=== PATIENT | male | born 1980 | race Hispanic/Latino ===

== ENCOUNTER 2018-01-14 00:08 | Emergency (ER) | payer MEDICAID ==
[2018-01-14 01:20] LABS: Hematocrit 43.7 % (35.5-45.6); Mean Corpuscular HGB Conc 34 % (32-34); Mean Corpuscular Hemoglobin 30 pg (28-32); Mean Corpuscular Volume 89 fl (84-94); Platelet Count 266 K/mm3 (140-440); Red Blood Count 4.93 M/mm3 (3.65-5.03); Red Cell Distribution Width 12.7 % (13.2-15.2)
[2018-01-14 02:51] LABS: BUN/Creatinine Ratio 13; Blood Urea Nitrogen 9 mg/dL (9-20); Calcium 9.5 mg/dL (8.4-10.2); Hemolysis Index 8
[2018-01-14 03:07] LABS: Band Neutrophils # (Manual) 0.6 K/mm3; Basophils % (Manual) 0 % (0.0-1.8); RBC Morphology Normal; Total Cells Counted 100
--- NOTE | 2018-01-14 03:43 | Emergency Department Report ---
HPI - General Chief Complaint: Psych Time Seen by Provider: 01/14/18 03:31 - [facility] HPI: Room 11 The patient is a 37-year-old male presenting with a chief complaint of schizophrenia. The patient has a history of schizophrenia who was brought in by store clerk cashier for evaluation after bizarre behavior. The patient reports lately he's been having auditory hallucinations telling him to "go to hell" as well as hurt himself. The patient states he intentionally hurt himself but punctured himself in the head as well as burning his finger on the stove. The patient states he walked outside today naked smoking a cigarette. Patient denies any forms of pain Location: Mental state Duration: Days Quality: Bizarre Severity: Severe Modifying factors: [see above] Context: [see above] Mode of transportation: [not driving] ED Past Medical Hx - Past Medical History Previous Medical History?: Yes Hx Psychiatric Treatment: Yes (Bipolar, Schizophrenia) - Surgical History Past Surgical History?: Yes Additional Surgical History: Hernia surgery - Family History Family history: no significant - Social History Smoking Status: Current Every Day Smoker (1 pack per day) Substance Use Type: None - Medications Home Medications: Home Medications Medication Instructions Recorded Confirmed Last Taken Type Unobtainable 01/14/18 01/14/18 Unknown History ED Review of Systems ROS: Stated complaint: BIPOLAR Other details as noted in HPI Constitutional: no symptoms reported Eyes: denies: eye pain ENT: denies: throat pain Cardiovascular: denies: chest pain Gastrointestinal: denies: abdominal pain Genitourinary: denies: dysuria Musculoskeletal: denies: back pain Neurological: denies: headache Psychiatric: auditory hallucinations Physical Exam - Physical Exam Vital Signs: Vital Signs 01/14/18 00:48 Temperature 98.0 F Pulse Rate 90 Respiratory 16 Rate Blood Pressure 120/73 O2 Sat by Pulse 94 Oximetry Physical Exam: GENERAL: The patient is well-developed well-nourished male sleeping on stretcher not appearing to be in acute distress. Patient easily awakened HEENT: Normocephalic. Atraumatic. Extraocular motions are intact. Patient has moist mucous membranes. NECK: Supple. Trachea midline CHEST/LUNGS: Clear to auscultation. There is no respiratory distress noted. HEART/CARDIOVASCULAR: Regular. There is no tachycardia. There is no gallop rub or murmur. ABDOMEN: Abdomen is soft, nontender. Patient has normal bowel sounds. There is no abdominal distention. SKIN: There is no rash. There is no edema. There is no diaphoresis. No evidence of burn seen on patient's fingers NEURO: The patient is awake, alert, and oriented. The patient is cooperative. The patient has normal speech MUSCULOSKELETAL: There is no evidence of acute injury. ED Course Vital Signs 01/14/18 00:48 Temperature 98.0 F Pulse Rate 90 Respiratory 16 Rate Blood Pressure 120/73 O2 Sat by Pulse 94 Oximetry ED Medical Decision Making - Lab Data Result diagrams: 01/14/18 00:55 01/14/18 00:55 Laboratory Tests 01/14/18 01/14/18 01/14/18 00:55 00:55 00:55 WBC RBC Hgb Hct MCV MCH MCHC RDW Plt Count Lymph # Add Manual Diff Total Counted Seg Neuts % (Manual) Band Neutrophils % Lymphocytes % (Manual) Reactive Lymphs % (Man) Monocytes % (Manual) Eosinophils % (Manual) Basophils % (Manual) Metamyelocytes % Myelocytes % Promyelocytes % Blast Cells % Nucleated RBC % Seg Neutrophils # Man Band Neutrophils # Lymphocytes # (Manual) Abs React Lymphs (Man) Monocytes # (Manual) Eosinophils # (Manual) Basophils # (Manual) Metamyelocytes # Myelocytes # Promyelocytes # Blast Cells # WBC Morphology Hypersegmented Neuts Hyposegmented Neuts Hypogranular Neuts Smudge Cells Toxic Granulation Toxic Vacuolation Dohle Bodies Pelger-Huet Anomaly Henrique Rods Platelet Estimate Clumped Platelets Plt Clumps, EDTA Large Platelets Giant Platelets Platelet Satelliting Plt Morphology Comment RBC Morphology Dimorphic RBCs Polychromasia Hypochromasia Poikilocytosis Anisocytosis Microcytosis Macrocytosis Spherocytes Pappenheimer Bodies Sickle Cells Target Cells Tear Drop Cells Ovalocytes Helmet Cells [place] Bodies [place] Rings [place] Cells Bite Cells Crenated Cell Elliptocytes Acanthocytes (Spur) Rouleaux Hemoglobin C Crystals Schistocytes Malaria parasites Jaguar Bodies Hem Pathologist Commnt Sodium 137 Potassium 4.0 Chloride 100.1 Carbon Dioxide 23 Anion Gap 18 BUN 9 Creatinine 0.7 L Estimated GFR > 60 BUN/Creatinine Ratio 13 Glucose 115 H Calcium 9.5 Salicylates < 0.3 L Acetaminophen < 5.0 L Plasma/Serum Alcohol 06/12/18 06/12/18 00:55 00:55 WBC 12.2 H RBC 4.93 Hgb 15.0 Hct 43.7 MCV 89 MCH 30 MCHC 34 RDW 12.7 L Plt Count 266 Lymph # Director Of [employer] Add Manual Diff Complete Total Counted 100 Seg Neuts % (Manual) 42.0 Band Neutrophils % 5.0 Lymphocytes % (Manual) 34.0 Reactive Lymphs % (Man) 0 Monocytes % (Manual) 10.0 H Eosinophils % (Manual) 6.0 H Basophils % (Manual) 0 Metamyelocytes % 3.0 Myelocytes % 0 Promyelocytes % 0 Blast Cells % 0 Nucleated RBC % Not Reportable Seg Neutrophils # Man 5.1 Band Neutrophils # 0.6 Lymphocytes # (Manual) 4.1 Abs React Lymphs (Man) 0.0 Monocytes # (Manual) 1.2 H Eosinophils # (Manual) 0.7 H Basophils # (Manual) 0.0 Metamyelocytes # 0.4 Myelocytes # 0.0 Promyelocytes # 0.0 Blast Cells # 0.0 WBC Morphology Not Reportable Hypersegmented Neuts Not Reportable Hyposegmented Neuts Not Reportable Hypogranular Neuts Not Reportable Smudge Cells Not Reportable Toxic Granulation Not Reportable Toxic Vacuolation Not Reportable Dohle Bodies Not Reportable Pelger-Huet Anomaly Not Reportable Henrique Rods Not Reportable Platelet Estimate Appears normal Clumped Platelets Not Reportable Plt Clumps, EDTA Not Reportable Large Platelets Not Reportable Giant Platelets Not Reportable Platelet Satelliting Not Reportable Plt Morphology Comment Not Reportable RBC Morphology Normal Dimorphic RBCs Not Reportable Polychromasia Not Reportable Hypochromasia Not Reportable Poikilocytosis Not Reportable Anisocytosis Not Reportable Microcytosis Not Reportable Macrocytosis Not Reportable Spherocytes Not Reportable Pappenheimer Bodies Not Reportable Sickle Cells Not Reportable Target Cells Not Reportable Tear Drop Cells Not Reportable Ovalocytes Not Reportable Helmet Cells Not Reportable [place] Bodies Not Reportable [place] Rings Not Reportable [place] Cells Not Reportable Bite Cells Not Reportable Crenated Cell Not Reportable Elliptocytes Not Reportable Acanthocytes (Spur) Not Reportable Rouleaux Not Reportable Hemoglobin C Crystals Not Reportable Schistocytes Not Reportable Malaria parasites Not Reportable Jaguar Bodies Not Reportable Hem Pathologist Commnt No Sodium Potassium Chloride Carbon Dioxide Anion Gap BUN Creatinine Estimated GFR BUN/Creatinine Ratio Glucose Calcium Salicylates Acetaminophen Plasma/Serum Alcohol < 0.01 - Differential Diagnosis schizophrenia Critical care attestation.: If time is entered above; I have spent that time in minutes in the direct care of this critically ill patient, excluding procedure time. ED Disposition Clinical Impression: Schizophrenia, Self-harm Disposition: DC/TX-65 PSY HOSP/PSY UNIT Is pt being admited?: No Does the pt Need Aspirin: No Condition: Fair Referrals: PRIMARY CARE, [Primary Care Provider] - 3-5 Days Time of Disposition: 03:44 (awaiting acceptance)
[2018-01-14] MEDS ORDERED: HALDOL IM PRN (03:44)
[2018-01-14] MEDS ORDERED: BENADRYL IM PRN (03:44)
[2018-01-14 07:29] LABS: Amphetamine Screen,Urine PRESUMPTIVE NEGATIVE; Benzodiazepines Screen,Urine PRESUMPTIVE NEGATIVE; Cannabinoid Screen,Urine PRESUMPTIVE NEGATIVE; Cocaine Screen,Urine PRESUMPTIVE NEGATIVE; Methadone Screen,Urine PRESUMPTIVE NEGATIVE; Opiate Screen,Urine PRESUMPTIVE NEGATIVE
[2018-01-14 08:15] LABS: Bilirubin,Urine NEG (Negative); Blood,Urine NEG (Negative); Color,Urine Yellow (Yellow); Protein,Urine <15 mg/dL mg/dL (Negative); Urobilinogen,Urine < 2.0 mg/dL (<2.0)
[2018-01-14] MEDS: ATIVAN IM PRN ×2 (08:59→23:15)
[2018-01-14] MEDS ORDERED: HABITROL TD NR (09:30)
[2018-01-14 09:56] LABS: Alanine Aminotransferase 48 units/L (7-56); Lipase 47 units/L (13-60)
--- NOTE | 2018-01-14 16:00 | Consultation ---
History of Present Illness - Reason for Consult Consult date: 01/14/18 Reason for consult: Mental Health Evaluation Requesting physician: URBANO ANDRADE - Chief Complaint Chief complaint: "I can't stop hitting myself" - History of Present Psychiatric Illness 37-year-old male presenting with a chief complaint of bizarre and self injury behavior. Today the patient agitated, but cooperative during the assessment. He was observed punching himself in the face. He stated that the voices are telling him to hurt himself. He stated that the voices are always in charge of him. He stated that the voices are telling him to "go to [facility]." He would not confirm or deny SI's. He stated that he take Haldol, [place], Depakote, and Cogentin. He denies HI's and VH's. He denies recreational drug use and alcohol consumption (etoh). Medications and Allergies Allergies Allergy/AdvReac Type Severity Reaction Status Date / Time No Known Allergies Allergy Unverified 01/14/18 00:46 Home Medications Medication Instructions Recorded Confirmed Last Taken Type Unobtainable 01/28/17 01/28/17 Unknown History Unobtainable 01/14/18 01/14/18 Unknown History Active Meds: Active Medications Diphenhydramine HCl (Benadryl) 50 mg IM Q6H PRN PRN Reason: Agitation Last Admin: 01/14/18 08:59 Dose: 50 mg Haloperidol Lactate (Haldol) 10 mg IM Q8H PRN PRN Reason: Agitation Last Admin: 01/14/18 09:00 Dose: 10 mg Lorazepam (Ativan) 2 mg IM Q8H PRN PRN Reason: Agitation Last Admin: 01/14/18 08:59 Dose: 2 mg Past psychiatric history - Past Medical History Past Medical History: other (Hernia) Past Surgical History: Other (Hernia Surgery) - past Psychiatric treatment and history psychiatric treatment history: Multiple inpatient psy settings. Denies a fam psy hx. - Social History Social history: other (Reside at a [place] [facility]) Mental Status Exam - Vital signs Last Vital Signs Temp 98.4 F 01/14/18 07:15 Pulse 54 L 01/14/18 07:15 Resp 18 01/14/18 07:15 BP 130/90 01/14/18 07:15 Pulse Ox 98 01/14/18 07:15 - Exam Narrative exam: MSE: Appearance: cooperative Behavior: regular eye contact Speech: regular rate and tone Mood: agitated Affect: congruent to mood Thought Process: circumstantial Thought Content: denies HI's and VH's, he would not confirm or deny SI's Motor Activity: lying in bed Cognition: A/O x 3 Insight: variable Judgment: variable Results Result Diagrams: 01/14/18 00:55 01/14/18 00:55 Abnormal lab results 01/14/18 01/14/18 01/14/18 Range/Units 00:55 00:55 00:55 WBC (4.5-11.0) K/mm3 RDW (13.2-15.2) % Monocytes % (Manual) (0.0-7.3) % Eosinophils % (Manual) (0.0-4.3) % Monocytes # (Manual) (0.0-0.8) K/mm3 Eosinophils # (Manual) (0.0-0.4) K/mm3 Creatinine 0.7 L (0.8-1.5) mg/dL Glucose 115 H (75-100) mg/dL Salicylates < 0.3 L (2.8-20.0) mg/dL Acetaminophen < 5.0 L (10.0-30.0) ug/mL 01/14/18 Range/Units 00:55 WBC 12.2 H (4.5-11.0) K/mm3 RDW 12.7 L (13.2-15.2) % Monocytes % (Manual) 10.0 H (0.0-7.3) % Eosinophils % (Manual) 6.0 H (0.0-4.3) % Monocytes # (Manual) 1.2 H (0.0-0.8) K/mm3 Eosinophils # (Manual) 0.7 H (0.0-0.4) K/mm3 Creatinine (0.8-1.5) mg/dL Glucose (75-100) mg/dL Salicylates (2.8-20.0) mg/dL Acetaminophen (10.0-30.0) ug/mL All other labs normal. Assessment and Plan Assessment and plan: Impression: Unspecified Mood DO with psy features. Today the patient agitated during the assessment. UDS is negative. Hx of self injury. DDx: Bipolar DO, R/O Schizoaffective DO Recommendation/Plan: Continue 1013 with placement to inpatient psy services. Start home medications Cogentin 0.5 mg PO HS for EPS prevention, Haldol 5 mg PO HS for psychosis, Depakote 500 mg PO BID for mood, and [place] 300 mg PO BID for mood. Discussed possible EPS symptoms of Haldol with patient.
[2018-01-14 20:07] VITALS: BP 102/67
[2018-01-14] MEDS ORDERED: ESKALITH PO SCH (22:00)
[2018-01-14] MEDS ORDERED: COGENTIN PO SCH (22:00)
[2018-01-14] MEDS ORDERED: HALDOL PO SCH (22:00)
== END 2018-01-15 03:10 ==
LOC: ED 00:08 → EEVIPCON 00:08 → ED 01-15 03:10
DX: F20.9 Schizophrenia, unspecified (principal); F31.9 Bipolar disorder, unspecified; F17.210 Nicotine dependence, cigarettes, uncomplicated
CPT/HCPCS: 36415; 80048; 80164; 80178; 80307; 81001; 82150; 83690; 84075; 84450; 84460; 85007; 85025; 96372; 99285; G0480; J1200; J1630; J2060; 80320

== ENCOUNTER 2019-01-26 21:06 | Emergency (ER) | payer MEDICARE ==
[2019-01-26] MEDS ORDERED: GEODON IM ONE (21:24)
--- NOTE | 2019-01-26 21:28 | Emergency Department Report ---
HPI - General Chief Complaint: Psych Time Seen by Provider: 01/26/19 21:22 - HPI HPI: 38-year-old male presents to the emergency department with the need for a mental health evaluation. He was brought in by his caregiver says that the patient has not been taking his medication even though he hasn't available. He has been going out of the house and taking off his clothes. He has been very disruptive and often aggressive towards other people in the jail. The patient has been repeatedly punched himself in the head. The patient was witnessed here laughing appropriately, responding to internal stimuli, and once again punching himself in the head repeatedly. He apparently has a past medical history bipolar disorder and schizophrenia. ED Past Medical Hx - Past Medical History Hx Psychiatric Treatment: Yes (Bipolar, Schizophrenia) Additional medical history: patient unable to give history - Surgical History Additional Surgical History: Hernia surgery - Social History Smoking Status: Current Every Day Smoker (1 pack per day) Substance Use Type: None - Medications Home Medications: Home Medications Medication Instructions Recorded Confirmed Last Taken Type ARIPiprazole 10 mg PO HS 01/26/19 01/26/[address] 500 mg PO BID 01/26/19 01/26/19 Unknown History [place] Carbonate 150 mg PO BID 01/26/19 01/26/19 Unknown History ED Review of Systems ROS: Stated complaint: MH Other details as noted in HPI Comment: Unobtainable due to pts medical conditions Physical Exam - Physical Exam Physical Exam: GENERAL: The patient is well-developed well-nourished. HENT: Normocephalic. Atraumatic. Patient has moist mucous membranes. EYES: Extraocular motions are intact. NECK: Supple. Trachea is midline. CHEST/LUNGS: Clear to auscultation. There is no respiratory distress noted. HEART/CARDIOVASCULAR: Regular. There is no tachycardia. There is no murmur. ABDOMEN: Abdomen is soft, nontender. Patient has normal bowel sounds. There is no abdominal distention. SKIN: Skin is warm and dry. NEURO: The patient is awake but displaying acute psychosis. Patient is not cooperative. No slurred speech. MUSCULOSKELETAL: There is no tenderness or deformity. There is no limitation range of motion. There is no evidence of acute injury. PSYCH: Patient is responding to internal stimuli. Inappropriate laughter. Emotionally labile. ED Medical Decision Making - Lab Data Result diagrams: 01/26/19 21:52 01/26/19 21:52 - Medical Decision Making This patient, with a history of bipolar disorder and schizophrenia, presents from his jail with a report that he is being aggressive towards the jail staff and other residents, generally agitated, exhibiting self-harm behavior. The patient does appear to be having acute psychosis in the emergency department as he is responding to internal stimuli, displaying inappropriate laughter, being emotionally labile, and was seen multiple times punching himself in the head. He was given a dose of Geodon for treatment of his acute psychosis. He has been made a 1013. His labs have been unremarkable. He was seen by the psych assessment team who agrees with the plan for inpatient involuntary psychiatric placement. His vital signs were stable throughout his ED course. Patient is now resting comfortably after the Geodon. He appears med ically cleared for psychiatric placement. - Differential Diagnosis schizophrenia, schizoaffective, bipolar disorder, substance abuse Critical Care Time: No Critical care attestation.: If time is entered above; I have spent that time in minutes in the direct care of this critically ill patient, excluding procedure time. ED Disposition Clinical Impression: Acute psychosis Disposition: DC/TX-65 PSY HOSP/PSY UNIT Is pt being admited?: No Condition: Stable Time of Disposition: 23:47
[2019-01-26 22:03] LABS: Basophils # (Auto) 0.1 K/mm3 (0.0-0.1); Basophils % (Auto) 0.8 % (0.0-1.8); Eosinophils # (Auto) 0.4 K/mm3 (0.0-0.4); Eosinophils % (Auto) 3.2 % (0.0-4.3); Hematocrit 41.8 % (35.5-45.6); Hemoglobin 14.3 gm/dl (11.8-15.2); Lymphocytes # (Auto) 3.5 K/mm3 (1.2-5.4); Lymphocytes % (Auto) 27.4 % (13.4-35.0); Mean Corpuscular HGB Conc 34 % (32-34); Mean Corpuscular Volume 88 fl (84-94); Monocytes # (Auto) 1.2 K/mm3 (0.0-0.8); Monocytes % (Auto) 9.1 % (0.0-7.3); Platelet Count 275 K/mm3 (140-440); Red Blood Count 4.74 M/mm3 (3.65-5.03); Red Cell Distribution Width 13.3 % (13.2-15.2)
[2019-01-26 22:51] LABS: BUN/Creatinine Ratio 20; Blood Urea Nitrogen 16 mg/dL (9-20); Calcium 9.8 mg/dL (8.4-10.2); Hemolysis Index 13
[2019-01-26 23:08] LABS: Bilirubin,Urine NEG (Negative); Blood,Urine NEG (Negative); Color,Urine Amber (Yellow); Mucus,Urine 3+ /HPF
[2019-01-26 23:17] LABS: Amphetamine Screen,Urine PRESUMPTIVE NEGATIVE; Benzodiazepines Screen,Urine PRESUMPTIVE NEGATIVE; Cannabinoid Screen,Urine PRESUMPTIVE NEGATIVE; Cocaine Screen,Urine PRESUMPTIVE NEGATIVE; Methadone Screen,Urine PRESUMPTIVE NEGATIVE; Opiate Screen,Urine PRESUMPTIVE NEGATIVE
[2019-01-27 08:18] VITALS: BP 137/84
[2019-01-27 09:31] LABS: Alanine Aminotransferase 31 units/L (7-56)
--- NOTE | 2019-01-27 12:16 | Consultation ---
History of Present Illness - Reason for Consult Consult date: 01/27/19 Reason for consult: Mental Health Evaluation Requesting physician: HARI DUNN - Chief Complaint Chief complaint: 'I don't know why I'm here' - History of Present Psychiatric Illness 38 y.o. white male who presented to the ER for acute psychosis. This patient is known to me. Today the patient was somewhat manic during the assessment. He was disorganized with his thoughts throughout the interview. He was asked several times why was he brought to the ER, his answers were not logical. He was observed smiling inappropriately, possibly responding to some type of stimuli. He did state that the haven't slept in 4 to 5 days because sleep wasn't needed. At this time, the patient is a poor historian. No gestures of SI/HI's. Medications and Allergies Allergies Allergy/AdvReac Type Severity Reaction Status Date / Time No Known Allergies Allergy Unverified 01/14/18 00:46 Home Medications Medication Instructions Recorded Confirmed Last Taken Type ARIPiprazole 10 mg PO HS 01/26/19 01/26/[address] 500 mg PO BID 01/26/19 01/26/19 Unknown History [place] Carbonate 150 mg PO BID 01/26/19 01/26/19 Unknown History Past psychiatric history - Past Medical History Past Medical History: No medical history Past Surgical History: No surgical history - past Psychiatric treatment and history psychiatric treatment history: Inpatient psy services in the past. Denies a fam psy hx. - Social History Social history: other (reside at a care home) Mental Status Exam - Vital signs Last Vital Signs Temp 98.3 F 01/27/19 08:35 Pulse 80 01/27/19 08:35 Resp 22 01/27/19 08:35 BP 137/84 01/27/19 08:35 Pulse Ox 94 01/27/19 08:35 - Exam Narrative exam: MSE: Appearance: in hospital attire Behavior: regular eye contact Speech: regular rate and tone Mood: labile Affect: congruent to mood Thought Process:disorganized Thought Content: denies SI/HI's and VH's, he would not confirm or deny AH's Motor Activity: lying in bed Cognition: A/O x 3 Insight: poor Judgment: poor Results Result Diagrams: 01/26/19 21:52 01/26/19 21:52 Abnormal lab results 01/26/19 01/26/19 01/26/19 Range/Units 21:52 21:52 Unknown WBC 12.7 H (4.5-11.0) K/mm3 [place] % (Auto) 9.1 H (0.0-7.3) % [place] # 1.2 H (0.0-0.8) K/mm3 Chloride 108.3 H (98-107) mmol/L Glucose 104 H (75-100) mg/dL Ur Specific [place] 1.031 H (1.003-1.030) Valproic Acid (50-100) ug/mL 01/27/19 Range/Units 09:09 WBC (4.5-11.0) K/mm3 [place] % (Auto) (0.0-7.3) % [place] # (0.0-0.8) K/mm3 Chloride (98-107) mmol/L Glucose (75-100) mg/dL Ur Specific [place] (1.003-1.030) Valproic Acid 18.1 L (50-100) ug/mL All other labs normal. Assessment and Plan Assessment and plan: Impression: Unspecified Mood DO with psy features. Today the patient was somewhat manic during the assessment. DDx: Bipolar DO with psychosis, Schizoaffective DO Recommendation/Plan: Continue 1013. Dispo: The patient was accepted at [facility] for inpatient psy services. Will staff with Dr. Tenzin Escobar.
== END 2019-01-27 11:29 ==
LOC: ED 21:06 → EEVIPCON 21:06 → ED 01-27 11:29
DX: F31.9 Bipolar disorder, unspecified (principal); F20.9 Schizophrenia, unspecified; F17.210 Nicotine dependence, cigarettes, uncomplicated; Z79.899 Other long term (current) drug therapy
CPT/HCPCS: 36415; 80048; 80164; 80178; 80307; 81001; 82150; 83690; 84075; 84450; 84460; 85025; 96372; 99285; G0480; J3486; 80320

== ENCOUNTER 2019-02-25 11:36 | Emergency (ER) | payer MEDICARE ==
[2019-02-25 11:45] VITALS: BP 127/82
--- NOTE | 2019-02-25 11:49 | Event Note ---
ED Screening Note Date of service: 02/25/19 Time: 11:46 ED Screening Note: 38 y/o male comes in for psych meds refill. This initial assessment/diagnostic orders/clinical plan/treatment(s) is/are subject to change based on patients health status, clinical progression and re- assessment by fellow clinical providers in the ED. Further treatment and workup at subsequent clinical providers discretion. Patient/guardian urged not to elope from the ED as their condition may be serious if not clinically assessed and managed. Initial orders include:
--- NOTE | 2019-02-25 12:30 | Emergency Department Report ---
ED General Adult HPI - General Chief complaint: Recheck/Abnormal Lab/Rx Stated complaint: MEDICATION REFILL Time Seen by Provider: 02/25/19 12:27 Source: patient Mode of arrival: Ambulatory Limitations: No Limitations - Related Data Home Medications Medication Instructions Recorded Confirmed Last Taken ARIPiprazole 10 mg PO HS 01/26/19 01/26/[address] 500 mg PO BID 01/26/19 01/26/19 Unknown [place] Carbonate 150 mg PO BID 01/26/19 01/26/19 Unknown Allergies Allergy/AdvReac Type Severity Reaction Status Date / Time No Known Allergies Allergy Unverified 01/14/18 00:46 ED Review of Systems ROS: Stated complaint: MEDICATION REFILL Other details as noted in HPI ED Past Medical Hx - Past Medical History Hx Psychiatric Treatment: Yes (Bipolar, Schizophrenia) Additional medical history: patient unable to give history - Surgical History Additional Surgical History: Hernia surgery - Social History Smoking Status: Current Every Day Smoker Substance Use Type: None - Medications Home Medications: Home Medications Medication Instructions Recorded Confirmed Last Taken Type ARIPiprazole 10 mg PO HS 01/26/19 01/26/[address] 500 mg PO BID 01/26/19 01/26/19 Unknown History [place] Carbonate 150 mg PO BID 01/26/19 01/26/19 Unknown History ED Physical Exam - General Limitations: No Limitations ED Course Vital Signs 02/25/19 11:44 Temperature 98 F Pulse Rate 105 H Respiratory 18 Rate Blood Pressure 127/82 O2 Sat by Pulse 95 Oximetry Critical care attestation.: If time is entered above; I have spent that time in minutes in the direct care of this critically ill patient, excluding procedure time. ED Disposition Disposition: DC-01 TO HOME OR SELFCARE Condition: Stable Instructions: Bipolar Disorder (ED) Referrals: FLACO BRAGA MD [Primary Care Provider] - 3-5 Days
== END 2019-02-25 12:40 | disposition home or self-care (01) ==
LOC: ED 11:36
DX: F31.9 Bipolar disorder, unspecified (principal); Z76.0 Encounter for issue of repeat prescription; F20.9 Schizophrenia, unspecified
CPT/HCPCS: 99282

== ENCOUNTER 2019-06-09 09:34 | Emergency (ER) | payer MEDICARE ==
[2019-06-09] MEDS ORDERED: SODIUM CHLORIDE 0.9% 1000 ML 1,000 ML IV ONE (09:56)
--- NOTE | 2019-06-09 09:56 | Emergency Department Report ---
ED Abdominal Pain HPI - General Chief Complaint: Abdominal Pain Stated Complaint: ABD PAIN/VOMITING Time Seen by Provider: 06/09/19 09:54 Source: EMS Mode of arrival: Stretcher Limitations: No Limitations - History of Present Illness Initial Comments: 38 yo comes to ER with 1 day hx diffuse abd pain. He comes from detention via ems. Denies fever, chills, SOB or chest pain. No dysuria. No congestion/sputum. PMH bipolar Rx li depakote keppra risperadol pt reports n/v; no diarrhea Took nothing at home prior to arrival MD Complaint: abdominal pain -: Sudden, days(s) Location: diffuse Migration to: no migration Improves With: nothing Worsens With: nothing Associated Symptoms: denies other symptoms - Related Data Home Medications Medication Instructions Recorded Confirmed Last Taken ARIPiprazole 10 mg PO HS 01/26/19 01/26/[address] 500 mg PO BID 01/26/19 01/26/19 Unknown [place] Carbonate 150 mg PO BID 01/26/19 01/26/19 Unknown Previous Rx's Medication Instructions Recorded Last Taken Type Ondansetron [Zofran Odt] 4 mg PO Q8HR PRN #10 tab.rapdis 06/09/19 Unknown Rx Allergies Allergy/AdvReac Type Severity Reaction Status Date / Time No Known Allergies Allergy Unverified 01/14/18 00:46 ED Review of Systems ROS: Stated complaint: ABD PAIN/VOMITING Other details as noted in HPI Comment: All other systems reviewed and negative ED Past Medical Hx - Past Medical History Previous Medical History?: Yes Hx Psychiatric Treatment: Yes (Bipolar, Schizophrenia) Additional medical history: patient unable to give history - Surgical History Past Surgical History?: Yes Additional Surgical History: Hernia surgery - Family History Family history: no significant - Social History Smoking Status: Current Every Day Smoker Substance Use Type: None - Medications Home Medications: Home Medications Medication Instructions Recorded Confirmed Last Taken Type ARIPiprazole 10 mg PO HS 01/26/19 01/26/[address] 500 mg PO BID 01/26/19 01/26/19 Unknown History [place] Carbonate 150 mg PO BID 01/26/19 01/26/19 Unknown History Ondansetron [Zofran Odt] 4 mg PO Q8HR PRN #10 tab.rapdis 06/09/19 Unknown Rx ED Physical Exam - General Limitations: No Limitations General appearance: alert, in no apparent distress - Head Head exam: Present: atraumatic, normocephalic - Eye Eye exam: Present: normal appearance - ENT ENT exam: Present: mucous membranes moist - Neck Neck exam: Present: normal inspection - Respiratory Respiratory exam: Present: normal lung sounds bilaterally. Absent: respiratory distress - Cardiovascular Cardiovascular Exam: Present: regular rate, normal rhythm, tachycardia (58 ON 12 LEAD; 90 ON EXAM). Absent: systolic murmur, diastolic murmur, rubs, gallop - GI/Abdominal GI/Abdominal exam: Present: soft, normal bowel sounds - Rectal Rectal exam: Present: deferred - Extremities Exam Extremities exam: Present: normal inspection - Back Exam Back exam: Present: normal inspection - Neurological Exam Neurological exam: Present: alert, oriented X3 - Psychiatric Psychiatric exam: Present: flat affect - Skin Skin exam: Present: warm, dry, intact, normal color. Absent: rash ED Course Vital Signs 06/09/19 06/09/19 06/09/19 09:58 10:05 16:55 Temperature 97.5 F L 110 F H Pulse Rate 110 H 110 H 121 H Respiratory 20 Rate Blood Pressure 133/101 Blood Pressure 133/101 129/80 [Left] O2 Sat by Pulse 95 95 98 Oximetry - Reevaluation(s) Reevaluation #1: 06/09/19 1400 REPORTS FEELING BETTER NO ABD PAIN HR 58 ON 12 LEAD ED Medical Decision Making - Lab Data Result diagrams: 06/09/19 10:16 06/09/19 10:16 - EKG Data EKG shows normal: sinus rhythm Rate: normal - EKG Data When compared to previous EKG there are: no significant change Interpretation: no acute changes - Radiology Data Radiology results: report reviewed, image reviewed - Medical Decision Making Labs 06/09/19 06/09/19 06/09/19 10:16 10:16 10:16 WBC 13.2 H RBC 5.17 H Hgb 15.5 H Hct 46.2 H MCV 89 MCH 30 MCHC 34 RDW 12.9 L Plt Count 355 Lymph % (Auto) 14.7 [place] % (Auto) 6.9 Eos % (Auto) 0.9 Baso % (Auto) 0.3 Lymph # 1.9 [place] # 0.9 H Eos # 0.1 Baso # 0.0 Seg Neutrophils % 77.2 H Seg Neutrophils # 10.1 H Sodium 136 L Potassium 4.2 Chloride 97.5 L Carbon Dioxide 24 Anion Gap 19 BUN 12 Creatinine 0.7 L Estimated GFR > 60 BUN/Creatinine Ratio 17 Glucose 126 H Calcium 9.9 Total Bilirubin 0.50 AST 23 ALT 37 Alkaline Phosphatase 43 Total Protein 7.7 Albumin 4.4 Albumin/Globulin Ratio 1.3 Lipase Urine Color Urine Turbidity Urine pH Ur Specific [place] Urine Protein Urine Glucose (UA) Urine Ketones Urine Blood Urine Nitrite Urine Bilirubin Urine Urobilinogen Ur Leukocyte Esterase Urine WBC (Auto) Urine RBC (Auto) U Epithel Cells (Auto) Urine Mucus Salicylates < 0.3 L Urine Opiates Screen Urine Methadone Screen Acetaminophen Ur Barbiturates Screen Valproic Acid 18.9 L Ur Phencyclidine Scrn Ur Amphetamines Screen U Benzodiazepines Scrn [place] 0.8 Urine Cocaine Screen U Marijuana (THC) Screen Drugs of Abuse Note Plasma/Serum Alcohol 06/09/19 06/09/19 06/09/19 10:16 10:16 10:16 WBC RBC Hgb Hct MCV MCH MCHC RDW Plt Count Lymph % (Auto) [place] % (Auto) Eos % (Auto) Baso % (Auto) Lymph # [place] # Eos # Baso # Seg Neutrophils % Seg Neutrophils # Sodium Potassium Chloride Carbon Dioxide Anion Gap BUN Creatinine Estimated GFR BUN/Creatinine Ratio Glucose Calcium Total Bilirubin AST ALT Alkaline Phosphatase Total Protein Albumin Albumin/Globulin Ratio Lipase 29 Urine Color Urine Turbidity Urine pH Ur Specific [place] Urine Protein Urine Glucose (UA) Urine Ketones Urine Blood Urine Nitrite Urine Bilirubin Urine Urobilinogen Ur Leukocyte Esterase Urine WBC (Auto) Urine RBC (Auto) U Epithel Cells (Auto) Urine Mucus Salicylates Urine Opiates Screen Urine Methadone Screen Acetaminophen < 5.0 L Ur Barbiturates Screen Valproic Acid Ur Phencyclidine Scrn Ur Amphetamines Screen U Benzodiazepines Scrn [place] Urine Cocaine Screen U Marijuana (THC) Screen Drugs of Abuse Note Plasma/Serum Alcohol < 0.01 06/09/19 06/09/19 10:17 10:17 WBC RBC Hgb Hct MCV MCH MCHC RDW Plt Count Lymph % (Auto) [place] % (Auto) Eos % (Auto) Baso % (Auto) Lymph # [place] # Eos # Baso # Seg Neutrophils % Seg Neutrophils # Sodium Potassium Chloride Carbon Dioxide Anion Gap BUN Creatinine Estimated GFR BUN/Creatinine Ratio Glucose Calcium Total Bilirubin AST ALT Alkaline Phosphatase Total Protein Albumin Albumin/Globulin Ratio Lipase Urine Color Yellow Urine Turbidity Clear Urine pH 9.0 H Ur Specific [place] 1.024 Urine Protein 100 mg/dl Urine Glucose (UA) Neg Urine Ketones Neg Urine Blood Neg Urine Nitrite Neg Urine Bilirubin Neg Urine Urobilinogen 2.0 Ur Leukocyte Esterase Neg Urine WBC (Auto) 1.0 Urine RBC (Auto) 2.0 U Epithel Cells (Auto) < 1.0 Urine Mucus 1+ Salicylates Urine Opiates Screen Presumptive negative Urine Methadone Screen Presumptive negative Acetaminophen Ur Barbiturates Screen Presumptive negative Valproic Acid Ur Phencyclidine Scrn Presumptive negative Ur Amphetamines Screen Presumptive negative U Benzodiazepines Scrn Presumptive negative [place] Urine Cocaine Screen Presumptive negative U Marijuana (THC) Screen Presumptive negative Drugs of Abuse Note Disclamer Plasma/Serum Alcohol Vital Signs 06/09/19 06/09/19 09:58 10:05 Temperature 97.5 F L 110 F H Pulse Rate 110 H 110 H Respiratory 20 Rate Blood Pressure 133/101 Blood Pressure 133/101 [Left] O2 Sat by Pulse 95 95 Oximetry Vital Signs 06/09/19 06/09/19 06/09/19 09:58 10:05 16:55 Temperature 97.5 F L 110 F H Pulse Rate 110 H 110 H 121 H Respiratory 20 Rate Blood Pressure 133/101 Blood Pressure 133/101 129/80 [Left] O2 Sat by Pulse 95 95 98 Oximetry taking po VSS no fever reports feeling better ambulatory in ER Provider BP 157/77, HR 90, RR20, sat room air 99. dc home in care of detention provider - Differential Diagnosis RO ACUTE ABD PROCESS/APPY/CHOLEY/PANCREATITIS/PYLO Critical care attestation.: If time is entered above; I have spent that time in minutes in the direct care of this critically ill patient, excluding procedure time. ED Disposition Clinical Impression: Abdominal pain Disposition: DC-01 TO HOME OR SELFCARE Is pt being admited?: No Does the pt Need Aspirin: No Condition: Stable Additional Instructions: CONTINUE HOME MEDS FOLLOW UP WITH YOUR PCP IN 24 HOURS FOR RECHECK DIET AND ACTIVITY TOLERATED Prescriptions: Ondansetron [Zofran Odt] 4 mg PO Q8HR PRN #10 tab.rapdis PRN Reason: Vomiting Referrals: [facility] [Outside] - 3-5 Days PRIMARY CARE, [Primary Care Provider] - 3-5 Days Time of Disposition: 13:50
[2019-06-09 10:35] LABS: Bilirubin,Urine NEG (Negative); Blood,Urine NEG (Negative); Color,Urine Yellow (Yellow); Mucus,Urine 1+ /HPF
[2019-06-09 10:40] LABS: Basophils % (Auto) 0.3 % (0.0-1.8); Eosinophils # (Auto) 0.1 K/mm3 (0.0-0.4); Eosinophils % (Auto) 0.9 % (0.0-4.3); Hematocrit 46.2 % (35.5-45.6); Hemoglobin 15.5 gm/dl (11.8-15.2); Lymphocytes # (Auto) 1.9 K/mm3 (1.2-5.4); Lymphocytes % (Auto) 14.7 % (13.4-35.0); Mean Corpuscular HGB Conc 34 % (32-34); Mean Corpuscular Volume 89 fl (84-94); Monocytes # (Auto) 0.9 K/mm3 (0.0-0.8); Monocytes % (Auto) 6.9 % (0.0-7.3); Red Blood Count 5.17 M/mm3 (3.65-5.03); Red Cell Distribution Width 12.9 % (13.2-15.2)
[2019-06-09 10:46] LABS: Amphetamine Screen,Urine PRESUMPTIVE NEGATIVE; Benzodiazepines Screen,Urine PRESUMPTIVE NEGATIVE; Cannabinoid Screen,Urine PRESUMPTIVE NEGATIVE; Cocaine Screen,Urine PRESUMPTIVE NEGATIVE; Methadone Screen,Urine PRESUMPTIVE NEGATIVE; Opiate Screen,Urine PRESUMPTIVE NEGATIVE
[2019-06-09] MEDS ORDERED: CEFEPIME/NS 2 GM/100 ML 2 GM/100 ML BAG IV ONE (10:51)
[2019-06-09] MEDS ORDERED: ONDANSETRON 4 MG/2 ML INJ IV ONE (10:51)
[2019-06-09 10:53] LABS: Platelet Count 355 K/mm3 (140-440)
[2019-06-09 11:07] LABS: Alanine Aminotransferase 37 units/L (7-56); Albumin 4.4 g/dL (3.9-5); BUN/Creatinine Ratio 17; Blood Urea Nitrogen 12 mg/dL (9-20); Calcium 9.9 mg/dL (8.4-10.2); Hemolysis Index 8
--- NOTE | 2019-06-09 12:01 | XRay Report ---
ABDOMINAL SERIES WITH CHEST X-RAY ONE VIEW HISTORY: Severe abdominal pain COMPARISON: None. FINDINGS: Single view of the chest demonstrates borderline heart size and clear lungs. Supine and upright views the abdomen demonstrate no evidence for obstruction, large air-fluid levels or free air. No pathologic calcifications are identified. Normal stool in the proximal colon. IMPRESSION: Unremarkable abdomen. Borderline cardiomegaly. Signer Name: Nader De La Torre Jr, MD Signed: 06/09/2019 11:57 AM Workstation Name: [id number]
--- NOTE | 2019-06-09 13:34 | Cat Scan Report ---
CT ABDOMEN AND PELVIS WITH CONTRAST HISTORY: Abdominal pain COMPARISON: None TECHNIQUE: Routine abdominal and pelvic CT exam performed with 100 mL of IV Omnipaque 300. All CT sca ns at this location are performed using CT dose reduction for ALARA by means of automated exposure co ntrol. FINDINGS: CT ABDOMEN: Lung Bases: No significant abnormality. Liver: Decreased attenuation consistent with hepatic steatosis. Biliary: No significant abnormality. Spleen: No significant abnormality. Unenlarged. Pancreas: No significant abnormality. Adrenals: No significant abnormality. Kidneys: No significant abnormality. Lymphatics: No lymphadenopathy. Vasculature: No significant abnormality. Bowel/Peritoneum: Nonobstructive bowel. Sigmoid diverticulosis without mesocolonic fat stranding. No free air. No free fluid. Normal appendix. CT PELVIC: : No significant abnormality. Lymphatics: No lymphadenopathy. Osseous Structures: No aggressive appearing osseous lesions. Additional Findings: There is a 2.5 cm simple intramuscular lipoma in the right superior external obl ique muscle belly. IMPRESSION: 1. No acute findings. 2. Hepatic steatosis. 3. Sigmoid diverticulosis without evidence of diverticulitis. Signer Name: Abner Nielson MD Signed: 06/09/2019 1:29 PM Workstation Name: [id number]
[2019-06-09] MEDS ORDERED: ACETAMINOPHEN 325 MG/10.15 ML ORAL LIQD UNIT DOSE PO ONE (13:54)
[2019-06-09 16:56] VITALS: BP 129/80
== END 2019-06-09 16:25 | disposition home or self-care (01) ==
LOC: ED 09:34
DX: R11.2 Nausea with vomiting, unspecified (principal); F31.9 Bipolar disorder, unspecified; F17.200 Nicotine dependence, unspecified, uncomplicated; F20.9 Schizophrenia, unspecified; Z79.899 Other long term (current) drug therapy
CPT/HCPCS: 36415; 74022; 74177; 80053; 80164; 80178; 80307; 81001; 83690; 85025; 93005; 93010; 96361; 96365; 96375; 99285; J0692; J2405; J7030; Q9967; 80320; G0480

== ENCOUNTER 2019-12-29 02:29 | Emergency (ER) | payer MEDICARE ==
[2019-12-29] MEDS: HALOPERIDOL LACTATE 5 MG/1 ML INJ IM PRN ×2 (02:45→16:11)
[2019-12-29] MEDS: LORazepam 2 MG/ML VIAL IM PRN ×2 (02:45→16:10)
[2019-12-29] MEDS: diphenhydrAMINE 50 MG/ML VIAL IM PRN ×2 (02:45→16:11)
--- NOTE | 2019-12-29 02:48 | Emergency Department Report ---
HPI - General PUI?: No Time Seen by Provider: 12/29/19 02:39 - HPI HPI: Room 17 The patient is a 39-year-old male present with a chief complaint of psychosis. The patient is a poor historian and presents with rambling speech and bizarre behavior. The patient would not state why he came to the emergency department but is observed in the ED punching himself in the face and saying nonsensical things. ED Past Medical Hx - Past Medical History Hx Psychiatric Treatment: Yes (Bipolar, Schizophrenia) Additional medical history: patient unable to give history - Surgical History Additional Surgical History: Hernia surgery - Family History Family history: no significant - Social History Smoking Status: Current Every Day Smoker Substance Use Type: None - Medications Home Medications: Home Medications Medication Instructions Recorded Confirmed Last Taken Type ARIPiprazole 10 mg PO HS 01/26/19 01/26/[address] 500 mg PO BID 01/26/19 01/26/19 Unknown History [place] Carbonate 150 mg PO BID 01/26/19 01/26/19 Unknown History Ondansetron [Zofran Odt] 4 mg PO Q8HR PRN #10 tab.rapdis 06/09/19 Unknown Rx ED Review of Systems ROS: Stated complaint: SI Other details as noted in HPI Comment: Unobtainable due to pts medical conditions Physical Exam - Physical Exam Physical Exam: GENERAL: The patient is well-developed well-nourished male pacing around the room with nonsensical speech. [] HEENT: Normocephalic. Atraumatic. Extraocular motions are intact. Patient has moist mucous membranes. NECK: Supple. Trachea midline CHEST/LUNGS: Clear to auscultation. There is no respiratory distress noted. HEART/CARDIOVASCULAR: Regular. There is no tachycardia. There is no gallop rub or murmur. ABDOMEN: Abdomen is soft, nontender. Patient has normal bowel sounds. There is no abdominal distention. SKIN: There is no rash. There is no edema. There is no diaphoresis. NEURO: The patient is awake, alert and anxious. Patient has rambling speech. The patient is cooperative. The patient has no focal neurologic deficits. The patient has normal gait. MUSCULOSKELETAL: There is no evidence of acute injury. ED Medical Decision Making - Lab Data Result diagrams: 12/29/19 02:56 12/29/19 02:56 Laboratory Tests 12/29/19 12/29/19 12/29/19 02:56 02:56 02:56 WBC 12.0 H RBC 4.70 Hgb 13.9 Hct 42.3 MCV 90 MCH 30 MCHC 33 RDW 13.3 Plt Count 282 Lymph % (Auto) 27.2 [place] % (Auto) 10.8 H Eos % (Auto) 4.2 Baso % (Auto) 0.4 Lymph # 3.3 [place] # 1.3 H Eos # 0.5 H Baso # 0.0 Seg Neutrophils % 57.4 Seg Neutrophils # 6.9 Sodium 138 Potassium 4.2 Chloride 96.5 L Carbon Dioxide 26 Anion Gap 20 BUN 12 Creatinine 0.7 L Estimated GFR > 60 BUN/Creatinine Ratio 17 Glucose 128 H Calcium 9.9 Urine Color Urine Turbidity Urine pH Ur Specific [place] Urine Protein Urine Glucose (UA) Urine Ketones Urine Blood Urine Nitrite Urine Bilirubin Urine Urobilinogen Ur Leukocyte Esterase Urine WBC (Auto) Urine RBC (Auto) Salicylates < 0.3 L Urine Opiates Screen Urine Methadone Screen Acetaminophen Ur Barbiturates Screen Valproic Acid 40.2 L Ur Phencyclidine Scrn Ur Amphetamines Screen U Benzodiazepines Scrn [place] 0.5 Urine Cocaine Screen U Marijuana (THC) Screen Drugs of Abuse Note Plasma/Serum Alcohol 12/29/19 12/29/19 12/29/19 02:56 02:56 Unknown WBC RBC Hgb Hct MCV MCH MCHC RDW Plt Count Lymph % (Auto) [place] % (Auto) Eos % (Auto) Baso % (Auto) Lymph # [place] # Eos # Baso # Seg Neutrophils % Seg Neutrophils # Sodium Potassium Chloride Carbon Dioxide Anion Gap BUN Creatinine Estimated GFR BUN/Creatinine Ratio Glucose Calcium Urine Color Yellow Urine Turbidity Clear Urine pH 6.0 Ur Specific [place] 1.024 Urine Protein 30 mg/dl Urine Glucose (UA) Neg Urine Ketones Neg Urine Blood Neg Urine Nitrite Neg Urine Bilirubin Neg Urine Urobilinogen 2.0 Ur Leukocyte Esterase Neg Urine WBC (Auto) 1.0 Urine RBC (Auto) 1.0 Salicylates Urine Opiates Screen Urine Methadone Screen Acetaminophen < 5.0 L Ur Barbiturates Screen Valproic Acid Ur Phencyclidine Scrn Ur Amphetamines Screen U Benzodiazepines Scrn [place] Urine Cocaine Screen U Marijuana (THC) Screen Drugs of Abuse Note Plasma/Serum Alcohol < 0.01 12/29/19 Unknown WBC RBC Hgb Hct MCV MCH MCHC RDW Plt Count Lymph % (Auto) [place] % (Auto) Eos % (Auto) Baso % (Auto) Lymph # [place] # Eos # Baso # Seg Neutrophils % Seg Neutrophils # Sodium Potassium Chloride Carbon Dioxide Anion Gap BUN Creatinine Estimated GFR BUN/Creatinine Ratio Glucose Calcium Urine Color Urine Turbidity Urine pH Ur Specific [place] Urine Protein Urine Glucose (UA) Urine Ketones Urine Blood Urine Nitrite Urine Bilirubin Urine Urobilinogen Ur Leukocyte Esterase Urine WBC (Auto) Urine RBC (Auto) Salicylates Urine Opiates Screen Presumptive negative Urine Methadone Screen Presumptive negative Acetaminophen Ur Barbiturates Screen Presumptive negative Valproic Acid Ur Phencyclidine Scrn Presumptive negative Ur Amphetamines Screen Presumptive negative U Benzodiazepines Scrn Presumptive negative [place] Urine Cocaine Screen Presumptive negative U Marijuana (THC) Screen Presumptive negative Drugs of Abuse Note Disclamer Plasma/Serum Alcohol - Differential Diagnosis Psychosis Critical care attestation.: If time is entered above; I have spent that time in minutes in the direct care of this critically ill patient, excluding procedure time. ED Disposition Clinical Impression: Psychosis Disposition: DC/TX-65 PSY HOSP/PSY UNIT Is pt being admited?: No Does the pt Need Aspirin: No Condition: Stable Referrals: PRIMARY CARE, [Primary Care Provider] - 3-5 Days Time of Disposition: 04:35 (Awaiting placement)
[2019-12-29 03:24] LABS: Basophils % (Auto) 0.4 % (0.0-1.8); Eosinophils # (Auto) 0.5 K/mm3 (0.0-0.4); Eosinophils % (Auto) 4.2 % (0.0-4.3); Hematocrit 42.3 % (35.5-45.6); Hemoglobin 13.9 gm/dl (11.8-15.2); Lymphocytes # (Auto) 3.3 K/mm3 (1.2-5.4); Lymphocytes % (Auto) 27.2 % (13.4-35.0); Mean Corpuscular HGB Conc 33 % (32-34); Mean Corpuscular Volume 90 fl (84-94); Monocytes # (Auto) 1.3 K/mm3 (0.0-0.8); Monocytes % (Auto) 10.8 % (0.0-7.3); Platelet Count 282 K/mm3 (140-440); Red Cell Distribution Width 13.3 % (13.2-15.2)
[2019-12-29 03:33] LABS: Bilirubin,Urine NEG (Negative); Blood,Urine NEG (Negative); Color,Urine Yellow (Yellow)
[2019-12-29 03:34] LABS: Amphetamine Screen,Urine PRESUMPTIVE NEGATIVE; Benzodiazepines Screen,Urine PRESUMPTIVE NEGATIVE; Cannabinoid Screen,Urine PRESUMPTIVE NEGATIVE; Cocaine Screen,Urine PRESUMPTIVE NEGATIVE; Methadone Screen,Urine PRESUMPTIVE NEGATIVE; Opiate Screen,Urine PRESUMPTIVE NEGATIVE
[2019-12-29 03:51] LABS: BUN/Creatinine Ratio 17; Blood Urea Nitrogen 12 mg/dL (9-20); Calcium 9.9 mg/dL (8.4-10.2); Hemolysis Index 9
[2019-12-29] MEDS ORDERED: ZIPRASIDONE MESYLATE 20 MG VIAL IM ONE ×2 (20:12→20:14)
[2019-12-29 20:14] VITALS: BP 161/87
[2019-12-29] MEDS ORDERED: WATER FOR INJ Sterile (PF) 10 ML ONE (20:14)
== END 2019-12-29 21:53 ==
LOC: ED 02:29
DX: F29 Unspecified psychosis not due to a substance or known physiological condition (principal); F31.9 Bipolar disorder, unspecified; F17.200 Nicotine dependence, unspecified, uncomplicated; Z98.890 Other specified postprocedural states; Z79.899 Other long term (current) drug therapy
CPT/HCPCS: 36415; 80048; 80164; 80178; 80307; 81001; 85025; 96372; 99285; J1200; J1630; J2060; J3486; 80320; G0480

== ENCOUNTER 2020-01-17 23:45 | Emergency (ER) | payer MEDICARE ==
--- NOTE | 2020-01-18 00:56 | Emergency Department Report ---
ED Psych HPI - General Chief Complaint: Psych Stated Complaint: SUICIDAL/MH EVAL Time Seen by Provider: 01/18/20 00:53 Source: EMS Mode of arrival: Stretcher - History of Present Illness Initial Comments: Patient is a 39-year-old male that presents emergency room with complaints of suicidal ideation with a plan and attempt by overdose with ecstasy. Patient states he took 1 ecstasy with the plan to . Patient states that he is having audiovisual hallucinations. Patient states that he wants to by overdose. Patient states when he came in he told him he took 100 but he actually took 1. Patient denies pain. Patient denies shortness of breath. Patient denies chest pain. Patient denies recent travel. Patient denies recent international travel. Patient denies exposure to the novel coronavirus. Patient denies sick contacts. Patient denies fever and chills. Patient denies cough. Patient denies diarrhea. Patient denies coming in contact with anybody with symptoms of the novel coronavirus. MD Complaint: suicidal ideation, feels depressed -: Sudden Associated Psychiatric Symptoms: depression, suicidal ideation, racing thoughts, auditory hallucinations, visual hallucinations History of same: Yes Quality: constant Improves With: none Worsens With: none Associated Symptoms: denies: confusion, headache, shortness of breath, nausea, vomiting, syncope, insomnia If Self Harm: admits thoughts of, has plan, has acted on plan - Related Data Home Medications Medication Instructions Recorded Confirmed Last Taken ARIPiprazole 10 mg PO HS 01/26/19 01/26/[address] 500 mg PO BID 01/26/19 01/26/19 Unknown [place] Carbonate 150 mg PO BID 01/26/19 01/26/19 Unknown Previous Rx's Medication Instructions Recorded Last Taken Type Ondansetron [Zofran Odt] 4 mg PO Q8HR PRN #10 tab.rapdis 06/09/19 Unknown Rx Allergies Allergy/AdvReac Type Severity Reaction Status Date / Time No Known Allergies Allergy Unverified 01/18/20 00:24 ED Review of Systems ROS: Stated complaint: SUICIDAL/MH EVAL Other details as noted in HPI Constitutional: denies: chills, fever Eyes: denies: eye pain, eye discharge, vision change ENT: denies: ear pain, throat pain Respiratory: denies: cough, shortness of breath, wheezing Cardiovascular: denies: chest pain, palpitations Endocrine: no symptoms reported Gastrointestinal: denies: abdominal pain, nausea, diarrhea Genitourinary: denies: urgency, dysuria Musculoskeletal: denies: back pain, joint swelling, arthralgia Skin: denies: rash, lesions Neurological: denies: headache, weakness, paresthesias Psychiatric: depression, auditory hallucinations, visual hallucinations, suicidal thoughts. denies: anxiety Hematological/Lymphatic: denies: easy bleeding, easy bruising ED Past Medical Hx - Past Medical History Previous Medical History?: Yes Hx Psychiatric Treatment: Yes (Bipolar, Schizophrenia, ODD,ADD) Additional medical history: patient unable to give history - Surgical History Past Surgical History?: Yes Additional Surgical History: Hernia surgery - Family History Family history: no significant - Social History Smoking Status: Never Smoker Substance Use Type: Cocaine, Heroin - Medications Home Medications: Home Medications Medication Instructions Recorded Confirmed Last Taken Type ARIPiprazole 10 mg PO HS 01/26/19 01/26/[address] 500 mg PO BID 01/26/19 01/26/19 Unknown History [place] Carbonate 150 mg PO BID 01/26/19 01/26/19 Unknown History Ondansetron [Zofran Odt] 4 mg PO Q8HR PRN #10 tab.rapdis 06/09/19 Unknown Rx ED Physical Exam - General Limitations: No Limitations General appearance: alert, in no apparent distress - Head Head exam: Present: atraumatic, normocephalic - Eye Eye exam: Present: normal appearance - ENT ENT exam: Present: mucous membranes moist - Neck Neck exam: Present: normal inspection - Respiratory Respiratory exam: Present: normal lung sounds bilaterally. Absent: respiratory distress - Cardiovascular Cardiovascular Exam: Present: regular rate, normal rhythm. Absent: systolic murmur, diastolic murmur, rubs, gallop - GI/Abdominal GI/Abdominal exam: Present: soft, normal bowel sounds - Rectal Rectal exam: Present: deferred - Extremities Exam Extremities exam: Present: normal inspection - Back Exam Back exam: Present: normal inspection - Neurological Exam Neurological exam: Present: alert, oriented X3 - Psychiatric Psychiatric exam: Present: anxious, flat affect, manic, suicidal ideation - Expanded Psychiatric Exam Expanded Focused psych exam: Present: pressured speech, internal stimuli, restlessness, flight of ideas, loose associations - Skin Skin exam: Present: warm, dry, intact, normal color. Absent: rash ED Course Vital Signs 01/18/20 01/18/20 01/18/20 00:05 03:23 09:53 Temperature 99.2 F 98.5 F Pulse Rate 111 H 85 Respiratory 18 18 16 Rate Blood Pressure 132/64 Blood Pressure 126/79 [Left] O2 Sat by Pulse 95 98 96 Oximetry 01/18/20 12:00 Temperature Pulse Rate Respiratory 18 Rate Blood Pressure Blood Pressure [Left] O2 Sat by Pulse Oximetry - Reevaluation(s) Reevaluation #1: Patient placed on a ER hold. Patient placed on 1013. Patient will have labs done. Patient refused labs initially. 01/18/20 00:55 Reevaluation #2: Poison control will be contacted by the nurse. See poison control recommendations below. 01/18/20 01:21 TIBURCIO MOTA Male : 1980 MedRec# [id number] 01/18/20 01:10 (created 01/18/20 01:37) - Nurse Note by SAJAN SALVADOR Acct Num: [id number] : 1980 Patient Age: 39 Spoke with [facility] [place] Poison Control orders given to give supportive care and treat symptomatic symptoms. Initialized on 01/18/20 01:37 - END OF NOTE Reevaluation #3: Patient is medically cleared. Patient will remain in the ER until his final disposition comes from our mental health and psychiatry team. Patient will remain on a 1013 and an ER hold. 01/18/20 02:21 ED Medical Decision Making - Lab Data Result diagrams: 01/18/20 01:01 01/18/20 01:01 - Medical Decision Making Patient is a 39-year-old male who presents emergency room with multiple psychiatric complaints to include suicidal ideation with a suicide attempt by overdose on ecstasy. Poison control was called and recommendations were received. Patient had labs done. Patient's labs are essentially unremarkable. Patient is medically cleared and will remain in our ER until the patient's final disposition comes from our psychiatry mental health team. Patient was placed on 1013 due to his complaints and his psychosis. - Differential Diagnosis Overdose, suicidal ideation, suicide attempt, psychosis Critical care attestation.: If time is entered above; I have spent that time in minutes in the direct care of this critically ill patient, excluding procedure time. ED Disposition Clinical Impression: Suicidal ideations, Suicide attempt, Acute psychosis Overdose Qualifiers: Encounter type: initial encounter Injury intent: intentional self-harm Qualified Code(s): T50.902A - Poisoning by unspecified drugs, medicaments and biological substances, intentional self-harm, initial encounter Disposition: DC/TX-65 PSY HOSP/PSY UNIT Is pt being admited?: No Does the pt Need Aspirin: No Condition: Stable Referrals: DARYN JULES MD [Primary Care Provider] - 3-5 Days Time of Disposition: 02:23
[2020-01-18] MEDS ORDERED: ZIPRASIDONE MESYLATE 20 MG VIAL IM ONE (01:19)
[2020-01-18 01:46] LABS: Basophils % (Auto) 0.3 % (0.0-1.8); Eosinophils # (Auto) 0.4 K/mm3 (0.0-0.4); Eosinophils % (Auto) 3.4 % (0.0-4.3); Hemoglobin 14.3 gm/dl (11.8-15.2); Mean Corpuscular HGB Conc 34 % (32-34); Mean Corpuscular Volume 88 fl (84-94); Monocytes # (Auto) 0.8 K/mm3 (0.0-0.8); Monocytes % (Auto) 7.2 % (0.0-7.3); Platelet Count 303 K/mm3 (140-440); Red Blood Count 4.76 M/mm3 (3.65-5.03); Red Cell Distribution Width 13.1 % (13.2-15.2)
[2020-01-18 01:51] LABS: BUN/Creatinine Ratio 27; Blood Urea Nitrogen 16 mg/dL (9-20); Calcium 9.1 mg/dL (8.4-10.2); Hemolysis Index 23
[2020-01-18 09:54] VITALS: BP 126/79
[2020-01-18 15:57] LABS: Bilirubin,Urine NEG (Negative); Blood,Urine NEG (Negative); Color,Urine Yellow (Yellow); Mucus,Urine FEW /HPF; Protein,Urine <15 mg/dL mg/dL (Negative); Sperm,Urine FEW /HPF (NP); Urobilinogen,Urine < 2.0 mg/dL (<2.0); WBC,Urine < 1.0 /HPF (0.0-6.0)
[2020-01-18 16:27] LABS: Amphetamine Screen,Urine PRESUMPTIVE NEGATIVE; Benzodiazepines Screen,Urine PRESUMPTIVE NEGATIVE; Cannabinoid Screen,Urine PRESUMPTIVE NEGATIVE; Cocaine Screen,Urine PRESUMPTIVE NEGATIVE; Methadone Screen,Urine PRESUMPTIVE NEGATIVE; Opiate Screen,Urine PRESUMPTIVE NEGATIVE
== END 2020-01-18 19:56 ==
LOC: EEVIPCON 23:45 → ED 23:45
DX: T65.92XA Toxic effect of unspecified substance, intentional self-harm, initial encounter (principal); R45.851 Suicidal ideations; F23 Brief psychotic disorder; F14.10 Cocaine abuse, uncomplicated; Z79.899 Other long term (current) drug therapy; Z98.890 Other specified postprocedural states; Y92.89 Other specified places as the place of occurrence of the external cause
CPT/HCPCS: 36415; 80048; 80307; 81001; 85025; 96372; 99285; J3486; 80320; G0480

== ENCOUNTER 2020-05-23 12:04 | Inpatient (IN) | payer MEDICARE ==
--- NOTE | 2020-05-23 13:28 | XRay Report ---
CHEST 2 VIEWS INDICATION / CLINICAL INFORMATION: SOB. COMPARISON: Acute abdominal series from 06/09/2019. FINDINGS: SUPPORT DEVICES: None. HEART / MEDIASTINUM: No significant abnormality. LUNGS / PLEURA: Mildly reduced lung volumes with probable mild bibasilar atelectasis. The lungs are o therwise clear. No significant pleural effusion. No pneumothorax. ADDITIONAL FINDINGS: No significant additional findings. IMPRESSION: Probable bibasilar atelectasis. Signer Name: Alxe Chi MD Signed: 05/23/2020 1:23 PM Workstation Name: [id number]
--- NOTE | 2020-05-23 13:38 | Emergency Department Report ---
ED General Adult HPI - General Chief complaint: Dyspnea/Respdistress Stated complaint: WANDY Time Seen by Provider: 05/23/20 13:27 Source: patient Mode of arrival: Ambulatory Limitations: No Limitations - History of Present Illness Initial comments: Patient presents to the emergency department the chief complaint of shortness of breath has been present for the last 2 days. Patient states with any movement he becomes increasingly short of breath. Patient also endorses a cough but denies a fever. Patient also denies chest pain. -: Sudden Severity scale (0 -10): 0 Improves with: none Worsens with: none Associated Symptoms: denies other symptoms Treatments Prior to Arrival: none - Related Data Home Medications Medication Instructions Recorded Confirmed Last Taken ARIPiprazole 10 mg PO HS 01/26/19 01/26/[address] 500 mg PO BID 01/26/19 01/26/19 Unknown [place] Carbonate 150 mg PO BID 01/26/19 01/26/19 Unknown Previous Rx's Medication Instructions Recorded Last Taken Type Ondansetron [Zofran Odt] 4 mg PO Q8HR PRN #10 tab.rapdis 06/09/19 Unknown Rx Allergies Allergy/AdvReac Type Severity Reaction Status Date / Time No Known Allergies Allergy Unverified 01/18/20 00:24 ED Review of Systems ROS: Stated complaint: WANDY Other details as noted in HPI Comment: All other systems reviewed and negative Constitutional: denies: chills, fever Eyes: denies: eye pain, eye discharge, vision change ENT: denies: ear pain, throat pain Respiratory: shortness of breath. denies: cough, wheezing Cardiovascular: denies: chest pain, palpitations Endocrine: no symptoms reported Gastrointestinal: denies: abdominal pain, nausea, diarrhea Genitourinary: denies: urgency, dysuria Musculoskeletal: denies: back pain, joint swelling, arthralgia Skin: denies: rash, lesions Neurological: denies: headache, weakness, paresthesias Psychiatric: denies: anxiety, depression Hematological/Lymphatic: denies: easy bleeding, easy bruising ED Past Medical Hx - Past Medical History Previous Medical History?: Yes Hx Psychiatric Treatment: Yes (Bipolar, Schizophrenia, ODD,ADD) Additional medical history: patient unable to give history - Surgical History Past Surgical History?: Yes Additional Surgical History: Hernia surgery - Social History Smoking Status: Current Every Day Smoker - Medications Home Medications: Home Medications Medication Instructions Recorded Confirmed Last Taken Type ARIPiprazole 10 mg PO HS 01/26/19 01/26/[address] 500 mg PO BID 01/26/19 01/26/19 Unknown History [place] Carbonate 150 mg PO BID 01/26/19 01/26/19 Unknown History Ondansetron [Zofran Odt] 4 mg PO Q8HR PRN #10 tab.rapdis 06/09/19 Unknown Rx ED Physical Exam - General Limitations: No Limitations General appearance: alert, in no apparent distress - Head Head exam: Present: atraumatic, normocephalic - Eye Eye exam: Present: normal appearance, PERRL, EOMI - ENT ENT exam: Present: mucous membranes moist - Neck Neck exam: Present: normal inspection - Respiratory Respiratory exam: Present: rales. Absent: respiratory distress - Cardiovascular Cardiovascular Exam: Present: normal rhythm, tachycardia. Absent: systolic murmur, diastolic murmur, rubs, gallop - GI/Abdominal GI/Abdominal exam: Present: soft, normal bowel sounds. Absent: distended, tenderness - Rectal Rectal exam: Present: deferred - Extremities Exam Extremities exam: Present: normal inspection - Back Exam Back exam: Present: normal inspection - Neurological Exam Neurological exam: Present: alert, oriented X3, CN II-XII intact. Absent: motor sensory deficit - Psychiatric Psychiatric exam: Present: normal affect, normal mood - Skin Skin exam: Present: warm, dry, intact, normal color. Absent: rash ED Course Vital Signs 05/23/20 05/23/20 05/23/20 12:17 13:05 14:31 Temperature 98.1 F Pulse Rate 104 H 88 Respiratory 20 20 Rate Blood Pressure 122/78 135/81 O2 Sat by Pulse 89 89 98 Oximetry 05/23/20 05/23/20 15:02 15:30 Temperature Pulse Rate Respiratory Rate Blood Pressure 146/81 140/89 O2 Sat by Pulse 98 96 Oximetry ED Medical Decision Making - Lab Data Result diagrams: 05/23/20 14:22 05/23/20 14:22 Lab Results 05/23/20 05/23/20 05/23/20 Range/Units 14:20 14:22 14:22 WBC 10.4 (4.5-11.0) K/mm3 RBC 4.78 (3.65-5.03) M/mm3 Hgb 14.2 (11.8-15.2) gm/dl Hct 42.6 (35.5-45.6) % MCV 89 (84-94) fl MCH 30 (28-32) pg MCHC 33 (32-34) % RDW 14.4 (13.2-15.2) % Plt Count 280 (140-440) K/mm3 Add Manual Diff Complete Total Counted 100 Seg Neuts % (Manual) 63.0 (40.0-70.0) % Band Neutrophils % 0 % Lymphocytes % (Manual) 24.0 (13.4-35.0) % Reactive Lymphs % (Man) 0 % Monocytes % (Manual) 9.0 H (0.0-7.3) % Eosinophils % (Manual) 3.0 (0.0-4.3) % Basophils % (Manual) 1.0 (0.0-1.8) % Metamyelocytes % 0 % Myelocytes % 0 % Promyelocytes % 0 % Blast Cells % 0 % Nucleated RBC % Not Reportable Seg Neutrophils # Man 6.6 (1.8-7.7) K/mm3 Band Neutrophils # 0.0 K/mm3 Lymphocytes # (Manual) 2.5 (1.2-5.4) K/mm3 Abs React Lymphs (Man) 0.0 K/mm3 Monocytes # (Manual) 0.9 H (0.0-0.8) K/mm3 Eosinophils # (Manual) 0.3 (0.0-0.4) K/mm3 Basophils # (Manual) 0.1 (0.0-0.1) K/mm3 Metamyelocytes # 0.0 K/mm3 Myelocytes # 0.0 K/mm3 Promyelocytes # 0.0 K/mm3 Blast Cells # 0.0 K/mm3 WBC Morphology Not Reportable Hypersegmented Neuts Not Reportable Hyposegmented Neuts Not Reportable Hypogranular Neuts Not Reportable Smudge Cells Not Reportable Toxic Granulation Not Reportable Toxic Vacuolation Not Reportable Dohle Bodies Not Reportable Pelger-Huet Anomaly Not Reportable Henrique Rods Not Reportable Platelet Estimate Not Reportable Clumped Platelets Not Reportable Plt Clumps, EDTA Not Reportable Large Platelets Not Reportable Giant Platelets Not Reportable Platelet Satelliting Not Reportable Plt Morphology Comment Not Reportable RBC Morphology Normal Dimorphic RBCs Not Reportable Polychromasia Not Reportable Hypochromasia Not Reportable Poikilocytosis Not Reportable Anisocytosis Not Reportable Microcytosis Not Reportable Macrocytosis Not Reportable Spherocytes Not Reportable Pappenheimer Bodies Not Reportable Sickle Cells Not Reportable Target Cells Not Reportable Tear Drop Cells Not Reportable Ovalocytes Not Reportable Helmet Cells Not Reportable [place] Bodies Not Reportable [place] Rings Not Reportable [place] Cells Not Reportable Bite Cells Not Reportable Crenated Cell Not Reportable Elliptocytes Not Reportable Acanthocytes (Spur) Not Reportable Rouleaux Not Reportable Hemoglobin C Crystals Not Reportable Schistocytes Not Reportable Malaria parasites Not Reportable Jaguar Bodies Not Reportable Hem Pathologist Commnt No D-Dimer (0-234) ng/mlDDU ABG pH 7.339 L (7.350-7.450) pH Units ABG pCO2 64.8 mm Hg ABG pO2 49.3 L (80.0-90.0) mm Hg ABG HCO3 34.1 H (20.0-26.0) mmol/L ABG O2 Saturation 84.7 L (95.0-99.0) % ABG O2 Content 15.6 (0.0-44) ABG Base Excess 6.1 H (-2.0-3.0) mmol/L ABG Hemoglobin 14.4 (14.0-18.0) gm/dl ABG Carboxyhemoglobin 8.6 H (0.0-5.0) % ABG Methemoglobin 0.5 (0.0-1.5) % Oxyhemoglobin 77.0 L (95.0-99.0) % FiO2 21 % Sodium 139 (137-145) mmol/L Potassium 4.6 (3.6-5.0) mmol/L Chloride 95.9 L (98-107) mmol/L Carbon Dioxide 32 H (22-30) mmol/L Anion Gap 16 mmol/L BUN 9 (9-20) mg/dL Creatinine 0.6 L (0.8-1.3) mg/dL Estimated GFR > 60 ml/min BUN/Creatinine Ratio 15 % Glucose 246 H (75-100) mg/dL Calcium 9.2 (8.4-10.2) mg/dL Total Bilirubin 0.20 (0.1-1.2) mg/dL AST 48 H (5-40) units/L ALT 68 H (7-56) units/L Alkaline Phosphatase 58 (35-129) units/L Troponin T (0.00-0.029) ng/mL NT-Pro-B Natriuret Pep 35.71 (0-450) pg/mL Total Protein 6.9 (6.3-8.2) g/dL Albumin 4.0 (3.9-5) g/dL Albumin/Globulin Ratio 1.4 % 05/23/20 05/23/20 05/23/20 Range/Units 14:22 14:22 16:12 WBC (4.5-11.0) K/mm3 RBC (3.65-5.03) M/mm3 Hgb (11.8-15.2) gm/dl Hct (35.5-45.6) % MCV (84-94) fl MCH (28-32) pg MCHC (32-34) % RDW (13.2-15.2) % Plt Count (140-440) K/mm3 Add Manual Diff Total Counted Seg Neuts % (Manual) (40.0-70.0) % Band Neutrophils % % Lymphocytes % (Manual) (13.4-35.0) % Reactive Lymphs % (Man) % Monocytes % (Manual) (0.0-7.3) % Eosinophils % (Manual) (0.0-4.3) % Basophils % (Manual) (0.0-1.8) % Metamyelocytes % % Myelocytes % % Promyelocytes % % Blast Cells % % Nucleated RBC % Seg Neutrophils # Man (1.8-7.7) K/mm3 Band Neutrophils # K/mm3 Lymphocytes # (Manual) (1.2-5.4) K/mm3 Abs React Lymphs (Man) K/mm3 Monocytes # (Manual) (0.0-0.8) K/mm3 Eosinophils # (Manual) (0.0-0.4) K/mm3 Basophils # (Manual) (0.0-0.1) K/mm3 Metamyelocytes # K/mm3 Myelocytes # K/mm3 Promyelocytes # K/mm3 Blast Cells # K/mm3 WBC Morphology Hypersegmented Neuts Hyposegmented Neuts Hypogranular Neuts Smudge Cells Toxic Granulation Toxic Vacuolation Dohle Bodies Pelger-Huet Anomaly Henrique Rods Platelet Estimate Clumped Platelets Plt Clumps, EDTA Large Platelets Giant Platelets Platelet Satelliting Plt Morphology Comment RBC Morphology Dimorphic RBCs Polychromasia Hypochromasia Poikilocytosis Anisocytosis Microcytosis Macrocytosis Spherocytes Pappenheimer Bodies Sickle Cells Target Cells Tear Drop Cells Ovalocytes Helmet Cells [place] Bodies [place] Rings [place] Cells Bite Cells Crenated Cell Elliptocytes Acanthocytes (Spur) Rouleaux Hemoglobin C Crystals Schistocytes Malaria parasites Jaguar Bodies Hem Pathologist Commnt D-Dimer 191.37 (0-234) ng/mlDDU ABG pH (7.350-7.450) pH Units ABG pCO2 mm Hg ABG pO2 (80.0-90.0) mm Hg ABG HCO3 (20.0-26.0) mmol/L ABG O2 Saturation (95.0-99.0) % ABG O2 Content (0.0-44) ABG Base Excess (-2.0-3.0) mmol/L ABG Hemoglobin (14.0-18.0) gm/dl ABG Carboxyhemoglobin (0.0-5.0) % ABG Methemoglobin (0.0-1.5) % Oxyhemoglobin (95.0-99.0) % FiO2 % Sodium (137-145) mmol/L Potassium (3.6-5.0) mmol/L Chloride (98-107) mmol/L Carbon Dioxide (22-30) mmol/L Anion Gap mmol/L BUN (9-20) mg/dL Creatinine (0.8-1.3) mg/dL Estimated GFR ml/min BUN/Creatinine Ratio % Glucose (75-100) mg/dL Calcium (8.4-10.2) mg/dL Total Bilirubin (0.1-1.2) mg/dL AST (5-40) units/L ALT (7-56) units/L Alkaline Phosphatase (35-129) units/L Troponin T < 0.010 < 0.010 (0.00-0.029) ng/mL NT-Pro-B Natriuret Pep (0-450) pg/mL Total Protein (6.3-8.2) g/dL Albumin (3.9-5) g/dL Albumin/Globulin Ratio % - EKG Data -: EKG Interpreted by Me EKG shows normal: sinus rhythm Rate: normal - Radiology Data Radiology results: report reviewed - Medical Decision Making Laboratory values reviewed as well as ABG Patient placed on supplemental oxygen Critical Care Time: Yes Critical care time in (mins) excluding proc time.: 35 Critical care attestation.: If time is entered above; I have spent that time in minutes in the direct care of this critically ill patient, excluding procedure time. ED Disposition Clinical Impression: Hypoxia Disposition: DC-01 TO HOME OR SELFCARE Is pt being admited?: Yes Does the pt Need Aspirin: No Condition: Stable Instructions: Hypoxia (ED) Referrals: PRIMARY CARE, [Primary Care Provider] - 3-5 Days
[2020-05-23 14:34] LABS: ABG Base Excess 6.1 mmol/L (-2.0-3.0); ABG HCO3 34.1 mmol/L (20.0-26.0); ABG Methemoglobin 0.5 % (0.0-1.5); ABG Oxygen Saturation 84.7 % (95.0-99.0); ABG PCO2 64.8 mm Hg; ABG PH 7.339 pH Units (7.350-7.450); ABG PO2 49.3 mm Hg (80.0-90.0)
[2020-05-23 14:36] LABS: Hematocrit 42.6 % (35.5-45.6); Hemoglobin 14.2 gm/dl (11.8-15.2); Mean Corpuscular HGB Conc 33 % (32-34); Mean Corpuscular Volume 89 fl (84-94); Platelet Count 280 K/mm3 (140-440); Red Blood Count 4.78 M/mm3 (3.65-5.03); Red Cell Distribution Width 14.4 % (13.2-15.2)
[2020-05-23 14:56] LABS: Alanine Aminotransferase 68 units/L (7-56); Blood Urea Nitrogen 9 mg/dL (9-20); Calcium 9.2 mg/dL (8.4-10.2); Hemolysis Index 11
[2020-05-23 14:57] LABS: BUN/Creatinine Ratio 15
[2020-05-23 15:46] LABS: RBC Morphology Normal; Total Cells Counted 100
--- NOTE | 2020-05-23 17:00 | Cat Scan Report ---
CT CHEST WITHOUT CONTRAST INDICATION / CLINICAL INFORMATION: pneumonia. TECHNIQUE: Axial CT images were obtained through the chest without contrast. All CT scans at this location are p erformed using CT dose reduction for ALARA by means of automated exposure control. COMPARISON: 2 views of the chest from earlier today. FINDINGS: HEART: No significant abnormality. VASCULATURE: No significant abnormality. LYMPH NODES: No significant adenopathy. TRACHEA AND BRONCHI:No significant abnormality. LUNGS: Lung volumes are reduced with bibasilar atelectasis. No suspicious area of consolidation, nodu le or mass is otherwise noted. PLEURA: No significant pleural effusion. No pneumothorax. UPPER ABDOMEN: There is generalized steatosis. No other significant abnormalities. BONES: No significant abnormality. ADDITIONAL FINDINGS: None. IMPRESSION: 1. Bibasilar atelectasis without CT evidence of pneumonia at this time. Please correlate with the cli nical findings. 2. Additional findings as above. Signer Name: Alex Chi MD Signed: 05/23/2020 4:55 PM Workstation Name: [id number]
[2020-05-23] MEDS ORDERED: ONDANSETRON 4 MG/2 ML INJ IV PRN (18:21)
[2020-05-23] MEDS ORDERED: dexAMETHasone 4 MG/ML VIAL IV ONE (18:23)
[2020-05-23] MEDS ORDERED: ONDANSETRON 4 MG ODT TAB PO PRN (18:24)
--- NOTE | 2020-05-23 18:27 | History and Physical Report ---
History of Present Illness Chief complaint: I cannot breathe History of present illness: 39 YO Male with Bipolar Disorder, Schizophrenia, ADD, Nicotine Dependence present to ED for evaluation. Patient states that he has experienced shortness of breath over the past 2 days with persistently worsening symptoms over the same timeframe. Patient also acknowledges dry cough, generalized weakness, malaise, body aches. Patient transported to [facility] via private vehicle for further care and evaluation of the aforementioned symptoms. Patient seen and evaluated in the emergency department. All lab and imaging studies reviewed. Patient found to have a pulse oximetry of 86% with exertion on room air which is consistent with acute hypoxemic respiratory failure. Chest x-ray revealed bilateral pneumonia. Patient initiated on COVID-19 protocol in the emergency department. Patient also initiated on pneumonia protocol and admitted to medical floor due to increased risk of worsening symptoms. Patient denies chest pain, palpitations, skin rash, recent ill contacts, or known exposure to COVID- 19. No prior admission for review. All medication listed at time of admission has been reconciled. Past History Past Medical History: other (See HPI) Past Surgical History: hernia repair Social history: smoking Family history: hypertension Medications and Allergies Allergies Allergy/AdvReac Type Severity Reaction Status Date / Time No Known Allergies Allergy Unverified 01/18/20 00:24 Home Medications Medication Instructions Recorded Confirmed Last Taken Type ARIPiprazole 10 mg PO HS 01/26/19 01/26/[address] 500 mg PO BID 01/26/19 01/26/19 Unknown History [place] Carbonate 150 mg PO BID 01/26/19 01/26/19 Unknown History Ondansetron [Zofran Odt] 4 mg PO Q8HR PRN #10 tab.rapdis 06/09/19 Unknown Rx Active Meds: Active Medications Acetaminophen (Tylenol) 650 mg PO Q4H PRN PRN Reason: Pain MILD(1-3)/Fever >100.5/RENE Dexamethasone (Decadron) 4 mg IV ONCE ONE Stop: 05/23/20 18:24 Methylprednisolone Sodium Succinate (Solu-Medrol) 40 mg IV Q8HR NADJA Miscellaneous Medication (Aripiprazole) 10 mg PO HS [facility] Miscellaneous Medication (Divalproex Dr) 500 mg PO BID NADJA Miscellaneous Medication ([place] Carbonate) 150 mg PO BID NADJA Ondansetron HCl (Zofran) 4 mg IV Q8H PRN PRN Reason: Nausea And Vomiting Ondansetron HCl (Zofran Odt) 4 mg PO Q8HR PRN PRN Reason: Vomiting Sodium Chloride (Sodium Chloride Flush Syringe 10 Ml) 10 ml IV BID NADJA Sodium Chloride (Sodium Chloride Flush Syringe 10 Ml) 10 ml IV PRN PRN PRN Reason: LINE FLUSH Review of Systems Constitutional: fatigue, weakness, malaise, lethargy, no weight loss, no weight gain, no fever Ears, nose, mouth and throat: no ear pain, no ear discharge, no tinnitis, no decreased hearing, no nose pain Cardiovascular: no chest pain, no orthopnea, no palpitations, no rapid/irregular heart beat Respiratory: cough, shortness of breath, no cough with sputum, no excessive sp utum Gastrointestinal: no nausea, no vomiting, no diarrhea, no constipation Genitourinary Male: no hematuria, no flank pain, no discharge, no urinary frequency, no urinary hesitancy Rectal: no pain, no incontinence, no bleeding Musculoskeletal: no neck stiffness, no neck pain, no shooting arm pain, no arm numbness/tingling Integumentary: no rash, no pruritis, no redness, no sores, no jaundice Neurological: no head injury, no paralysis, no weakness, no numbness, no tingling, no syncope, no ataxia Psychiatric: no anxiety, no change in sleep habits, no sleep disturbances, no hypersomnia, no change in libido Endocrine: no cold intolerance, no excessive thirst, no polyuria, no nocturia Hematologic/Lymphatic: no easy bruising, no easy bleeding, no lymphadenopathy, no lymphedema Allergic/Immunologic: no allergic rhinitis, no wheezing, no persistent infections Exam - Constitutional Vitals: Temp Pulse Resp BP Pulse Ox 98.1 F 88 20 140/89 96 05/23/20 12:17 05/23/20 14:31 05/23/20 14:31 05/23/20 15:30 05/23/20 15:30 General appearance: Present: mild distress - EENT Eyes: Present: PERRL ENT: hearing intact, clear oral mucosa - Neck Neck: Present: supple, normal ROM - Respiratory Respiratory effort: labored, accessory muscle use, stridor Respiratory: bilateral: diminished, rhonchi - Cardiovascular Heart Sounds: Present: S1 & S2. Absent: rub, click - Extremities Extremities: pulses symmetrical, No edema Peripheral Pulses: within normal limits - Abdominal General gastrointestinal: Present: soft, non-tender, non-distended, normal bowel sounds Male genitourinary: Present: normal - Integumentary Integumentary: Present: clear, warm, dry - Musculoskeletal Musculoskeletal: generalized weakness - Psychiatric Psychiatric: appropriate mood/affect, intact judgment & insight - Neurologic Neurologic: CNII-XII intact, moves all extremities HEART Score - HEART Score Troponin: Troponin T < 0.010 ng/mL (0.00-0.029) 05/23/20 16:12 Results - Labs CBC & Chem 7: 05/23/20 14:22 05/23/20 18:43 Labs: Abnormal lab results 05/23/20 05/23/20 05/23/20 Range/Units 14:20 14:22 14:22 Monocytes % (Manual) 9.0 H (0.0-7.3) % Monocytes # (Manual) 0.9 H (0.0-0.8) K/mm3 ABG pH 7.339 L (7.350-7.450) pH Units ABG pO2 49.3 L (80.0-90.0) mm Hg ABG HCO3 34.1 H (20.0-26.0) mmol/L ABG O2 Saturation 84.7 L (95.0-99.0) % ABG Base Excess 6.1 H (-2.0-3.0) mmol/L ABG Carboxyhemoglobin 8.6 H (0.0-5.0) % Oxyhemoglobin 77.0 L (95.0-99.0) % Chloride 95.9 L (98-107) mmol/L Carbon Dioxide 32 H (22-30) mmol/L Creatinine 0.6 L (0.8-1.3) mg/dL Glucose 246 H (75-100) mg/dL AST 48 H (5-40) units/L ALT 68 H (7-56) units/L Assessment and Plan - Patient Problems (1) Acute hypoxemic respiratory failure Current Visit: Yes Status: Acute Plan to address problem: Supplemental oxygen, pulse oximetry, nebulizer therapy, noninvasive positive pressure ventilation as clinically indicated, chest x-ray, will consider high flow submental oxygen if patient requires increased supplemental oxygen support. (2) Pneumonia Current Visit: Yes Status: Acute Qualifiers: Laterality: bilateral Plan to address problem: Pneumonia protocol: Chest x-ray, CBC, CMP, IV antibiotic therapy, supplemental oxygen, pulse oximetry, pulmonary toilet. (3) Suspected 2019-nCoV infection Current Visit: Yes Status: Acute Plan to address problem: Coronavirus protocol: Coronavirus PCR ordered in the emergency department, contact precautions, isolation precautions, supplemental oxygen, prone positioning while in bed, early ambulation, pulmonary toilet. IV steroid therapy. (4) Nicotine dependence Current Visit: Yes Status: Acute Qualifiers: Nicotine product type: cigarettes Substance use status: in withdrawal Qualified Code(s): F17.213 - Nicotine dependence, cigarettes, with withdrawal Plan to address problem: Smoking cessation counseling, supportive care, behavior change counseling, +15 minutes. (5) Schizophrenia Current Visit: Yes Status: Acute Plan to address problem: Supportive care, continue medical management. (6) Bipolar disorder Current Visit: Yes Status: Acute Plan to address problem: Supportive care, continue medical management. (7) DVT prophylaxis Current Visit: Yes Status: Acute Plan to address problem: SCD to bilateral lower extremities while in bed, prophylactic anticoagulation
[2020-05-23] MEDS ORDERED: AZITHROMYCIN 500 MG in SODIUM CHLORIDE 0.9% 250ML 250 ML IV ONE (19:00)
[2020-05-23] MEDS ORDERED: LITHIUM CARBONATE 150 MG PO SCH (22:00)
[2020-05-23] MEDS ORDERED: DIVALPROEX 500 MG PO SCH (22:00)
[2020-05-23] MEDS ORDERED: ARIPIPRAZOLE 10 MG PO SCH (22:00)
[2020-05-24] MEDS: ARIPiprazole 10 MG TAB PO SCH ×2 (00:19→22:52)
[2020-05-24] MEDS: DIVALPROEX DR 500 MG TAB PO SCH ×3 (00:19→22:52)
[2020-05-24] MEDS: methylPREDNISolone Sod Succinate 40 MG/1 ML INJ IV SCH ×4 (00:20→22:53)
[2020-05-24] MEDS: cefTRIAXone/NS 2 GM/100 ML 2 GM/100 ML BAG IV SCH ×2 (00:20→09:04)
[2020-05-24] MEDS: HEPARIN 5,000 UNIT/1 ML VIAL SUB-Q SCH ×3 (00:20→22:53)
[2020-05-24] MEDS: LITHIUM CARBONATE 150 MG CAP PO SCH ×3 (01:36→22:52)
[2020-05-24] MEDS ORDERED: LORazepam 2 MG/ML VIAL IV ONE (05:24)
[2020-05-24 06:31] LABS: Basophils % (Auto) 0.2 % (0.0-1.8); Eosinophils % (Auto) 0.3 % (0.0-4.3); Hemoglobin 14.5 gm/dl (11.8-15.2); Lymphocytes # (Auto) 1.5 K/mm3 (1.2-5.4); Lymphocytes % (Auto) 10.9 % (13.4-35.0); Mean Corpuscular HGB Conc 32 % (32-34); Mean Corpuscular Volume 92 fl (84-94); Monocytes # (Auto) 0.4 K/mm3 (0.0-0.8); Monocytes % (Auto) 2.6 % (0.0-7.3); Platelet Count 327 K/mm3 (140-440); Red Blood Count 4.91 M/mm3 (3.65-5.03); Red Cell Distribution Width 14.5 % (13.2-15.2)
[2020-05-24 06:34] LABS: Blood Urea Nitrogen 11 mg/dL (9-20); Hemolysis Index 22
[2020-05-24 06:35] LABS: BUN/Creatinine Ratio 16
[2020-05-24] MEDS: HALOPERIDOL LACTATE 5 MG/1 ML INJ IM PRN ×2 (09:15→15:53)
[2020-05-24] MEDS ORDERED: AZITHROMYCIN 500 MG in SODIUM CHLORIDE 0.9% 250ML 250 ML IV SCH (10:00)
[2020-05-24] MEDS ORDERED: AZITHROMYCIN 250 MG TAB PO SCH (10:00)
[2020-05-24 10:49] LABS: BUN/Creatinine Ratio 16; Blood Urea Nitrogen 13 mg/dL (9-20); Hemolysis Index 13
--- NOTE | 2020-05-24 15:01 | Progress Note ---
Assessment and Plan --Acute hypoxemic respiratory failure due to PNA Supplemental oxygen, nebulizer therapy, iv abx -- Pneumonia IV antibiotic therapy, supplemental oxygen, pulse oximetry, pulmonary toilet. -- Suspected 2019-nCoV infection, ruled out -- Nicotine dependence nicotine patch if needed -- Schizophrenia resumed home meds Supportive care, psych consulted -- Bipolar disorder Supportive care, continue medical management. --Delirium with acute psychosis sitter in place, cont home psych meds, consulted psychiatry -- DVT prophylaxis SCD to bilateral lower extremities while in bed, prophylactic anticoagulation Brief History: 39 YO Male with Bipolar Disorder, Schizophrenia, ADD, Nicotine Dependence present to ED for shortness of breath over the past 2 days with dry cough, generalized weakness, malaise, body aches. Patient found to have a pulse oximetry of 86%, Chest x-ray revealed bilateral pneumonia. Patient initiated on COVID-19 protocol and admitted. negative for COVID, remains agitated, restrained, confused. 05/24: severely confused, covid test neg. sitter ordered, on restrained, mental health consulted. Subjective Date of service: 05/24/20 Interval history: Patient seen and examined on n/c o2, very agitated unable to provide any history, very agitated -restrained sitter at bedside Objective - Exam Narrative Exam: General appearance: Present: moderate distress with agitation - EENT Eyes: Present: PERRL ENT: hearing intact, clear oral mucosa - Neck Neck: Present: supple, normal ROM - Respiratory Respiratory effort: labored, accessory muscle use, Respiratory: bilateral: diminished, rhonchi - Cardiovascular Heart Sounds: Present: S1 & S2. Absent: rub, click - Extremities Extremities: pulses symmetrical, No edema Peripheral Pulses: within normal limits - Abdominal General gastrointestinal: Present: soft, non-tender, non-distended, normal bowel sounds Male genitourinary: Present: normal - Integumentary Integumentary: Present: clear, warm, dry - Musculoskeletal Musculoskeletal: generalized weakness - Psychiatric Psychiatric: no appropriate mood/affect, no intact judgment & insight, restraint - Neurologic Neurologic: CNII-XII intact, moves all extremities - Constitutional Vitals: Vital Signs - 12hr 05/24/20 10:00 O2 Sat by Pulse 94 Oximetry - Labs CBC & Chem 7: 05/24/20 05:45 05/25/20 15:01 Labs: Abnormal lab results 05/23/20 05/23/20 05/24/20 Range/Units 14:22 18:43 05:45 WBC 13.7 H (4.5-11.0) K/mm3 Lymph % (Auto) 10.9 L (13.4-35.0) % Seg Neutrophils % 86.0 H (40.0-70.0) % Monocytes % (Manual) 9.0 H (0.0-7.3) % Seg Neutrophils # 11.8 H (1.8-7.7) K/mm3 Monocytes # (Manual) 0.9 H (0.0-0.8) K/mm3 Sodium (137-145) mmol/L Potassium (3.6-5.0) mmol/L Chloride (98-107) mmol/L Creatinine (0.8-1.3) mg/dL Glucose 174 H (75-100) mg/dL Calcium (8.4-10.2) mg/dL 05/24/20 05/24/20 Range/Units 05:45 09:38 WBC (4.5-11.0) K/mm3 Lymph % (Auto) (13.4-35.0) % Seg Neutrophils % (40.0-70.0) % Monocytes % (Manual) (0.0-7.3) % Seg Neutrophils # (1.8-7.7) K/mm3 Monocytes # (Manual) (0.0-0.8) K/mm3 Sodium 136 L 136 L (137-145) mmol/L Potassium 7.8 H* D 5.5 H D (3.6-5.0) mmol/L Chloride 93.6 L 92.7 L (98-107) mmol/L Creatinine 0.7 L (0.8-1.3) mg/dL Glucose 279 H 393 H (75-100) mg/dL Calcium 5.0 L* D (8.4-10.2) mg/dL HEART Score - HEART Score Troponin: Troponin T < 0.010 ng/mL (0.00-0.029) 05/23/20 16:12
[2020-05-24 16:11] LABS: C-Reactive Protein 0.3 mg/dL (0.00-1.30)
[2020-05-25] MEDS: HALOPERIDOL LACTATE 5 MG/1 ML INJ IM PRN ×3 (01:13→21:32)
[2020-05-25] MEDS: methylPREDNISolone Sod Succinate 40 MG/1 ML INJ IV SCH ×2 (05:15→13:19)
[2020-05-25] MEDS ORDERED: AZITHROMYCIN 250 MG TAB PO SCH (10:00)
[2020-05-25] MEDS: ACETAMINOPHEN 325 MG TAB PO PRN (10:36)
[2020-05-25] MEDS: DIVALPROEX DR 500 MG TAB PO SCH ×2 (10:36→21:32)
[2020-05-25] MEDS: cefTRIAXone/NS 2 GM/100 ML 2 GM/100 ML BAG IV SCH (10:37)
[2020-05-25] MEDS: HEPARIN 5,000 UNIT/1 ML VIAL SUB-Q SCH ×2 (10:43→21:32)
[2020-05-25] MEDS: LITHIUM CARBONATE 150 MG CAP PO SCH ×2 (12:34→21:32)
[2020-05-25 15:37] LABS: BUN/Creatinine Ratio 28; Blood Urea Nitrogen 22 mg/dL (9-20); Calcium 9.1 mg/dL (8.4-10.2); Hemolysis Index 6
--- NOTE | 2020-05-25 17:25 | Progress Note ---
Assessment and Plan --Acute hypoxemic respiratory failure due to PNA Supplemental oxygen, nebulizer therapy, iv abx -- Pneumonia IV antibiotic therapy, supplemental oxygen, pulse oximetry, pulmonary toilet. -- Suspected 2019-nCoV infection, ruled out --hyperkalemia, repeat BMP, kayexalate, iv fluid -- Nicotine dependence nicotine patch if needed -- Schizophrenia resumed home meds Supportive care, psych consulted -- Bipolar disorder Supportive care, continue medical management. --Delirium with acute psychosis sitter in place, cont home psych meds, consulted psychiatry --hyperglycemia, check A1c, consistent carb diet taper steroid dose, iv fluid, SSI -- DVT prophylaxis SCD to bilateral lower extremities while in bed, prophylactic anticoagulation Brief History: 39 YO Male with Bipolar Disorder, Schizophrenia, ADD, Nicotine Dependence present to ED for shortness of breath over the past 2 days with dry cough, gener alized weakness, malaise, body aches. Patient found to have a pulse oximetry of 86%, Chest x-ray revealed bilateral pneumonia. Patient initiated on COVID-19 protocol and admitted. negative for COVID, remains agitated, restrained, confused. 05/24: severely confused, covid test neg. sitter ordered, on restrained, mental health consulted. 05/25: remains agitated, confused. mental health eval pending. as needed haldol. cont home meds, iv abx Subjective Date of service: 05/25/20 Interval history: Patient seen and examined on n/c o2, very agitated unable to provide any history, very agitated -restrained sitter at bedside Objective - Exam Narrative Exam: General appearance: Present: moderate distress with agitation - EENT Eyes: Present: PERRL ENT: hearing intact, clear oral mucosa - Neck Neck: Present: supple, normal ROM - Respiratory Respiratory effort: labored, accessory muscle use, Respiratory: bilateral: diminished, rhonchi - Cardiovascular Heart Sounds: Present: S1 & S2. Absent: rub, click - Extremities Extremities: pulses symmetrical, No edema Peripheral Pulses: within normal limits - Abdominal General gastrointestinal: Present: soft, non-tender, non-distended, normal bowel sounds Male genitourinary: Present: normal - Integumentary Integumentary: Present: clear, warm, dry - Musculoskeletal Musculoskeletal: generalized weakness - Psychiatric Psychiatric: no appropriate mood/affect, no intact judgment & insight, restraint - Neurologic Neurologic: CNII-XII intact, moves all extremities - Constitutional Vitals: Vital Signs - 12hr 05/25/20 11:26 Temperature 98.4 F Pulse Rate 66 Respiratory 17 Rate Blood Pressure 131/69 O2 Sat by Pulse 88 Oximetry - Labs CBC & Chem 7: 05/24/20 05:45 05/25/20 15:01 Labs: Abnormal lab results 05/25/20 Range/Units 15:01 Potassium 5.3 H (3.6-5.0) mmol/L Chloride 93.3 L (98-107) mmol/L Carbon Dioxide 35 H D (22-30) mmol/L BUN 22 H (9-20) mg/dL Glucose 321 H (75-100) mg/dL HEART Score - HEART Score Troponin: Troponin T < 0.010 ng/mL (0.00-0.029) 05/23/20 16:12
[2020-05-25] MEDS: ARIPiprazole 10 MG TAB PO SCH (21:32)
--- NOTE | 2020-05-26 09:54 | Consultation ---
History of Present Illness - Reason for Consult Consult date: 05/26/20 Reason for consult: MHE Requesting physician: DERREK AREVALO - Chief Complaint Chief complaint: I cannot breathe - History of Present Psychiatric Illness Per ED Provider: Patient presents to the emergency department the chief complaint of shortness of breath has been present for the last 2 days. Patient states with any movement he becomes increasingly short of breath. Patient also endorses a cough but denies a fever. Patient also denies chest pain. PSYCH HPI Patient in room, appears somnolent, bed side sitter reports patient was recently medicated for behavioral issues. I am unable to complete psychiatric evaluation at this time due to patients current status. Will be re-evaluated tomorrow Treatment Plan MEDICATIONS: Risks, benefits and alternatives of medications discussed with the patient, questions answered and consent obtained from patient. PSYCHOTHERAPY: Supportive psychotherapy provided MEDICAL: Per primary team DELIRIUM PRECAUTIONS: Please re-orient patient frequently, keep lights on during the day, and minimize benzodiazepines and opiates as these medications could worsen patient's confusion. DIRECTOR CLINICAL DATA: per medical team DISPOSITION: Cannot determine disposition at this time FOLLOW-UP: Will revaluate tomorrow Thank you for the consult. Please contact with any questions and/or concerns. Medications and Allergies Allergies Allergy/AdvReac Type Severity Reaction Status Date / Time No Known Allergies Allergy Unverified 01/18/20 00:24 Home Medications Medication Instructions Recorded Confirmed Last Taken Type ARIPiprazole 10 mg PO HS 01/26/19 05/25/[address] 500 mg PO BID 01/26/19 01/26/19 Unknown History [place] Carbonate 150 mg PO BID 01/26/19 01/26/19 Unknown History Ondansetron [Zofran Odt] 4 mg PO Q8HR PRN #10 tab.rapdis 06/09/19 05/25/20 Unknown Rx Active Meds: Active Medications Acetaminophen (Tylenol) 650 mg PO Q4H PRN PRN Reason: Pain MILD(1-3)/Fever >100.5/RENE Last Admin: 05/25/20 10:36 Dose: 650 mg Documented by: Aripiprazole (Aripiprazole) 10 mg PO QHS NADJA Last Admin: 05/25/20 21:32 Dose: 10 mg Documented by: Azithromycin (Zithromax) 500 mg PO QDAY NADJA Divalproex Sodium (Depakote Dr) 500 mg PO BID [facility] Last Admin: 05/25/20 21:32 Dose: 500 mg Documented by: Haloperidol Lactate (Haldol) 5 mg IM Q6H PRN PRN Reason: Agitation Last Admin: 05/25/20 21:32 Dose: 5 mg Documented by: Heparin Sodium (Porcine) (Heparin) 5,000 unit SUB-Q Q12HR [facility] Last Admin: 05/25/20 21:32 Dose: Not Given Documented by: Sodium Chloride (Nacl 0.9% 1000 Ml) 1,000 mls @ 100 mls/hr IV DIRECT [facility] Insulin Human Regular (Humulin R) 0 unit SUB-Q ACHS [facility]; Protocol [place] Carbonate (Eskalith) 150 mg PO BID [facility] Last Admin: 05/25/20 21:32 Dose: 150 mg Documented by: Ondansetron HCl (Zofran) 4 mg IV Q8H PRN PRN Reason: Nausea And Vomiting Ondansetron HCl (Zofran Odt) 4 mg PO Q8HR PRN PRN Reason: Vomiting Prednisone (Deltasone) 40 mg PO QDAY [facility] Sodium Chloride (Sodium Chloride Flush Syringe 10 Ml) 10 ml IV BID [facility] Last Admin: 05/25/20 21:33 Dose: 10 ml Documented by: Sodium Chloride (Sodium Chloride Flush Syringe 10 Ml) 10 ml IV PRN PRN PRN Reason: LINE FLUSH Sodium Polystyrene Sulfonate (Kionex) 15 gm PO QDAY [facility] Mental Status Exam - Vital signs Last Vital Signs Temp 98.2 F 05/26/20 04:40 Pulse 76 05/26/20 04:40 Resp 20 05/26/20 04:40 BP 125/79 05/26/20 04:40 Pulse Ox 90 05/26/20 08:19 Results Result Diagrams: 05/24/20 05:45 05/25/20 15:01 Abnormal lab results 05/25/20 05/26/20 Range/Units 15:01 08:30 Potassium 5.3 H (3.6-5.0) mmol/L Chloride 93.3 L (98-107) mmol/L Carbon Dioxide 35 H D (22-30) mmol/L BUN 22 H (9-20) mg/dL Glucose 321 H (75-100) mg/dL POC Glucose 207 H (70-105) mg/dL All other labs normal.
[2020-05-26] MEDS ORDERED: SODIUM POLYSTYRENE 15 GM/60 ML ORAL LIQD PO SCH (10:00)
[2020-05-26] MEDS: LITHIUM CARBONATE 150 MG CAP PO SCH ×2 (10:16→21:59)
[2020-05-26] MEDS: DIVALPROEX DR 500 MG TAB PO SCH ×2 (10:16→21:59)
[2020-05-26] MEDS: AZITHROMYCIN 250 MG TAB PO SCH (10:16)
[2020-05-26] MEDS: INSULIN REGULAR, HUMAN 100 UNIT/ML 3ML VIAL SUB-Q SCH ×4 (10:17→23:01)
[2020-05-26] MEDS: predniSONE 20 MG TAB PO SCH (10:17)
[2020-05-26] MEDS: HEPARIN 5,000 UNIT/1 ML VIAL SUB-Q SCH ×2 (10:18→22:00)
[2020-05-26] MEDS: HALOPERIDOL LACTATE 5 MG/1 ML INJ IM PRN ×3 (10:28→22:00)
[2020-05-26 15:28] LABS: Basophils % (Auto) 0.2 % (0.0-1.8); Eosinophils % (Auto) 0.5 % (0.0-4.3); Hematocrit 43.4 % (35.5-45.6); Hemoglobin 14.5 gm/dl (11.8-15.2); Lymphocytes # (Auto) 1.5 K/mm3 (1.2-5.4); Lymphocytes % (Auto) 15.1 % (13.4-35.0); Mean Corpuscular HGB Conc 33 % (32-34); Mean Corpuscular Volume 90 fl (84-94); Monocytes # (Auto) 0.7 K/mm3 (0.0-0.8); Monocytes % (Auto) 7.2 % (0.0-7.3); Platelet Count 261 K/mm3 (140-440); Red Blood Count 4.83 M/mm3 (3.65-5.03); Red Cell Distribution Width 14.3 % (13.2-15.2)
[2020-05-26 15:35] LABS: Alanine Aminotransferase 63 units/L (7-56); Albumin 3.9 g/dL (3.9-5); BUN/Creatinine Ratio 25; Blood Urea Nitrogen 20 mg/dL (9-20); Calcium 8.8 mg/dL (8.4-10.2); Hemolysis Index 4
--- NOTE | 2020-05-26 15:40 | Progress Note ---
Assessment and Plan Assessment and plan: --Acute hypoxemic respiratory failure ---ABG in a.m. due to PNA -Supplemental oxygen, nebulizer therapy, iv abx -- Pneumonia IV antibiotic therapy, supplemental oxygen, pulse oximetry, pulmonary toilet. -- Suspected 2019-nCoV infection, ruled out -- Hyperkalemia, resolved -- Nicotine dependence nicotine patch if needed -- Schizophrenia Supportive care, psych consulted -- Bipolar disorder Supportive care, continue medical management. --Delirium with acute psychosis sitter in place, cont home psych meds, consulted psychiatry --hyperglycemia, check A1c, consistent carb diet Taper steroids -- DVT prophylaxis SCD to bilateral lower extremities while in bed, prophylactic anticoagulation Brief History: 39 YO Male with Bipolar Disorder, Schizophrenia, ADD, Nicotine Dependence present to ED for shortness of breath over the past 2 days with dry cough, generalized weakness, malaise, body aches. Patient found to have a pulse oximetry of 86%, Chest x-ray revealed bilateral pneumonia. Patient initiated on COVID-19 protocol and admitted. negative for COVID, remains agitated, restrained, confused. 05/24: severely confused, covid test neg. sitter ordered, on restrained, mental health consulted. 05/25: remains agitated, confused. mental health eval pending. as needed haldol. cont home meds, iv abx 05/26. Patient seen examined at bedside this morning. Still hypoxic with 5 L of oxygen. ABG ordered for AM. Repeat chest xray ordered History Interval history: Patient seen and examined On 5 L of oxygen with sats in the low 90s Sleepy during my encounter Has a sitter at bedside Hospitalist Physical - Physical exam Narrative exam: VITAL SIGNS: Reviewed. GENERAL: Sleepy during my encounter HEAD: No signs of head trauma. EYES: Pupils are equal. Extraocular motions intact. EARS: Hearing grossly intact. MOUTH: Oropharynx is normal. NECK: No adenopathy, no JVD. CHEST: Chest with diminished breath sounds bilaterally. No wheezes, rales, or rhonchi. CARDIAC: Regular rate and rhythm. S1 and S2, without murmurs, gallops, or ru bs. VASCULAR: No Edema. Peripheral pulses normal and equal in all extremities. ABDOMEN: Soft, non tender and non distended. No rebound or guarding, and no masses palpated. Bowel Sounds normal. MUSCULOSKELETAL: Good range of motion of all major joints. Extremities without clubbing, cyanosis or edema. NEUROLOGIC EXAM: Sleepy during my encounter PSYCHIATRIC: Stable mood SKIN: No obvious lesions - Constitutional Vitals: Temp Pulse Resp BP Pulse Ox 98.2 F 64 22 118/61 92 05/26/20 11:10 05/26/20 11:10 05/26/20 11:10 05/26/20 11:10 05/26/20 11:10 HEART Score - HEART Score Troponin: Troponin T < 0.010 ng/mL (0.00-0.029) 05/23/20 16:12 Results - Labs CBC & Chem 7: 05/26/20 14:42 05/26/20 14:42 Labs: Laboratory Last Values WBC 9.7 K/mm3 (4.5-11.0) 05/26/20 14:42 RBC 4.83 M/mm3 (3.65-5.03) 05/26/20 14:42 Hgb 14.5 gm/dl (11.8-15.2) 05/26/20 14:42 Hct 43.4 % (35.5-45.6) 05/26/20 14:42 MCV 90 fl (84-94) 05/26/20 14:42 MCH 30 pg (28-32) 05/26/20 14:42 MCHC 33 % (32-34) 05/26/20 14:42 RDW 14.3 % (13.2-15.2) 05/26/20 14:42 Plt Count 261 K/mm3 (140-440) 05/26/20 14:42 Lymph % (Auto) 15.1 % (13.4-35.0) 05/26/20 14:42 [place] % (Auto) 7.2 % (0.0-7.3) 05/26/20 14:42 Eos % (Auto) 0.5 % (0.0-4.3) 05/26/20 14:42 Baso % (Auto) 0.2 % (0.0-1.8) 05/26/20 14:42 Lymph # (Auto) 1.5 K/mm3 (1.2-5.4) 05/26/20 14:42 [place] # (Auto) 0.7 K/mm3 (0.0-0.8) 05/26/20 14:42 Eos # (Auto) 0.0 K/mm3 (0.0-0.4) 05/26/20 14:42 Baso # (Auto) 0.0 K/mm3 (0.0-0.1) 05/26/20 14:42 Add Manual Diff Complete 05/23/20 14:22 Total Counted 100 05/23/20 14:22 Seg Neutrophils % 77.0 % (40.0-70.0) H 05/26/20 14:42 Seg Neuts % (Manual) 63.0 % (40.0-70.0) 05/23/20 14:22 Band Neutrophils % 0 % 05/23/20 14:22 Lymphocytes % (Manual) 24.0 % (13.4-35.0) 05/23/20 14:22 Reactive Lymphs % (Man) 0 % 05/23/20 14:22 Monocytes % (Manual) 9.0 % (0.0-7.3) H 05/23/20 14:22 Eosinophils % (Manual) 3.0 % (0.0-4.3) 05/23/20 14:22 Basophils % (Manual) 1.0 % (0.0-1.8) 05/23/20 14:22 Metamyelocytes % 0 % 05/23/20 14:22 Myelocytes % 0 % 05/23/20 14:22 Promyelocytes % 0 % 05/23/20 14:22 Blast Cells % 0 % 05/23/20 14:22 Nucleated RBC % Not Reportable 05/23/20 14:22 Seg Neutrophils # 7.5 K/mm3 (1.8-7.7) 05/26/20 14:42 Seg Neutrophils # Man 6.6 K/mm3 (1.8-7.7) 05/23/20 14:22 Band Neutrophils # 0.0 K/mm3 05/23/20 14:22 Lymphocytes # (Manual) 2.5 K/mm3 (1.2-5.4) 05/23/20 14:22 Abs React Lymphs (Man) 0.0 K/mm3 05/23/20 14:22 Monocytes # (Manual) 0.9 K/mm3 (0.0-0.8) H 05/23/20 14:22 Eosinophils # (Manual) 0.3 K/mm3 (0.0-0.4) 05/23/20 14:22 Basophils # (Manual) 0.1 K/mm3 (0.0-0.1) 05/23/20 14:22 Metamyelocytes # 0.0 K/mm3 05/23/20 14:22 Myelocytes # 0.0 K/mm3 05/23/20 14:22 Promyelocytes # 0.0 K/mm3 05/23/20 14:22 Blast Cells # 0.0 K/mm3 05/23/20 14:22 WBC Morphology Not Reportable 05/23/20 14:22 Hypersegmented Neuts Not Reportable 05/23/20 14:22 Hyposegmented Neuts Not Reportable 05/23/20 14:22 Hypogranular Neuts Not Reportable 05/23/20 14:22 Smudge Cells Not Reportable 05/23/20 14:22 Toxic Granulation Not Reportable 05/23/20 14:22 Toxic Vacuolation Not Reportable 05/23/20 14:22 Dohle Bodies Not Reportable 05/23/20 14:22 Pelger-Huet Anomaly Not Reportable 05/23/20 14:22 Henrique Rods Not Reportable 05/23/20 14:22 Platelet Estimate Not Reportable 05/23/20 14:22 Clumped Platelets Not Reportable 05/23/20 14:22 Plt Clumps, EDTA Not Reportable 05/23/20 14:22 Large Platelets Not Reportable 05/23/20 14:22 Giant Platelets Not Reportable 05/23/20 14:22 Platelet Satelliting Not Reportable 05/23/20 14:22 Plt Morphology Comment Not Reportable 05/23/20 14:22 RBC Morphology Normal 05/23/20 14:22 Dimorphic RBCs Not Reportable 05/23/20 14:22 Polychromasia Not Reportable 05/23/20 14:22 Hypochromasia Not Reportable 05/23/20 14:22 Poikilocytosis Not Reportable 05/23/20 14:22 Anisocytosis Not Reportable 05/23/20 14:22 Microcytosis Not Reportable 05/23/20 14:22 Macrocytosis Not Reportable 05/23/20 14:22 Spherocytes Not Reportable 05/23/20 14:22 Pappenheimer Bodies Not Reportable 05/23/20 14:22 Sickle Cells Not Reportable 05/23/20 14:22 Target Cells Not Reportable 05/23/20 14:22 Tear Drop Cells Not Reportable 05/23/20 14:22 Ovalocytes Not Reportable 05/23/20 14:22 Helmet Cells Not Reportable 05/23/20 14:22 [place] Bodies Not Reportable 05/23/20 14:22 [place] Rings Not Reportable 05/23/20 14:22 [place] Cells Not Reportable 05/23/20 14:22 Bite Cells Not Reportable 05/23/20 14:22 Crenated Cell Not Reportable 05/23/20 14:22 Elliptocytes Not Reportable 05/23/20 14:22 Acanthocytes (Spur) Not Reportable 05/23/20 14:22 Rouleaux Not Reportable 05/23/20 14:22 Hemoglobin C Crystals Not Reportable 05/23/20 14:22 Schistocytes Not Reportable 05/23/20 14:22 Malaria parasites Not Reportable 05/23/20 14:22 [place]ar Bodies Not Reportable 05/23/20 14:22 Hem Pathologist Commnt No 05/23/20 14:22 D-Dimer 137.33 ng/mlDDU (0-234) 05/23/20 18:43 ABG pH 7.339 pH Units (7.350-7.450) L 05/23/20 14:20 ABG pCO2 64.8 mm Hg 05/23/20 14:20 ABG pO2 49.3 mm Hg (80.0-90.0) L 05/23/20 14:20 ABG HCO3 34.1 mmol/L (20.0-26.0) H 05/23/20 14:20 ABG O2 Saturation 84.7 % (95.0-99.0) L 05/23/20 14:20 ABG O2 Content 15.6 (0.0-44) 05/23/20 14:20 ABG Base Excess 6.1 mmol/L (-2.0-3.0) H 05/23/20 14:20 ABG Hemoglobin 14.4 gm/dl (14.0-18.0) 05/23/20 14:20 ABG Carboxyhemoglobin 8.6 % (0.0-5.0) H 05/23/20 14:20 ABG Methemoglobin 0.5 % (0.0-1.5) 05/23/20 14:20 Oxyhemoglobin 77.0 % (95.0-99.0) L 05/23/20 14:20 FiO2 21 % 05/23/20 14:20 Sodium 138 mmol/L (137-145) 05/25/20 15:01 Potassium 5.3 mmol/L (3.6-5.0) H 05/25/20 15:01 Chloride 93.3 mmol/L (98-107) L 05/25/20 15:01 Carbon Dioxide 35 mmol/L (22-30) H D 05/25/20 15:01 Anion Gap 15 mmol/L 05/25/20 15:01 BUN 22 mg/dL (9-20) H 05/25/20 15:01 Creatinine 0.8 mg/dL (0.8-1.3) 05/25/20 15:01 Estimated GFR > 60 ml/min 05/25/20 15:01 BUN/Creatinine Ratio 28 % 05/25/20 15:01 Glucose 321 mg/dL (75-100) H 05/25/20 15:01 POC Glucose 169 mg/dL (70-105) H 05/26/20 11:32 Calcium 9.1 mg/dL (8.4-10.2) 05/25/20 15:01 Ferritin 33.3 ng/mL (30.0-300.0) 05/23/20 18:43 Total Bilirubin 0.20 mg/dL (0.1-1.2) 05/23/20 14:22 AST 48 units/L (5-40) H 05/23/20 14:22 ALT 68 units/L (7-56) H 05/23/20 14:22 Alkaline Phosphatase 58 units/L (35-129) 05/23/20 14:22 Lactate Dehydrogenase 289 units/L (91-180) H 05/23/20 18:43 Troponin T < 0.010 ng/mL (0.00-0.029) 05/23/20 16:12 C-Reactive Protein 0.30 mg/dL (0.00-1.30) 05/23/20 18:43 NT-Pro-B Natriuret Pep 35.71 pg/mL (0-450) 05/23/20 14:22 Total Protein 6.9 g/dL (6.3-8.2) 05/23/20 14:22 Albumin 4.2 g/dL (3.9-5) 05/24/20 07:07 Albumin/Globulin Ratio 1.4 % 05/23/20 14:22 Procalcitonin < 0.05 ng/mL (<0.15) 05/23/20 18:43 Coronavirus (PCR) Negative (Negative) 05/24/20 10:23 Microbiology: Microbiology 05/23/20 18:46 Peripheral/Venous Blood Culture - Preliminary NO GROWTH AFTER 48 HOURS 05/23/20 18:43 Peripheral/Venous Blood Culture - Preliminary NO GROWTH AFTER 48 HOURS Urias/IV: Voiding Method Toilet IV Catheter Type [Right Upper INT / Saline Lock arm] IV Catheter Type [Left Upper INT / Saline Lock arm] Active Medications - Current Medications Current Medications: Generic Name Dose Route Start Last Admin Trade Name Freq PRN Reason Stop Dose Admin Acetaminophen 650 mg 05/23/20 18:21 05/25/20 10:36 Tylenol PO 650 mg Q4H PRN Administration Pain MILD(1-3)/Fever >100.5/RENE Aripiprazole 10 mg 05/23/20 22:00 05/25/20 21:32 Aripiprazole PO 10 mg QHS NADJA Administration Azithromycin 500 mg 05/26/20 10:00 05/26/20 10:16 Zithromax PO 05/30/20 12:00 500 mg QDAY NADJA Administration Divalproex Sodium 500 mg 05/23/20 22:00 05/26/20 10:[address] PO 500 mg BID NADJA Administration Haloperidol Lactate 5 mg 05/24/20 09:03 05/26/20 10:28 Haldol IM 5 mg Q6H PRN Administration Agitation Heparin Sodium (Porcine) 5,000 unit 05/23/20 22:00 05/26/20 10:18 Heparin SUB-Q 5,000 unit Q12HR NADJA Administration Sodium Chloride 1,000 mls @ 100 mls/hr 05/26/20 06:45 Nacl 0.9% 1000 Ml IV DIRECT NADJA Insulin Human Regular 0 unit 05/26/20 07:30 05/26/20 13:35 Humulin R SUB-Q Not Given ACHS NADJA Protocol [place] Carbonate 150 mg 05/23/20 22:00 05/26/20 10:16 Eskalith PO 150 mg BID NADJA Administration Ondansetron HCl 4 mg 05/23/20 18:21 Zofran IV Q8H PRN Nausea And Vomiting Ondansetron HCl 4 mg 05/23/20 18:24 Zofran Odt PO Q8HR PRN Vomiting Prednisone 40 mg 05/26/20 10:00 05/26/20 10:17 Deltasone PO 40 mg QDAY NADJA Administration Sodium Chloride 10 ml 05/23/20 22:00 05/26/20 10:19 Sodium Chloride Flush Syringe 10 Ml IV 10 ml BID NADJA Administration Sodium Chloride 10 ml 05/23/20 18:21 Sodium Chloride Flush Syringe 10 Ml IV PRN PRN LINE FLUSH Sodium Polystyrene Sulfonate 15 gm 05/26/20 10:00 05/26/20 10:20 Kionex PO 15 gm QDAY NADJA Administration Nutrition/Malnutrition Assess - Dietary Evaluation Nutrition/Malnutrition Findings: Nutrition Notes Start: 05/24/20 14:50 Freq: Status: Active Protocol: Document 05/25/20 13:06 ANGELIKA (Rec: 05/25/20 13:10 ANGELIKA [id number]) Co-Sign 05/25/20 13:06 LM Nutrition Notes Initial or Follow up Brief Note Current Diagnosis Respiratory Failure Other Pertinent Diagnosis SOB, Pneumonia, Bipolar, ADD, Nicotene dependence Current Diet Regular [place] Body Weight (kg) 0 Weight Status Obese Subjective/Other Information F/U for MST and skin risk. Unable to speak with pt via phone d/t pt in restraints. Per RN, pt has good appetite and consuming 100% meals. Pt does not have any wounds. Nutrition Intervention Revisit per MD consult or patient Sign Off request:
--- NOTE | 2020-05-26 16:19 | XRay Report ---
CHEST 1 VIEW 4:10 PM INDICATION / CLINICAL INFORMATION: Hypoxia. COMPARISON: 05/23/20. FINDINGS: SUPPORT DEVICES: None. HEART / MEDIASTINUM: Unchanged. LUNGS / PLEURA: No significant pulmonary or pleural abnormality. No pneumothorax. ADDITIONAL FINDINGS: No significant additional findings. IMPRESSION: Mild bibasilar atelectasis has improved. Signer Name: Krishna Jack MD Signed: 05/26/2020 4:14 PM Workstation Name: [id number]
[2020-05-26] MEDS: ARIPiprazole 10 MG TAB PO SCH (17:05)
[2020-05-27] MEDS: SODIUM CHLORIDE 0.9% 1000 ML 1,000 ML IV SCH (01:18)
[2020-05-27] MEDS: HALOPERIDOL LACTATE 5 MG/1 ML INJ IM PRN ×2 (03:25→15:15)
[2020-05-27] MEDS ORDERED: ZIPRASIDONE MESYLATE 20 MG VIAL IM ONE (03:49)
[2020-05-27] MEDS ORDERED: LORazepam 2 MG/ML VIAL IV ONE (06:27)
[2020-05-27] MEDS: DIVALPROEX DR 500 MG TAB PO SCH ×2 (12:16→22:38)
[2020-05-27] MEDS: ARIPiprazole 10 MG TAB PO SCH (12:16)
[2020-05-27] MEDS: HEPARIN 5,000 UNIT/1 ML VIAL SUB-Q SCH ×2 (12:16→22:40)
[2020-05-27] MEDS: predniSONE 20 MG TAB PO SCH (12:17)
[2020-05-27] MEDS: ACETAMINOPHEN 325 MG TAB PO PRN (12:17)
[2020-05-27] MEDS: AZITHROMYCIN 250 MG TAB PO SCH (12:18)
[2020-05-27] MEDS: LITHIUM CARBONATE 150 MG CAP PO SCH ×2 (12:24→22:38)
[2020-05-27] MEDS: INSULIN REGULAR, HUMAN 100 UNIT/ML 3ML VIAL SUB-Q SCH ×4 (12:25→22:39)
--- NOTE | 2020-05-27 13:15 | Progress Note ---
Subjective - Reason for Consult Consult date: 05/27/20 Reason for consult: acute delirium - Chief Complaint Chief complaint: During my interview with the patient he is lying down, awake. He is making snoring sounds as if he is asleep. But he arouses to answers questions. The patient is confused. His speech is incomprehensible at times. He verbalizes hallucinating and "watching people." The patient denies SI/HI. He is unable to give a lot of history into what is going on. REVIEW OF SYSTEMS Constitutional: Negative for weight loss ENT: Negative for stridor Respiratory: Negative for cough or hemoptysis All other systems reviewed and are negative MENTAL STATUS EXAMINATION General Appearance and Behavior: Age appropriate, good hygiene, wearing appropriate clothes, poor eye contact Cooperation: unengaged Psychomotor Behavior: Psychomotor normal Mood: "okay" Affect and affective range: congruent with stated mood Thought Process: goal directed Thought Content: hallucinations Speech: Normal rate and tone Intellectual Functioning: Average Suicidal Ideation: SI Homicidal Ideation: Denies HI Hallucinations: Visual Delusions: None elicited Insight and Judgment: Limited insight and judgment Memory: Impaired Orientation: Alert, oriented Assessment and Plan (1)Acute Delirium Current Visit: Yes Status: Acute RECOMMENDATIONS MEDICATIONS: Continue current medications Risks, benefits and alternatives of medications discussed with the patient, questions answered and consent obtained from patient. PSYCHOTHERAPY: Supportive psychotherapy provided MEDICAL: Per primary team DELIRIUM PRECAUTIONS: Please re-orient patient frequently, keep lights on during the day, and minimize benzodiazepines and opiates as these medications could worsen patient's confusion. AR MANAGER: Defer to primary DISPOSITION: TBD Will follow. Thank you for the consult. Please contact with any questions and/or concerns. Mental Status Exam - Vital signs Last Vital Signs Temp 98.4 F 05/27/20 10:52 Pulse 91 H 05/27/20 10:52 Resp 17 05/27/20 10:52 BP 127/77 05/27/20 10:52 Pulse Ox 89 05/27/20 10:52
--- NOTE | 2020-05-27 13:45 | Progress Note ---
Assessment and Plan Assessment and plan: --Acute hypoxemic respiratory failure ---ABG in a.m. due to PNA -Supplemental oxygen, nebulizer therapy, iv abx -- Pneumonia IV antibiotic therapy, supplemental oxygen, pulse oximetry, pulmonary toilet. -- Suspected 2019-nCoV infection, ruled out -- Hyperkalemia, resolved -- Nicotine dependence nicotine patch if needed -- Schizophrenia Supportive care, psych consulted -- Bipolar disorder Supportive care, continue medical management. --Delirium with acute psychosis sitter in place, cont home psych meds, consulted psychiatry --hyperglycemia, check A1c, consistent carb diet Taper steroids -- DVT prophylaxis SCD to bilateral lower extremities while in bed, prophylactic anticoagulation Brief History: 39 YO Male with Bipolar Disorder, Schizophrenia, ADD, Nicotine Dependence present to ED for shortness of breath over the past 2 days with dry cough, generalized weakness, malaise, body aches. Patient found to have a pulse oximetry of 86%, Chest x-ray revealed bilateral pneumonia. Patient initiated on COVID-19 protocol and admitted. negative for COVID, remains agitated, restrained, confused. 05/24: severely confused, covid test neg. sitter ordered, on restrained, mental health consulted. 05/25: Remains agitated, confused. mental health eval pending. as needed haldol. cont home meds, iv abx 05/26. Patient seen examined at bedside this morning. Still hypoxic with 5 L of oxygen. ABG ordered for AM. Repeat chest xray ordered. 05/27. Drowsy this AM. Will be seen by psych. No ABG drawn. History Interval history: Patient seen and examined On 5 L of oxygen with sats in the low 90s Sleepy during my encounter Has a sitter at bedside Hospitalist Physical - Physical exam Narrative exam: VITAL SIGNS: Reviewed. GENERAL: Drowsy HEAD: No signs of head trauma. EYES: Pupils are equal. Extraocular motions intact. EARS: Hearing grossly intact. MOUTH: Oropharynx is normal. NECK: No adenopathy, no JVD. CHEST: Chest with diminished breath sounds bilaterally. No wheezes, rales, or rhonchi. CARDIAC: Regular rate and rhythm. S1 and S2, without murmurs, gallops, or rubs. VASCULAR: No Edema. Peripheral pulses normal and equal in all extremities. ABDOMEN: Soft, non tender and non distended. No rebound or guarding, and no masses palpated. Bowel Sounds normal. MUSCULOSKELETAL: Good range of motion of all major joints. Extremities without clubbing, cyanosis or edema. NEUROLOGIC EXAM: Drowsy PSYCHIATRIC: Stable mood SKIN: No obvious lesions - Constitutional Vitals: Temp Pulse Resp BP Pulse Ox 98.4 F 91 H 17 127/77 89 05/27/20 10:52 05/27/20 10:52 05/27/20 10:52 05/27/20 10:52 05/27/20 10:52 HEART Score - HEART Score Troponin: Troponin T < 0.010 ng/mL (0.00-0.029) 05/23/20 16:12 Results - Labs CBC & Chem 7: 05/26/20 14:42 05/26/20 14:42 Labs: Laboratory Last Values WBC 9.7 K/mm3 (4.5-11.0) 05/26/20 14:42 RBC 4.83 M/mm3 (3.65-5.03) 05/26/20 14:42 Hgb 14.5 gm/dl (11.8-15.2) 05/26/20 14:42 Hct 43.4 % (35.5-45.6) 05/26/20 14:42 MCV 90 fl (84-94) 05/26/20 14:42 MCH 30 pg (28-32) 05/26/20 14:42 MCHC 33 % (32-34) 05/26/20 14:42 RDW 14.3 % (13.2-15.2) 05/26/20 14:42 Plt Count 261 K/mm3 (140-440) 05/26/20 14:42 Lymph % (Auto) 15.1 % (13.4-35.0) 05/26/20 14:42 [place] % (Auto) 7.2 % (0.0-7.3) 05/26/20 14:42 Eos % (Auto) 0.5 % (0.0-4.3) 05/26/20 14:42 Baso % (Auto) 0.2 % (0.0-1.8) 05/26/20 14:42 Lymph # (Auto) 1.5 K/mm3 (1.2-5.4) 05/26/20 14:42 [place] # (Auto) 0.7 K/mm3 (0.0-0.8) 05/26/20 14:42 Eos # (Auto) 0.0 K/mm3 (0.0-0.4) 05/26/20 14:42 Baso # (Auto) 0.0 K/mm3 (0.0-0.1) 05/26/20 14:42 Add Manual Diff Complete 05/23/20 14:22 Total Counted 100 05/23/20 14:22 Seg Neutrophils % 77.0 % (40.0-70.0) H 05/26/20 14:42 Seg Neuts % (Manual) 63.0 % (40.0-70.0) 05/23/20 14:22 Band Neutrophils % 0 % 05/23/20 14:22 Lymphocytes % (Manual) 24.0 % (13.4-35.0) 05/23/20 14:22 Reactive Lymphs % (Man) 0 % 05/23/20 14:22 Monocytes % (Manual) 9.0 % (0.0-7.3) H 05/23/20 14:22 Eosinophils % (Manual) 3.0 % (0.0-4.3) 05/23/20 14:22 Basophils % (Manual) 1.0 % (0.0-1.8) 05/23/20 14:22 Metamyelocytes % 0 % 05/23/20 14:22 Myelocytes % 0 % 05/23/20 14:22 Promyelocytes % 0 % 05/23/20 14:22 Blast Cells % 0 % 05/23/20 14:22 Nucleated RBC % Not Reportable 05/23/20 14:22 Seg Neutrophils # 7.5 K/mm3 (1.8-7.7) 05/26/20 14:42 Seg Neutrophils # Man 6.6 K/mm3 (1.8-7.7) 05/23/20 14:22 Band Neutrophils # 0.0 K/mm3 05/23/20 14:22 Lymphocytes # (Manual) 2.5 K/mm3 (1.2-5.4) 05/23/20 14:22 Abs React Lymphs (Man) 0.0 K/mm3 05/23/20 14:22 Monocytes # (Manual) 0.9 K/mm3 (0.0-0.8) H 05/23/20 14:22 Eosinophils # (Manual) 0.3 K/mm3 (0.0-0.4) 05/23/20 14:22 Basophils # (Manual) 0.1 K/mm3 (0.0-0.1) 05/23/20 14:22 Metamyelocytes # 0.0 K/mm3 05/23/20 14:22 Myelocytes # 0.0 K/mm3 05/23/20 14:22 Promyelocytes # 0.0 K/mm3 05/23/20 14:22 Blast Cells # 0.0 K/mm3 05/23/20 14:22 WBC Morphology Not Reportable 05/23/20 14:22 Hypersegmented Neuts Not Reportable 05/23/20 14:22 Hyposegmented Neuts Not Reportable 05/23/20 14:22 Hypogranular Neuts Not Reportable 05/23/20 14:22 Smudge Cells Not Reportable 05/23/20 14:22 Toxic Granulation Not Reportable 05/23/20 14:22 Toxic Vacuolation Not Reportable 05/23/20 14:22 Dohle Bodies Not Reportable 05/23/20 14:22 Pelger-Huet Anomaly Not Reportable 05/23/20 14:22 Henrique Rods Not Reportable 05/23/20 14:22 Platelet Estimate Not Reportable 05/23/20 14:22 Clumped Platelets Not Reportable 05/23/20 14:22 Plt Clumps, EDTA Not Reportable 05/23/20 14:22 Large Platelets Not Reportable 05/23/20 14:22 Giant Platelets Not Reportable 05/23/20 14:22 Platelet Satelliting Not Reportable 05/23/20 14:22 Plt Morphology Comment Not Reportable 05/23/20 14:22 RBC Morphology Normal 05/23/20 14:22 Dimorphic RBCs Not Reportable 05/23/20 14:22 Polychromasia Not Reportable 05/23/20 14:22 Hypochromasia Not Reportable 05/23/20 14:22 Poikilocytosis Not Reportable 05/23/20 14:22 Anisocytosis Not Reportable 05/23/20 14:22 Microcytosis Not Reportable 05/23/20 14:22 Macrocytosis Not Reportable 05/23/20 14:22 Spherocytes Not Reportable 05/23/20 14:22 Pappenheimer Bodies Not Reportable 05/23/20 14:22 Sickle Cells Not Reportable 05/23/20 14:22 Target Cells Not Reportable 05/23/20 14:22 Tear Drop Cells Not Reportable 05/23/20 14:22 Ovalocytes Not Reportable 05/23/20 14:22 Helmet Cells Not Reportable 05/23/20 14:22 [place] Bodies Not Reportable 05/23/20 14:22 [place] Rings Not Reportable 05/23/20 14:22 [place] Cells Not Reportable 05/23/20 14:22 Bite Cells Not Reportable 05/23/20 14:22 Crenated Cell Not Reportable 05/23/20 14:22 Elliptocytes Not Reportable 05/23/20 14:22 Acanthocytes (Spur) Not Reportable 05/23/20 14:22 Rouleaux Not Reportable 05/23/20 14:22 Hemoglobin C Crystals Not Reportable 05/23/20 14:22 Schistocytes Not Reportable 05/23/20 14:22 Malaria parasites Not Reportable 05/23/20 14:22 Jaguar Bodies Not Reportable 05/23/20 14:22 Hem Pathologist Commnt No 05/23/20 14:22 D-Dimer 137.33 ng/mlDDU (0-234) 05/23/20 18:43 ABG pH 7.339 pH Units (7.350-7.450) L 05/23/20 14:20 ABG pCO2 64.8 mm Hg 05/23/20 14:20 ABG pO2 49.3 mm Hg (80.0-90.0) L 05/23/20 14:20 ABG HCO3 34.1 mmol/L (20.0-26.0) H 05/23/20 14:20 ABG O2 Saturation 84.7 % (95.0-99.0) L 05/23/20 14:20 ABG O2 Content 15.6 (0.0-44) 05/23/20 14:20 ABG Base Excess 6.1 mmol/L (-2.0-3.0) H 05/23/20 14:20 ABG Hemoglobin 14.4 gm/dl (14.0-18.0) 05/23/20 14:20 ABG Carboxyhemoglobin 8.6 % (0.0-5.0) H 05/23/20 14:20 ABG Methemoglobin 0.5 % (0.0-1.5) 05/23/20 14:20 Oxyhemoglobin 77.0 % (95.0-99.0) L 05/23/20 14:20 FiO2 21 % 05/23/20 14:20 Sodium 139 mmol/L (137-145) 05/26/20 14:42 Potassium 4.7 mmol/L (3.6-5.0) 05/26/20 14:42 Chloride 95.8 mmol/L (98-107) L 05/26/20 14:42 Carbon Dioxide 31 mmol/L (22-30) H 05/26/20 14:42 Anion Gap 17 mmol/L 05/26/20 14:42 BUN 20 mg/dL (9-20) 05/26/20 14:42 Creatinine 0.8 mg/dL (0.8-1.3) 05/26/20 14:42 Estimated GFR > 60 ml/min 05/26/20 14:42 BUN/Creatinine Ratio 25 % 05/26/20 14:42 Glucose 197 mg/dL (75-100) H 05/26/20 14:42 POC Glucose 177 mg/dL (70-105) H 05/27/20 10:49 Hemoglobin A1c 9.3 % (4-6) H 05/26/20 14:42 Calcium 8.8 mg/dL (8.4-10.2) 05/26/20 14:42 Ferritin 33.3 ng/mL (30.0-300.0) 05/23/20 18:43 Total Bilirubin 0.20 mg/dL (0.1-1.2) 05/26/20 14:42 AST 44 units/L (5-40) H 05/26/20 14:42 ALT 63 units/L (7-56) H 05/26/20 14:42 Alkaline Phosphatase 55 units/L (35-129) 05/26/20 14:42 Lactate Dehydrogenase 289 units/L (91-180) H 05/23/20 18:43 Troponin T < 0.010 ng/mL (0.00-0.029) 05/23/20 16:12 C-Reactive Protein 0.30 mg/dL (0.00-1.30) 05/23/20 18:43 NT-Pro-B Natriuret Pep 35.71 pg/mL (0-450) 05/23/20 14:22 Total Protein 6.6 g/dL (6.3-8.2) 05/26/20 14:42 Albumin 3.9 g/dL (3.9-5) 05/26/20 14:42 Albumin/Globulin Ratio 1.4 % 05/26/20 14:42 Procalcitonin < 0.05 ng/mL (<0.15) 05/27/20 07:30 Coronavirus (PCR) Negative (Negative) 05/24/20 10:23 Microbiology: Microbiology 05/23/20 18:46 Peripheral/Venous Blood Culture - Preliminary NO GROWTH AFTER 72 HOURS 05/23/20 18:43 Peripheral/Venous Blood Culture - Preliminary NO GROWTH AFTER 72 HOURS Urias/IV: Voiding Method Incontinent IV Catheter Type [Right Upper INT / Saline Lock arm] IV Catheter Type [Left Upper INT / Saline Lock arm] Active Medications - Current Medications Current Medications: Generic Name Dose Route Start Last Admin Trade Name Freq PRN Reason Stop Dose Admin Acetaminophen 650 mg 05/23/20 18:21 05/27/20 12:17 Tylenol PO 650 mg Q4H PRN Administration Pain MILD(1-3)/Fever >100.5/RENE Aripiprazole 10 mg 05/26/20 17:00 05/27/20 12:16 Aripiprazole PO 10 mg DAILY NADJA Administration Azithromycin 500 mg 05/26/20 10:00 05/27/20 12:18 Zithromax PO 05/30/20 12:00 500 mg QDAY NADJA Administration Divalproex Sodium 500 mg 05/23/20 22:00 05/27/20 12:[address] PO 500 mg BID NADJA Administration Haloperidol Lactate 5 mg 05/24/20 09:03 05/27/20 03:25 Haldol IM 5 mg Q6H PRN Administration Agitation Heparin Sodium (Porcine) 5,000 unit 05/23/20 22:00 05/27/20 12:16 Heparin SUB-Q 5,000 unit Q12HR NADJA Administration Sodium Chloride 1,000 mls @ 100 mls/hr 05/26/20 06:45 Nacl 0.9% 1000 Ml IV DIRECT NADJA Insulin Human Regular 0 unit 10/22/20 07:30 05/27/20 12:25 Humulin R SUB-Q 1 unit ACHS NADJA Administration Protocol [place] Carbonate 150 mg 05/23/20 22:00 05/27/20 12:24 Eskalith PO 150 mg BID NADJA Administration Olanzapine 5 mg 05/26/20 22:00 05/26/20 21:59 Zyprexa PO 5 mg HS NADJA Administration Ondansetron HCl 4 mg 05/23/20 18:21 Zofran IV Q8H PRN Nausea And Vomiting Ondansetron HCl 4 mg 05/23/20 18:24 Zofran Odt PO Q8HR PRN Vomiting Prednisone 40 mg 05/26/20 10:00 05/27/20 12:17 Deltasone PO 40 mg QDAY NADJA Administration Sodium Chloride 10 ml 05/23/20 22:00 05/27/20 12:18 Sodium Chloride Flush Syringe 10 Ml IV 10 ml BID NADJA Administration Sodium Chloride 10 ml 05/23/20 18:21 Sodium Chloride Flush Syringe 10 Ml IV PRN PRN LINE FLUSH Nutrition/Malnutrition Assess - Dietary Evaluation Nutrition/Malnutrition Findings: Nutrition Notes Start: 05/24/20 14:50 Freq: Status: Active Protocol: Document 05/25/20 13:06 ANGELIKA (Rec: 05/25/20 13:10 ANGELIKA [id number]) Co-Sign 05/25/20 13:06 LM Nutrition Notes Initial or Follow up Brief Note Current Diagnosis Respiratory Failure Other Pertinent Diagnosis SOB, Pneumonia, Bipolar, ADD, Nicotene dependence Current Diet Regular [place] Body Weight (kg) 0 Weight Status Obese Subjective/Other Information F/U for MST and skin risk. Unable to speak with pt via phone d/t pt in restraints. Per RN, pt has good appetite and consuming 100% meals. Pt does not have any wounds. Nutrition Intervention Revisit per MD consult or patient Sign Off request:
[2020-05-28] MEDS: HALOPERIDOL LACTATE 5 MG/1 ML INJ IM PRN ×4 (03:59→22:35)
[2020-05-28] MEDS: INSULIN REGULAR, HUMAN 100 UNIT/ML 3ML VIAL SUB-Q SCH ×4 (10:00→22:05)
[2020-05-28] MEDS: DIVALPROEX DR 500 MG TAB PO SCH ×2 (10:09→21:53)
[2020-05-28] MEDS: AZITHROMYCIN 250 MG TAB PO SCH (10:09)
[2020-05-28] MEDS: HEPARIN 5,000 UNIT/1 ML VIAL SUB-Q SCH ×2 (10:09→21:53)
[2020-05-28] MEDS: predniSONE 20 MG TAB PO SCH (10:09)
[2020-05-28] MEDS: ARIPiprazole 10 MG TAB PO SCH (10:10)
[2020-05-28] MEDS: LITHIUM CARBONATE 150 MG CAP PO SCH ×2 (10:10→22:07)
--- NOTE | 2020-05-28 10:50 | Progress Note ---
Assessment and Plan Assessment and plan: --Acute hypoxemic respiratory failure ABG in a.m. due to PNA - not done as patient is resistant Supplemental oxygen, nebulizer therapy, iv abx -- Pneumonia IV antibiotic therapy, supplemental oxygen, pulse oximetry, pulmonary toilet. -- Suspected 2019-nCoV infection, ruled out -- Hyperkalemia, resolved -- Nicotine dependence nicotine patch if needed -- Schizophrenia Supportive care, psych evaluation -- Bipolar disorder Supportive care, continue medical management. --Delirium with acute psychosis sitter in place, cont home psych meds psych following --hyperglycemia, check A1c, consistent carb diet Taper steroids -- DVT prophylaxis SCD to bilateral lower extremities while in bed, prophylactic anticoagulation Brief History: 39 YO Male with Bipolar Disorder, Schizophrenia, ADD, Nicotine Dependence present to ED for shortness of breath over the past 2 days with dry cough, generalized weakness, malaise, body aches. Patient found to have a pulse oximetry of 86%, Chest x-ray revealed bilateral pneumonia. Patient initiated on COVID-19 protocol and admitted. negative for COVID, remains agitated, restrained, confused. 05/24: severely confused, covid test neg. sitter ordered, on restrained, mental health consulted. 05/25: Remains agitated, confused. mental health eval pending. as needed haldol. cont home meds, iv abx 05/26. Patient seen examined at bedside this morning. Still hypoxic with 5 L of oxygen. ABG ordered for AM. Repeat chest xray ordered. 05/27. Drowsy this AM. Will be seen by psych. No ABG drawn. 05/28. Psych recommendations reviewed. Still agitated on current medications. History Interval history: Patient seen and examined. Makes a humming noise. Responds to questions. Psych evaluation noted. Has a sitter at bedside Hospitalist Physical - Physical exam Narrative exam: VITAL SIGNS: Reviewed. GENERAL: Awake HEAD: No signs of head trauma. EYES: Pupils are equal. Extraocular motions intact. EARS: Hearing grossly intact. MOUTH: Oropharynx is normal. NECK: No adenopathy, no JVD. CHEST: Chest with diminished breath sounds bilaterally. No wheezes, rales, or rhonchi. CARDIAC: Regular rate and rhythm. S1 and S2, without murmurs, gallops, or rubs. VASCULAR: No Edema. Peripheral pulses normal and equal in all extremities. ABDOMEN: Soft, non tender and non distended. No rebound or guarding, and no masses palpated. Bowel Sounds normal. MUSCULOSKELETAL: Good range of motion of all major joints. Extremities without clubbing, cyanosis or edema. NEUROLOGIC EXAM: Awake PSYCHIATRIC: Stable mood SKIN: No obvious lesions - Constitutional Vitals: Temp Pulse Resp BP Pulse Ox 98.5 F 81 20 128/72 92 05/28/20 07:49 05/28/20 07:49 05/28/20 07:49 05/28/20 07:49 05/28/20 07:49 HEART Score - HEART Score Troponin: Troponin T < 0.010 ng/mL (0.00-0.029) 05/23/20 16:12 Results - Labs CBC & Chem 7: 05/26/20 14:42 05/26/20 14:42 Labs: Laboratory Last Values WBC 9.7 K/mm3 (4.5-11.0) 05/26/20 14:42 RBC 4.83 M/mm3 (3.65-5.03) 05/26/20 14:42 Hgb 14.5 gm/dl (11.8-15.2) 05/26/20 14:42 Hct 43.4 % (35.5-45.6) 05/26/20 14:42 MCV 90 fl (84-94) 05/26/20 14:42 MCH 30 pg (28-32) 05/26/20 14:42 MCHC 33 % (32-34) 05/26/20 14:42 RDW 14.3 % (13.2-15.2) 05/26/20 14:42 Plt Count 261 K/mm3 (140-440) 05/26/20 14:42 Lymph % (Auto) 15.1 % (13.4-35.0) 05/26/20 14:42 [place] % (Auto) 7.2 % (0.0-7.3) 05/26/20 14:42 Eos % (Auto) 0.5 % (0.0-4.3) 05/26/20 14:42 Baso % (Auto) 0.2 % (0.0-1.8) 05/26/20 14:42 Lymph # (Auto) 1.5 K/mm3 (1.2-5.4) 05/26/20 14:42 [place] # (Auto) 0.7 K/mm3 (0.0-0.8) 05/26/20 14:42 Eos # (Auto) 0.0 K/mm3 (0.0-0.4) 05/26/20 14:42 Baso # (Auto) 0.0 K/mm3 (0.0-0.1) 05/26/20 14:42 Add Manual Diff Complete 05/23/20 14:22 Total Counted 100 05/23/20 14:22 Seg Neutrophils % 77.0 % (40.0-70.0) H 05/26/20 14:42 Seg Neuts % (Manual) 63.0 % (40.0-70.0) 05/23/20 14:22 Band Neutrophils % 0 % 05/23/20 14:22 Lymphocytes % (Manual) 24.0 % (13.4-35.0) 05/23/20 14:22 Reactive Lymphs % (Man) 0 % 05/23/20 14:22 Monocytes % (Manual) 9.0 % (0.0-7.3) H 05/23/20 14:22 Eosinophils % (Manual) 3.0 % (0.0-4.3) 05/23/20 14:22 Basophils % (Manual) 1.0 % (0.0-1.8) 05/23/20 14:22 Metamyelocytes % 0 % 05/23/20 14:22 Myelocytes % 0 % 05/23/20 14:22 Promyelocytes % 0 % 05/23/20 14:22 Blast Cells % 0 % 05/23/20 14:22 Nucleated RBC % Not Reportable 05/23/20 14:22 Seg Neutrophils # 7.5 K/mm3 (1.8-7.7) 05/26/20 14:42 Seg Neutrophils # Man 6.6 K/mm3 (1.8-7.7) 05/23/20 14:22 Band Neutrophils # 0.0 K/mm3 05/23/20 14:22 Lymphocytes # (Manual) 2.5 K/mm3 (1.2-5.4) 05/23/20 14:22 Abs React Lymphs (Man) 0.0 K/mm3 05/23/20 14:22 Monocytes # (Manual) 0.9 K/mm3 (0.0-0.8) H 05/23/20 14:22 Eosinophils # (Manual) 0.3 K/mm3 (0.0-0.4) 05/23/20 14:22 Basophils # (Manual) 0.1 K/mm3 (0.0-0.1) 05/23/20 14:22 Metamyelocytes # 0.0 K/mm3 05/23/20 14:22 Myelocytes # 0.0 K/mm3 05/23/20 14:22 Promyelocytes # 0.0 K/mm3 05/23/20 14:22 Blast Cells # 0.0 K/mm3 05/23/20 14:22 WBC Morphology Not Reportable 05/23/20 14:22 Hypersegmented Neuts Not Reportable 05/23/20 14:22 Hyposegmented Neuts Not Reportable 05/23/20 14:22 Hypogranular Neuts Not Reportable 05/23/20 14:22 Smudge Cells Not Reportable 05/23/20 14:22 Toxic Granulation Not Reportable 05/23/20 14:22 Toxic Vacuolation Not Reportable 05/23/20 14:22 Dohle Bodies Not Reportable 05/23/20 14:22 Pelger-Huet Anomaly Not Reportable 05/23/20 14:22 Henrique Rods Not Reportable 05/23/20 14:22 Platelet Estimate Not Reportable 05/23/20 14:22 Clumped Platelets Not Reportable 05/23/20 14:22 Plt Clumps, EDTA Not Reportable 05/23/20 14:22 Large Platelets Not Reportable 05/23/20 14:22 Giant Platelets Not Reportable 05/23/20 14:22 Platelet Satelliting Not Reportable 05/23/20 14:22 Plt Morphology Comment Not Reportable 05/23/20 14:22 RBC Morphology Normal 05/23/20 14:22 Dimorphic RBCs Not Reportable 05/23/20 14:22 Polychromasia Not Reportable 05/23/20 14:22 Hypochromasia Not Reportable 05/23/20 14:22 Poikilocytosis Not Reportable 05/23/20 14:22 Anisocytosis Not Reportable 05/23/20 14:22 Microcytosis Not Reportable 05/23/20 14:22 Macrocytosis Not Reportable 05/23/20 14:22 Spherocytes Not Reportable 05/23/20 14:22 Pappenheimer Bodies Not Reportable 05/23/20 14:22 Sickle Cells Not Reportable 05/23/20 14:22 Target Cells Not Reportable 05/23/20 14:22 Tear Drop Cells Not Reportable 05/23/20 14:22 Ovalocytes Not Reportable 05/23/20 14:22 Helmet Cells Not Reportable 05/23/20 14:22 [place] Bodies Not Reportable 05/23/20 14:22 [place] Rings Not Reportable 05/23/20 14:22 [place] Cells Not Reportable 05/23/20 14:22 Bite Cells Not Reportable 05/23/20 14:22 Crenated Cell Not Reportable 05/23/20 14:22 Elliptocytes Not Reportable 05/23/20 14:22 Acanthocytes (Spur) Not Reportable 05/23/20 14:22 Rouleaux Not Reportable 05/23/20 14:22 Hemoglobin C Crystals Not Reportable 05/23/20 14:22 Schistocytes Not Reportable 05/23/20 14:22 Malaria parasites Not Reportable 05/23/20 14:22 Jaguar Bodies Not Reportable 05/23/20 14:22 Hem Pathologist Commnt No 05/23/20 14:22 D-Dimer 137.33 ng/mlDDU (0-234) 05/23/20 18:43 ABG pH 7.339 pH Units (7.350-7.450) L 05/23/20 14:20 ABG pCO2 64.8 mm Hg 05/23/20 14:20 ABG pO2 49.3 mm Hg (80.0-90.0) L 05/23/20 14:20 ABG HCO3 34.1 mmol/L (20.0-26.0) H 05/23/20 14:20 ABG O2 Saturation 84.7 % (95.0-99.0) L 05/23/20 14:20 ABG O2 Content 15.6 (0.0-44) 05/23/20 14:20 ABG Base Excess 6.1 mmol/L (-2.0-3.0) H 05/23/20 14:20 ABG Hemoglobin 14.4 gm/dl (14.0-18.0) 05/23/20 14:20 ABG Carboxyhemoglobin 8.6 % (0.0-5.0) H 05/23/20 14:20 ABG Methemoglobin 0.5 % (0.0-1.5) 05/23/20 14:20 Oxyhemoglobin 77.0 % (95.0-99.0) L 05/23/20 14:20 FiO2 21 % 05/23/20 14:20 Sodium 139 mmol/L (137-145) 05/26/20 14:42 Potassium 4.7 mmol/L (3.6-5.0) 05/26/20 14:42 Chloride 95.8 mmol/L (98-107) L 05/26/20 14:42 Carbon Dioxide 31 mmol/L (22-30) H 05/26/20 14:42 Anion Gap 17 mmol/L 05/26/20 14:42 BUN 20 mg/dL (9-20) 05/26/20 14:42 Creatinine 0.8 mg/dL (0.8-1.3) 05/26/20 14:42 Estimated GFR > 60 ml/min 05/26/20 14:42 BUN/Creatinine Ratio 25 % 05/26/20 14:42 Glucose 197 mg/dL (75-100) H 05/26/20 14:42 POC Glucose 117 mg/dL (70-105) H 05/28/20 08:42 Hemoglobin A1c 9.3 % (4-6) H 05/26/20 14:42 Calcium 8.8 mg/dL (8.4-10.2) 05/26/20 14:42 Ferritin 33.3 ng/mL (30.0-300.0) 05/23/20 18:43 Total Bilirubin 0.20 mg/dL (0.1-1.2) 05/26/20 14:42 AST 44 units/L (5-40) H 05/26/20 14:42 ALT 63 units/L (7-56) H 05/26/20 14:42 Alkaline Phosphatase 55 units/L (35-129) 05/26/20 14:42 Lactate Dehydrogenase 289 units/L (91-180) H 05/23/20 18:43 Troponin T < 0.010 ng/mL (0.00-0.029) 05/23/20 16:12 C-Reactive Protein 0.30 mg/dL (0.00-1.30) 05/23/20 18:43 NT-Pro-B Natriuret Pep 35.71 pg/mL (0-450) 05/23/20 14:22 Total Protein 6.6 g/dL (6.3-8.2) 05/26/20 14:42 Albumin 3.9 g/dL (3.9-5) 05/26/20 14:42 Albumin/Globulin Ratio 1.4 % 05/26/20 14:42 Procalcitonin < 0.05 ng/mL (<0.15) 05/27/20 07:30 Coronavirus (PCR) Negative (Negative) 05/24/20 10:23 Microbiology: Microbiology 05/23/20 18:46 Peripheral/Venous Blood Culture - Preliminary NO GROWTH AFTER 4 DAYS 05/23/20 18:43 Peripheral/Venous Blood Culture - Preliminary NO GROWTH AFTER 4 DAYS Urias/IV: Voiding Method Diaper IV Catheter Type [Right Upper INT / Saline Lock arm] IV Catheter Type [Left Upper INT / Saline Lock arm] Active Medications - Current Medications Current Medications: Generic Name Dose Route Start Last Admin Trade Name Freq PRN Reason Stop Dose Admin Acetaminophen 650 mg 05/23/20 18:21 05/27/20 12:17 Tylenol PO 650 mg Q4H PRN Administration Pain MILD(1-3)/Fever >100.5/RENE Aripiprazole 10 mg 05/26/20 17:00 05/28/20 10:10 Aripiprazole PO 10 mg DAILY NADJA Administration Azithromycin 500 mg 05/26/20 10:00 05/28/20 10:09 Zithromax PO 05/30/20 12:00 500 mg QDAY NADJA Administration Divalproex Sodium 500 mg 05/23/20 22:00 05/28/20 10:[address] PO 500 mg BID NADJA Administration Haloperidol Lactate 5 mg 05/24/20 09:03 05/28/20 03:59 Haldol IM 5 mg Q6H PRN Administration Agitation Heparin Sodium (Porcine) 5,000 unit 05/23/20 22:00 05/28/20 10:09 Heparin SUB-Q 5,000 unit Q12HR NADJA Administration Sodium Chloride 1,000 mls @ 100 mls/hr 05/26/20 06:45 Nacl 0.9% 1000 Ml IV DIRECT NADJA Insulin Human Regular 0 unit 05/26/20 07:30 05/28/20 10:00 Humulin R SUB-Q Not Given [facility] Protocol [place] Carbonate 150 mg 05/23/20 22:00 05/28/20 10:10 Eskalith PO 150 mg BID NADJA Administration Olanzapine 5 mg 05/26/20 22:00 05/27/20 22:38 Zyprexa PO 5 mg HS NADJA Administration Ondansetron HCl 4 mg 05/23/20 18:21 Zofran IV Q8H PRN Nausea And Vomiting Ondansetron HCl 4 mg 05/23/20 18:24 Zofran Odt PO Q8HR PRN Vomiting Prednisone 40 mg 05/26/20 10:00 05/28/20 10:09 Deltasone PO 40 mg QDAY NADJA Administration Sodium Chloride 10 ml 05/23/20 22:00 05/28/20 10:10 Sodium Chloride Flush Syringe 10 Ml IV 10 ml BID NADJA Administration Sodium Chloride 10 ml 05/23/20 18:21 Sodium Chloride Flush Syringe 10 Ml IV PRN PRN LINE FLUSH Nutrition/Malnutrition Assess - Dietary Evaluation Nutrition/Malnutrition Findings: Nutrition Notes Start: 05/24/20 14:50 Freq: Status: Active Protocol: Document 05/25/20 13:06 ANGELIKA (Rec: 05/25/20 13:10 [email or web address] [id number]) Co-Sign 05/25/20 13:06 LM Nutrition Notes Initial or Follow up Brief Note Current Diagnosis Respiratory Failure Other Pertinent Diagnosis SOB, Pneumonia, Bipolar, ADD, Nicotene dependence Current Diet Regular [place] Body Weight (kg) 0 Weight Status Obese Subjective/Other Information F/U for MST and skin risk. Unable to speak with pt via phone d/t pt in restraints. Per RN, pt has good appetite and consuming 100% meals. Pt does not have any wounds. Nutrition Intervention Revisit per MD consult or patient Sign Off request:
--- NOTE | 2020-05-28 12:09 | Progress Note ---
Subjective - Reason for Consult Consult date: 05/28/20 Reason for consult: psychosis - Chief Complaint Chief complaint: During my interview with the patient he is lying down, asleep. He is somnolent and snoring. He is in restraints. The patient responded very minimal to his name being called several times nor to vigorous tactile stimulation. He said "huh" and went back out. The sitter at bedside says the patient has been asleep and yells, and attempting to get out of be when he is awake. REVIEW OF SYSTEMS Unable to obtain MENTAL STATUS EXAMINATION Unable to obtain Assessment and Plan (1)Acute Delirium Current Visit: Yes Status: Acute RECOMMENDATIONS MEDICATIONS: Continue current medications Risks, benefits and alternatives of medications discussed with the patient, questions answered and consent obtained from patient. PSYCHOTHERAPY: Supportive psychotherapy provided MEDICAL: Per primary team DELIRIUM PRECAUTIONS: Please re-orient patient frequently, keep lights on during the day, and minimize benzodiazepines and opiates as these medications could worsen patient's confusion. SHEET TESTER: Defer to primary DISPOSITION: Do not recommend acute inpatient psychiatric treatment at this time. The patient has complex medical condition with acute hypoxemia respiratory failure due to PNA, with 5L 02. The patient has been unable to fully mj in interview over the last few days due to drowsiness. Will sign off. Please re-consult in the future if needed once acute medical conditions resolve. Thank you for the consult. Please contact with any questions and/or concerns. Mental Status Exam - Vital signs Last Vital Signs Temp 98.8 F 05/28/20 11:32 Pulse 97 H 05/28/20 11:32 Resp 22 05/28/20 11:32 BP 116/85 05/28/20 11:32 Pulse Ox 89 05/28/20 11:32
[2020-05-28 15:33] LABS: Basophils % (Auto) 0.1 % (0.0-1.8); Eosinophils % (Auto) 0.2 % (0.0-4.3); Hematocrit 47.1 % (35.5-45.6); Hemoglobin 15.6 gm/dl (11.8-15.2); Lymphocytes # (Auto) 1.9 K/mm3 (1.2-5.4); Lymphocytes % (Auto) 15.8 % (13.4-35.0); Mean Corpuscular HGB Conc 33 % (32-34); Mean Corpuscular Volume 90 fl (84-94); Monocytes # (Auto) 0.7 K/mm3 (0.0-0.8); Monocytes % (Auto) 5.8 % (0.0-7.3); Platelet Count 276 K/mm3 (140-440); Red Blood Count 5.22 M/mm3 (3.65-5.03); Red Cell Distribution Width 13.9 % (13.2-15.2)
[2020-05-28 15:49] LABS: Alanine Aminotransferase 126 units/L (7-56); Albumin 4.2 g/dL (3.9-5); Blood Urea Nitrogen 15 mg/dL (9-20); Calcium 9.5 mg/dL (8.4-10.2); Hemolysis Index 9
[2020-05-28 15:50] LABS: BUN/Creatinine Ratio 21
[2020-05-28] MEDS ORDERED: SODIUM POLYSTYRENE 15 GM/60 ML ORAL LIQD PO ONE (17:35)
[2020-05-28] MEDS: LACTULOSE 20 GM/30 ML ORAL LIQD PO SCH (18:13)
[2020-05-29] MEDS: HALOPERIDOL LACTATE 5 MG/1 ML INJ IM PRN ×3 (04:44→17:47)
[2020-05-29] MEDS: LACTULOSE 20 GM/30 ML ORAL LIQD PO SCH ×2 (05:23→17:25)
--- NOTE | 2020-05-29 08:23 | XRay Report ---
CHEST 1 VIEW INDICATION: Hypoxia COMPARISON: 05/26/2020 FINDINGS: Support devices: None Heart: Stable. Lungs/Pleura: Minimal bibasilar atelectasis. No acute disease. IMPRESSION: 1. No significant change. Signer Name: Paxton Wakefield MD Signed: 05/29/2020 8:18 AM Workstation Name: [id number]
[2020-05-29] MEDS: INSULIN REGULAR, HUMAN 100 UNIT/ML 3ML VIAL SUB-Q SCH ×4 (08:40→22:35)
[2020-05-29 10:37] LABS: Basophils # (Auto) 0.1 K/mm3 (0.0-0.1); Basophils % (Auto) 0.5 % (0.0-1.8); Eosinophils # (Auto) 0.1 K/mm3 (0.0-0.4); Eosinophils % (Auto) 0.6 % (0.0-4.3); Hematocrit 46.7 % (35.5-45.6); Hemoglobin 15.7 gm/dl (11.8-15.2); Lymphocytes % (Auto) 15.5 % (13.4-35.0); Mean Corpuscular HGB Conc 34 % (32-34); Mean Corpuscular Volume 89 fl (84-94); Monocytes # (Auto) 1.5 K/mm3 (0.0-0.8); Monocytes % (Auto) 12.1 % (0.0-7.3); Platelet Count 266 K/mm3 (140-440); Red Blood Count 5.22 M/mm3 (3.65-5.03)
[2020-05-29 11:04] LABS: Alanine Aminotransferase 114 units/L (7-56); Albumin 4.2 g/dL (3.9-5); Blood Urea Nitrogen 17 mg/dL (9-20); Calcium 9.6 mg/dL (8.4-10.2); Hemolysis Index 17
[2020-05-29 11:06] LABS: BUN/Creatinine Ratio 24
[2020-05-29] MEDS: AZITHROMYCIN 250 MG TAB PO SCH (11:46)
[2020-05-29] MEDS: predniSONE 20 MG TAB PO SCH (11:46)
[2020-05-29] MEDS: HEPARIN 5,000 UNIT/1 ML VIAL SUB-Q SCH ×2 (11:46→22:26)
[2020-05-29] MEDS: LITHIUM CARBONATE 150 MG CAP PO SCH (11:46)
[2020-05-29] MEDS: DIVALPROEX DR 500 MG TAB PO SCH (11:46)
--- NOTE | 2020-05-29 13:32 | Progress Note ---
Assessment and Plan Assessment and plan: --Acute hypoxemic hypercapnic respiratory failure ABG shows hypercapnia - He has been placed on BIPAP. Repeat ABG ordered tomorrow AM Ddimer is elevated. CTA chest and US doppler ordered. Chest xray shows some infiltrate but BNP is low. Continue prednisone taper. Supplemental oxygen, nebulizer therapy, iv abx -- Pneumonia On azithromycin till 05/30 Procalcitonin is negative. -- Suspected 2019-nCoV infection, ruled out -- Elevated LFTs Monitor for now -- Nicotine dependence nicotine patch if needed -- Schizophrenia, Bipolar disorder, Delirium with acute psychosis Zyprexa psych following -- DVT prophylaxis SCD to bilateral lower extremities while in bed, prophylactic anticoagulation Brief History: 39 YO Male with Bipolar Disorder, Schizophrenia, ADD, Nicotine Dependence present to ED for shortness of breath over the past 2 days with dry cough, generalized weakness, malaise, body aches. Patient found to have a pulse oximetry of 86%, Chest x-ray revealed bilateral pneumonia. Patient initiated on COVID-19 protocol and admitted. negative for COVID, remains agitated, restrained, confused. 05/24: severely confused, covid test neg. sitter ordered, on restrained, mental health consulted. 05/25: Remains agitated, confused. mental health eval pending. as needed haldol. cont home meds, iv abx 05/26. Patient seen examined at bedside this morning. Still hypoxic with 5 L of oxygen. ABG ordered for AM. Repeat chest xray ordered. 05/27. Drowsy this AM. Will be seen by psych. No ABG drawn. 05/28. Psych recommendations reviewed. Still agitated on current medications. 05/29. His Blood gas shows respiratory acidosis. He was placed on BIPAP. ddimer is elevated - CTA chest and US doppler ordered. Continue psych medications. His LFTs are trending up- will monitor History Interval history: Patient seen and examined. Awake and responds when called. His ABG showed hypercapnia so he was placed on BIPAP> Seen on BIPAP this AM. Labs reviewed Hospitalist Physical - Physical exam Narrative exam: VITAL SIGNS: Reviewed. GENERAL: Awake on BIPAP HEAD: No signs of head trauma. EYES: Pupils are equal. Extraocular motions intact. EARS: Hearing grossly intact. MOUTH: Oropharynx is normal. NECK: No adenopathy, no JVD. CHEST: Chest with diminished breath sounds bilaterally. CARDIAC: Regular rate and rhythm. S1 and S2, without murmurs, gallops, or rubs. VASCULAR: No Edema. Peripheral pulses normal and equal in all extremities. ABDOMEN: Soft, non tender and non distended. No rebound or guarding, and no masses palpated. Bowel Sounds normal. MUSCULOSKELETAL: Good range of motion of all major joints. Extremities without clubbing, cyanosis or edema. NEUROLOGIC EXAM: Awake PSYCHIATRIC: Stable mood SKIN: No obvious lesions - Constitutional Vitals: Temp Pulse Resp BP Pulse Ox 98.3 F 107 H 20 149/102 94 05/29/20 07:47 05/29/20 07:47 05/29/20 07:47 05/29/20 07:47 05/29/20 07:47 - Respiratory Respiratory: bilateral: diminished, wheezing (mild) - Neurologic Neurologic: CNII-XII intact HEART Score - HEART Score Troponin: Troponin T < 0.010 ng/mL (0.00-0.029) 05/23/20 16:12 Results - Labs CBC & Chem 7: 05/29/20 09:39 05/29/20 09:31 Labs: Laboratory Last Values WBC 12.7 K/mm3 (4.5-11.0) H 05/29/20 09:39 RBC 5.22 M/mm3 (3.65-5.03) H 05/29/20 09:39 Hgb 15.7 gm/dl (11.8-15.2) H 05/29/20 09:39 Hct 46.7 % (35.5-45.6) H 05/29/20 09:39 MCV 89 fl (84-94) 05/29/20 09:39 MCH 30 pg (28-32) 05/29/20 09:39 MCHC 34 % (32-34) 05/29/20 09:39 RDW 14.0 % (13.2-15.2) 05/29/20 09:39 Plt Count 266 K/mm3 (140-440) 05/29/20 09:39 Lymph % (Auto) 15.5 % (13.4-35.0) 05/29/20 09:39 [place] % (Auto) 12.1 % (0.0-7.3) H 05/29/20 09:39 Eos % (Auto) 0.6 % (0.0-4.3) 05/29/20 09:39 Baso % (Auto) 0.5 % (0.0-1.8) 05/29/20 09:39 Lymph # (Auto) 2.0 K/mm3 (1.2-5.4) 05/29/20 09:39 [place] # (Auto) 1.5 K/mm3 (0.0-0.8) H 05/29/20 09:39 Eos # (Auto) 0.1 K/mm3 (0.0-0.4) 05/29/20 09:39 Baso # (Auto) 0.1 K/mm3 (0.0-0.1) 05/29/20 09:39 Add Manual Diff Complete 05/23/20 14:22 Total Counted 100 05/23/20 14:22 Seg Neutrophils % 71.3 % (40.0-70.0) H 05/29/20 09:39 Seg Neuts % (Manual) 63.0 % (40.0-70.0) 05/23/20 14:22 Band Neutrophils % 0 % 05/23/20 14:22 Lymphocytes % (Manual) 24.0 % (13.4-35.0) 05/23/20 14:22 Reactive Lymphs % (Man) 0 % 05/23/20 14:22 Monocytes % (Manual) 9.0 % (0.0-7.3) H 05/23/20 14:22 Eosinophils % (Manual) 3.0 % (0.0-4.3) 05/23/20 14:22 Basophils % (Manual) 1.0 % (0.0-1.8) 05/23/20 14:22 Metamyelocytes % 0 % 05/23/20 14:22 Myelocytes % 0 % 05/23/20 14:22 Promyelocytes % 0 % 05/23/20 14:22 Blast Cells % 0 % 05/23/20 14:22 Nucleated RBC % Not Reportable 05/23/20 14:22 Seg Neutrophils # 9.1 K/mm3 (1.8-7.7) H 05/29/20 09:39 Seg Neutrophils # Man 6.6 K/mm3 (1.8-7.7) 05/23/20 14:22 Band Neutrophils # 0.0 K/mm3 05/23/20 14:22 Lymphocytes # (Manual) 2.5 K/mm3 (1.2-5.4) 05/23/20 14:22 Abs React Lymphs (Man) 0.0 K/mm3 05/23/20 14:22 Monocytes # (Manual) 0.9 K/mm3 (0.0-0.8) H 05/23/20 14:22 Eosinophils # (Manual) 0.3 K/mm3 (0.0-0.4) 05/23/20 14:22 Basophils # (Manual) 0.1 K/mm3 (0.0-0.1) 05/23/20 14:22 Metamyelocytes # 0.0 K/mm3 05/23/20 14:22 Myelocytes # 0.0 K/mm3 05/23/20 14:22 Promyelocytes # 0.0 K/mm3 05/23/20 14:22 Blast Cells # 0.0 K/mm3 05/23/20 14:22 WBC Morphology Not Reportable 05/23/20 14:22 Hypersegmented Neuts Not Reportable 05/23/20 14:22 Hyposegmented Neuts Not Reportable 05/23/20 14:22 Hypogranular Neuts Not Reportable 05/23/20 14:22 Smudge Cells Not Reportable 05/23/20 14:22 Toxic Granulation Not Reportable 05/23/20 14:22 Toxic Vacuolation Not Reportable 05/23/20 14:22 Dohle Bodies Not Reportable 05/23/20 14:22 Pelger-Huet Anomaly Not Reportable 05/23/20 14:22 Henrique Rods Not Reportable 05/23/20 14:22 Platelet Estimate Not Reportable 05/23/20 14:22 Clumped Platelets Not Reportable 05/23/20 14:22 Plt Clumps, EDTA Not Reportable 05/23/20 14:22 Large Platelets Not Reportable 05/23/20 14:22 Giant Platelets Not Reportable 05/23/20 14:22 Platelet Satelliting Not Reportable 05/23/20 14:22 Plt Morphology Comment Not Reportable 05/23/20 14:22 RBC Morphology Normal 05/23/20 14:22 Dimorphic RBCs Not Reportable 05/23/20 14:22 Polychromasia Not Reportable 05/23/20 14:22 Hypochromasia Not Reportable 05/23/20 14:22 Poikilocytosis Not Reportable 05/23/20 14:22 Anisocytosis Not Reportable 05/23/20 14:22 Microcytosis Not Reportable 05/23/20 14:22 Macrocytosis Not Reportable 05/23/20 14:22 Spherocytes Not Reportable 05/23/20 14:22 Pappenheimer Bodies Not Reportable 05/23/20 14:22 Sickle Cells Not Reportable 05/23/20 14:22 Target Cells Not Reportable 05/23/20 14:22 Tear Drop Cells Not Reportable 05/23/20 14:22 Ovalocytes Not Reportable 05/23/20 14:22 Helmet Cells Not Reportable 05/23/20 14:22 [place]-Howard Bodies Not Reportable 05/23/20 14:22 [place] Rings Not Reportable 05/23/20 14:22 [place] Cells Not Reportable 05/23/20 14:22 Bite Cells Not Reportable 05/23/20 14:22 Crenated Cell Not Reportable 05/23/20 14:22 Elliptocytes Not Reportable 05/23/20 14:22 Acanthocytes (Spur) Not Reportable 05/23/20 14:22 Rouleaux Not Reportable 05/23/20 14:22 Hemoglobin C Crystals Not Reportable 05/23/20 14:22 Schistocytes Not Reportable 05/23/20 14:22 Malaria parasites Not Reportable 05/23/20 14:22 Jaguar Bodies Not Reportable 05/23/20 14:22 Hem Pathologist Commnt No 05/23/20 14:22 D-Dimer 1026.65 ng/mlDDU (0-234) H 05/29/20 09:31 ABG pH 7.292 (7.320-7.450) L 05/28/20 17:59 POC ABG pCO2 71.2 mmHg (32.0-48.0) H 05/28/20 17:59 ABG pCO2 64.8 mm Hg 05/23/20 14:20 POC ABG pO2 66.0 mmHg (83-108) L 05/28/20 17:59 ABG pO2 49.3 mm Hg (80.0-90.0) L 05/23/20 14:20 POC ABG HCO3 33.6 05/28/20 17:59 ABG HCO3 34.1 mmol/L (20.0-26.0) H 05/23/20 14:20 ABG O2 Saturation 84.7 % (95.0-99.0) L 05/23/20 14:20 ABG O2 Content 15.6 (0.0-44) 05/23/20 14:20 POC ABG Base Excess 4.2 05/28/20 17:59 ABG Base Excess 6.1 mmol/L (-2.0-3.0) H 05/23/20 14:20 ABG Hemoglobin 16.2 (12.0-17.5) 05/28/20 17:59 ABG Carboxyhemoglobin 8.6 % (0.0-5.0) H 05/23/20 14:20 ABG Methemoglobin 0.5 % (0.0-1.5) 05/23/20 14:20 ABG Sodium 137.2 mmol/L (136.0-145.0) 05/28/20 17:59 ABG Potassium 4.8 mmol/L (3.40-4.50) H 05/28/20 17:59 ABG Chloride 95.0 mmol/L (98-107) L 05/28/20 17:59 ABG Glucose 152 mg/dL (65-95) H 05/28/20 17:59 Oxyhemoglobin 77.0 % (95.0-99.0) L 05/23/20 14:20 FiO2 32.0 05/28/20 17:59 Sodium 144 mmol/L (137-145) 05/29/20 09:31 Potassium 4.5 mmol/L (3.6-5.0) 05/29/20 09:31 Chloride 97.1 mmol/L (98-107) L 05/29/20 09:31 Carbon Dioxide 37 mmol/L (22-30) H 05/29/20 09:31 Anion Gap 14 mmol/L 05/29/20 09:31 BUN 17 mg/dL (9-20) 05/29/20 09:31 Creatinine 0.7 mg/dL (0.8-1.3) L 05/29/20 09:31 Estimated GFR > 60 ml/min 05/29/20 09:31 BUN/Creatinine Ratio 24 % 05/29/20 09:31 Glucose 142 mg/dL (75-100) H 05/29/20 09:31 POC Glucose 133 mg/dL (70-105) H 05/29/20 11:42 Hemoglobin A1c 9.3 % (4-6) H 05/26/20 14:42 Calcium 9.6 mg/dL (8.4-10.2) 05/29/20 09:31 Magnesium 2.60 mg/dL (1.7-2.3) H 05/28/20 14:24 Ferritin 33.3 ng/mL (30.0-300.0) 05/23/20 18:43 Total Bilirubin 0.70 mg/dL (0.1-1.2) 05/29/20 09:31 AST 92 units/L (5-40) H 05/29/20 09:31 ALT 114 units/L (7-56) H 05/29/20 09:31 Alkaline Phosphatase 60 units/L (35-129) 05/29/20 09:31 Ammonia 92.0 umol/L (25-60) H 05/28/20 14:24 Lactate Dehydrogenase 289 units/L (91-180) H 05/23/20 18:43 Troponin T < 0.010 ng/mL (0.00-0.029) 05/23/20 16:12 C-Reactive Protein 0.30 mg/dL (0.00-1.30) 05/23/20 18:43 NT-Pro-B Natriuret Pep 7.67 pg/mL (0-450) 05/29/20 09:31 Total Protein 7.3 g/dL (6.3-8.2) 05/29/20 09:31 Albumin 4.2 g/dL (3.9-5) 05/29/20 09:31 Albumin/Globulin Ratio 1.4 % 05/29/20 09:31 Procalcitonin < 0.05 ng/mL (<0.15) 05/27/20 07:30 Arterial Blood Glucose 152 mg/dL (65-95) H 05/28/20 17:59 Arterial Blood Ionized Calcium 5.1 mg/dL (4.6-5.3) 05/28/20 17:59 Coronavirus (PCR) Negative (Negative) 05/24/20 10:23 Microbiology: Microbiology 05/23/20 18:46 Peripheral/Venous Blood Culture - Final NO GROWTH AFTER 5 DAYS 05/23/20 18:43 Peripheral/Venous Blood Culture - Final NO GROWTH AFTER 5 DAYS Urias/IV: Voiding Method External Female Catheter IV Catheter Type [Right Upper INT / Saline Lock arm] IV Catheter Type [Left Upper INT / Saline Lock arm] Active Medications - Current Medications Current Medications: Generic Name Dose Route Start Last Admin Trade Name Freq PRN Reason Stop Dose Admin Acetaminophen 650 mg 05/23/20 18:21 05/27/20 12:17 Tylenol PO 650 mg Q4H PRN Administration Pain MILD(1-3)/Fever >100.5/RENE Azithromycin 500 mg 05/26/20 10:00 05/29/20 11:46 Zithromax PO 05/30/20 12:00 500 mg QDAY NADJA Administration Divalproex Sodium 500 mg 05/23/20 22:00 05/29/20 11:[address] PO 500 mg BID NDAJA Administration Haloperidol Lactate 5 mg 05/24/20 09:03 05/29/20 11:46 Haldol IM 5 mg Q6H PRN Administration Agitation Heparin Sodium (Porcine) 5,000 unit 05/23/20 22:00 05/29/20 11:46 Heparin SUB-Q 5,000 unit Q12HR NADJA Administration Sodium Chloride 1,000 mls @ 100 mls/hr 05/26/20 06:45 Nacl 0.9% 1000 Ml IV DIRECT NADJA Insulin Human Regular 0 unit 05/26/20 07:30 05/29/20 11:47 Humulin R SUB-Q Not Given ACHS REPLACED BY [facility] Protocol Lactulose 20 gm 05/28/20 18:00 05/29/20 05:23 Cephulac PO Not Given Q12H NADJA [place] Carbonate 150 mg 05/23/20 22:00 05/29/20 11:46 Eskalith PO 150 mg BID NADJA Administration Ondansetron HCl 4 mg 05/23/20 18:21 Zofran IV Q8H PRN Nausea And Vomiting Ondansetron HCl 4 mg 05/23/20 18:24 Zofran Odt PO Q8HR PRN Vomiting Prednisone 20 mg 05/29/20 10:00 05/29/20 11:46 Deltasone PO 20 mg QDAY NADJA Administration Sodium Chloride 10 ml 05/23/20 22:00 05/29/20 11:47 Sodium Chloride Flush Syringe 10 Ml IV 10 ml BID NADJA Administration Sodium Chloride 10 ml 05/23/20 18:21 Sodium Chloride Flush Syringe 10 Ml IV PRN PRN LINE FLUSH Nutrition/Malnutrition Assess - Dietary Evaluation Nutrition/Malnutrition Findings: Nutrition Notes Start: 05/24/20 14:50 Freq: Status: Active Protocol: Document 05/25/20 13:06 ANGELIKA (Rec: 05/25/20 13:10 ANGELIKA [id number]) Co-Sign 05/25/20 13:06 Nutrition Notes Initial or Follow up Brief Note Current Diagnosis Respiratory Failure Other Pertinent Diagnosis SOB, Pneumonia, Bipolar, ADD, Nicotene dependence Current Diet Regular [place] Body Weight (kg) 0 Weight Status Obese Subjective/Other Information F/U for MST and skin risk. Unable to speak with pt via phone d/t pt in restraints. Per RN, pt has good appetite and consuming 100% meals. Pt does not have any wounds. Nutrition Intervention Revisit per MD consult or patient Sign Off request:
--- NOTE | 2020-05-29 13:58 | Ultrasound Report ---
. US abdomen complete INDICATION: elevated lfts COMPARISON: None. FINDINGS: Pancreas: Normal. Abdominal aorta: Normal. IVC: Normal. Liver: Increased echogenicity Gallbladder: No significant abnormality. Bile ducts: Is not well-visualized due to body habitus. Kidneys: Normal. Spleen: Normal. There is no free fluid in the abdomen. IMPRESSION: Findings suggesting moderate diffuse hepatic steatosis. Otherwise, no significant sonographic abnorma lity. Signer Name: Gerard Orta MD Signed: 05/29/2020 1:53 PM Workstation Name: [id number]
--- NOTE | 2020-05-29 17:25 | Cat Scan Report ---
CT angio chest INDICATION / CLINICAL INFORMATION: MAIN. TECHNIQUE: Axial CT images were obtained through the chest after injection of IV contrast. 3 plane MIP and/or 3D reconstructions were produced. All CT scans at this location are performed using CT dose reduction f or ALARA by means of automated exposure control. COMPARISON: None available. FINDINGS: PULMONARY ARTERIES: There is poor contrast opacification due to late bolus timing and there is respir atory motion present which is degrading image quality. However there are some areas suspicious for fi lling defects in the pulmonary arteries; for example, in the anterior left lower lobe segmental pulmo nary artery on image 53 of series 2. Respiratory motion significantly degrades image quality in the l verna bases. HEART: No significant abnormality. MEDIASTINUM / CHANO: No significant abnormality. LUNGS: Bilateral dependent atelectasis. No pleural effusion. No pneumothorax. ADDITIONAL FINDINGS: None. UPPER ABDOMEN: Severe hypoattenuation of the liver. SKELETAL STRUCTURES: No significant osseous abnormality. IMPRESSION: 1. There is suspected pulmonary emboli present however the examination is difficult due to poor contr ast opacification and respiratory motion. 2. Severe hepatic steatosis. I informed nurse, Kathryn, who is taking care of this patient via telephone at 4:15. Signer Name: Gerard Orta MD Signed: 05/29/2020 5:21 PM Workstation Name: [id number]
[2020-05-29] MEDS: traZODone 50 MG TAB PO SCH (22:27)
[2020-05-30] MEDS: HALOPERIDOL LACTATE 5 MG/1 ML INJ IM PRN ×3 (00:12→12:57)
[2020-05-30] MEDS ORDERED: ZIPRASIDONE MESYLATE 20 MG VIAL IM ONE (00:44)
[2020-05-30] MEDS ORDERED: HEPARIN 10,000 UNITS/10 ML VIAL IV ONE ×2 (02:14→12:30)
--- NOTE | 2020-05-30 02:19 | Event Note ---
Date: 05/30/20 Called by Nursing staff that the patient had an abnormal CT Chest- with possible PE. Will start on Heparin drip. Will also renew restraints.
[2020-05-30] MEDS ORDERED: HEPARIN/ 0.45% NACL DRIP 25,000 UNIT/500 ML BAG IV SCH (03:00)
[2020-05-30 04:04] LABS: Basophils % (Auto) 0.2 % (0.0-1.8); Eosinophils # (Auto) 0.1 K/mm3 (0.0-0.4); Eosinophils % (Auto) 0.6 % (0.0-4.3); Hematocrit 44.9 % (35.5-45.6); Lymphocytes # (Auto) 1.8 K/mm3 (1.2-5.4); Lymphocytes % (Auto) 15.7 % (13.4-35.0); Mean Corpuscular HGB Conc 33 % (32-34); Mean Corpuscular Volume 90 fl (84-94); Monocytes # (Auto) 1.4 K/mm3 (0.0-0.8); Monocytes % (Auto) 12.1 % (0.0-7.3); Platelet Count 245 K/mm3 (140-440); Red Blood Count 4.97 M/mm3 (3.65-5.03); Red Cell Distribution Width 13.8 % (13.2-15.2)
[2020-05-30 04:13] LABS: Alanine Aminotransferase 113 units/L (7-56); Albumin 4.2 g/dL (3.9-5); Blood Urea Nitrogen 19 mg/dL (9-20); Calcium 9.9 mg/dL (8.4-10.2); Hemolysis Index 11
[2020-05-30 04:14] LABS: INR 0.9 (0.87-1.13); Partial Thromboplastin Time 23.1 Sec. (24.2-36.6)
[2020-05-30 04:53] LABS: BUN/Creatinine Ratio 27
[2020-05-30] MEDS: LACTULOSE 20 GM/30 ML ORAL LIQD PO SCH ×2 (05:09→17:37)
[2020-05-30] MEDS: INSULIN REGULAR, HUMAN 100 UNIT/ML 3ML VIAL SUB-Q SCH ×4 (08:49→21:43)
[2020-05-30] MEDS ORDERED: LORazepam 2 MG/ML VIAL IV NR (09:15)
[2020-05-30] MEDS: AZITHROMYCIN 250 MG TAB PO SCH (10:01)
[2020-05-30] MEDS: DIVALPROEX ER 500 MG TAB PO SCH (10:01)
[2020-05-30] MEDS: predniSONE 20 MG TAB PO SCH (10:01)
--- NOTE | 2020-05-30 14:26 | Vascular Lab Report ---
DUPLEX DOPPLER LOWER EXTREMITY VEINS, BILATERAL INDICATION / CLINICAL INFORMATION: Lower extremity swelling, shortness of breath. TECHNIQUE: Duplex doppler imaging was performed through the veins of both lower extremities using venous elin cliff and other maneuvers. COMPARISON: None available. FINDINGS: RIGHT COMMON FEMORAL VEIN: Negative. RIGHT FEMORAL VEIN: Negative. RIGHT POPLITEAL VEIN: Negative. RIGHT CALF VEINS: Negative. LEFT COMMON FEMORAL VEIN: Negative. LEFT FEMORAL VEIN: Negative. LEFT POPLITEAL VEIN: Negative. LEFT CALF VEINS: Negative. ADDITIONAL FINDINGS: None. IMPRESSION: 1. No sonographic evidence for DVT in either lower extremity. Signer Name: Eber Moreira MD Signed: 05/30/2020 2:22 PM Workstation Name: [id number]
--- NOTE | 2020-05-30 18:54 | Cat Scan Report ---
CTA CHEST WITH IV CONTRAST INDICATION: REPEAT CTA. Hypoxia. TECHNIQUE: Axial CT images were obtained through the chest after injection of 100 cc IV Omnipaque 350 IV contras t. 3 plane MIP reconstructions were produced. All CT scans at this location are performed using CT do se reduction for ALARA by means of automated exposure control. COMPARISON: None available. FINDINGS: Pulmonary Arteries: The current study confirms the presence of some small subsegmental bilateral lowe r lobe pulmonary emboli. Subsegmental emboli are also seen in the lingula and right middle lobe. Ther e is no large central embolus. There is no evidence of right heart strain. Lungs: Stable scattered areas of subsegmental atelectasis. Trachea and Bronchi: No significant abnormality. Heart and Pericardium: No significant abnormality. Vasculature: No significant abnormality. Lymphatics: No lymphadenopathy. Additional Findings: None. Upper Abdomen: Hepatic steatosis again noted. Skeletal Structures: No acute findings or aggressive bone lesions. IMPRESSION: 1. Bilateral subsegmental lower lung pulmonary emboli. No findings to suggest right heart strain. 2. Stable severe hepatic steatosis. Signer Name: Abner Nielson MD Signed: 05/30/2020 6:49 PM Workstation Name: [id number]
--- NOTE | 2020-05-30 19:21 | Consultation ---
History of Present Illness Consult date: 05/30/20 Requesting physician: ANDREIA BENSON Reason for consult: dyspnea, hypoxemia History of present illness: 39 YO Male with Bipolar Disorder, Schizophrenia, ADD, Nicotine Dependence presented to ED for evaluation. Patient stated that he had experienced shortness of breath over the past 2 days with persistently worsening symptoms over the same time-frame. Patient also acknowledged dry cough, generalized weakness, malaise, body aches. Patient transported to [facility] via private vehicle for further care and evaluation of the aforementioned symptoms. Covid-19 was ruled out. Bilateral PE ruled in via CTA chest. When I saw him tonight he had just come back from [place] s/p Ativan, now poorly responsive with snoring respirations. He cannot provide history; it is taken via chart review. Active Medications Acetaminophen (Tylenol) 650 mg PO Q4H PRN PRN Reason: Pain MILD(1-3)/Fever >100.5/RENE Last Admin: 05/27/20 12:17 Dose: 650 mg Documented by: Divalproex Sodium (Depakote Er) 500 mg PO QDAY NADJA Last Admin: 05/30/20 10:01 Dose: 500 mg Documented by: Enoxaparin Sodium (Enoxaparin) 100 mg 1 mg/kg (130 mg) SUB-Q Q12HR NADJA; Protocol Last Admin: 05/30/20 21:08 Dose: 100 mg Documented by: Enoxaparin Sodium (Enoxaparin) 30 mg 1 mg/kg (130 mg) SUB-Q Q12HR NADJA; Protocol Last Admin: 05/30/20 21:08 Dose: 30 mg Documented by: Haloperidol Lactate (Haldol) 5 mg IM Q6H PRN PRN Reason: Agitation Last Admin: 05/30/20 12:57 Dose: 5 mg Documented by: Sodium Chloride (Nacl 0.9% 1000 Ml) 1,000 mls @ 100 mls/hr IV DIRECT NADJA Last Admin: 05/30/20 21:09 Dose: 100 mls/hr Documented by: Insulin Human Regular (Humulin R) 0 unit SUB-Q ACHS NADJA; Protocol Last Admin: 05/30/20 21:43 Dose: Not Given Documented by: Lactulose (Cephulac) 20 gm PO Q12H NADJA Last Admin: 05/30/20 17:37 Dose: 20 gm Documented by: Lorazepam (Ativan) 2 mg IV MANAGER UTILIZATION NR Stop: 05/30/20 23:00 Last Admin: 05/30/20 17:37 Dose: 2 mg Documented by: Miscellaneous Medication (Clozapine) 0 mg PO QAM [facility] Miscellaneous Medication (Clozapine) 0 mg PO QHS [facility] Last Admin: 05/30/20 21:42 Dose: Not Given Documented by: Olanzapine (Zyprexa) 2.5 mg PO BID [facility] Last Admin: 05/30/20 21:43 Dose: Not Given Documented by: Ondansetron HCl (Zofran) 4 mg IV Q8H PRN PRN Reason: Nausea And Vomiting Ondansetron HCl (Zofran Odt) 4 mg PO Q8HR PRN PRN Reason: Vomiting Prednisone (Deltasone) 20 mg PO QDAY [facility] Stop: 05/31/20 12:00 Last Admin: 05/30/20 10:01 Dose: 20 mg Documented by: Sodium Chloride (Sodium Chloride Flush Syringe 10 Ml) 10 ml IV BID [facility] Last Admin: 05/30/20 21:44 Dose: 10 ml Documented by: Sodium Chloride (Sodium Chloride Flush Syringe 10 Ml) 10 ml IV PRN PRN PRN Reason: LINE FLUSH Trazodone HCl (Desyrel) 50 mg PO QHS [facility] Last Admin: 05/30/20 21:42 Dose: Not Given Documented by: Past History Past Medical History: other (See HPI) Past Surgical History: hernia repair Social history: smoking Family history: hypertension Medications and Allergies Allergies Allergy/AdvReac Type Severity Reaction Status Date / Time No Known Allergies Allergy Unverified 01/18/20 00:24 Home Medications Medication Instructions Recorded Confirmed Last Taken Type ARIPiprazole 10 mg PO HS 01/26/19 05/26/[address] 500 mg PO BID 01/26/19 05/26/20 Unknown History [place] Carbonate 150 mg PO BID 01/26/19 05/26/20 Unknown History Ondansetron [Zofran Odt] 4 mg PO Q8HR PRN #10 tab.rapdis 06/09/19 05/25/20 Unknown Rx dilTIAZem [CarDIZEM] 30 mg PO Q6HR 05/26/20 05/26/20 05/23/20 History hydroCHLOROthiazide [Hctz] 12.5 mg PO QDAY 05/26/20 05/26/20 05/22/20 History metFORMIN [Glucophage] 500 mg PO BID 05/26/20 05/26/20 05/23/20 History traZODone [Desyrel] 50 mg PO QHS 05/26/20 05/26/20 05/22/20 History cloZAPine 100 mg PO QHS 05/29/20 05/29/20 Unknown History cloZAPine [Clozaril] 50 mg PO QAM 05/29/20 05/29/20 Unknown History Active Meds: Active Medications Acetaminophen (Tylenol) 650 mg PO Q4H PRN PRN Reason: Pain MILD(1-3)/Fever >100.5/RENE Last Admin: 05/27/20 12:17 Dose: 650 mg Documented by: Divalproex Sodium (Depakote Er) 500 mg PO QDAY [facility] Last Admin: 05/30/20 10:01 Dose: 500 mg Documented by: Haloperidol Lactate (Haldol) 5 mg IM Q6H PRN PRN Reason: Agitation Last Admin: 05/30/20 12:57 Dose: 5 mg Documented by: Sodium Chloride (Nacl 0.9% 1000 Ml) 1,000 mls @ 100 mls/hr IV DIRECT NADJA Heparin Sodium/Sodium Chloride (Heparin/ 0.45% Nacl-25,000 Unit/500 Ml) 25,000 unit in 500 mls @ 30 mls/hr IV TITR [facility]; Protocol Last Titration: 05/30/20 13:11 Dose: 1,500 units/hr, 30 mls/hr Documented by: Insulin Human Regular (Humulin R) 0 unit SUB-Q ACHS [facility]; Protocol Last Admin: 05/30/20 18:04 Dose: Not Given Documented by: Lactulose (Cephulac) 20 gm PO Q12H [facility] Last Admin: 05/30/20 17:37 Dose: 20 gm Documented by: Lorazepam (Ativan) 2 mg IV MANAGER UTILIZATION NR Stop: 05/30/20 23:00 Last Admin: 05/30/20 17:37 Dose: 2 mg Documented by: Miscellaneous Medication (Clozapine) 50 mg PO QAM [facility] Miscellaneous Medication (Clozapine) 100 mg PO QHS [facility] Olanzapine (Zyprexa) 2.5 mg PO BID [facility] Last Admin: 10/26/20 10:01 Dose: 2.5 mg Documented by: Ondansetron HCl (Zofran) 4 mg IV Q8H PRN PRN Reason: Nausea And Vomiting Ondansetron HCl (Zofran Odt) 4 mg PO Q8HR PRN PRN Reason: Vomiting Prednisone (Deltasone) 20 mg PO QDAY [facility] Stop: 05/31/20 12:00 Last Admin: 05/30/20 10:01 Dose: 20 mg Documented by: Sodium Chloride (Sodium Chloride Flush Syringe 10 Ml) 10 ml IV BID [facility] Last Admin: 05/30/20 10:02 Dose: 10 ml Documented by: Sodium Chloride (Sodium Chloride Flush Syringe 10 Ml) 10 ml IV PRN PRN PRN Reason: LINE FLUSH Trazodone HCl (Desyrel) 50 mg PO QHS [facility] Last Admin: 05/29/20 22:27 Dose: 50 mg Documented by: Review of Systems ROS unobtainable: due to mental status Physical Examination Vital signs: Vital Signs Temp Pulse Resp BP Pulse Ox 98.1 F 104 H 20 122/78 89 05/23/20 12:17 05/23/20 12:17 05/23/20 12:17 05/23/20 12:17 05/23/20 12:17 General appearance: lethargic ENT: oropharynx moist Neck: supple Effort: mildly labored Ascultation: Bilateral: rhonchi Cardiovascular: other (tachy, RR with no mrg) Gastrointestinal: normoactive bowel sounds, soft, non-tender, non-distended Integumentary: normal Extremities: no cyanosis, no edema, pink and warm unable to assess other (unable to assess) Results - Laboratory Findings CBC and BMP: 05/30/20 03:20 05/30/20 03:20 ABG ABG pH 7.292 (7.320-7.450) L 05/28/20 17:59 POC ABG pCO2 71.2 mmHg (32.0-48.0) H 05/28/20 17:59 ABG pCO2 64.8 mm Hg 05/23/20 14:20 POC ABG pO2 66.0 mmHg (83-108) L 05/28/20 17:59 ABG pO2 49.3 mm Hg (80.0-90.0) L 05/23/20 14:20 POC ABG HCO3 33.6 05/28/20 17:59 ABG O2 Saturation 84.7 % (95.0-99.0) L 05/23/20 14:20 PT/INR, D-dimer PT 12.2 Sec. (12.2-14.9) 05/30/20 03:20 INR 0.90 (0.87-1.13) 05/30/20 03:20 D-Dimer 1026.65 ng/mlDDU (0-234) H 05/29/20 09:31 Abnormal lab findings: Abnormal Labs 05/23/20 05/23/20 05/23/20 14:20 14:22 14:22 WBC RBC Hgb Hct Lymph % (Auto) Carbon % (Auto) Carbon # (Auto) Seg Neutrophils % Monocytes % (Manual) 9.0 H Seg Neutrophils # Monocytes # (Manual) 0.9 H APTT D-Dimer ABG pH 7.339 L POC ABG pCO2 POC ABG pO2 ABG pO2 49.3 L ABG HCO3 34.1 H ABG O2 Saturation 84.7 L ABG Base Excess 6.1 H ABG Carboxyhemoglobin 8.6 H ABG Potassium ABG Chloride ABG Glucose Oxyhemoglobin 77.0 L Sodium Potassium Chloride 95.9 L Carbon Dioxide 32 H BUN Creatinine 0.6 L Glucose 246 H POC Glucose Hemoglobin A1c Calcium Magnesium AST 48 H ALT 68 H Ammonia Lactate Dehydrogenase Arterial Blood Glucose 05/23/20 05/24/20 05/24/20 18:43 05:45 05:45 WBC 13.7 H RBC Hgb Hct Lymph % (Auto) 10.9 L Carbon % (Auto) Carbon # (Auto) Seg Neutrophils % 86.0 H Monocytes % (Manual) Seg Neutrophils # 11.8 H Monocytes # (Manual) APTT D-Dimer ABG pH POC ABG pCO2 POC ABG pO2 ABG pO2 ABG HCO3 ABG O2 Saturation ABG Base Excess ABG Carboxyhemoglobin ABG Potassium ABG Chloride ABG Glucose Oxyhemoglobin Sodium 136 L Potassium 7.8 H* D Chloride 93.6 L Carbon Dioxide BUN Creatinine 0.7 L Glucose 174 H 279 H POC Glucose Hemoglobin A1c Calcium 5.0 L* D Magnesium AST ALT Ammonia Lactate Dehydrogenase 289 H Arterial Blood Glucose 05/24/20 05/25/20 05/26/20 09:38 15:01 08:30 WBC RBC Hgb Hct Lymph % (Auto) Carbon % (Auto) Carbon # (Auto) Seg Neutrophils % Monocytes % (Manual) Seg Neutrophils # Monocytes # (Manual) APTT D-Dimer ABG pH POC ABG pCO2 POC ABG pO2 ABG pO2 ABG HCO3 ABG O2 Saturation ABG Base Excess ABG Carboxyhemoglobin ABG Potassium ABG Chloride ABG Glucose Oxyhemoglobin Sodium 136 L Potassium 5.5 H D 5.3 H Chloride 92.7 L 93.3 L Carbon Dioxide 35 H D BUN 22 H Creatinine Glucose 393 H 321 H POC Glucose 207 H Hemoglobin A1c Calcium Magnesium AST ALT Ammonia Lactate Dehydrogenase Arterial Blood Glucose 05/26/20 05/26/20 05/26/20 11:32 14:42 14:42 WBC RBC Hgb Hct Lymph % (Auto) Carbon % (Auto) Carbon # (Auto) Seg Neutrophils % 77.0 H Monocytes % (Manual) Seg Neutrophils # Monocytes # (Manual) APTT D-Dimer ABG pH POC ABG pCO2 POC ABG pO2 ABG pO2 ABG HCO3 ABG O2 Saturation ABG Base Excess ABG Carboxyhemoglobin ABG Potassium ABG Chloride ABG Glucose Oxyhemoglobin Sodium Potassium Chloride Carbon Dioxide BUN Creatinine Glucose POC Glucose 169 H Hemoglobin A1c 9.3 H Calcium Magnesium AST ALT Ammonia Lactate Dehydrogenase Arterial Blood Glucose 05/26/20 05/26/20 05/27/20 14:42 16:32 10:49 WBC RBC Hgb Hct Lymph % (Auto) Carbon % (Auto) Carbon # (Auto) Seg Neutrophils % Monocytes % (Manual) Seg Neutrophils # Monocytes # (Manual) APTT D-Dimer ABG pH POC ABG pCO2 POC ABG pO2 ABG pO2 ABG HCO3 ABG O2 Saturation ABG Base Excess ABG Carboxyhemoglobin ABG Potassium ABG Chloride ABG Glucose Oxyhemoglobin Sodium Potassium Chloride 95.8 L Carbon Dioxide 31 H BUN Creatinine Glucose 197 H POC Glucose 192 H 177 H Hemoglobin A1c Calcium Magnesium AST 44 H ALT 63 H Ammonia Lactate Dehydrogenase Arterial Blood Glucose 05/27/20 05/27/20 05/28/20 16:28 22:01 08:42 WBC RBC Hgb Hct Lymph % (Auto) Carbon % (Auto) Carbon # (Auto) Seg Neutrophils % Monocytes % (Manual) Seg Neutrophils # Monocytes # (Manual) APTT D-Dimer ABG pH POC ABG pCO2 POC ABG pO2 ABG pO2 ABG HCO3 ABG O2 Saturation ABG Base Excess ABG Carboxyhemoglobin ABG Potassium ABG Chloride ABG Glucose Oxyhemoglobin Sodium Potassium Chloride Carbon Dioxide BUN Creatinine Glucose POC Glucose 211 H 125 H 117 H Hemoglobin A1c Calcium Magnesium AST ALT Ammonia Lactate Dehydrogenase Arterial Blood Glucose 05/28/20 05/28/20 05/28/20 12:30 14:24 14:24 WBC 11.8 H RBC 5.22 H Hgb 15.6 H Hct 47.1 H Lymph % (Auto) Carbon % (Auto) Carbon # (Auto) Seg Neutrophils % 78.1 H Monocytes % (Manual) Seg Neutrophils # 9.2 H Monocytes # (Manual) APTT D-Dimer ABG pH POC ABG pCO2 POC ABG pO2 ABG pO2 ABG HCO3 ABG O2 Saturation ABG Base Excess ABG Carboxyhemoglobin ABG Potassium ABG Chloride ABG Glucose Oxyhemoglobin Sodium Potassium 5.2 H Chloride 93.6 L Carbon Dioxide 39 H D BUN Creatinine 0.7 L Glucose 166 H POC Glucose 144 H Hemoglobin A1c Calcium Magnesium 2.60 H AST 108 H ALT 126 H Ammonia Lactate Dehydrogenase Arterial Blood Glucose 05/28/20 05/28/20 05/28/20 14:24 16:52 17:59 WBC RBC Hgb Hct Lymph % (Auto) Carbon % (Auto) Carbon # (Auto) Seg Neutrophils % Monocytes % (Manual) Seg Neutrophils # Monocytes # (Manual) APTT D-Dimer ABG pH 7.292 L POC ABG pCO2 71.2 H POC ABG pO2 66.0 L ABG pO2 ABG HCO3 ABG O2 Saturation ABG Base Excess ABG Carboxyhemoglobin ABG Potassium 4.8 H ABG Chloride 95.0 L ABG Glucose 152 H Oxyhemoglobin Sodium Potassium Chloride Carbon Dioxide BUN Creatinine Glucose POC Glucose 166 H Hemoglobin A1c Calcium Magnesium AST ALT Ammonia 92.0 H Lactate Dehydrogenase Arterial Blood Glucose 152 H 05/28/20 05/29/20 05/29/20 22:18 08:07 09:31 WBC RBC Hgb Hct Lymph % (Auto) Carbon % (Auto) Carbon # (Auto) Seg Neutrophils % Monocytes % (Manual) Seg Neutrophils # Monocytes # (Manual) APTT D-Dimer 1026.65 H ABG pH POC ABG pCO2 POC ABG pO2 ABG pO2 ABG HCO3 ABG O2 Saturation ABG Base Excess ABG Carboxyhemoglobin ABG Potassium ABG Chloride ABG Glucose Oxyhemoglobin Sodium Potassium Chloride Carbon Dioxide BUN Creatinine Glucose POC Glucose 141 H 118 H Hemoglobin A1c Calcium Magnesium AST ALT Ammonia Lactate Dehydrogenase Arterial Blood Glucose 05/29/20 05/29/20 05/29/20 09:31 09:39 11:42 WBC 12.7 H RBC 5.22 H Hgb 15.7 H Hct 46.7 H Lymph % (Auto) Carbon % (Auto) 12.1 H Carbon # (Auto) 1.5 H Seg Neutrophils % 71.3 H Monocytes % (Manual) Seg Neutrophils # 9.1 H Monocytes # (Manual) APTT D-Dimer ABG pH POC ABG pCO2 POC ABG pO2 ABG pO2 ABG HCO3 ABG O2 Saturation ABG Base Excess ABG Carboxyhemoglobin ABG Potassium ABG Chloride ABG Glucose Oxyhemoglobin Sodium Potassium Chloride 97.1 L Carbon Dioxide 37 H BUN Creatinine 0.7 L Glucose 142 H POC Glucose 133 H Hemoglobin A1c Calcium Magnesium AST 92 H ALT 114 H Ammonia Lactate Dehydrogenase Arterial Blood Glucose 05/29/20 05/30/20 05/30/20 16:48 03:20 03:20 WBC 11.7 H RBC Hgb Hct Lymph % (Auto) Carbon % (Auto) 12.1 H Carbon # (Auto) 1.4 H Seg Neutrophils % 71.4 H Monocytes % (Manual) Seg Neutrophils # 8.4 H Monocytes # (Manual) APTT D-Dimer ABG pH POC ABG pCO2 POC ABG pO2 ABG pO2 ABG HCO3 ABG O2 Saturation ABG Base Excess ABG Carboxyhemoglobin ABG Potassium ABG Chloride ABG Glucose Oxyhemoglobin Sodium Potassium Chloride Carbon Dioxide 32 H BUN Creatinine 0.7 L Glucose 122 H POC Glucose 112 H Hemoglobin A1c Calcium Magnesium AST 80 H ALT 113 H Ammonia Lactate Dehydrogenase Arterial Blood Glucose 05/30/20 05/30/20 05/30/20 03:20 09:01 18:20 WBC RBC Hgb Hct Lymph % (Auto) Carbon % (Auto) Carbon # (Auto) Seg Neutrophils % Monocytes % (Manual) Seg Neutrophils # Monocytes # (Manual) APTT 23.1 L D-Dimer ABG pH POC ABG pCO2 POC ABG pO2 ABG pO2 ABG HCO3 ABG O2 Saturation ABG Base Excess ABG Carboxyhemoglobin ABG Potassium ABG Chloride ABG Glucose Oxyhemoglobin Sodium Potassium Chloride Carbon Dioxide BUN Creatinine Glucose POC Glucose 124 H 122 H Hemoglobin A1c Calcium Magnesium AST ALT Ammonia Lactate Dehydrogenase Arterial Blood Glucose - Diagnostic Findings Chest x-ray: report reviewed, image reviewed CT scan - chest: report reviewed, image reviewed Assessment and Plan Imp: 1. Acute bilateral PE 2. Acute respiratory failure, hypoxia 3. 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 A/C respiratory failure, hypercapnea 5. Hepatic steatosis with hepatic/metabolic encephalopathy 6. Atelectasis Rec: 1. Avoid sedating meds; he is s/p Ativan which contributed to current worsening mentation; he is high-risk for intubation so recommend ABG, place back on BIPAP now, and transfer to ICU for closer monitoring 2. Cont. full-dose Lovenox BID 3. Make NPO now until mentation improves; consider ST eval. 4. Areas of infiltrate on CTA chest appear to be due to atelectasis 5. Labs in AM 6. Further plans pending clinical course; no family present CCt 31 min Thanks for the consult. Will follow w/ you.
--- NOTE | 2020-05-30 20:45 | Progress Note ---
Assessment and Plan Assessment and plan: --COVID-19 negative --Acute pulmonary embolism; Patient was started on heparin drip last night Hemodynamically stable DC heparin drip, transition to Lovenox 1 mg/kg body weight every 12hr Will transition to oral anticoagulants in 1 to 2 days if stable Pulmonary consulted, consult hematology if needed For extremity venous Doppler negative for DVT --Acute hypoxemic hypercapnic respiratory failure ABG shows hypercapnia - He has been placed on BIPAP. Repeat ABG ordered tomorrow AM Ddimer is elevated. CTA chest positive for PE Check lower extremities for DVT Covid Chest xray shows some infiltrate but BNP is low. Continue prednisone taper. Supplemental oxygen, nebulizer therapy, iv abx -- Pneumonia On azithromycin till 05/30 Procalcitonin is negative. -- Suspected 2019-nCoV infection, ruled out -- Elevated LFTs Monitor for now -- Nicotine dependence nicotine patch if needed -- Schizophrenia, Bipolar disorder, Delirium with acute psychosis Zyprexa, psych following -- DVT prophylaxis SCD to bilateral lower extremities while in bed, prophylactic anticoagulation Brief History: 39 YO Male with Bipolar Disorder, Schizophrenia, ADD, Nicotine Dependence present to ED for shortness of breath over the past 2 days with dry cough, generalized weakness, malaise, body aches. Patient found to have a pulse oximetry of 86%, Chest x-ray revealed bilateral pneumonia. Patient initiated on COVID-19 protocol and admitted. negative for COVID, remains agitated, restrained, confused. 05/24: severely confused, covid test neg. sitter ordered, on restrained, mental health consulted. 05/25: Remains agitated, confused. mental health eval pending. as needed haldol. cont home meds, iv abx 05/26. Patient seen examined at bedside this morning. Still hypoxic with 5 L of oxygen. ABG ordered for AM. Repeat chest xray ordered. 05/27. Drowsy this AM. Will be seen by psych. No ABG drawn. 05/28. Psych recommendations reviewed. Still agitated on current medications. 05/29. His Blood gas shows respiratory acidosis. He was placed on BIPAP. ddimer is elevated - CTA chest and US doppler ordered. Continue psych medications. His LFTs are trending up- will monitor 05/30; acute PE, on heparin drip, DC heparin drip and start Lovenox full dose, pulmonary following, hematology evaluation if needed, will transition to oral anticoagulants in the next 1 to 2 days History Interval history: I have seen and examined the patient at the bedside Patient's chart and medications reviewed Patient had acute PE last night started on heparin drip Morbidly obese patient, with psych disorder Severely restless, and screaming restraint for safety healthcare economics consultant at the bedside Vital signs noted Hospitalist Physical - Constitutional Vitals: Temp Pulse Resp BP Pulse Ox 98.2 F 110 H 22 166/116 94 05/30/20 16:15 05/30/20 16:15 05/30/20 16:15 05/30/20 16:07 05/30/20 16:15 General appearance: Present: mild distress, well-nourished, obese, other (Patient is screaming and restless) - EENT Eyes: Present: PERRL, EOM intact - Neck Neck: Present: supple, normal ROM - Respiratory Respiratory effort: normal Respiratory: bilateral: diminished, rhonchi, negative: rales, wheezing - Cardiovascular Rhythm: regular Heart Sounds: Present: S1 & S2 - Extremities Extremities: no ischemia, No edema - Abdominal General gastrointestinal: soft, non-tender, non-distended, normal bowel sounds - Integumentary Integumentary: Present: clear, warm - Psychiatric Psychiatric: agitated, other (Screaming) - Neurologic Neurologic: moves all extremities HEART Score - HEART Score Troponin: Troponin T < 0.010 ng/mL (0.00-0.029) 05/23/20 16:12 Results - Labs CBC & Chem 7: 05/30/20 03:20 05/30/20 03:20 Labs: Laboratory Last Values WBC 11.7 K/mm3 (4.5-11.0) H 05/30/20 03:20 RBC 4.97 M/mm3 (3.65-5.03) 05/30/20 03:20 Hgb 15.0 gm/dl (11.8-15.2) 05/30/20 03:20 Hct 44.9 % (35.5-45.6) 05/30/20 03:20 MCV 90 fl (84-94) 05/30/20 03:20 MCH 30 pg (28-32) 05/30/20 03:20 MCHC 33 % (32-34) 05/30/20 03:20 RDW 13.8 % (13.2-15.2) 05/30/20 03:20 Plt Count 245 K/mm3 (140-440) 05/30/20 03:20 Lymph % (Auto) 15.7 % (13.4-35.0) 05/30/20 03:20 [place] % (Auto) 12.1 % (0.0-7.3) H 05/30/20 03:20 Eos % (Auto) 0.6 % (0.0-4.3) 05/30/20 03:20 Baso % (Auto) 0.2 % (0.0-1.8) 05/30/20 03:20 Lymph # (Auto) 1.8 K/mm3 (1.2-5.4) 05/30/20 03:20 [place] # (Auto) 1.4 K/mm3 (0.0-0.8) H 05/30/20 03:20 Eos # (Auto) 0.1 K/mm3 (0.0-0.4) 05/30/20 03:20 Baso # (Auto) 0.0 K/mm3 (0.0-0.1) 05/30/20 03:20 Add Manual Diff Complete 05/23/20 14:22 Total Counted 100 05/23/20 14:22 Seg Neutrophils % 71.4 % (40.0-70.0) H 05/30/20 03:20 Seg Neuts % (Manual) 63.0 % (40.0-70.0) 05/23/20 14:22 Band Neutrophils % 0 % 05/23/20 14:22 Lymphocytes % (Manual) 24.0 % (13.4-35.0) 05/23/20 14:22 Reactive Lymphs % (Man) 0 % 05/23/20 14:22 Monocytes % (Manual) 9.0 % (0.0-7.3) H 05/23/20 14:22 Eosinophils % (Manual) 3.0 % (0.0-4.3) 05/23/20 14:22 Basophils % (Manual) 1.0 % (0.0-1.8) 05/23/20 14:22 Metamyelocytes % 0 % 05/23/20 14:22 Myelocytes % 0 % 05/23/20 14:22 Promyelocytes % 0 % 05/23/20 14:22 Blast Cells % 0 % 05/23/20 14:22 Nucleated RBC % Not Reportable 05/23/20 14:22 Seg Neutrophils # 8.4 K/mm3 (1.8-7.7) H 05/30/20 03:20 Seg Neutrophils # Man 6.6 K/mm3 (1.8-7.7) 05/23/20 14:22 Band Neutrophils # 0.0 K/mm3 05/23/20 14:22 Lymphocytes # (Manual) 2.5 K/mm3 (1.2-5.4) 05/23/20 14:22 Abs React Lymphs (Man) 0.0 K/mm3 05/23/20 14:22 Monocytes # (Manual) 0.9 K/mm3 (0.0-0.8) H 05/23/20 14:22 Eosinophils # (Manual) 0.3 K/mm3 (0.0-0.4) 05/23/20 14:22 Basophils # (Manual) 0.1 K/mm3 (0.0-0.1) 05/23/20 14:22 Metamyelocytes # 0.0 K/mm3 05/23/20 14:22 Myelocytes # 0.0 K/mm3 05/23/20 14:22 Promyelocytes # 0.0 K/mm3 05/23/20 14:22 Blast Cells # 0.0 K/mm3 05/23/20 14:22 WBC Morphology Not Reportable 05/23/20 14:22 Hypersegmented Neuts Not Reportable 05/23/20 14:22 Hyposegmented Neuts Not Reportable 05/23/20 14:22 Hypogranular Neuts Not Reportable 05/23/20 14:22 Smudge Cells Not Reportable 05/23/20 14:22 Toxic Granulation Not Reportable 05/23/20 14:22 Toxic Vacuolation Not Reportable 05/23/20 14:22 Dohle Bodies Not Reportable 05/23/20 14:22 Pelger-Huet Anomaly Not Reportable 05/23/20 14:22 Henrique Rods Not Reportable 05/23/20 14:22 Platelet Estimate Not Reportable 05/23/20 14:22 Clumped Platelets Not Reportable 05/23/20 14:22 Plt Clumps, EDTA Not Reportable 05/23/20 14:22 Large Platelets Not Reportable 05/23/20 14:22 Giant Platelets Not Reportable 05/23/20 14:22 Platelet Satelliting Not Reportable 05/23/20 14:22 Plt Morphology Comment Not Reportable 05/23/20 14:22 RBC Morphology Normal 05/23/20 14:22 Dimorphic RBCs Not Reportable 05/23/20 14:22 Polychromasia Not Reportable 05/23/20 14:22 Hypochromasia Not Reportable 05/23/20 14:22 Poikilocytosis Not Reportable 05/23/20 14:22 Anisocytosis Not Reportable 05/23/20 14:22 Microcytosis Not Reportable 05/23/20 14:22 Macrocytosis Not Reportable 05/23/20 14:22 Spherocytes Not Reportable 05/23/20 14:22 Pappenheimer Bodies Not Reportable 05/23/20 14:22 Sickle Cells Not Reportable 05/23/20 14:22 Target Cells Not Reportable 05/23/20 14:22 Tear Drop Cells Not Reportable 05/23/20 14:22 Ovalocytes Not Reportable 05/23/20 14:22 Helmet Cells Not Reportable 05/23/20 14:22 [place] Bodies Not Reportable 05/23/20 14:22 [place] Rings Not Reportable 05/23/20 14:22 [place] Cells Not Reportable 05/23/20 14:22 Bite Cells Not Reportable 05/23/20 14:22 Crenated Cell Not Reportable 05/23/20 14:22 Elliptocytes Not Reportable 05/23/20 14:22 Acanthocytes (Spur) Not Reportable 05/23/20 14:22 Rouleaux Not Reportable 05/23/20 14:22 Hemoglobin C Crystals Not Reportable 05/23/20 14:22 Schistocytes Not Reportable 05/23/20 14:22 Malaria parasites Not Reportable 05/23/20 14:22 Jaguar Bodies Not Reportable 05/23/20 14:22 Hem Pathologist Commnt No 05/23/20 14:22 PT 12.2 Sec. (12.2-14.9) 05/30/20 03:20 INR 0.90 (0.87-1.13) 05/30/20 03:20 APTT 23.1 Sec. (24.2-36.6) L 05/30/20 03:20 D-Dimer 1026.65 ng/mlDDU (0-234) H 05/29/20 09:31 ABG pH 7.292 (7.320-7.450) L 05/28/20 17:59 POC ABG pCO2 71.2 mmHg (32.0-48.0) H 05/28/20 17:59 ABG pCO2 64.8 mm Hg 05/23/20 14:20 POC ABG pO2 66.0 mmHg (83-108) L 05/28/20 17:59 ABG pO2 49.3 mm Hg (80.0-90.0) L 05/23/20 14:20 POC ABG HCO3 33.6 05/28/20 17:59 ABG HCO3 34.1 mmol/L (20.0-26.0) H 05/23/20 14:20 ABG O2 Saturation 84.7 % (95.0-99.0) L 05/23/20 14:20 ABG O2 Content 15.6 (0.0-44) 05/23/20 14:20 POC ABG Base Excess 4.2 05/28/20 17:59 ABG Base Excess 6.1 mmol/L (-2.0-3.0) H 05/23/20 14:20 ABG Hemoglobin 16.2 (12.0-17.5) 05/28/20 17:59 ABG Carboxyhemoglobin 8.6 % (0.0-5.0) H 05/23/20 14:20 ABG Methemoglobin 0.5 % (0.0-1.5) 05/23/20 14:20 ABG Sodium 137.2 mmol/L (136.0-145.0) 05/28/20 17:59 ABG Potassium 4.8 mmol/L (3.40-4.50) H 05/28/20 17:59 ABG Chloride 95.0 mmol/L (98-107) L 05/28/20 17:59 ABG Glucose 152 mg/dL (65-95) H 05/28/20 17:59 Oxyhemoglobin 77.0 % (95.0-99.0) L 05/23/20 14:20 FiO2 32.0 05/28/20 17:59 Sodium 145 mmol/L (137-145) 05/30/20 03:20 Potassium 4.5 mmol/L (3.6-5.0) 05/30/20 03:20 Chloride 98.2 mmol/L (98-107) 05/30/20 03:20 Carbon Dioxide 32 mmol/L (22-30) H 05/30/20 03:20 Anion Gap 19 mmol/L 05/30/20 03:20 BUN 19 mg/dL (9-20) 05/30/20 03:20 Creatinine 0.7 mg/dL (0.8-1.3) L 05/30/20 03:20 Estimated GFR > 60 ml/min 05/30/20 03:20 BUN/Creatinine Ratio 27 % 05/30/20 03:20 Glucose 122 mg/dL (75-100) H 05/30/20 03:20 POC Glucose 122 mg/dL (70-105) H 05/30/20 18:20 Hemoglobin A1c 9.3 % (4-6) H 05/26/20 14:42 Calcium 9.9 mg/dL (8.4-10.2) 05/30/20 03:20 Magnesium 2.60 mg/dL (1.7-2.3) H 05/28/20 14:24 Ferritin 33.3 ng/mL (30.0-300.0) 05/23/20 18:43 Total Bilirubin 0.90 mg/dL (0.1-1.2) 05/30/20 03:20 AST 80 units/L (5-40) H 05/30/20 03:20 ALT 113 units/L (7-56) H 05/30/20 03:20 Alkaline Phosphatase 60 units/L (35-129) 05/30/20 03:20 Ammonia 92.0 umol/L (25-60) H 05/28/20 14:24 Lactate Dehydrogenase 289 units/L (91-180) H 05/23/20 18:43 Troponin T < 0.010 ng/mL (0.00-0.029) 05/23/20 16:12 C-Reactive Protein 0.30 mg/dL (0.00-1.30) 05/23/20 18:43 NT-Pro-B Natriuret Pep 7.67 pg/mL (0-450) 05/29/20 09:31 Total Protein 7.1 g/dL (6.3-8.2) 05/30/20 03:20 Albumin 4.2 g/dL (3.9-5) 05/30/20 03:20 Albumin/Globulin Ratio 1.4 % 05/30/20 03:20 Procalcitonin < 0.05 ng/mL (<0.15) 05/27/20 07:30 Arterial Blood Glucose 152 mg/dL (65-95) H 05/28/20 17:59 Arterial Blood Ionized Calcium 5.1 mg/dL (4.6-5.3) 05/28/20 17:59 Coronavirus (PCR) Negative (Negative) 05/24/20 10:23 Urias/IV: Voiding Method Condom Catheter IV Catheter Type [Left Hand] Peripheral IV IV Catheter Type [Left Forearm INT / Saline Lock ] IV Catheter Type [Right Upper INT / Saline Lock arm] IV Catheter Type [Left Upper INT / Saline Lock arm] Active Medications - Current Medications Current Medications: Generic Name Dose Route Start Last Admin Trade Name Freq PRN Reason Stop Dose Admin Acetaminophen 650 mg 05/23/20 18:21 05/27/20 12:17 Tylenol PO 650 mg Q4H PRN Administration Pain MILD(1-3)/Fever >100.5/RENE Divalproex Sodium 500 mg 05/30/20 10:00 05/30/20 10:01 Depakote Er PO 500 mg QDAY NADJA Administration Enoxaparin Sodium 130 mg 05/30/20 22:00 Enoxaparin 1 mg/kg (130 mg) SUB-Q Q12HR [facility] Protocol Haloperidol Lactate 5 mg 05/24/20 09:03 05/30/20 12:57 Haldol IM 5 mg Q6H PRN Administration Agitation Sodium Chloride 1,000 mls @ 100 mls/hr 05/26/20 06:45 Nacl 0.9% 1000 Ml IV DIRECT [facility] Insulin Human Regular 0 unit 05/26/20 07:30 05/30/20 18:04 Humulin R SUB-Q Not Given ACHS [facility] Protocol Lactulose 20 gm 05/28/20 18:00 05/30/20 17:37 Cephulac PO 20 gm Q12H NADJA Administration Lorazepam 2 mg 05/30/20 09:15 05/30/20 17:37 Ativan IV 05/30/20 23:00 2 mg CONTROL TECHNICIAN NR Administration Miscellaneous Medication 0 mg 05/31/20 10:00 Clozapine PO QAM NADJA Miscellaneous Medication 0 mg 05/30/20 22:00 Clozapine PO QHS NADJA Olanzapine 2.5 mg 05/29/20 22:00 05/30/20 10:01 Zyprexa PO 2.5 mg BID NADJA Administration Ondansetron HCl 4 mg 05/23/20 18:21 Zofran IV Q8H PRN Nausea And Vomiting Ondansetron HCl 4 mg 05/23/20 18:24 Zofran Odt PO Q8HR PRN Vomiting Prednisone 20 mg 05/29/20 10:00 05/30/20 10:01 Deltasone PO 05/31/20 12:00 20 mg QDAY NADJA Administration Sodium Chloride 10 ml 05/23/20 22:00 05/30/20 10:02 Sodium Chloride Flush Syringe 10 Ml IV 10 ml BID NADJA Administration Sodium Chloride 10 ml 05/23/20 18:21 Sodium Chloride Flush Syringe 10 Ml IV PRN PRN LINE FLUSH Trazodone HCl 50 mg 05/29/20 22:00 05/29/20 22:27 Desyrel PO 50 mg QHS NADJA Administration Nutrition/Malnutrition Assess - Dietary Evaluation Nutrition/Malnutrition Findings: Nutrition Notes Start: 05/24/20 14:50 Freq: Status: Active Protocol: Document 05/25/20 13:06 ANGELIKA (Rec: 05/25/20 13:10 ANGELIKA [id number]) Co-Sign 05/25/20 13:06 LM Nutrition Notes Initial or Follow up Brief Note Current Diagnosis Respiratory Failure Other Pertinent Diagnosis SOB, Pneumonia, Bipolar, ADD, Nicotene dependence Current Diet Regular [place] Body Weight (kg) 0 Weight Status Obese Subjective/Other Information F/U for MST and skin risk. Unable to speak with pt via phone d/t pt in restraints. Per RN, pt has good appetite and consuming 100% meals. Pt does not have any wounds. Nutrition Intervention Revisit per MD consult or patient Sign Off request:
[2020-05-30] MEDS: ENOXAPARIN 30 MG/0.3 ML INJ SUB-Q SCH (21:08)
[2020-05-30] MEDS: ENOXAPARIN 100 MG/1 ML INJ SUB-Q SCH (21:08)
[2020-05-30] MEDS: SODIUM CHLORIDE 0.9% 1000 ML 1,000 ML IV SCH (21:09)
[2020-05-30] MEDS: traZODone 50 MG TAB PO SCH (21:42)
[2020-05-30] MEDS: CLOZAPINE PO SCH (21:42)
[2020-05-30] MEDS ORDERED: ENOXAPARIN 100 MG/1 ML INJ SUB-Q SCH (22:00)
[2020-05-30 22:59] LABS: ABG Base Excess 5.2 mmol/L (-2.0-3.0); ABG HCO3 34.1 mmol/L (20.0-26.0); ABG Methemoglobin 0.6 % (0.0-1.5); ABG Oxygen Saturation 98.1 % (95.0-99.0); ABG PH 7.311 pH Units (7.350-7.450); ABG PO2 127.2 mm Hg (80.0-90.0)
[2020-05-31] MEDS ORDERED: DIVALPROEX ER 500 MG TAB PO ONE (10:00)
[2020-05-31] MEDS ORDERED: HALOPERIDOL LACTATE 5 MG/1 ML INJ ONE ×2 (10:09→16:06)
[2020-05-31] MEDS ORDERED: ENOXAPARIN 100 MG/1 ML INJ SUB-Q ONE (10:09)
[2020-05-31] MEDS ORDERED: predniSONE 20 MG TAB ONE (10:09)
[2020-05-31] MEDS ORDERED: ENOXAPARIN 30 MG/0.3 ML INJ SUB-Q ONE (10:09)
[2020-05-31] MEDS ORDERED: SODIUM CHLORIDE 0.9% 1000 ML IV SOLN ONE (16:06)
[2020-05-31] MEDS: SODIUM CHLORIDE 0.9% 1000 ML 1,000 ML IV SCH (17:17)
[2020-05-31] MEDS: INSULIN REGULAR, HUMAN 100 UNIT/ML 3ML VIAL SUB-Q SCH ×3 (17:18→23:10)
[2020-05-31] MEDS: CLOZAPINE PO SCH ×3 (17:19→21:41)
[2020-05-31] MEDS: DIVALPROEX ER 500 MG TAB PO SCH (17:20)
[2020-05-31] MEDS: ENOXAPARIN 30 MG/0.3 ML INJ SUB-Q SCH ×2 (17:20→21:10)
[2020-05-31] MEDS: ENOXAPARIN 100 MG/1 ML INJ SUB-Q SCH ×2 (17:20→21:13)
[2020-05-31] MEDS: predniSONE 20 MG TAB PO SCH (17:20)
--- NOTE | 2020-05-31 18:33 | Progress Note ---
Assessment and Plan Assessment and plan: --COVID-19 negative --Acute pulmonary embolism; Hypoxic, requiring BiPAP s/p heparin drip, now on Lovenox 1 mg/kg body weight every 12hr Will transition to oral anticoagulants in 1 to 2 days if stable Pulmonary following, consult hematology if needed Lower extremity venous Doppler negative for DVT Echo for LV and RV function ejection fraction --Acute hypoxemic hypercapnic respiratory failure On BiPAP, pulmonary critical following CTA chest positive for PE -- Pneumonia s/p azithromycin till 05/30 Procalcitonin is negative. -- Elevated LFTs Monitor for now -- Nicotine dependence nicotine patch if needed -- Schizophrenia, Bipolar disorder, Delirium with acute psychosis Zyprexa, psych following -- DVT prophylaxis SCD to bilateral lower extremities while in bed, prophylactic anticoagulation The high probability of a clinically significant, sudden or life threatening deterioration of the [Respiratory, psychiatric, metabolic] system(s) required my full and direct attention, intervention and personal management. The aggregate critical care time was [33] minutes without overlap. Time includes spent on [x] Data Review and interpretation [x] Patient assessment and monitoring of vital signs [x] Documentation [x] Medication orders and management Brief History: 39 YO Male with Bipolar Disorder, Schizophrenia, ADD, Nicotine Dependence presen t to ED for shortness of breath over the past 2 days with dry cough, generalized weakness, malaise, body aches. Patient found to have a pulse oximetry of 86%, Chest x-ray revealed bilateral pneumonia. Patient initiated on COVID-19 protocol and admitted. negative for COVID, remains agitated, restrained, confused. 05/24: severely confused, covid test neg. sitter ordered, on restrained, mental health consulted. 05/25: Remains agitated, confused. mental health eval pending. as needed haldol. cont home meds, iv abx 05/26. Patient seen examined at bedside this morning. Still hypoxic with 5 L of oxygen. ABG ordered for AM. Repeat chest xray ordered. 05/27. Drowsy this AM. Will be seen by psych. No ABG drawn. 05/28. Psych recommendations reviewed. Still agitated on current medications. 05/29. His Blood gas shows respiratory acidosis. He was placed on BIPAP. ddimer is elevated - CTA chest and US doppler ordered. Continue psych medications. His LFTs are trending up- will monitor 05/30; acute PE, on heparin drip, DC heparin drip and start Lovenox full dose, pulmonary following, hematology evaluation if needed, will transition to oral anticoagulants in the next 1 to 2 days 05/31; lower extremity venous Doppler negative for DVT, on Lovenox. Respiratory failure on BiPAP History Interval history: Late entry; [employer] and computers were down. I have seen and examined the patient at the bedside in ICU this morning Patient's chart, tests and reports, current medications and nursing staff notes reviewed Patient remains restless in restraints On BiPAP, mild distress Vital signs reviewed Hospitalist Physical - Constitutional Vitals: Temp Pulse Resp BP Pulse Ox 98.5 F 130 H 20 121/73 97 05/31/20 16:00 05/31/20 14:00 05/31/20 14:00 05/31/20 14:00 05/31/20 14:00 General appearance: Present: mild distress, well-nourished, obese, other (Patient is screaming and restless) - EENT Eyes: Present: PERRL, EOM intact - Neck Neck: Present: supple, normal ROM - Respiratory Respiratory effort: normal Respiratory: bilateral: diminished, rhonchi, negative: rales, wheezing - Cardiovascular Rhythm: regular Heart Sounds: Present: S1 & S2 - Extremities Extremities: no ischemia, No edema - Abdominal General gastrointestinal: soft, non-tender, non-distended, normal bowel sounds - Integumentary Integumentary: Present: clear, warm - Psychiatric Psychiatric: appropriate mood/affect, cooperative - Neurologic Neurologic: moves all extremities HEART Score - HEART Score Troponin: Troponin T < 0.010 ng/mL (0.00-0.029) 05/23/20 16:12 Results - Labs CBC & Chem 7: 06/01/20 15:30 06/01/20 15:30 Labs: Laboratory Last Values WBC 11.7 K/mm3 (4.5-11.0) H 05/30/20 03:20 RBC 4.97 M/mm3 (3.65-5.03) 05/30/20 03:20 Hgb 15.0 gm/dl (11.8-15.2) 05/30/20 03:20 Hct 44.9 % (35.5-45.6) 05/30/20 03:20 MCV 90 fl (84-94) 05/30/20 03:20 MCH 30 pg (28-32) 05/30/20 03:20 MCHC 33 % (32-34) 05/30/20 03:20 RDW 13.8 % (13.2-15.2) 05/30/20 03:20 Plt Count 245 K/mm3 (140-440) 05/30/20 03:20 Lymph % (Auto) 15.7 % (13.4-35.0) 05/30/20 03:20 [place] % (Auto) 12.1 % (0.0-7.3) H 05/30/20 03:20 Eos % (Auto) 0.6 % (0.0-4.3) 05/30/20 03:20 Baso % (Auto) 0.2 % (0.0-1.8) 05/30/20 03:20 Lymph # (Auto) 1.8 K/mm3 (1.2-5.4) 05/30/20 03:20 [place] # (Auto) 1.4 K/mm3 (0.0-0.8) H 05/30/20 03:20 Eos # (Auto) 0.1 K/mm3 (0.0-0.4) 05/30/20 03:20 Baso # (Auto) 0.0 K/mm3 (0.0-0.1) 05/30/20 03:20 Add Manual Diff Complete 05/23/20 14:22 Total Counted 100 05/23/20 14:22 Seg Neutrophils % 71.4 % (40.0-70.0) H 05/30/20 03:20 Seg Neuts % (Manual) 63.0 % (40.0-70.0) 05/23/20 14:22 Band Neutrophils % 0 % 05/23/20 14:22 Lymphocytes % (Manual) 24.0 % (13.4-35.0) 05/23/20 14:22 Reactive Lymphs % (Man) 0 % 05/23/20 14:22 Monocytes % (Manual) 9.0 % (0.0-7.3) H 05/23/20 14:22 Eosinophils % (Manual) 3.0 % (0.0-4.3) 05/23/20 14:22 Basophils % (Manual) 1.0 % (0.0-1.8) 05/23/20 14:22 Metamyelocytes % 0 % 05/23/20 14:22 Myelocytes % 0 % 05/23/20 14:22 Promyelocytes % 0 % 05/23/20 14:22 Blast Cells % 0 % 05/23/20 14:22 Nucleated RBC % Not Reportable 05/23/20 14:22 Seg Neutrophils # 8.4 K/mm3 (1.8-7.7) H 05/30/20 03:20 Seg Neutrophils # Man 6.6 K/mm3 (1.8-7.7) 05/23/20 14:22 Band Neutrophils # 0.0 K/mm3 05/23/20 14:22 Lymphocytes # (Manual) 2.5 K/mm3 (1.2-5.4) 05/23/20 14:22 Abs React Lymphs (Man) 0.0 K/mm3 05/23/20 14:22 Monocytes # (Manual) 0.9 K/mm3 (0.0-0.8) H 05/23/20 14:22 Eosinophils # (Manual) 0.3 K/mm3 (0.0-0.4) 05/23/20 14:22 Basophils # (Manual) 0.1 K/mm3 (0.0-0.1) 05/23/20 14:22 Metamyelocytes # 0.0 K/mm3 05/23/20 14:22 Myelocytes # 0.0 K/mm3 05/23/20 14:22 Promyelocytes # 0.0 K/mm3 05/23/20 14:22 Blast Cells # 0.0 K/mm3 05/23/20 14:22 WBC Morphology Not Reportable 05/23/20 14:22 Hypersegmented Neuts Not Reportable 05/23/20 14:22 Hyposegmented Neuts Not Reportable 05/23/20 14:22 Hypogranular Neuts Not Reportable 05/23/20 14:22 Smudge Cells Not Reportable 05/23/20 14:22 Toxic Granulation Not Reportable 05/23/20 14:22 Toxic Vacuolation Not Reportable 05/23/20 14:22 Dohle Bodies Not Reportable 05/23/20 14:22 Pelger-Huet Anomaly Not Reportable 05/23/20 14:22 Henrique Rods Not Reportable 05/23/20 14:22 Platelet Estimate Not Reportable 05/23/20 14:22 Clumped Platelets Not Reportable 05/23/20 14:22 Plt Clumps, EDTA Not Reportable 05/23/20 14:22 Large Platelets Not Reportable 05/23/20 14:22 Giant Platelets Not Reportable 05/23/20 14:22 Platelet Satelliting Not Reportable 05/23/20 14:22 Plt Morphology Comment Not Reportable 05/23/20 14:22 RBC Morphology Normal 05/23/20 14:22 Dimorphic RBCs Not Reportable 05/23/20 14:22 Polychromasia Not Reportable 05/23/20 14:22 Hypochromasia Not Reportable 05/23/20 14:22 Poikilocytosis Not Reportable 05/23/20 14:22 Anisocytosis Not Reportable 05/23/20 14:22 Microcytosis Not Reportable 05/23/20 14:22 Macrocytosis Not Reportable 05/23/20 14:22 Spherocytes Not Reportable 05/23/20 14:22 Pappenheimer Bodies Not Reportable 05/23/20 14:22 Sickle Cells Not Reportable 05/23/20 14:22 Target Cells Not Reportable 05/23/20 14:22 Tear Drop Cells Not Reportable 05/23/20 14:22 Ovalocytes Not Reportable 05/23/20 14:22 Helmet Cells Not Reportable 05/23/20 14:22 [place] Bodies Not Reportable 05/23/20 14:22 [place] Rings Not Reportable 05/23/20 14:22 [place] Cells Not Reportable 05/23/20 14:22 Bite Cells Not Reportable 05/23/20 14:22 Crenated Cell Not Reportable 05/23/20 14:22 Elliptocytes Not Reportable 05/23/20 14:22 Acanthocytes (Spur) Not Reportable 05/23/20 14:22 Rouleaux Not Reportable 05/23/20 14:22 Hemoglobin C Crystals Not Reportable 05/23/20 14:22 Schistocytes Not Reportable 05/23/20 14:22 Malaria parasites Not Reportable 05/23/20 14:22 Jaguar Bodies Not Reportable 05/23/20 14:22 Hem Pathologist Commnt No 05/23/20 14:22 PT 12.2 Sec. (12.2-14.9) 05/30/20 03:20 INR 0.90 (0.87-1.13) 05/30/20 03:20 APTT 23.1 Sec. (24.2-36.6) L 05/30/20 03:20 D-Dimer 1026.65 ng/mlDDU (0-234) H 05/29/20 09:31 Heparin Anti-Xa Level 0.10 U.I./ml (0.3-0.7) L 05/30/20 20:28 ABG pH 7.311 pH Units (7.350-7.450) L 05/30/20 22:40 POC ABG pCO2 71.2 mmHg (32.0-48.0) H 05/28/20 17:59 ABG pCO2 69.0 mm Hg 05/30/20 22:40 POC ABG pO2 66.0 mmHg (83-108) L 05/28/20 17:59 ABG pO2 127.2 mm Hg (80.0-90.0) H 05/30/20 22:40 POC ABG HCO3 33.6 05/28/20 17:59 ABG HCO3 34.1 mmol/L (20.0-26.0) H 05/30/20 22:40 ABG O2 Saturation 98.1 % (95.0-99.0) 05/30/20 22:40 ABG O2 Content 20.9 (0.0-44) 05/30/20 22:40 POC ABG Base Excess 4.2 05/28/20 17:59 ABG Base Excess 5.2 mmol/L (-2.0-3.0) H 05/30/20 22:40 ABG Hemoglobin 15.3 gm/dl (14.0-18.0) 05/30/20 22:40 ABG Carboxyhemoglobin 1.4 % (0.0-5.0) 05/30/20 22:40 ABG Methemoglobin 0.6 % (0.0-1.5) 05/30/20 22:40 ABG Sodium 137.2 mmol/L (136.0-145.0) 05/28/20 17:59 ABG Potassium 4.8 mmol/L (3.40-4.50) H 05/28/20 17:59 ABG Chloride 95.0 mmol/L (98-107) L 05/28/20 17:59 ABG Glucose 152 mg/dL (65-95) H 05/28/20 17:59 Oxyhemoglobin 96.2 % (95.0-99.0) 05/30/20 22:40 FiO2 70 % 05/30/20 22:40 Sodium 145 mmol/L (137-145) 05/30/20 03:20 Potassium 4.5 mmol/L (3.6-5.0) 05/30/20 03:20 Chloride 98.2 mmol/L (98-107) 05/30/20 03:20 Carbon Dioxide 32 mmol/L (22-30) H 05/30/20 03:20 Anion Gap 19 mmol/L 05/30/20 03:20 BUN 19 mg/dL (9-20) 05/30/20 03:20 Creatinine 0.7 mg/dL (0.8-1.3) L 05/30/20 03:20 Estimated GFR > 60 ml/min 05/30/20 03:20 BUN/Creatinine Ratio 27 % 05/30/20 03:20 Glucose 122 mg/dL (75-100) H 05/30/20 03:20 POC Glucose 112 mg/dL (70-105) H 05/31/20 16:26 Hemoglobin A1c 9.3 % (4-6) H 05/26/20 14:42 Calcium 9.9 mg/dL (8.4-10.2) 05/30/20 03:20 Magnesium 2.60 mg/dL (1.7-2.3) H 05/28/20 14:24 Ferritin 33.3 ng/mL (30.0-300.0) 05/23/20 18:43 Total Bilirubin 0.90 mg/dL (0.1-1.2) 05/30/20 03:20 AST 80 units/L (5-40) H 05/30/20 03:20 ALT 113 units/L (7-56) H 05/30/20 03:20 Alkaline Phosphatase 60 units/L (35-129) 05/30/20 03:20 Ammonia 92.0 umol/L (25-60) H 05/28/20 14:24 Lactate Dehydrogenase 289 units/L (91-180) H 05/23/20 18:43 Troponin T < 0.010 ng/mL (0.00-0.029) 05/23/20 16:12 C-Reactive Protein 0.30 mg/dL (0.00-1.30) 05/23/20 18:43 NT-Pro-B Natriuret Pep 7.67 pg/mL (0-450) 05/29/20 09:31 Total Protein 7.1 g/dL (6.3-8.2) 05/30/20 03:20 Albumin 4.2 g/dL (3.9-5) 05/30/20 03:20 Albumin/Globulin Ratio 1.4 % 05/30/20 03:20 Procalcitonin < 0.05 ng/mL (<0.15) 05/27/20 07:30 Arterial Blood Glucose 152 mg/dL (65-95) H 05/28/20 17:59 Arterial Blood Ionized Calcium 5.1 mg/dL (4.6-5.3) 05/28/20 17:59 Coronavirus (PCR) Negative (Negative) 05/24/20 10:23 Urias/IV: Voiding Method Condom Catheter IV Catheter Type [Left Hand] Peripheral IV IV Catheter Type [Left Forearm INT / Saline Lock ] IV Catheter Type [Right Upper INT / Saline Lock arm] IV Catheter Type [Left Upper INT / Saline Lock arm] Active Medications - Current Medications Current Medications: Generic Name Dose Route Start Last Admin Trade Name Freq PRN Reason Stop Dose Admin Acetaminophen 650 mg 05/23/20 18:21 05/27/20 12:17 Tylenol PO 650 mg Q4H PRN Administration Pain MILD(1-3)/Fever >100.5/RENE Divalproex Sodium 500 mg 05/30/20 10:00 05/31/20 17:20 Depakote Er PO Not Given QDAY NADJA Enoxaparin Sodium 100 mg 05/30/20 22:00 05/31/20 17:20 Enoxaparin 1 mg/kg (130 mg) Not Given SUB-Q Q12HR [facility] Protocol Enoxaparin Sodium 30 mg 05/30/20 22:00 05/31/20 17:20 Enoxaparin 1 mg/kg (130 mg) Not Given SUB-Q Q12HR [facility] Protocol Haloperidol Lactate 5 mg 05/24/20 09:03 05/30/20 12:57 Haldol IM 5 mg Q6H PRN Administration Agitation Sodium Chloride 1,000 mls @ 100 mls/hr 05/26/20 06:45 05/31/20 17:17 Nacl 0.9% 1000 Ml IV 100 mls/hr DIRECT NADJA Administration Insulin Human Regular 0 unit 05/26/20 07:30 05/31/20 17:19 Humulin R SUB-Q Not Given ACHS [facility] Protocol Lactulose 20 gm 05/28/20 18:00 05/30/20 17:37 Cephulac PO 20 gm Q12H NADJA Administration Miscellaneous Medication 0 mg 05/31/20 10:00 05/31/20 17:19 Clozapine PO Not Given QAM NADJA Miscellaneous Medication 0 mg 05/30/20 22:00 05/30/20 21:42 Clozapine PO Not Given QHS NADJA Olanzapine 2.5 mg 05/29/20 22:00 05/31/20 17:21 Zyprexa PO Not Given BID [facility] Ondansetron HCl 4 mg 05/23/20 18:21 Zofran IV Q8H PRN Nausea And Vomiting Ondansetron HCl 4 mg 05/23/20 18:24 Zofran Odt PO Q8HR PRN Vomiting Sodium Chloride 10 ml 05/23/20 22:00 05/31/20 17:21 Sodium Chloride Flush Syringe 10 Ml IV Not Given BID NADJA Sodium Chloride 10 ml 05/23/20 18:21 Sodium Chloride Flush Syringe 10 Ml IV PRN PRN LINE FLUSH Trazodone HCl 50 mg 05/29/20 22:00 05/30/20 21:42 Desyrel PO Not Given QHS [facility] Nutrition/Malnutrition Assess - Dietary Evaluation Nutrition/Malnutrition Findings: Nutrition Notes Start: 05/24/20 14:50 Freq: Status: Active Protocol: Document 05/25/20 13:06 ANGELIKA (Rec: 05/25/20 13:10 ANGELIKA [id number]) Co-Sign 05/25/20 13:06 Nutrition Notes Initial or Follow up Brief Note Current Diagnosis Respiratory Failure Other Pertinent Diagnosis SOB, Pneumonia, Bipolar, ADD, Nicotene dependence Current Diet Regular [place] Body Weight (kg) 0 Weight Status Obese Subjective/Other Information F/U for MST and skin risk. Unable to speak with pt via phone d/t pt in restraints. Per RN, pt has good appetite and consuming 100% meals. Pt does not have any wounds. Nutrition Intervention Revisit per MD consult or patient Sign Off request:
[2020-05-31] MEDS: traZODone 50 MG TAB PO SCH (21:05)
[2020-05-31] MEDS: HALOPERIDOL LACTATE 5 MG/1 ML INJ IM PRN (21:06)
[2020-06-01 01:58] LABS: ABG Base Excess 4.6 mmol/L (-2.0-3.0); ABG HCO3 32.1 mmol/L (20.0-26.0); ABG Methemoglobin 0.4 % (0.0-1.5); ABG Oxygen Saturation 95.7 % (95.0-99.0); ABG PCO2 60.5 mm Hg; ABG PH 7.343 pH Units (7.350-7.450); ABG PO2 78.4 mm Hg (80.0-90.0)
[2020-06-01] MEDS: SODIUM CHLORIDE 0.9% 1000 ML 1,000 ML IV SCH (03:57)
[2020-06-01] MEDS: HALOPERIDOL LACTATE 5 MG/1 ML INJ IM PRN (05:24)
[2020-06-01] MEDS: LACTULOSE 20 GM/30 ML ORAL LIQD PO SCH ×3 (07:39→17:52)
--- NOTE | 2020-06-01 07:56 | Progress Note ---
Assessment and Plan Assessment and plan: --COVID-19 negative --Acute pulmonary embolism; Hypoxic, requiring BiPAP s/p heparin drip, now on Lovenox 1 mg/kg body weight every 12hr Will transition to oral anticoagulants Eliquis Pulmonary following, consult hematology if needed Lower extremity venous Doppler negative for DVT Echo for LV and RV function ejection fraction --Acute hypoxemic hypercapnic respiratory failure On BiPAP, pulmonary critical following CTA chest positive for PE -- Pneumonia s/p azithromycin till 05/30 Procalcitonin is negative. -- Elevated LFTs Monitor for now -- Nicotine dependence nicotine patch if needed -- Schizophrenia, Bipolar disorder, Delirium with acute psychosis Zyprexa, psych following -- DVT prophylaxis SCD to bilateral lower extremities while in bed, prophylactic anticoagulation We will closely monitor the patient and adjust management as needed Plan of care reviewed with the patient and his nurse I also discussed with pegger Dr. Palencia Brief History: 39 YO Male with Bipolar Disorder, Schizophrenia, ADD, Nicotine Dependence present to ED for shortness of breath over the past 2 days with dry cough, generalized weakness, malaise, body aches. Patient found to have a pulse oximetry of 86%, Chest x-ray revealed bilateral pneumonia. Patient initiated on COVID-19 protocol and admitted. negative for COVID, remains agitated, restrained, confused. 05/24: severely confused, covid test neg. sitter ordered, on restrained, mental health consulted. 05/25: Remains agitated, confused. mental health eval pending. as needed haldol. cont home meds, iv abx 05/26. Patient seen examined at bedside this morning. Still hypoxic with 5 L of oxygen. ABG ordered for AM. Repeat chest xray ordered. 05/27. Drowsy this AM. Will be seen by psych. No ABG drawn. 05/28. Psych recommendations reviewed. Still agitated on current medications. 05/29. His Blood gas shows respiratory acidosis. He was placed on BIPAP. ddimer is elevated - CTA chest and US doppler ordered. Continue psych medications. His LFTs are trending up- will monitor 05/30; acute PE, on heparin drip, DC heparin drip and start Lovenox full dose, pulmonary following, hematology evaluation if needed, will transition to oral anticoagulants in the next 1 to 2 days 05/31; lower extremity venous Doppler negative for DVT, on Lovenox. Respiratory failure on BiPAP 06/01; transition to Eliquis, DC Lovenox, clear liquid diet advance as tolerated The high probability of a clinically significant, sudden or life threatening deterioration of the [Respiratory, psychiatric, metabolic] system(s) required my full and direct attention, intervention and personal management. The aggregate critical care time was [35] minutes without overlap. Time includes spent on [x] Data Review and interpretation [x] Patient assessment and monitoring of vital signs [x] Documentation [x] Medication orders and management History Interval history: I have seen and examined the patient at the bedside Patient is alert and awake oriented, combative Wants food restraint for safety Tolerating liquids Vital signs noted Hospitalist Physical - Constitutional Vitals: Temp Pulse Resp BP Pulse Ox 98.8 F 89 24 156/91 88 06/01/20 04:00 06/01/20 07:30 06/01/20 07:30 06/01/20 07:30 06/01/20 07:30 General appearance: Present: mild distress, well-nourished, obese, other (Patient is screaming and restless) - EENT Eyes: Present: PERRL, EOM intact - Neck Neck: Present: supple, normal ROM - Respiratory Respiratory effort: normal Respiratory: bilateral: diminished, negative: rales, rhonchi, wheezing - Cardiovascular Rhythm: regular Heart Sounds: Present: S1 & S2 - Extremities Extremities: no ischemia, No edema - Abdominal General gastrointestinal: soft, non-tender, non-distended, normal bowel sounds - Integumentary Integumentary: Present: clear, warm - Psychiatric Psychiatric: appropriate mood/affect, cooperative - Neurologic Neurologic: CNII-XII intact, moves all extremities HEART Score - HEART Score Troponin: Troponin T < 0.010 ng/mL (0.00-0.029) 05/23/20 16:12 Results - Labs CBC & Chem 7: 06/01/20 15:30 06/01/20 15:30 Labs: Laboratory Last Values WBC 11.7 K/mm3 (4.5-11.0) H 05/30/20 03:20 RBC 4.97 M/mm3 (3.65-5.03) 05/30/20 03:20 Hgb 15.0 gm/dl (11.8-15.2) 05/30/20 03:20 Hct 44.9 % (35.5-45.6) 05/30/20 03:20 MCV 90 fl (84-94) 05/30/20 03:20 MCH 30 pg (28-32) 05/30/20 03:20 MCHC 33 % (32-34) 05/30/20 03:20 RDW 13.8 % (13.2-15.2) 05/30/20 03:20 Plt Count 245 K/mm3 (140-440) 05/30/20 03:20 Lymph % (Auto) 15.7 % (13.4-35.0) 05/30/20 03:20 [place] % (Auto) 12.1 % (0.0-7.3) H 05/30/20 03:20 Eos % (Auto) 0.6 % (0.0-4.3) 05/30/20 03:20 Baso % (Auto) 0.2 % (0.0-1.8) 05/30/20 03:20 Lymph # (Auto) 1.8 K/mm3 (1.2-5.4) 05/30/20 03:20 Kinney # (Auto) 1.4 K/mm3 (0.0-0.8) H 05/30/20 03:20 Eos # (Auto) 0.1 K/mm3 (0.0-0.4) 05/30/20 03:20 Baso # (Auto) 0.0 K/mm3 (0.0-0.1) 05/30/20 03:20 Add Manual Diff Complete 05/23/20 14:22 Total Counted 100 05/23/20 14:22 Seg Neutrophils % 71.4 % (40.0-70.0) H 05/30/20 03:20 Seg Neuts % (Manual) 63.0 % (40.0-70.0) 05/23/20 14:22 Band Neutrophils % 0 % 05/23/20 14:22 Lymphocytes % (Manual) 24.0 % (13.4-35.0) 05/23/20 14:22 Reactive Lymphs % (Man) 0 % 05/23/20 14:22 Monocytes % (Manual) 9.0 % (0.0-7.3) H 05/23/20 14:22 Eosinophils % (Manual) 3.0 % (0.0-4.3) 05/23/20 14:22 Basophils % (Manual) 1.0 % (0.0-1.8) 05/23/20 14:22 Metamyelocytes % 0 % 05/23/20 14:22 Myelocytes % 0 % 05/23/20 14:22 Promyelocytes % 0 % 05/23/20 14:22 Blast Cells % 0 % 05/23/20 14:22 Nucleated RBC % Not Reportable 05/23/20 14:22 Seg Neutrophils # 8.4 K/mm3 (1.8-7.7) H 05/30/20 03:20 Seg Neutrophils # Man 6.6 K/mm3 (1.8-7.7) 05/23/20 14:22 Band Neutrophils # 0.0 K/mm3 05/23/20 14:22 Lymphocytes # (Manual) 2.5 K/mm3 (1.2-5.4) 05/23/20 14:22 Abs React Lymphs (Man) 0.0 K/mm3 05/23/20 14:22 Monocytes # (Manual) 0.9 K/mm3 (0.0-0.8) H 05/23/20 14:22 Eosinophils # (Manual) 0.3 K/mm3 (0.0-0.4) 05/23/20 14:22 Basophils # (Manual) 0.1 K/mm3 (0.0-0.1) 05/23/20 14:22 Metamyelocytes # 0.0 K/mm3 05/23/20 14:22 Myelocytes # 0.0 K/mm3 05/23/20 14:22 Promyelocytes # 0.0 K/mm3 05/23/20 14:22 Blast Cells # 0.0 K/mm3 05/23/20 14:22 WBC Morphology Not Reportable 05/23/20 14:22 Hypersegmented Neuts Not Reportable 05/23/20 14:22 Hyposegmented Neuts Not Reportable 05/23/20 14:22 Hypogranular Neuts Not Reportable 05/23/20 14:22 Smudge Cells Not Reportable 05/23/20 14:22 Toxic Granulation Not Reportable 05/23/20 14:22 Toxic Vacuolation Not Reportable 05/23/20 14:22 Dohle Bodies Not Reportable 05/23/20 14:22 Pelger-Huet Anomaly Not Reportable 05/23/20 14:22 Henrique Rods Not Reportable 05/23/20 14:22 Platelet Estimate Not Reportable 05/23/20 14:22 Clumped Platelets Not Reportable 05/23/20 14:22 Plt Clumps, EDTA Not Reportable 05/23/20 14:22 Large Platelets Not Reportable 05/23/20 14:22 Giant Platelets Not Reportable 05/23/20 14:22 Platelet Satelliting Not Reportable 05/23/20 14:22 Plt Morphology Comment Not Reportable 05/23/20 14:22 RBC Morphology Normal 05/23/20 14:22 Dimorphic RBCs Not Reportable 05/23/20 14:22 Polychromasia Not Reportable 05/23/20 14:22 Hypochromasia Not Reportable 05/23/20 14:22 Poikilocytosis Not Reportable 05/23/20 14:22 Anisocytosis Not Reportable 05/23/20 14:22 Microcytosis Not Reportable 05/23/20 14:22 Macrocytosis Not Reportable 05/23/20 14:22 Spherocytes Not Reportable 05/23/20 14:22 Pappenheimer Bodies Not Reportable 05/23/20 14:22 Sickle Cells Not Reportable 05/23/20 14:22 Target Cells Not Reportable 05/23/20 14:22 Tear Drop Cells Not Reportable 05/23/20 14:22 Ovalocytes Not Reportable 05/23/20 14:22 Helmet Cells Not Reportable 05/23/20 14:22 [place] Bodies Not Reportable 05/23/20 14:22 [place] Rings Not Reportable 05/23/20 14:22 [place] Cells Not Reportable 05/23/20 14:22 Bite Cells Not Reportable 05/23/20 14:22 Crenated Cell Not Reportable 05/23/20 14:22 Elliptocytes Not Reportable 05/23/20 14:22 Acanthocytes (Spur) Not Reportable 05/23/20 14:22 Rouleaux Not Reportable 05/23/20 14:22 Hemoglobin C Crystals Not Reportable 05/23/20 14:22 Schistocytes Not Reportable 05/23/20 14:22 Malaria parasites Not Reportable 05/23/20 14:22 Jaguar Bodies Not Reportable 05/23/20 14:22 Hem Pathologist Commnt No 05/23/20 14:22 PT 12.2 Sec. (12.2-14.9) 05/30/20 03:20 INR 0.90 (0.87-1.13) 05/30/20 03:20 APTT 23.1 Sec. (24.2-36.6) L 05/30/20 03:20 D-Dimer 1026.65 ng/mlDDU (0-234) H 05/29/20 09:31 Heparin Anti-Xa Level 0.10 U.I./ml (0.3-0.7) L 05/30/20 20:28 ABG pH 7.343 pH Units (7.350-7.450) L 06/01/20 01:46 POC ABG pCO2 71.2 mmHg (32.0-48.0) H 05/28/20 17:59 ABG pCO2 60.5 mm Hg 06/01/20 01:46 POC ABG pO2 66.0 mmHg (83-108) L 05/28/20 17:59 ABG pO2 78.4 mm Hg (80.0-90.0) L 06/01/20 01:46 POC ABG HCO3 33.6 05/28/20 17:59 ABG HCO3 32.1 mmol/L (20.0-26.0) H 06/01/20 01:46 ABG O2 Saturation 95.7 % (95.0-99.0) 06/01/20 01:46 ABG O2 Content 18.7 (0.0-44) 06/01/20 01:46 POC ABG Base Excess 4.2 05/28/20 17:59 ABG Base Excess 4.6 mmol/L (-2.0-3.0) H 06/01/20 01:46 ABG Hemoglobin 14.1 gm/dl (14.0-18.0) 06/01/20 01:46 ABG Carboxyhemoglobin 1.4 % (0.0-5.0) 06/01/20 01:46 ABG Methemoglobin 0.4 % (0.0-1.5) 06/01/20 01:46 ABG Sodium 137.2 mmol/L (136.0-145.0) 05/28/20 17:59 ABG Potassium 4.8 mmol/L (3.40-4.50) H 05/28/20 17:59 ABG Chloride 95.0 mmol/L (98-107) L 05/28/20 17:59 ABG Glucose 152 mg/dL (65-95) H 05/28/20 17:59 Oxyhemoglobin 94.1 % (95.0-99.0) L 06/01/20 01:46 FiO2 50 % 06/01/20 01:46 Sodium 145 mmol/L (137-145) 05/30/20 03:20 Potassium 4.5 mmol/L (3.6-5.0) 05/30/20 03:20 Chloride 98.2 mmol/L (98-107) 05/30/20 03:20 Carbon Dioxide 32 mmol/L (22-30) H 05/30/20 03:20 Anion Gap 19 mmol/L 05/30/20 03:20 BUN 19 mg/dL (9-20) 05/30/20 03:20 Creatinine 0.7 mg/dL (0.8-1.3) L 05/30/20 03:20 Estimated GFR > 60 ml/min 05/30/20 03:20 BUN/Creatinine Ratio 27 % 05/30/20 03:20 Glucose 122 mg/dL (75-100) H 05/30/20 03:20 POC Glucose 110 mg/dL (70-105) H 05/31/20 23:26 Hemoglobin A1c 9.3 % (4-6) H 05/26/20 14:42 Calcium 9.9 mg/dL (8.4-10.2) 05/30/20 03:20 Magnesium 2.60 mg/dL (1.7-2.3) H 05/28/20 14:24 Ferritin 33.3 ng/mL (30.0-300.0) 05/23/20 18:43 Total Bilirubin 0.90 mg/dL (0.1-1.2) 05/30/20 03:20 AST 80 units/L (5-40) H 05/30/20 03:20 ALT 113 units/L (7-56) H 05/30/20 03:20 Alkaline Phosphatase 60 units/L (35-129) 05/30/20 03:20 Ammonia 92.0 umol/L (25-60) H 05/28/20 14:24 Lactate Dehydrogenase 289 units/L (91-180) H 05/23/20 18:43 Troponin T < 0.010 ng/mL (0.00-0.029) 05/23/20 16:12 C-Reactive Protein 0.30 mg/dL (0.00-1.30) 05/23/20 18:43 NT-Pro-B Natriuret Pep 7.67 pg/mL (0-450) 05/29/20 09:31 Total Protein 7.1 g/dL (6.3-8.2) 05/30/20 03:20 Albumin 4.2 g/dL (3.9-5) 05/30/20 03:20 Albumin/Globulin Ratio 1.4 % 05/30/20 03:20 Procalcitonin < 0.05 ng/mL (<0.15) 05/27/20 07:30 Arterial Blood Glucose 152 mg/dL (65-95) H 05/28/20 17:59 Arterial Blood Ionized Calcium 5.1 mg/dL (4.6-5.3) 05/28/20 17:59 Coronavirus (PCR) Negative (Negative) 05/24/20 10:23 Urias/IV: Voiding Method Condom Catheter IV Catheter Type [Left Hand] Peripheral IV IV Catheter Type [Left Forearm INT / Saline Lock ] IV Catheter Type [Right Upper INT / Saline Lock arm] IV Catheter Type [Left Upper INT / Saline Lock arm] Active Medications - Current Medications Current Medications: Generic Name Dose Route Start Last Admin Trade Name Freq PRN Reason Stop Dose Admin Acetaminophen 650 mg 05/23/20 18:21 05/27/20 12:17 Tylenol PO 650 mg Q4H PRN Administration Pain MILD(1-3)/Fever >100.5/RENE Divalproex Sodium 500 mg 05/30/20 10:00 05/31/20 17:20 Depakote Er PO Not Given QDAY [facility] Enoxaparin Sodium 100 mg 05/30/20 22:00 05/31/20 21:13 Enoxaparin 1 mg/kg (130 mg) 100 mg SUB-Q Administration Q12HR [facility] Protocol Enoxaparin Sodium 30 mg 05/30/20 22:00 05/31/20 21:10 Enoxaparin 1 mg/kg (130 mg) 30 mg SUB-Q Administration Q12HR NADJA Protocol Haloperidol Lactate 5 mg 05/24/20 09:03 06/01/20 05:24 Haldol IM 5 mg Q6H PRN Administration Agitation Sodium Chloride 1,000 mls @ 100 mls/hr 05/26/20 06:45 06/01/20 03:57 Nacl 0.9% 1000 Ml IV 100 mls/hr DIRECT NADJA Administration Insulin Human Regular 0 unit 05/26/20 07:30 05/31/20 23:10 Humulin R SUB-Q Not Given ACHS NADJA Protocol Lactulose 20 gm 05/28/20 18:00 06/01/20 07:39 Cephulac PO Not Given Q12H NADJA Miscellaneous Medication 0 mg 05/31/20 10:00 05/31/20 17:19 Clozapine PO Not Given QAM NADJA Miscellaneous Medication 0 mg 05/30/20 22:00 05/31/20 21:41 Clozapine PO 100 mg QHS NADJA Administration Olanzapine 2.5 mg 05/29/20 22:00 05/31/20 21:46 Zyprexa PO 2.5 mg BID NADJA Administration Ondansetron HCl 4 mg 05/23/20 18:21 Zofran IV Q8H PRN Nausea And Vomiting Ondansetron HCl 4 mg 05/23/20 18:24 Zofran Odt PO Q8HR PRN Vomiting Sodium Chloride 10 ml 05/23/20 22:00 05/31/20 17:21 Sodium Chloride Flush Syringe 10 Ml IV Not Given BID NADJA Sodium Chloride 10 ml 05/23/20 18:21 Sodium Chloride Flush Syringe 10 Ml IV PRN PRN LINE FLUSH Trazodone HCl 50 mg 05/29/20 22:00 05/31/20 21:05 Desyrel PO 50 mg QHS NADJA Administration Nutrition/Malnutrition Assess - Dietary Evaluation Nutrition/Malnutrition Findings: Nutrition Notes Start: 05/24/20 14:50 Freq: Status: Active Protocol: Document 05/25/20 13:06 ANGELIKA (Rec: 05/25/20 13:10 ANGELIKA [id number]) Co-Sign 05/25/20 13:06 LM Nutrition Notes Initial or Follow up Brief Note Current Diagnosis Respiratory Failure Other Pertinent Diagnosis SOB, Pneumonia, Bipolar, ADD, Nicotene dependence Current Diet Regular [place] Body Weight (kg) 0 Weight Status Obese Subjective/Other Information F/U for MST and skin risk. Unable to speak with pt via phone d/t pt in restraints. Per RN, pt has good appetite and consuming 100% meals. Pt does not have any wounds. Nutrition Intervention Revisit per MD consult or patient Sign Off request:
[2020-06-01] MEDS: CLOZAPINE PO SCH ×3 (08:49→23:06)
[2020-06-01] MEDS: DIVALPROEX ER 500 MG TAB PO SCH ×2 (08:50→13:02)
[2020-06-01] MEDS: ENOXAPARIN 30 MG/0.3 ML INJ SUB-Q SCH ×2 (08:57→13:03)
[2020-06-01] MEDS: ENOXAPARIN 100 MG/1 ML INJ SUB-Q SCH ×2 (08:58→13:02)
[2020-06-01] MEDS: INSULIN REGULAR, HUMAN 100 UNIT/ML 3ML VIAL SUB-Q SCH ×4 (09:03→22:00)
--- NOTE | 2020-06-01 09:27 | Progress Note ---
Assessment and Plan - Patient Problems (1) Agitation Current Visit: Yes Status: Acute (2) Acute hypoxemic respiratory failure Current Visit: Yes Status: Acute (3) Bipolar disorder Current Visit: Yes Status: Acute (4) Hypoxia Current Visit: Yes Status: Acute (5) Nicotine dependence Current Visit: Yes Status: Acute Qualifiers: Nicotine product type: cigarettes Substance use status: in withdrawal Qualified Code(s): F17.213 - Nicotine dependence, cigarettes, with withdrawal (6) Schizophrenia Current Visit: Yes Status: Acute Subjective Interval history: more oriented today. still shouting but intermittently engaging in conversation. Objective Vital Signs - 12hr 05/31/20 05/31/20 05/31/20 21:30 21:40 21:50 Temperature Pulse Rate 103 H 89 87 Respiratory 12 14 17 Rate Blood Pressure 191/96 191/96 193/106 O2 Sat by Pulse 99 100 98 Oximetry 05/31/20 05/31/20 05/31/20 22:00 22:10 22:20 Temperature Pulse Rate 86 85 85 Respiratory 14 18 17 Rate Blood Pressure 156/91 156/91 156/91 O2 Sat by Pulse 89 92 99 Oximetry 05/31/20 05/31/20 05/31/20 22:30 22:40 22:50 Temperature Pulse Rate 72 88 83 Respiratory 17 22 20 Rate Blood Pressure 175/88 175/88 175/88 O2 Sat by Pulse 99 92 94 Oximetry 05/31/20 05/31/20 05/31/20 23:00 23:10 23:20 Temperature Pulse Rate 92 H 105 H 92 H Respiratory 21 16 18 Rate Blood Pressure 183/96 183/96 166/105 O2 Sat by Pulse 96 92 99 Oximetry 05/31/20 05/31/20 05/31/20 23:30 23:38 23:40 Temperature Pulse Rate 77 90 118 H Respiratory 14 9 L 17 Rate Blood Pressure 167/107 206/104 167/107 O2 Sat by Pulse 98 100 98 Oximetry 05/31/20 05/31/20 06/01/20 23:50 23:51 00:00 Temperature 98.3 F Pulse Rate 79 79 80 Respiratory 13 21 15 Rate Blood Pressure 167/107 167/107 160/94 O2 Sat by Pulse 97 98 99 Oximetry 06/01/20 06/01/20 06/01/20 00:10 00:20 00:30 Temperature Pulse Rate 87 82 80 Respiratory 14 14 20 Rate Blood Pressure 160/94 167/107 168/95 O2 Sat by Pulse 93 97 98 Oximetry 06/01/20 06/01/20 06/01/20 00:40 00:50 01:00 Temperature Pulse Rate 96 H 106 H 77 Respiratory 15 16 19 Rate Blood Pressure 168/95 168/95 159/98 O2 Sat by Pulse 96 99 98 Oximetry 06/01/20 06/01/20 06/01/20 01:10 01:20 01:30 Temperature Pulse Rate 69 85 78 Respiratory 21 20 18 Rate Blood Pressure 159/98 168/95 158/96 O2 Sat by Pulse 98 93 93 Oximetry 06/01/20 06/01/20 06/01/20 01:40 01:50 02:00 Temperature Pulse Rate 99 H 68 74 Respiratory 16 15 13 Rate Blood Pressure 158/96 158/96 153/102 O2 Sat by Pulse 98 100 100 Oximetry 06/01/20 06/01/20 06/01/20 02:10 02:20 02:30 Temperature Pulse Rate 111 H 118 H 84 Respiratory 18 16 21 Rate Blood Pressure 153/102 153/102 177/102 O2 Sat by Pulse 99 96 90 Oximetry 06/01/20 06/01/20 06/01/20 02:40 02:50 03:00 Temperature Pulse Rate 77 72 66 Respiratory 33 H 19 21 Rate Blood Pressure 177/102 177/102 177/102 O2 Sat by Pulse 92 93 99 Oximetry 06/01/20 06/01/20 06/01/20 03:10 03:20 03:30 Temperature Pulse Rate 78 114 H 101 H Respiratory 13 14 14 Rate Blood Pressure 187/104 187/104 176/120 O2 Sat by Pulse 93 96 99 Oximetry 06/01/20 06/01/20 06/01/20 03:40 03:50 04:00 Temperature 98.8 F Pulse Rate 76 73 76 Respiratory 16 19 13 Rate Blood Pressure 176/120 176/120 177/125 O2 Sat by Pulse 93 94 99 Oximetry 06/01/20 06/01/20 06/01/20 04:10 04:15 04:20 Temperature Pulse Rate 81 89 75 Respiratory 13 26 H 11 L Rate Blood Pressure 177/125 177/125 O2 Sat by Pulse 99 98 99 Oximetry 06/01/20 06/01/20 06/01/20 04:30 04:40 04:50 Temperature Pulse Rate 93 H 91 H 81 Respiratory 13 13 14 Rate Blood Pressure 204/139 204/139 204/139 O2 Sat by Pulse 98 97 97 Oximetry 06/01/20 06/01/20 06/01/20 05:00 05:10 05:20 Temperature Pulse Rate 90 103 H 102 H Respiratory 18 14 22 Rate Blood Pressure 198/115 198/115 198/115 O2 Sat by Pulse 98 97 97 Oximetry 06/01/20 06/01/20 06/01/20 05:30 05:40 05:50 Temperature Pulse Rate 87 76 80 Respiratory 16 14 14 Rate Blood Pressure 164/92 164/92 164/92 O2 Sat by Pulse 98 98 99 Oximetry 06/01/20 06/01/20 06/01/20 06:00 06:10 06:20 Temperature Pulse Rate 67 64 86 Respiratory 15 13 17 Rate Blood Pressure 148/84 148/84 148/84 O2 Sat by Pulse 98 97 89 Oximetry 06/01/20 06/01/20 06/01/20 06:30 06:40 06:50 Temperature Pulse Rate 76 101 H 93 H Respiratory 21 20 24 Rate Blood Pressure 143/88 143/88 143/88 O2 Sat by Pulse 97 98 78 L Oximetry 06/01/20 06/01/20 06/01/20 07:00 07:10 07:20 Temperature Pulse Rate 96 H 95 H 84 Respiratory 19 21 17 Rate Blood Pressure 152/84 152/84 O2 Sat by Pulse 82 L 85 95 Oximetry 06/01/20 06/01/20 06/01/20 07:30 08:00 08:53 Temperature 97.8 F Pulse Rate 89 Respiratory 24 Rate Blood Pressure 156/91 O2 Sat by Pulse 88 94 Oximetry Constitutional: alert, other (on bipap 22/03) ENT: oropharynx moist Neck: supple Effort: mildly labored Ascultation: Bilateral: rhonchi Cardiovascular: other (tachy, RR with no mrg) Gastrointestinal: normoactive bowel sounds, soft, non-tender, non-distended Integumentary: normal Extremities: no cyanosis, no edema, pink and warm Psychiatric: other (unable to assess) CBC and BMP: 05/30/20 03:20 05/30/20 03:20 ABG, PT/INR, D-dimer: ABG ABG pH 7.343 pH Units (7.350-7.450) L 10/28/20 01:46 POC ABG pCO2 71.2 mmHg (32.0-48.0) H 05/28/20 17:59 ABG pCO2 60.5 mm Hg 06/01/20 01:46 POC ABG pO2 66.0 mmHg (83-108) L 05/28/20 17:59 ABG pO2 78.4 mm Hg (80.0-90.0) L 06/01/20 01:46 POC ABG HCO3 33.6 05/28/20 17:59 ABG O2 Saturation 95.7 % (95.0-99.0) 06/01/20 01:46 PT/INR, D-dimer PT 12.2 Sec. (12.2-14.9) 05/30/20 03:20 INR 0.90 (0.87-1.13) 05/30/20 03:20 D-Dimer 1026.65 ng/mlDDU (0-234) H 05/29/20 09:31 Abnormal lab findings: Abnormal Labs 05/23/20 05/23/20 05/23/20 14:20 14:22 14:22 WBC RBC Hgb Hct Lymph % (Auto) Nye % (Auto) Nye # (Auto) Seg Neutrophils % Monocytes % (Manual) 9.0 H Seg Neutrophils # Monocytes # (Manual) 0.9 H APTT D-Dimer Heparin Anti-Xa Level ABG pH 7.339 L POC ABG pCO2 POC ABG pO2 ABG pO2 49.3 L ABG HCO3 34.1 H ABG O2 Saturation 84.7 L ABG Base Excess 6.1 H ABG Carboxyhemoglobin 8.6 H ABG Potassium ABG Chloride ABG Glucose Oxyhemoglobin 77.0 L Sodium Potassium Chloride 95.9 L Carbon Dioxide 32 H BUN Creatinine 0.6 L Glucose 246 H POC Glucose Hemoglobin A1c Calcium Magnesium AST 48 H ALT 68 H Ammonia Lactate Dehydrogenase Arterial Blood Glucose 05/23/20 05/24/20 05/24/20 18:43 05:45 05:45 WBC 13.7 H RBC Hgb Hct Lymph % (Auto) 10.9 L Nye % (Auto) Nye # (Auto) Seg Neutrophils % 86.0 H Monocytes % (Manual) Seg Neutrophils # 11.8 H Monocytes # (Manual) APTT D-Dimer Heparin Anti-Xa Level ABG pH POC ABG pCO2 POC ABG pO2 ABG pO2 ABG HCO3 ABG O2 Saturation ABG Base Excess ABG Carboxyhemoglobin ABG Potassium ABG Chloride ABG Glucose Oxyhemoglobin Sodium 136 L Potassium 7.8 H* D Chloride 93.6 L Carbon Dioxide BUN Creatinine 0.7 L Glucose 174 H 279 H POC Glucose Hemoglobin A1c Calcium 5.0 L* D Magnesium AST ALT Ammonia Lactate Dehydrogenase 289 H Arterial Blood Glucose 05/24/20 05/25/20 05/26/20 09:38 15:01 08:30 WBC RBC Hgb Hct Lymph % (Auto) Nye % (Auto) Nye # (Auto) Seg Neutrophils % Monocytes % (Manual) Seg Neutrophils # Monocytes # (Manual) APTT D-Dimer Heparin Anti-Xa Level ABG pH POC ABG pCO2 POC ABG pO2 ABG pO2 ABG HCO3 ABG O2 Saturation ABG Base Excess ABG Carboxyhemoglobin ABG Potassium ABG Chloride ABG Glucose Oxyhemoglobin Sodium 136 L Potassium 5.5 H D 5.3 H Chloride 92.7 L 93.3 L Carbon Dioxide 35 H D BUN 22 H Creatinine Glucose 393 H 321 H POC Glucose 207 H Hemoglobin A1c Calcium Magnesium AST ALT Ammonia Lactate Dehydrogenase Arterial Blood Glucose 05/26/20 05/26/20 05/26/20 11:32 14:42 14:42 WBC RBC Hgb Hct Lymph % (Auto) Nye % (Auto) Nye # (Auto) Seg Neutrophils % 77.0 H Monocytes % (Manual) Seg Neutrophils # Monocytes # (Manual) APTT D-Dimer Heparin Anti-Xa Level ABG pH POC ABG pCO2 POC ABG pO2 ABG pO2 ABG HCO3 ABG O2 Saturation ABG Base Excess ABG Carboxyhemoglobin ABG Potassium ABG Chloride ABG Glucose Oxyhemoglobin Sodium Potassium Chloride Carbon Dioxide BUN Creatinine Glucose POC Glucose 169 H Hemoglobin A1c 9.3 H Calcium Magnesium AST ALT Ammonia Lactate Dehydrogenase Arterial Blood Glucose 05/26/20 05/26/20 05/27/20 14:42 16:32 10:49 WBC RBC Hgb Hct Lymph % (Auto) Nye % (Auto) Nye # (Auto) Seg Neutrophils % Monocytes % (Manual) Seg Neutrophils # Monocytes # (Manual) APTT D-Dimer Heparin Anti-Xa Level ABG pH POC ABG pCO2 POC ABG pO2 ABG pO2 ABG HCO3 ABG O2 Saturation ABG Base Excess ABG Carboxyhemoglobin ABG Potassium ABG Chloride ABG Glucose Oxyhemoglobin Sodium Potassium Chloride 95.8 L Carbon Dioxide 31 H BUN Creatinine Glucose 197 H POC Glucose 192 H 177 H Hemoglobin A1c Calcium Magnesium AST 44 H ALT 63 H Ammonia Lactate Dehydrogenase Arterial Blood Glucose 05/27/20 05/27/20 05/28/20 16:28 22:01 08:42 WBC RBC Hgb Hct Lymph % (Auto) Nye % (Auto) Nye # (Auto) Seg Neutrophils % Monocytes % (Manual) Seg Neutrophils # Monocytes # (Manual) APTT D-Dimer Heparin Anti-Xa Level ABG pH POC ABG pCO2 POC ABG pO2 ABG pO2 ABG HCO3 ABG O2 Saturation ABG Base Excess ABG Carboxyhemoglobin ABG Potassium ABG Chloride ABG Glucose Oxyhemoglobin Sodium Potassium Chloride Carbon Dioxide BUN Creatinine Glucose POC Glucose 211 H 125 H 117 H Hemoglobin A1c Calcium Magnesium AST ALT Ammonia Lactate Dehydrogenase Arterial Blood Glucose 05/28/20 05/28/20 05/28/20 12:30 14:24 14:24 WBC 11.8 H RBC 5.22 H Hgb 15.6 H Hct 47.1 H Lymph % (Auto) Nye % (Auto) Nye # (Auto) Seg Neutrophils % 78.1 H Monocytes % (Manual) Seg Neutrophils # 9.2 H Monocytes # (Manual) APTT D-Dimer Heparin Anti-Xa Level ABG pH POC ABG pCO2 POC ABG pO2 ABG pO2 ABG HCO3 ABG O2 Saturation ABG Base Excess ABG Carboxyhemoglobin ABG Potassium ABG Chloride ABG Glucose Oxyhemoglobin Sodium Potassium 5.2 H Chloride 93.6 L Carbon Dioxide 39 H D BUN Creatinine 0.7 L Glucose 166 H POC Glucose 144 H Hemoglobin A1c Calcium Magnesium 2.60 H AST 108 H ALT 126 H Ammonia Lactate Dehydrogenase Arterial Blood Glucose 05/28/20 05/28/20 05/28/20 14:24 16:52 17:59 WBC RBC Hgb Hct Lymph % (Auto) Nye % (Auto) Nye # (Auto) Seg Neutrophils % Monocytes % (Manual) Seg Neutrophils # Monocytes # (Manual) APTT D-Dimer Heparin Anti-Xa Level ABG pH 7.292 L POC ABG pCO2 71.2 H POC ABG pO2 66.0 L ABG pO2 ABG HCO3 ABG O2 Saturation ABG Base Excess ABG Carboxyhemoglobin ABG Potassium 4.8 H ABG Chloride 95.0 L ABG Glucose 152 H Oxyhemoglobin Sodium Potassium Chloride Carbon Dioxide BUN Creatinine Glucose POC Glucose 166 H Hemoglobin A1c Calcium Magnesium AST ALT Ammonia 92.0 H Lactate Dehydrogenase Arterial Blood Glucose 152 H 05/28/20 05/29/20 05/29/20 22:18 08:07 09:31 WBC RBC Hgb Hct Lymph % (Auto) Nye % (Auto) Nye # (Auto) Seg Neutrophils % Monocytes % (Manual) Seg Neutrophils # Monocytes # (Manual) APTT D-Dimer 1026.65 H Heparin Anti-Xa Level ABG pH POC ABG pCO2 POC ABG pO2 ABG pO2 ABG HCO3 ABG O2 Saturation ABG Base Excess ABG Carboxyhemoglobin ABG Potassium ABG Chloride ABG Glucose Oxyhemoglobin Sodium Potassium Chloride Carbon Dioxide BUN Creatinine Glucose POC Glucose 141 H 118 H Hemoglobin A1c Calcium Magnesium AST ALT Ammonia Lactate Dehydrogenase Arterial Blood Glucose 05/29/20 05/29/20 05/29/20 09:31 09:39 11:42 WBC 12.7 H RBC 5.22 H Hgb 15.7 H Hct 46.7 H Lymph % (Auto) Nye % (Auto) 12.1 H Nye # (Auto) 1.5 H Seg Neutrophils % 71.3 H Monocytes % (Manual) Seg Neutrophils # 9.1 H Monocytes # (Manual) APTT D-Dimer Heparin Anti-Xa Level ABG pH POC ABG pCO2 POC ABG pO2 ABG pO2 ABG HCO3 ABG O2 Saturation ABG Base Excess ABG Carboxyhemoglobin ABG Potassium ABG Chloride ABG Glucose Oxyhemoglobin Sodium Potassium Chloride 97.1 L Carbon Dioxide 37 H BUN Creatinine 0.7 L Glucose 142 H POC Glucose 133 H Hemoglobin A1c Calcium Magnesium AST 92 H ALT 114 H Ammonia Lactate Dehydrogenase Arterial Blood Glucose 05/29/20 05/30/20 05/30/20 16:48 03:20 03:20 WBC 11.7 H RBC Hgb Hct Lymph % (Auto) Nye % (Auto) 12.1 H Nye # (Auto) 1.4 H Seg Neutrophils % 71.4 H Monocytes % (Manual) Seg Neutrophils # 8.4 H Monocytes # (Manual) APTT D-Dimer Heparin Anti-Xa Level ABG pH POC ABG pCO2 POC ABG pO2 ABG pO2 ABG HCO3 ABG O2 Saturation ABG Base Excess ABG Carboxyhemoglobin ABG Potassium ABG Chloride ABG Glucose Oxyhemoglobin Sodium Potassium Chloride Carbon Dioxide 32 H BUN Creatinine 0.7 L Glucose 122 H POC Glucose 112 H Hemoglobin A1c Calcium Magnesium AST 80 H ALT 113 H Ammonia Lactate Dehydrogenase Arterial Blood Glucose 05/30/20 05/30/20 05/30/20 03:20 09:01 18:20 WBC RBC Hgb Hct Lymph % (Auto) Nye % (Auto) Nye # (Auto) Seg Neutrophils % Monocytes % (Manual) Seg Neutrophils # Monocytes # (Manual) APTT 23.1 L D-Dimer Heparin Anti-Xa Level ABG pH POC ABG pCO2 POC ABG pO2 ABG pO2 ABG HCO3 ABG O2 Saturation ABG Base Excess ABG Carboxyhemoglobin ABG Potassium ABG Chloride ABG Glucose Oxyhemoglobin Sodium Potassium Chloride Carbon Dioxide BUN Creatinine Glucose POC Glucose 124 H 122 H Hemoglobin A1c Calcium Magnesium AST ALT Ammonia Lactate Dehydrogenase Arterial Blood Glucose 05/30/20 05/30/20 05/30/20 20:28 21:34 22:40 WBC RBC Hgb Hct Lymph % (Auto) Nye % (Auto) Nye # (Auto) Seg Neutrophils % Monocytes % (Manual) Seg Neutrophils # Monocytes # (Manual) APTT D-Dimer Heparin Anti-Xa Level 0.10 L ABG pH 7.311 L POC ABG pCO2 POC ABG pO2 ABG pO2 127.2 H ABG HCO3 34.1 H ABG O2 Saturation ABG Base Excess 5.2 H ABG Carboxyhemoglobin ABG Potassium ABG Chloride ABG Glucose Oxyhemoglobin Sodium Potassium Chloride Carbon Dioxide BUN Creatinine Glucose POC Glucose 143 H Hemoglobin A1c Calcium Magnesium AST ALT Ammonia Lactate Dehydrogenase Arterial Blood Glucose 05/31/20 05/31/20 05/31/20 07:55 11:43 16:26 WBC RBC Hgb Hct Lymph % (Auto) Nye % (Auto) Nye # (Auto) Seg Neutrophils % Monocytes % (Manual) Seg Neutrophils # Monocytes # (Manual) APTT D-Dimer Heparin Anti-Xa Level ABG pH POC ABG pCO2 POC ABG pO2 ABG pO2 ABG HCO3 ABG O2 Saturation ABG Base Excess ABG Carboxyhemoglobin ABG Potassium ABG Chloride ABG Glucose Oxyhemoglobin Sodium Potassium Chloride Carbon Dioxide BUN Creatinine Glucose POC Glucose 130 H 129 H 112 H Hemoglobin A1c Calcium Magnesium AST ALT Ammonia Lactate Dehydrogenase Arterial Blood Glucose 05/31/20 06/01/20 23:26 01:46 WBC RBC Hgb Hct Lymph % (Auto) Nye % (Auto) Nye # (Auto) Seg Neutrophils % Monocytes % (Manual) Seg Neutrophils # Monocytes # (Manual) APTT D-Dimer Heparin Anti-Xa Level ABG pH 7.343 L POC ABG pCO2 POC ABG pO2 ABG pO2 78.4 L ABG HCO3 32.1 H ABG O2 Saturation ABG Base Excess 4.6 H ABG Carboxyhemoglobin ABG Potassium ABG Chloride ABG Glucose Oxyhemoglobin 94.1 L Sodium Potassium Chloride Carbon Dioxide BUN Creatinine Glucose POC Glucose 110 H Hemoglobin A1c Calcium Magnesium AST ALT Ammonia Lactate Dehydrogenase Arterial Blood Glucose
[2020-06-01] MEDS: HALOPERIDOL LACTATE 5 MG/1 ML INJ IV PRN (13:57)
[2020-06-01 16:10] LABS: Alanine Aminotransferase 77 units/L (7-56); BUN/Creatinine Ratio 23; Blood Urea Nitrogen 16 mg/dL (9-20); Calcium 9.2 mg/dL (8.4-10.2); Hemolysis Index 5
[2020-06-01 16:14] LABS: Basophils % (Auto) 0.3 % (0.0-1.8); Eosinophils # (Auto) 0.1 K/mm3 (0.0-0.4); Eosinophils % (Auto) 0.8 % (0.0-4.3); Hematocrit 42.7 % (35.5-45.6); Hemoglobin 14.1 gm/dl (11.8-15.2); Lymphocytes # (Auto) 1.8 K/mm3 (1.2-5.4); Lymphocytes % (Auto) 17.3 % (13.4-35.0); Mean Corpuscular HGB Conc 33 % (32-34); Mean Corpuscular Volume 90 fl (84-94); Monocytes # (Auto) 1.3 K/mm3 (0.0-0.8); Monocytes % (Auto) 12.8 % (0.0-7.3); Platelet Count 211 K/mm3 (140-440); Red Blood Count 4.73 M/mm3 (3.65-5.03); Red Cell Distribution Width 13.7 % (13.2-15.2)
[2020-06-01] MEDS: hydrALAZINE 25 MG TAB PO SCH ×2 (18:27→22:57)
[2020-06-01] MEDS: APIXABAN 5 MG TAB PO SCH (22:57)
[2020-06-01] MEDS: traZODone 50 MG TAB PO SCH (22:57)
[2020-06-02] MEDS: HALOPERIDOL LACTATE 5 MG/1 ML INJ IV PRN ×3 (01:51→23:21)
[2020-06-02] MEDS ORDERED: ZIPRASIDONE MESYLATE 20 MG VIAL IM ONE (02:27)
[2020-06-02] MEDS: LACTULOSE 20 GM/30 ML ORAL LIQD PO SCH ×2 (07:26→18:14)
[2020-06-02] MEDS: hydrALAZINE 25 MG TAB PO SCH ×3 (07:26→21:03)
--- NOTE | 2020-06-02 10:02 | Progress Note ---
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 -- Elevated LFTs Monitor for now --Ongoing tobacco use nicotine patch if needed --Morbid obesity; BMI 38.0 Patient needs weight reduction when medically stable Lifestyle changes, diet modification, exercise as tolerated and weight reduction When medically stable --Possible obstructive sleep apnea; needs sleep study as outpatient CPAP/BiPAP at night and as needed -- DVT prophylaxis SCD to bilateral lower extremities while in bed, prophylactic anticoagulation We will closely monitor the patient and adjust management as needed Plan of care reviewed with the patient and his nurse --Full CODE STATUS Restraints for safety Critical care time; 32 minutes The high probability of a clinically significant, sudden or life threatening deterioration of the [Respiratory, psychiatric, metabolic] system(s) required my full and direct attention, intervention and personal management. The aggregate critical care time was [32] minutes without overlap. Time includes spent on [x] Data Review and interpretation [x] Patient assessment and monitoring of vital signs [x] Documentation [x] Medication orders and management Brief History: 39 YO Male with Bipolar Disorder, Schizophrenia, ADD, Nicotine Dependence present to ED for shortness of breath over the past 2 days with dry cough, gener alized weakness, malaise, body aches. Patient found to have a pulse oximetry of 86%, Chest x-ray revealed bilateral pneumonia. Patient initiated on COVID-19 protocol and admitted. negative for COVID, remains agitated, restrained, confused. 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 Disposition; possible discharge in 1 to 2 days if stable 05/24: severely confused, covid test neg. sitter ordered, on restrained, mental health consulted. 05/25: Remains agitated, confused. mental health eval pending. as needed haldol. cont home meds, iv abx 05/26. Patient seen examined at bedside this morning. Still hypoxic with 5 L of oxygen. ABG ordered for AM. Repeat chest xray ordered. 05/27. Drowsy this AM. Will be seen by psych. No ABG drawn. 05/28. Psych recommendations reviewed. Still agitated on current medications. 05/29. His Blood gas shows respiratory acidosis. He was placed on BIPAP. ddimer is elevated - CTA chest and US doppler ordered. Continue psych medications. His LFTs are trending up- will monitor 05/30; acute PE, on heparin drip, DC heparin drip and start Lovenox full dose, pulmonary following, hematology evaluation if needed, will transition to oral anticoagulants in the next 1 to 2 days 05/31; lower extremity venous Doppler negative for DVT, on Lovenox. Respiratory failure on BiPAP 06/01; transition to Eliquis, DC Lovenox, clear liquid diet advance as tolerated 06/02; patient is on Eliquis, intermittent BiPAP, stable to be transferred out of ICU if okay with pulmonary, possible discharge in 1 to 2 days if stable History Interval history: I have seen and examined the patient at the bedside this morning in ICU Patient's chart current medications overnight events reviewed. Patient is severely agitated, screaming and holding On four-point restraints Alert and awake responding appropriately Agitated, vital signs noted Hospitalist Physical - Constitutional Vitals: Temp Pulse Resp BP Pulse Ox 98.1 F 106 H 18 131/83 92 06/02/20 04:00 06/02/20 08:00 06/02/20 08:00 06/02/20 08:00 06/02/20 08:00 General appearance: Present: mild distress, well-nourished, obese, other (Patient is screaming and restless) - EENT Eyes: Present: PERRL, EOM intact - Neck Neck: Present: supple, normal ROM - Respiratory Respiratory effort: normal Respiratory: bilateral: diminished, rhonchi, negative: rales, wheezing - Cardiovascular Rhythm: regular Heart Sounds: Present: S1 & S2 - Extremities Extremities: no ischemia, No edema - Abdominal General gastrointestinal: soft, non-tender, non-distended, normal bowel sounds - Integumentary Integumentary: Present: clear, warm - Psychiatric Psychiatric: agitated, other (Screaming intermittent) - Neurologic Neurologic: moves all extremities HEART Score - HEART Score Troponin: Troponin T < 0.010 ng/mL (0.00-0.029) 05/23/20 16:12 Results - Labs CBC & Chem 7: 06/01/20 15:30 06/01/20 15:30 Labs: Laboratory Last Values WBC 10.3 K/mm3 (4.5-11.0) 06/01/20 15:30 RBC 4.73 M/mm3 (3.65-5.03) 06/01/20 15:30 Hgb 14.1 gm/dl (11.8-15.2) 06/01/20 15:30 Hct 42.7 % (35.5-45.6) 06/01/20 15:30 MCV 90 fl (84-94) 06/01/20 15:30 MCH 30 pg (28-32) 06/01/20 15:30 MCHC 33 % (32-34) 06/01/20 15:30 RDW 13.7 % (13.2-15.2) 06/01/20 15:30 Plt Count 211 K/mm3 (140-440) 06/01/20 15:30 Lymph % (Auto) 17.3 % (13.4-35.0) 06/01/20 15:30 [place] % (Auto) 12.8 % (0.0-7.3) H 06/01/20 15:30 Eos % (Auto) 0.8 % (0.0-4.3) 06/01/20 15:30 Baso % (Auto) 0.3 % (0.0-1.8) 06/01/20 15:30 Lymph # (Auto) 1.8 K/mm3 (1.2-5.4) 06/01/20 15:30 [place] # (Auto) 1.3 K/mm3 (0.0-0.8) H 06/01/20 15:30 Eos # (Auto) 0.1 K/mm3 (0.0-0.4) 06/01/20 15:30 Baso # (Auto) 0.0 K/mm3 (0.0-0.1) 06/01/20 15:30 Add Manual Diff Complete 05/23/20 14:22 Total Counted 100 05/23/20 14:22 Seg Neutrophils % 68.8 % (40.0-70.0) 06/01/20 15:30 Seg Neuts % (Manual) 63.0 % (40.0-70.0) 05/23/20 14:22 Band Neutrophils % 0 % 05/23/20 14:22 Lymphocytes % (Manual) 24.0 % (13.4-35.0) 05/23/20 14:22 Reactive Lymphs % (Man) 0 % 05/23/20 14:22 Monocytes % (Manual) 9.0 % (0.0-7.3) H 05/23/20 14:22 Eosinophils % (Manual) 3.0 % (0.0-4.3) 05/23/20 14:22 Basophils % (Manual) 1.0 % (0.0-1.8) 05/23/20 14:22 Metamyelocytes % 0 % 05/23/20 14:22 Myelocytes % 0 % 05/23/20 14:22 Promyelocytes % 0 % 05/23/20 14:22 Blast Cells % 0 % 05/23/20 14:22 Nucleated RBC % Not Reportable 05/23/20 14:22 Seg Neutrophils # 7.1 K/mm3 (1.8-7.7) 06/01/20 15:30 Seg Neutrophils # Man 6.6 K/mm3 (1.8-7.7) 05/23/20 14:22 Band Neutrophils # 0.0 K/mm3 05/23/20 14:22 Lymphocytes # (Manual) 2.5 K/mm3 (1.2-5.4) 05/23/20 14:22 Abs React Lymphs (Man) 0.0 K/mm3 05/23/20 14:22 Monocytes # (Manual) 0.9 K/mm3 (0.0-0.8) H 05/23/20 14:22 Eosinophils # (Manual) 0.3 K/mm3 (0.0-0.4) 05/23/20 14:22 Basophils # (Manual) 0.1 K/mm3 (0.0-0.1) 05/23/20 14:22 Metamyelocytes # 0.0 K/mm3 05/23/20 14:22 Myelocytes # 0.0 K/mm3 05/23/20 14:22 Promyelocytes # 0.0 K/mm3 05/23/20 14:22 Blast Cells # 0.0 K/mm3 05/23/20 14:22 WBC Morphology Not Reportable 05/23/20 14:22 Hypersegmented Neuts Not Reportable 05/23/20 14:22 Hyposegmented Neuts Not Reportable 05/23/20 14:22 Hypogranular Neuts Not Reportable 05/23/20 14:22 Smudge Cells Not Reportable 05/23/20 14:22 Toxic Granulation Not Reportable 05/23/20 14:22 Toxic Vacuolation Not Reportable 05/23/20 14:22 Dohle Bodies Not Reportable 05/23/20 14:22 Pelger-Huet Anomaly Not Reportable 05/23/20 14:22 Henrique Rods Not Reportable 05/23/20 14:22 Platelet Estimate Not Reportable 05/23/20 14:22 Clumped Platelets Not Reportable 05/23/20 14:22 Plt Clumps, EDTA Not Reportable 05/23/20 14:22 Large Platelets Not Reportable 05/23/20 14:22 Giant Platelets Not Reportable 05/23/20 14:22 Platelet Satelliting Not Reportable 05/23/20 14:22 Plt Morphology Comment Not Reportable 05/23/20 14:22 RBC Morphology Normal 05/23/20 14:22 Dimorphic RBCs Not Reportable 05/23/20 14:22 Polychromasia Not Reportable 05/23/20 14:22 Hypochromasia Not Reportable 05/23/20 14:22 Poikilocytosis Not Reportable 05/23/20 14:22 Anisocytosis Not Reportable 05/23/20 14:22 Microcytosis Not Reportable 05/23/20 14:22 Macrocytosis Not Reportable 05/23/20 14:22 Spherocytes Not Reportable 05/23/20 14:22 Pappenheimer Bodies Not Reportable 05/23/20 14:22 Sickle Cells Not Reportable 05/23/20 14:22 Target Cells Not Reportable 05/23/20 14:22 Tear Drop Cells Not Reportable 05/23/20 14:22 Ovalocytes Not Reportable 05/23/20 14:22 Helmet Cells Not Reportable 05/23/20 14:22 [place] Bodies Not Reportable 05/23/20 14:22 [place] Rings Not Reportable 05/23/20 14:22 Kassie Cells Not Reportable 05/23/20 14:22 Bite Cells Not Reportable 05/23/20 14:22 Crenated Cell Not Reportable 05/23/20 14:22 Elliptocytes Not Reportable 05/23/20 14:22 Acanthocytes (Spur) Not Reportable 05/23/20 14:22 Rouleaux Not Reportable 05/23/20 14:22 Hemoglobin C Crystals Not Reportable 05/23/20 14:22 Schistocytes Not Reportable 05/23/20 14:22 Malaria parasites Not Reportable 05/23/20 14:22 Jaguar Bodies Not Reportable 05/23/20 14:22 Hem Pathologist Commnt No 05/23/20 14:22 PT 12.2 Sec. (12.2-14.9) 05/30/20 03:20 INR 0.90 (0.87-1.13) 05/30/20 03:20 APTT 23.1 Sec. (24.2-36.6) L 05/30/20 03:20 D-Dimer 1026.65 ng/mlDDU (0-234) H 05/29/20 09:31 Heparin Anti-Xa Level 0.10 U.I./ml (0.3-0.7) L 05/30/20 20:28 ABG pH 7.343 pH Units (7.350-7.450) L 06/01/20 01:46 POC ABG pCO2 71.2 mmHg (32.0-48.0) H 05/28/20 17:59 ABG pCO2 60.5 mm Hg 06/01/20 01:46 POC ABG pO2 66.0 mmHg (83-108) L 05/28/20 17:59 ABG pO2 78.4 mm Hg (80.0-90.0) L 06/01/20 01:46 POC ABG HCO3 33.6 05/28/20 17:59 ABG HCO3 32.1 mmol/L (20.0-26.0) H 06/01/20 01:46 ABG O2 Saturation 95.7 % (95.0-99.0) 06/01/20 01:46 ABG O2 Content 18.7 (0.0-44) 06/01/20 01:46 POC ABG Base Excess 4.2 05/28/20 17:59 ABG Base Excess 4.6 mmol/L (-2.0-3.0) H 06/01/20 01:46 ABG Hemoglobin 14.1 gm/dl (14.0-18.0) 06/01/20 01:46 ABG Carboxyhemoglobin 1.4 % (0.0-5.0) 06/01/20 01:46 ABG Methemoglobin 0.4 % (0.0-1.5) 06/01/20 01:46 ABG Sodium 137.2 mmol/L (136.0-145.0) 05/28/20 17:59 ABG Potassium 4.8 mmol/L (3.40-4.50) H 05/28/20 17:59 ABG Chloride 95.0 mmol/L (98-107) L 05/28/20 17:59 ABG Glucose 152 mg/dL (65-95) H 05/28/20 17:59 Oxyhemoglobin 94.1 % (95.0-99.0) L 06/01/20 01:46 FiO2 50 % 06/01/20 01:46 Sodium 143 mmol/L (137-145) 06/01/20 15:30 Potassium 4.0 mmol/L (3.6-5.0) 06/01/20 15:30 Chloride 100.5 mmol/L (98-107) 06/01/20 15:30 Carbon Dioxide 31 mmol/L (22-30) H 06/01/20 15:30 Anion Gap 16 mmol/L 06/01/20 15:30 BUN 16 mg/dL (9-20) 06/01/20 15:30 Creatinine 0.7 mg/dL (0.8-1.3) L 06/01/20 15:30 Estimated GFR > 60 ml/min 06/01/20 15:30 BUN/Creatinine Ratio 23 % 06/01/20 15:30 Glucose 139 mg/dL (75-100) H 06/01/20 15:30 POC Glucose 92 mg/dL (70-105) 06/02/20 07:39 Hemoglobin A1c 9.3 % (4-6) H 05/26/20 14:42 Calcium 9.2 mg/dL (8.4-10.2) 06/01/20 15:30 Magnesium 2.60 mg/dL (1.7-2.3) H 05/28/20 14:24 Ferritin 33.3 ng/mL (30.0-300.0) 05/23/20 18:43 Total Bilirubin 0.70 mg/dL (0.1-1.2) 06/01/20 15:30 AST 61 units/L (5-40) H 06/01/20 15:30 ALT 77 units/L (7-56) H 06/01/20 15:30 Alkaline Phosphatase 56 units/L (35-129) 06/01/20 15:30 Ammonia 92.0 umol/L (25-60) H 05/28/20 14:24 Lactate Dehydrogenase 289 units/L (91-180) H 05/23/20 18:43 Troponin T < 0.010 ng/mL (0.00-0.029) 05/23/20 16:12 C-Reactive Protein 0.30 mg/dL (0.00-1.30) 05/23/20 18:43 NT-Pro-B Natriuret Pep 7.67 pg/mL (0-450) 05/29/20 09:31 Total Protein 6.1 g/dL (6.3-8.2) L 06/01/20 15:30 Albumin 4.0 g/dL (3.9-5) 06/01/20 15:30 Albumin/Globulin Ratio 1.9 % 06/01/20 15:30 Procalcitonin < 0.05 ng/mL (<0.15) 05/27/20 07:30 Arterial Blood Glucose 152 mg/dL (65-95) H 05/28/20 17:59 Arterial Blood Ionized Calcium 5.1 mg/dL (4.6-5.3) 05/28/20 17:59 Coronavirus (PCR) Negative (Negative) 05/24/20 10:23 - Diagnostic Impressions Diagnostic Impressions: Echocardiogram 05/30/20 21:59 Transthoracic Echocardiogram Indication: SOB BP: 156/91 HR: 110 Conclusions *The study quality is technically difficult. *Global left ventricular systolic function is normal. *The estimated ejection fraction is 60-65%. *There is trace of mitral regurgitation. *There is trace tricuspid regurgitation. Findings Procedure Info: The study quality is technically difficult. Left Ventricle: The left ventricular chamber size is normal. There is no left ventricular hypertrophy. Global left ventricular systolic function is normal. The estimated ejection fraction is 60-65%. Left Atrium: The left atrial chamber size is normal. Right Ventricle: The right ventricle is slightly dilated. Right Atrium: The right atrial cavity size is normal. Aortic Valve: The aortic valve is trileaflet. There is no evidence of aortic regurgitation. There is no evidence of aortic stenosis. Mitral Valve: The mitral valve leaflets appear normal. There is trace of mitral regurgitation. There is no evidence of mitral stenosis. Tricuspid Valve: There is trace tricuspid regurgitation. No pulmonary hypertension is noted. Pulmonic Valve: There is no evidence of pulmonic regurgitation. Pericardium: There is no pericardial effusion. Aorta: There is no dilatation of the aortic root. Venous: The inferior vena cava appears normal in size. Measurements Chambers 2D Name Value Normal Range IVSd (2D) 1.34 cm (0.6 - 1.1) LVPWd (2D) 1.28 cm (0.6 - 1.1) LVIDd (2D) 4.21 cm (3.7 - 5.6) LVIDs (2D) 2.52 cm (2 - 3.8) LV FS (2D) 40.2 % - EF Teichholz (2D) 71.26 % - Ao root diameter (2D) 3.35 cm (2 - 3.7) Diastolic/Systolic Function Name Value Normal Range MV E-wave Vmax 0.67 m/sec - MV deceleration time 175.89 msec - MV A-wave Vmax 0.79 m/sec - MV E:A ratio 0.85 ratio - Aortic Valve Name Value Normal Range AV Vmax 1.42 m/sec - AV VTI 24.7 cm - AV peak gradient 8.08 mmHg - AV mean gradient 5.01 mmHg - LVOT diameter 2.03 cm - LVOT Vmax 1.14 m/sec - LVOT VTI 21.68 cm - LVOT peak gradient 5.15 mmHg - LVOT mean gradient 3.33 mmHg - SV LVOT 69.89 ml - BOB (continuity Vmax) 2.57 cm2 - BOB (continuity VTI) 2.83 cm2 - Pulmonic Valve/Qp:Qs Name Value Normal Range PV Vmax 1.01 m/sec - PV peak gradient 4.1 mmHg - PV acceleration time 87.54 msec - Urias/IV: Voiding Method Condom Catheter IV Catheter Type [Right Peripheral IV Forearm] IV Catheter Type [Left Hand] Peripheral IV IV Catheter Type [Left Forearm INT / Saline Lock ] IV Catheter Type [Right Upper INT / Saline Lock arm] IV Catheter Type [Left Upper INT / Saline Lock arm] Active Medications - Current Medications Current Medications: Generic Name Dose Route Start Last Admin Trade Name Freq PRN Reason Stop Dose Admin Acetaminophen 650 mg 05/23/20 18:21 05/27/20 12:17 Tylenol PO 650 mg Q4H PRN Administration Pain MILD(1-3)/Fever >100.5/RENE Apixaban 10 mg 06/01/20 22:00 06/01/20 22:57 Eliquis PO 06/08/20 10:01 10 mg Q12HR NADJA Administration Protocol Divalproex Sodium 500 mg 05/30/20 10:00 06/01/20 13:02 Depakote Er PO Not Given QDAY NADJA Haloperidol Lactate 5 mg 06/01/20 14:00 06/02/20 01:51 Haldol IV 5 mg Q6H PRN Administration Agitation Hydralazine HCl 25 mg 06/01/20 14:00 06/02/20 07:26 Apresoline PO Not Given Q8HR NADJA Insulin Human Regular 0 unit 05/26/20 07:30 06/01/20 22:00 Humulin R SUB-Q Not Given ACHS NADJA Protocol Labetalol HCl 10 mg 06/01/20 11:51 Labetalol IV Q4HR PRN SBP> 150 Lactulose 20 gm 05/28/20 18:00 06/02/20 07:26 Cephulac PO Not Given Q12H NADJA Miscellaneous Medication 0 mg 05/31/20 10:00 06/01/20 09:03 Clozapine PO 50 mg QAM NADJA Administration Miscellaneous Medication 0 mg 05/30/20 22:00 06/01/20 23:06 Clozapine PO 100 mg QHS NADJA Administration Olanzapine 2.5 mg 05/29/20 22:00 06/01/20 22:57 Zyprexa PO 2.5 mg BID NADJA Administration Ondansetron HCl 4 mg 05/23/20 18:21 Zofran IV Q8H PRN Nausea And Vomiting Ondansetron HCl 4 mg 05/23/20 18:24 Zofran Odt PO Q8HR PRN Vomiting Sodium Chloride 10 ml 05/23/20 22:00 06/02/20 07:25 Sodium Chloride Flush Syringe 10 Ml IV Not Given BID NADJA Sodium Chloride 10 ml 05/23/20 18:21 Sodium Chloride Flush Syringe 10 Ml IV PRN PRN LINE FLUSH Trazodone HCl 50 mg 05/29/20 22:00 06/01/20 22:57 Desyrel PO 50 mg QHS NADJA Administration Nutrition/Malnutrition Assess - Dietary Evaluation Nutrition/Malnutrition Findings: Nutrition Notes Start: 05/24/20 14:50 Freq: Status: Active Protocol: Document 05/25/20 13:06 ANGELIKA (Rec: 05/25/20 13:10 ANGELIKA [id number]) Co-Sign 05/25/20 13:06 LM Nutrition Notes Initial or Follow up Brief Note Current Diagnosis Respiratory Failure Other Pertinent Diagnosis SOB, Pneumonia, Bipolar, ADD, Nicotene dependence Current Diet Regular [place] Body Weight (kg) 0 Weight Status Obese Subjective/Other Information F/U for MST and skin risk. Unable to speak with pt via phone d/t pt in restraints. Per RN, pt has good appetite and consuming 100% meals. Pt does not have any wounds. Nutrition Intervention Revisit per MD consult or patient Sign Off request:
[2020-06-02] MEDS: APIXABAN 5 MG TAB PO SCH ×2 (10:05→21:03)
[2020-06-02] MEDS: CLOZAPINE PO SCH ×2 (10:06→21:07)
[2020-06-02] MEDS: DIVALPROEX ER 500 MG TAB PO SCH (10:06)
[2020-06-02] MEDS: INSULIN REGULAR, HUMAN 100 UNIT/ML 3ML VIAL SUB-Q SCH ×4 (10:07→21:30)
--- NOTE | 2020-06-02 16:54 | Progress Note ---
Assessment and Plan Imp: 1. Acute bilateral PE 2. Acute respiratory failure, hypoxia 3. 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 A/C respiratory failure, hypercapnea 5. Hepatic steatosis with hepatic/metabolic encephalopathy 6. Atelectasis Rec: 1. BIPAP prn; wean off O2 2. Agree with transition to Eliquis 3. Advancing diet given improved mental status and off BIPAP 4. Areas of infiltrate on CTA chest appear to be due to atelectasis 5. Needs continued Psych f/u 6. Further plans pending clinical course; no family present CCt 31min Plan of care reviewed w/ patient. Subjective Date of service: 06/02/20 Principal diagnosis: Acute respiratory failure Interval history: On nasal cannula at 15L. Very agitated, trying to come out of restraints. Awake, answers questions, but inappropriate words and behavior. Active Medications Acetaminophen (Tylenol) 650 mg PO Q4H PRN PRN Reason: Pain MILD(1-3)/Fever >100.5/RENE Last Admin: 05/27/20 12:17 Dose: 650 mg Documented by: Apixaban (Eliquis) 10 mg PO Q12HR [facility]; Protocol Stop: 06/08/20 10:01 Last Admin: 06/02/20 10:05 Dose: 10 mg Documented by: Divalproex Sodium (Depakote Er) 500 mg PO QDAY [facility] Last Admin: 06/02/20 10:06 Dose: 500 mg Documented by: Haloperidol Lactate (Haldol) 5 mg IV Q6H PRN PRN Reason: Agitation Last Admin: 06/02/20 14:46 Dose: 5 mg Documented by: Hydralazine HCl (Apresoline) 25 mg PO Q8HR [facility] Last Admin: 06/02/20 14:03 Dose: 25 mg Documented by: Insulin Human Regular (Humulin R) 0 unit SUB-Q ACHS [facility]; Protocol Last Admin: 06/02/20 10:07 Dose: Not Given Documented by: Labetalol HCl (Labetalol) 10 mg IV Q4HR PRN PRN Reason: SBP> 150 Lactulose (Cephulac) 20 gm PO Q12H [facility] Last Admin: 06/02/20 07:26 Dose: Not Given Documented by: Miscellaneous Medication (Clozapine) 0 mg PO QAM [facility] Last Admin: 06/02/20 10:06 Dose: 50 mg Documented by: Miscellaneous Medication (Clozapine) 0 mg PO QHS [facility] Last Admin: 06/01/20 23:06 Dose: 100 mg Documented by: Olanzapine (Zyprexa) 2.5 mg PO BID [facility] Last Admin: 06/02/20 10:06 Dose: 2.5 mg Documented by: Ondansetron HCl (Zofran) 4 mg IV Q8H PRN PRN Reason: Nausea And Vomiting Ondansetron HCl (Zofran Odt) 4 mg PO Q8HR PRN PRN Reason: Vomiting Sodium Chloride (Sodium Chloride Flush Syringe 10 Ml) 10 ml IV BID [facility] Last Admin: 06/02/20 10:11 Dose: 10 ml Documented by: Sodium Chloride (Sodium Chloride Flush Syringe 10 Ml) 10 ml IV PRN PRN PRN Reason: LINE FLUSH Trazodone HCl (Desyrel) 50 mg PO QHS [facility] Last Admin: 06/01/20 22:57 Dose: 50 mg Documented by: Objective Vital Signs - 12hr 06/02/20 06/02/20 06/02/20 05:00 05:16 05:30 Temperature Pulse Rate 101 H 110 H 108 H Pulse Rate [ From Monitor] Pulse Rate [ Right] Respiratory 16 19 22 Rate Blood Pressure 124/85 122/82 O2 Sat by Pulse 93 94 94 Oximetry 06/02/20 06/02/20 06/02/20 05:46 06:00 06:16 Temperature Pulse Rate 107 H 105 H 103 H Pulse Rate [ From Monitor] Pulse Rate [ Right] Respiratory 21 21 18 Rate Blood Pressure 122/82 123/79 123/79 O2 Sat by Pulse 94 93 93 Oximetry 06/02/20 06/02/20 06/02/20 06:30 06:46 07:00 Temperature Pulse Rate 102 H 105 H 134 H Pulse Rate [ From Monitor] Pulse Rate [ Right] Respiratory 18 17 22 Rate Blood Pressure 128/85 128/85 128/85 O2 Sat by Pulse 90 88 91 Oximetry 06/02/20 06/02/20 06/02/20 07:30 08:00 08:30 Temperature Pulse Rate 110 H 117 H 106 H Pulse Rate [ 105 H From Monitor] Pulse Rate [ 106 H Right] Respiratory 23 29 H 20 Rate Blood Pressure 122/81 114/87 131/83 O2 Sat by Pulse 92 85 91 Oximetry 06/02/20 06/02/20 06/02/20 09:00 09:30 10:00 Temperature Pulse Rate 130 H 106 H 104 H Pulse Rate [ From Monitor] Pulse Rate [ Right] Respiratory 21 21 20 Rate Blood Pressure 131/83 128/77 123/85 O2 Sat by Pulse 89 93 96 Oximetry 06/02/20 06/02/20 06/02/20 10:30 11:00 11:30 Temperature Pulse Rate 121 H 109 H 110 H Pulse Rate [ From Monitor] Pulse Rate [ Right] Respiratory 24 20 25 H Rate Blood Pressure 126/85 125/90 134/87 O2 Sat by Pulse 92 87 91 Oximetry 06/02/20 06/02/20 06/02/20 12:00 12:30 13:00 Temperature 99.2 F Pulse Rate 114 H 114 H Pulse Rate [ 110 H From Monitor] Pulse Rate [ 124 H Right] Respiratory 21 18 Rate Blood Pressure 147/87 146/86 131/83 O2 Sat by Pulse 94 93 92 Oximetry 06/02/20 06/02/20 06/02/20 13:30 14:00 14:03 Temperature Pulse Rate 103 H 112 H 117 H Pulse Rate [ From Monitor] Pulse Rate [ Right] Respiratory 24 21 Rate Blood Pressure 132/82 139/78 139/78 O2 Sat by Pulse 89 90 Oximetry 06/02/20 06/02/20 06/02/20 14:30 15:00 16:00 Temperature Pulse Rate 106 H 117 H Pulse Rate [ From Monitor] Pulse Rate [ 119 H Right] Respiratory 24 26 H 18 Rate Blood Pressure 127/77 133/85 144/78 O2 Sat by Pulse 94 99 96 Oximetry Constitutional: alert ENT: oropharynx moist Neck: supple Effort: mildly labored Ascultation: Bilateral: rhonchi Cardiovascular: other (tachy, RR with no mrg) Gastrointestinal: normoactive bowel sounds, soft, non-tender, non-distended Integumentary: normal Extremities: no cyanosis, no edema, pink and warm Neurologic: normal mental status, non-focal exam Psychiatric: anxious CBC and BMP: 06/01/20 15:30 06/01/20 15:30 ABG, PT/INR, D-dimer: ABG ABG pH 7.343 pH Units (7.350-7.450) L 06/01/20 01:46 POC ABG pCO2 71.2 mmHg (32.0-48.0) H 05/28/20 17:59 ABG pCO2 60.5 mm Hg 06/01/20 01:46 POC ABG pO2 66.0 mmHg (83-108) L 05/28/20 17:59 ABG pO2 78.4 mm Hg (80.0-90.0) L 06/01/20 01:46 POC ABG HCO3 33.6 05/28/20 17:59 ABG O2 Saturation 95.7 % (95.0-99.0) 06/01/20 01:46 PT/INR, D-dimer PT 12.2 Sec. (12.2-14.9) 05/30/20 03:20 INR 0.90 (0.87-1.13) 05/30/20 03:20 D-Dimer 1026.65 ng/mlDDU (0-234) H 05/29/20 09:31 Abnormal lab findings: Abnormal Labs 05/23/20 05/23/20 05/23/20 14:20 14:22 14:22 WBC RBC Hgb Hct Lymph % (Auto) Benton % (Auto) Benton # (Auto) Seg Neutrophils % Monocytes % (Manual) 9.0 H Seg Neutrophils # Monocytes # (Manual) 0.9 H APTT D-Dimer Heparin Anti-Xa Level ABG pH 7.339 L POC ABG pCO2 POC ABG pO2 ABG pO2 49.3 L ABG HCO3 34.1 H ABG O2 Saturation 84.7 L ABG Base Excess 6.1 H ABG Carboxyhemoglobin 8.6 H ABG Potassium ABG Chloride ABG Glucose Oxyhemoglobin 77.0 L Sodium Potassium Chloride 95.9 L Carbon Dioxide 32 H BUN Creatinine 0.6 L Glucose 246 H POC Glucose Hemoglobin A1c Calcium Magnesium AST 48 H ALT 68 H Ammonia Lactate Dehydrogenase Total Protein Arterial Blood Glucose 05/23/20 05/24/20 05/24/20 18:43 05:45 05:45 WBC 13.7 H RBC Hgb Hct Lymph % (Auto) 10.9 L Benton % (Auto) Benton # (Auto) Seg Neutrophils % 86.0 H Monocytes % (Manual) Seg Neutrophils # 11.8 H Monocytes # (Manual) APTT D-Dimer Heparin Anti-Xa Level ABG pH POC ABG pCO2 POC ABG pO2 ABG pO2 ABG HCO3 ABG O2 Saturation ABG Base Excess ABG Carboxyhemoglobin ABG Potassium ABG Chloride ABG Glucose Oxyhemoglobin Sodium 136 L Potassium 7.8 H* D Chloride 93.6 L Carbon Dioxide BUN Creatinine 0.7 L Glucose 174 H 279 H POC Glucose Hemoglobin A1c Calcium 5.0 L* D Magnesium AST ALT Ammonia Lactate Dehydrogenase 289 H Total Protein Arterial Blood Glucose 05/24/20 05/25/20 05/26/20 09:38 15:01 08:30 WBC RBC Hgb Hct Lymph % (Auto) Benton % (Auto) Benton # (Auto) Seg Neutrophils % Monocytes % (Manual) Seg Neutrophils # Monocytes # (Manual) APTT D-Dimer Heparin Anti-Xa Level ABG pH POC ABG pCO2 POC ABG pO2 ABG pO2 ABG HCO3 ABG O2 Saturation ABG Base Excess ABG Carboxyhemoglobin ABG Potassium ABG Chloride ABG Glucose Oxyhemoglobin Sodium 136 L Potassium 5.5 H D 5.3 H Chloride 92.7 L 93.3 L Carbon Dioxide 35 H D BUN 22 H Creatinine Glucose 393 H 321 H POC Glucose 207 H Hemoglobin A1c Calcium Magnesium AST ALT Ammonia Lactate Dehydrogenase Total Protein Arterial Blood Glucose 05/26/20 05/26/20 05/26/20 11:32 14:42 14:42 WBC RBC Hgb Hct Lymph % (Auto) Benton % (Auto) Benton # (Auto) Seg Neutrophils % 77.0 H Monocytes % (Manual) Seg Neutrophils # Monocytes # (Manual) APTT D-Dimer Heparin Anti-Xa Level ABG pH POC ABG pCO2 POC ABG pO2 ABG pO2 ABG HCO3 ABG O2 Saturation ABG Base Excess ABG Carboxyhemoglobin ABG Potassium ABG Chloride ABG Glucose Oxyhemoglobin Sodium Potassium Chloride Carbon Dioxide BUN Creatinine Glucose POC Glucose 169 H Hemoglobin A1c 9.3 H Calcium Magnesium AST ALT Ammonia Lactate Dehydrogenase Total Protein Arterial Blood Glucose 05/26/20 05/26/20 05/27/20 14:42 16:32 10:49 WBC RBC Hgb Hct Lymph % (Auto) Benton % (Auto) Benton # (Auto) Seg Neutrophils % Monocytes % (Manual) Seg Neutrophils # Monocytes # (Manual) APTT D-Dimer Heparin Anti-Xa Level ABG pH POC ABG pCO2 POC ABG pO2 ABG pO2 ABG HCO3 ABG O2 Saturation ABG Base Excess ABG Carboxyhemoglobin ABG Potassium ABG Chloride ABG Glucose Oxyhemoglobin Sodium Potassium Chloride 95.8 L Carbon Dioxide 31 H BUN Creatinine Glucose 197 H POC Glucose 192 H 177 H Hemoglobin A1c Calcium Magnesium AST 44 H ALT 63 H Ammonia Lactate Dehydrogenase Total Protein Arterial Blood Glucose 05/27/20 05/27/20 05/28/20 16:28 22:01 08:42 WBC RBC Hgb Hct Lymph % (Auto) Benton % (Auto) Benton # (Auto) Seg Neutrophils % Monocytes % (Manual) Seg Neutrophils # Monocytes # (Manual) APTT D-Dimer Heparin Anti-Xa Level ABG pH POC ABG pCO2 POC ABG pO2 ABG pO2 ABG HCO3 ABG O2 Saturation ABG Base Excess ABG Carboxyhemoglobin ABG Potassium ABG Chloride ABG Glucose Oxyhemoglobin Sodium Potassium Chloride Carbon Dioxide BUN Creatinine Glucose POC Glucose 211 H 125 H 117 H Hemoglobin A1c Calcium Magnesium AST ALT Ammonia Lactate Dehydrogenase Total Protein Arterial Blood Glucose 05/28/20 05/28/20 05/28/20 12:30 14:24 14:24 WBC 11.8 H RBC 5.22 H Hgb 15.6 H Hct 47.1 H Lymph % (Auto) Benton % (Auto) Benton # (Auto) Seg Neutrophils % 78.1 H Monocytes % (Manual) Seg Neutrophils # 9.2 H Monocytes # (Manual) APTT D-Dimer Heparin Anti-Xa Level ABG pH POC ABG pCO2 POC ABG pO2 ABG pO2 ABG HCO3 ABG O2 Saturation ABG Base Excess ABG Carboxyhemoglobin ABG Potassium ABG Chloride ABG Glucose Oxyhemoglobin Sodium Potassium 5.2 H Chloride 93.6 L Carbon Dioxide 39 H D BUN Creatinine 0.7 L Glucose 166 H POC Glucose 144 H Hemoglobin A1c Calcium Magnesium 2.60 H AST 108 H ALT 126 H Ammonia Lactate Dehydrogenase Total Protein Arterial Blood Glucose 05/28/20 05/28/20 05/28/20 14:24 16:52 17:59 WBC RBC Hgb Hct Lymph % (Auto) Benton % (Auto) Benton # (Auto) Seg Neutrophils % Monocytes % (Manual) Seg Neutrophils # Monocytes # (Manual) APTT D-Dimer Heparin Anti-Xa Level ABG pH 7.292 L POC ABG pCO2 71.2 H POC ABG pO2 66.0 L ABG pO2 ABG HCO3 ABG O2 Saturation ABG Base Excess ABG Carboxyhemoglobin ABG Potassium 4.8 H ABG Chloride 95.0 L ABG Glucose 152 H Oxyhemoglobin Sodium Potassium Chloride Carbon Dioxide BUN Creatinine Glucose POC Glucose 166 H Hemoglobin A1c Calcium Magnesium AST ALT Ammonia 92.0 H Lactate Dehydrogenase Total Protein Arterial Blood Glucose 152 H 05/28/20 05/29/20 05/29/20 22:18 08:07 09:31 WBC RBC Hgb Hct Lymph % (Auto) Benton % (Auto) Benton # (Auto) Seg Neutrophils % Monocytes % (Manual) Seg Neutrophils # Monocytes # (Manual) APTT D-Dimer 1026.65 H Heparin Anti-Xa Level ABG pH POC ABG pCO2 POC ABG pO2 ABG pO2 ABG HCO3 ABG O2 Saturation ABG Base Excess ABG Carboxyhemoglobin ABG Potassium ABG Chloride ABG Glucose Oxyhemoglobin Sodium Potassium Chloride Carbon Dioxide BUN Creatinine Glucose POC Glucose 141 H 118 H Hemoglobin A1c Calcium Magnesium AST ALT Ammonia Lactate Dehydrogenase Total Protein Arterial Blood Glucose 05/29/20 05/29/20 05/29/20 09:31 09:39 11:42 WBC 12.7 H RBC 5.22 H Hgb 15.7 H Hct 46.7 H Lymph % (Auto) Benton % (Auto) 12.1 H Benton # (Auto) 1.5 H Seg Neutrophils % 71.3 H Monocytes % (Manual) Seg Neutrophils # 9.1 H Monocytes # (Manual) APTT D-Dimer Heparin Anti-Xa Level ABG pH POC ABG pCO2 POC ABG pO2 ABG pO2 ABG HCO3 ABG O2 Saturation ABG Base Excess ABG Carboxyhemoglobin ABG Potassium ABG Chloride ABG Glucose Oxyhemoglobin Sodium Potassium Chloride 97.1 L Carbon Dioxide 37 H BUN Creatinine 0.7 L Glucose 142 H POC Glucose 133 H Hemoglobin A1c Calcium Magnesium AST 92 H ALT 114 H Ammonia Lactate Dehydrogenase Total Protein Arterial Blood Glucose 05/29/20 05/30/20 05/30/20 16:48 03:20 03:20 WBC 11.7 H RBC Hgb Hct Lymph % (Auto) Benton % (Auto) 12.1 H Benton # (Auto) 1.4 H Seg Neutrophils % 71.4 H Monocytes % (Manual) Seg Neutrophils # 8.4 H Monocytes # (Manual) APTT D-Dimer Heparin Anti-Xa Level ABG pH POC ABG pCO2 POC ABG pO2 ABG pO2 ABG HCO3 ABG O2 Saturation ABG Base Excess ABG Carboxyhemoglobin ABG Potassium ABG Chloride ABG Glucose Oxyhemoglobin Sodium Potassium Chloride Carbon Dioxide 32 H BUN Creatinine 0.7 L Glucose 122 H POC Glucose 112 H Hemoglobin A1c Calcium Magnesium AST 80 H ALT 113 H Ammonia Lactate Dehydrogenase Total Protein Arterial Blood Glucose 05/30/20 05/30/20 05/30/20 03:20 09:01 18:20 WBC RBC Hgb Hct Lymph % (Auto) Benton % (Auto) Benton # (Auto) Seg Neutrophils % Monocytes % (Manual) Seg Neutrophils # Monocytes # (Manual) APTT 23.1 L D-Dimer Heparin Anti-Xa Level ABG pH POC ABG pCO2 POC ABG pO2 ABG pO2 ABG HCO3 ABG O2 Saturation ABG Base Excess ABG Carboxyhemoglobin ABG Potassium ABG Chloride ABG Glucose Oxyhemoglobin Sodium Potassium Chloride Carbon Dioxide BUN Creatinine Glucose POC Glucose 124 H 122 H Hemoglobin A1c Calcium Magnesium AST ALT Ammonia Lactate Dehydrogenase Total Protein Arterial Blood Glucose 05/30/20 05/30/20 05/30/20 20:28 21:34 22:40 WBC RBC Hgb Hct Lymph % (Auto) Benton % (Auto) B[place] # (Auto) Seg Neutrophils % Monocytes % (Manual) Seg Neutrophils # Monocytes # (Manual) APTT D-Dimer Heparin Anti-Xa Level 0.10 L ABG pH 7.311 L POC ABG pCO2 POC ABG pO2 ABG pO2 127.2 H ABG HCO3 34.1 H ABG O2 Saturation ABG Base Excess 5.2 H ABG Carboxyhemoglobin ABG Potassium ABG Chloride ABG Glucose Oxyhemoglobin Sodium Potassium Chloride Carbon Dioxide BUN Creatinine Glucose POC Glucose 143 H Hemoglobin A1c Calcium Magnesium AST ALT Ammonia Lactate Dehydrogenase Total Protein Arterial Blood Glucose 05/31/20 05/31/20 05/31/20 07:55 11:43 16:26 WBC RBC Hgb Hct Lymph % (Auto) Benton % (Auto) B[place] # (Auto) Seg Neutrophils % Monocytes % (Manual) Seg Neutrophils # Monocytes # (Manual) APTT D-Dimer Heparin Anti-Xa Level ABG pH POC ABG pCO2 POC ABG pO2 ABG pO2 ABG HCO3 ABG O2 Saturation ABG Base Excess ABG Carboxyhemoglobin ABG Potassium ABG Chloride ABG Glucose Oxyhemoglobin Sodium Potassium Chloride Carbon Dioxide BUN Creatinine Glucose POC Glucose 130 H 129 H 112 H Hemoglobin A1c Calcium Magnesium AST ALT Ammonia Lactate Dehydrogenase Total Protein Arterial Blood Glucose 05/31/20 06/01/20 06/01/20 23:26 01:46 08:01 WBC RBC Hgb Hct Lymph % (Auto) Benton % (Auto) B[place] # (Auto) Seg Neutrophils % Monocytes % (Manual) Seg Neutrophils # Monocytes # (Manual) APTT D-Dimer Heparin Anti-Xa Level ABG pH 7.343 L POC ABG pCO2 POC ABG pO2 ABG pO2 78.4 L ABG HCO3 32.1 H ABG O2 Saturation ABG Base Excess 4.6 H ABG Carboxyhemoglobin ABG Potassium ABG Chloride ABG Glucose Oxyhemoglobin 94.1 L Sodium Potassium Chloride Carbon Dioxide BUN Creatinine Glucose POC Glucose 110 H 130 H Hemoglobin A1c Calcium Magnesium AST ALT Ammonia Lactate Dehydrogenase Total Protein Arterial Blood Glucose 06/01/20 06/01/20 06/01/20 12:04 15:30 15:30 WBC RBC Hgb Hct Lymph % (Auto) Benton % (Auto) 12.8 H Benton # (Auto) 1.3 H Seg Neutrophils % Monocytes % (Manual) Seg Neutrophils # Monocytes # (Manual) APTT D-Dimer Heparin Anti-Xa Level ABG pH POC ABG pCO2 POC ABG pO2 ABG pO2 ABG HCO3 ABG O2 Saturation ABG Base Excess ABG Carboxyhemoglobin ABG Potassium ABG Chloride ABG Glucose Oxyhemoglobin Sodium Potassium Chloride Carbon Dioxide 31 H BUN Creatinine 0.7 L Glucose 139 H POC Glucose 128 H Hemoglobin A1c Calcium Magnesium AST 61 H ALT 77 H Ammonia Lactate Dehydrogenase Total Protein 6.1 L Arterial Blood Glucose 06/02/20 12:16 WBC RBC Hgb Hct Lymph % (Auto) Benton % (Auto) [place] # (Auto) Seg Neutrophils % Monocytes % (Manual) Seg Neutrophils # Monocytes # (Manual) APTT D-Dimer Heparin Anti-Xa Level ABG pH POC ABG pCO2 POC ABG pO2 ABG pO2 ABG HCO3 ABG O2 Saturation ABG Base Excess ABG Carboxyhemoglobin ABG Potassium ABG Chloride ABG Glucose Oxyhemoglobin Sodium Potassium Chloride Carbon Dioxide BUN Creatinine Glucose POC Glucose 162 H Hemoglobin A1c Calcium Magnesium AST ALT Ammonia Lactate Dehydrogenase Total Protein Arterial Blood Glucose Chest x-ray: report reviewed, image reviewed CT scan - chest: report reviewed, image reviewed
[2020-06-02] MEDS: traZODone 50 MG TAB PO SCH (21:04)
[2020-06-03] MEDS: hydrALAZINE 25 MG TAB PO SCH ×3 (06:30→22:37)
[2020-06-03] MEDS: LACTULOSE 20 GM/30 ML ORAL LIQD PO SCH ×2 (06:30→18:54)
[2020-06-03] MEDS: HALOPERIDOL LACTATE 5 MG/1 ML INJ IV PRN ×2 (06:31→13:10)
[2020-06-03 07:04] LABS: Hematocrit 42.9 % (35.5-45.6); Hemoglobin 14.2 gm/dl (11.8-15.2)
--- NOTE | 2020-06-03 07:57 | XRay Report ---
ABDOMEN 1 VIEW(S) INDICATION / CLINICAL INFORMATION: NG TUBE PLACEMENT. COMPARISON: None available. FINDINGS: TUBES / LINES: The tip of the NG tube projects over the body of the stomach. BOWEL GAS PATTERN/EXTRALUMINAL GAS: No significant abnormality. No pneumatosis or secondary signs of free air. ADDITIONAL FINDINGS: No significant additional findings. IMPRESSION: 1. No significant abnormality. Signer Name: Abner Nielson MD Signed: 05/31/2020 11:17 AM Workstation Name: [email or web address]
[2020-06-03] MEDS: INSULIN REGULAR, HUMAN 100 UNIT/ML 3ML VIAL SUB-Q SCH ×4 (08:14→22:05)
--- NOTE | 2020-06-03 09:12 | Progress Note ---
Assessment and Plan - Patient Problems (1) Agitation Current Visit: Yes Status: Acute (2) Acute hypoxemic respiratory failure Current Visit: Yes Status: Acute (3) Bipolar disorder Current Visit: Yes Status: Acute (4) Hypoxia Current Visit: Yes Status: Acute (5) Nicotine dependence Current Visit: Yes Status: Acute Qualifiers: Nicotine product type: cigarettes Substance use status: in withdrawal Qualified Code(s): F17.213 - Nicotine dependence, cigarettes, with withdrawal (6) Schizophrenia Current Visit: Yes Status: Acute Subjective Principal diagnosis: Acute respiratory failure Interval history: awake less agitated today Objective Vital Signs - 12hr 06/02/20 06/02/20 06/02/20 21:30 21:33 22:00 Temperature Pulse Rate 106 H 91 H Pulse Rate [ From Monitor] Respiratory 17 19 Rate Respiratory 16 Rate [buttocks] Blood Pressure 141/91 132/83 O2 Sat by Pulse 89 100 Oximetry 06/02/20 06/02/20 06/02/20 22:30 23:00 23:15 Temperature Pulse Rate 100 H 102 H Pulse Rate [ From Monitor] Respiratory 21 22 Rate Respiratory Rate [buttocks] Blood Pressure 128/79 129/79 O2 Sat by Pulse 95 95 95 Oximetry 06/02/20 06/03/20 06/03/20 23:30 00:00 00:02 Temperature 98.1 F Pulse Rate 102 H 100 H 97 H Pulse Rate [ 100 H From Monitor] Respiratory 21 19 20 Rate Respiratory Rate [buttocks] Blood Pressure 130/74 134/79 134/79 O2 Sat by Pulse 96 96 96 Oximetry 06/03/20 06/03/20 06/03/20 00:10 00:16 00:30 Temperature Pulse Rate 104 H 100 H 98 H Pulse Rate [ From Monitor] Respiratory 23 23 Rate Respiratory Rate [buttocks] Blood Pressure 129/79 133/72 O2 Sat by Pulse 96 95 Oximetry 06/03/20 06/03/20 06/03/20 01:00 01:30 02:00 Temperature Pulse Rate 99 H 97 H 96 H Pulse Rate [ From Monitor] Respiratory 26 H 23 24 Rate Respiratory Rate [buttocks] Blood Pressure 131/78 133/79 132/80 O2 Sat by Pulse 95 96 96 Oximetry 06/03/20 06/03/20 06/03/20 02:30 03:00 03:30 Temperature Pulse Rate 106 H 101 H 101 H Pulse Rate [ From Monitor] Respiratory 24 22 16 Rate Respiratory Rate [buttocks] Blood Pressure 130/76 135/81 135/81 O2 Sat by Pulse 92 94 98 Oximetry 06/03/20 06/03/20 06/03/20 04:00 04:30 05:00 Temperature 97.8 F Pulse Rate 96 H 106 H 110 H Pulse Rate [ 101 H From Monitor] Respiratory 19 19 18 Rate Respiratory Rate [buttocks] Blood Pressure 129/87 120/69 133/62 O2 Sat by Pulse 99 96 93 Oximetry 06/03/20 06/03/20 06/03/20 05:30 06:00 06:16 Temperature Pulse Rate 111 H 106 H 129 H Pulse Rate [ From Monitor] Respiratory 26 H 18 21 Rate Respiratory Rate [buttocks] Blood Pressure 134/69 135/70 135/70 O2 Sat by Pulse 95 94 97 Oximetry 06/03/20 06/03/20 06/03/20 06:30 06:46 07:00 Temperature Pulse Rate 120 H 106 H 103 H Pulse Rate [ From Monitor] Respiratory 24 21 20 Rate Respiratory Rate [buttocks] Blood Pressure 118/79 118/79 122/89 O2 Sat by Pulse 94 98 98 Oximetry 06/03/20 06/03/20 07:16 07:30 Temperature Pulse Rate 111 H 104 H Pulse Rate [ From Monitor] Respiratory 19 21 Rate Respiratory Rate [buttocks] Blood Pressure 122/89 133/87 O2 Sat by Pulse 97 98 Oximetry Constitutional: no acute distress, alert ENT: oropharynx moist Neck: supple Effort: mildly labored Ascultation: Bilateral: diminished breath sounds Cardiovascular: other (tachy, RR with no mrg) Gastrointestinal: normoactive bowel sounds, soft, non-tender, non-distended Integumentary: normal Extremities: no cyanosis, no edema, pink and warm Neurologic: normal mental status, non-focal exam Psychiatric: anxious CBC and BMP: 06/03/20 06:50 06/01/20 15:30 ABG, PT/INR, D-dimer: ABG ABG pH 7.343 pH Units (7.350-7.450) L 06/01/20 01:46 POC ABG pCO2 71.2 mmHg (32.0-48.0) H 05/28/20 17:59 ABG pCO2 60.5 mm Hg 06/01/20 01:46 POC ABG pO2 66.0 mmHg (83-108) L 05/28/20 17:59 ABG pO2 78.4 mm Hg (80.0-90.0) L 06/01/20 01:46 POC ABG HCO3 33.6 05/28/20 17:59 ABG O2 Saturation 95.7 % (95.0-99.0) 06/01/20 01:46 PT/INR, D-dimer PT 12.2 Sec. (12.2-14.9) 05/30/20 03:20 INR 0.90 (0.87-1.13) 05/30/20 03:20 D-Dimer 1026.65 ng/mlDDU (0-234) H 05/29/20 09:31 Abnormal lab findings: Abnormal Labs 05/23/20 05/23/20 05/23/20 14:20 14:22 14:22 WBC RBC Hgb Hct Lymph % (Auto) [place] % (Auto) [place] # (Auto) Seg Neutrophils % Monocytes % (Manual) 9.0 H Seg Neutrophils # Monocytes # (Manual) 0.9 H APTT D-Dimer Heparin Anti-Xa Level ABG pH 7.339 L POC ABG pCO2 POC ABG pO2 ABG pO2 49.3 L ABG HCO3 34.1 H ABG O2 Saturation 84.7 L ABG Base Excess 6.1 H ABG Carboxyhemoglobin 8.6 H ABG Potassium ABG Chloride ABG Glucose Oxyhemoglobin 77.0 L Sodium Potassium Chloride 95.9 L Carbon Dioxide 32 H BUN Creatinine 0.6 L Glucose 246 H POC Glucose Hemoglobin A1c Calcium Magnesium AST 48 H ALT 68 H Ammonia Lactate Dehydrogenase Total Protein Arterial Blood Glucose 05/23/20 05/24/20 05/24/20 18:43 05:45 05:45 WBC 13.7 H RBC Hgb Hct Lymph % (Auto) 10.9 L [place] % (Auto) [place] # (Auto) Seg Neutrophils % 86.0 H Monocytes % (Manual) Seg Neutrophils # 11.8 H Monocytes # (Manual) APTT D-Dimer Heparin Anti-Xa Level ABG pH POC ABG pCO2 POC ABG pO2 ABG pO2 ABG HCO3 ABG O2 Saturation ABG Base Excess ABG Carboxyhemoglobin ABG Potassium ABG Chloride ABG Glucose Oxyhemoglobin Sodium 136 L Potassium 7.8 H* D Chloride 93.6 L Carbon Dioxide BUN Creatinine 0.7 L Glucose 174 H 279 H POC Glucose Hemoglobin A1c Calcium 5.0 L* D Magnesium AST ALT Ammonia Lactate Dehydrogenase 289 H Total Protein Arterial Blood Glucose 05/24/20 05/25/20 05/26/20 09:38 15:01 08:30 WBC RBC Hgb Hct Lymph % (Auto) [place] % (Auto) [place] # (Auto) Seg Neutrophils % Monocytes % (Manual) Seg Neutrophils # Monocytes # (Manual) APTT D-Dimer Heparin Anti-Xa Level ABG pH POC ABG pCO2 POC ABG pO2 ABG pO2 ABG HCO3 ABG O2 Saturation ABG Base Excess ABG Carboxyhemoglobin ABG Potassium ABG Chloride ABG Glucose Oxyhemoglobin Sodium 136 L Potassium 5.5 H D 5.3 H Chloride 92.7 L 93.3 L Carbon Dioxide 35 H D BUN 22 H Creatinine Glucose 393 H 321 H POC Glucose 207 H Hemoglobin A1c Calcium Magnesium AST ALT Ammonia Lactate Dehydrogenase Total Protein Arterial Blood Glucose 05/26/20 05/26/20 05/26/20 11:32 14:42 14:42 WBC RBC Hgb Hct Lymph % (Auto) [place] % (Auto) [place] # (Auto) Seg Neutrophils % 77.0 H Monocytes % (Manual) Seg Neutrophils # Monocytes # (Manual) APTT D-Dimer Heparin Anti-Xa Level ABG pH POC ABG pCO2 POC ABG pO2 ABG pO2 ABG HCO3 ABG O2 Saturation ABG Base Excess ABG Carboxyhemoglobin ABG Potassium ABG Chloride ABG Glucose Oxyhemoglobin Sodium Potassium Chloride Carbon Dioxide BUN Creatinine Glucose POC Glucose 169 H Hemoglobin A1c 9.3 H Calcium Magnesium AST ALT Ammonia Lactate Dehydrogenase Total Protein Arterial Blood Glucose 05/26/20 05/26/20 05/27/20 14:42 16:32 10:49 WBC RBC Hgb Hct Lymph % (Auto) [place] % (Auto) [place] # (Auto) Seg Neutrophils % Monocytes % (Manual) Seg Neutrophils # Monocytes # (Manual) APTT D-Dimer Heparin Anti-Xa Level ABG pH POC ABG pCO2 POC ABG pO2 ABG pO2 ABG HCO3 ABG O2 Saturation ABG Base Excess ABG Carboxyhemoglobin ABG Potassium ABG Chloride ABG Glucose Oxyhemoglobin Sodium Potassium Chloride 95.8 L Carbon Dioxide 31 H BUN Creatinine Glucose 197 H POC Glucose 192 H 177 H Hemoglobin A1c Calcium Magnesium AST 44 H ALT 63 H Ammonia Lactate Dehydrogenase Total Protein Arterial Blood Glucose 10/23/20 10/23/20 10/24/20 16:28 22:01 08:42 WBC RBC Hgb Hct Lymph % (Auto) [place] % (Auto) [place] # (Auto) Seg Neutrophils % Monocytes % (Manual) Seg Neutrophils # Monocytes # (Manual) APTT D-Dimer Heparin Anti-Xa Level ABG pH POC ABG pCO2 POC ABG pO2 ABG pO2 ABG HCO3 ABG O2 Saturation ABG Base Excess ABG Carboxyhemoglobin ABG Potassium ABG Chloride ABG Glucose Oxyhemoglobin Sodium Potassium Chloride Carbon Dioxide BUN Creatinine Glucose POC Glucose 211 H 125 H 117 H Hemoglobin A1c Calcium Magnesium AST ALT Ammonia Lactate Dehydrogenase Total Protein Arterial Blood Glucose 05/28/20 05/28/20 05/28/20 12:30 14:24 14:24 WBC 11.8 H RBC 5.22 H Hgb 15.6 H Hct 47.1 H Lymph % (Auto) [place] % (Auto) [place] # (Auto) Seg Neutrophils % 78.1 H Monocytes % (Manual) Seg Neutrophils # 9.2 H Monocytes # (Manual) APTT D-Dimer Heparin Anti-Xa Level ABG pH POC ABG pCO2 POC ABG pO2 ABG pO2 ABG HCO3 ABG O2 Saturation ABG Base Excess ABG Carboxyhemoglobin ABG Potassium ABG Chloride ABG Glucose Oxyhemoglobin Sodium Potassium 5.2 H Chloride 93.6 L Carbon Dioxide 39 H D BUN Creatinine 0.7 L Glucose 166 H POC Glucose 144 H Hemoglobin A1c Calcium Magnesium 2.60 H AST 108 H ALT 126 H Ammonia Lactate Dehydrogenase Total Protein Arterial Blood Glucose 05/28/20 05/28/20 05/28/20 14:24 16:52 17:59 WBC RBC Hgb Hct Lymph % (Auto) [place] % (Auto) [place] # (Auto) Seg Neutrophils % Monocytes % (Manual) Seg Neutrophils # Monocytes # (Manual) APTT D-Dimer Heparin Anti-Xa Level ABG pH 7.292 L POC ABG pCO2 71.2 H POC ABG pO2 66.0 L ABG pO2 ABG HCO3 ABG O2 Saturation ABG Base Excess ABG Carboxyhemoglobin ABG Potassium 4.8 H ABG Chloride 95.0 L ABG Glucose 152 H Oxyhemoglobin Sodium Potassium Chloride Carbon Dioxide BUN Creatinine Glucose POC Glucose 166 H Hemoglobin A1c Calcium Magnesium AST ALT Ammonia 92.0 H Lactate Dehydrogenase Total Protein Arterial Blood Glucose 152 H 05/28/20 05/29/20 05/29/20 22:18 08:07 09:31 WBC RBC Hgb Hct Lymph % (Auto) [place] % (Auto) [place] # (Auto) Seg Neutrophils % Monocytes % (Manual) Seg Neutrophils # Monocytes # (Manual) APTT D-Dimer 1026.65 H Heparin Anti-Xa Level ABG pH POC ABG pCO2 POC ABG pO2 ABG pO2 ABG HCO3 ABG O2 Saturation ABG Base Excess ABG Carboxyhemoglobin ABG Potassium ABG Chloride ABG Glucose Oxyhemoglobin Sodium Potassium Chloride Carbon Dioxide BUN Creatinine Glucose POC Glucose 141 H 118 H Hemoglobin A1c Calcium Magnesium AST ALT Ammonia Lactate Dehydrogenase Total Protein Arterial Blood Glucose 05/29/20 05/29/20 05/29/20 09:31 09:39 11:42 WBC 12.7 H RBC 5.22 H Hgb 15.7 H Hct 46.7 H Lymph % (Auto) [place] % (Auto) 12.1 H [place] # (Auto) 1.5 H Seg Neutrophils % 71.3 H Monocytes % (Manual) Seg Neutrophils # 9.1 H Monocytes # (Manual) APTT D-Dimer Heparin Anti-Xa Level ABG pH POC ABG pCO2 POC ABG pO2 ABG pO2 ABG HCO3 ABG O2 Saturation ABG Base Excess ABG Carboxyhemoglobin ABG Potassium ABG Chloride ABG Glucose Oxyhemoglobin Sodium Potassium Chloride 97.1 L Carbon Dioxide 37 H BUN Creatinine 0.7 L Glucose 142 H POC Glucose 133 H Hemoglobin A1c Calcium Magnesium AST 92 H ALT 114 H Ammonia Lactate Dehydrogenase Total Protein Arterial Blood Glucose 05/29/20 05/30/20 05/30/20 16:48 03:20 03:20 WBC 11.7 H RBC Hgb Hct Lymph % (Auto) [place] % (Auto) 12.1 H [place] # (Auto) 1.4 H Seg Neutrophils % 71.4 H Monocytes % (Manual) Seg Neutrophils # 8.4 H Monocytes # (Manual) APTT D-Dimer Heparin Anti-Xa Level ABG pH POC ABG pCO2 POC ABG pO2 ABG pO2 ABG HCO3 ABG O2 Saturation ABG Base Excess ABG Carboxyhemoglobin ABG Potassium ABG Chloride ABG Glucose Oxyhemoglobin Sodium Potassium Chloride Carbon Dioxide 32 H BUN Creatinine 0.7 L Glucose 122 H POC Glucose 112 H Hemoglobin A1c Calcium Magnesium AST 80 H ALT 113 H Ammonia Lactate Dehydrogenase Total Protein Arterial Blood Glucose 05/30/20 05/30/20 05/30/20 03:20 09:01 18:20 WBC RBC Hgb Hct Lymph % (Auto) [place] % (Auto) [place] # (Auto) Seg Neutrophils % Monocytes % (Manual) Seg Neutrophils # Monocytes # (Manual) APTT 23.1 L D-Dimer Heparin Anti-Xa Level ABG pH POC ABG pCO2 POC ABG pO2 ABG pO2 ABG HCO3 ABG O2 Saturation ABG Base Excess ABG Carboxyhemoglobin ABG Potassium ABG Chloride ABG Glucose Oxyhemoglobin Sodium Potassium Chloride Carbon Dioxide BUN Creatinine Glucose POC Glucose 124 H 122 H Hemoglobin A1c Calcium Magnesium AST ALT Ammonia Lactate Dehydrogenase Total Protein Arterial Blood Glucose 05/30/20 05/30/20 05/30/20 20:28 21:34 22:40 WBC RBC Hgb Hct Lymph % (Auto) [place] % (Auto) [place] # (Auto) Seg Neutrophils % Monocytes % (Manual) Seg Neutrophils # Monocytes # (Manual) APTT D-Dimer Heparin Anti-Xa Level 0.10 L ABG pH 7.311 L POC ABG pCO2 POC ABG pO2 ABG pO2 127.2 H ABG HCO3 34.1 H ABG O2 Saturation ABG Base Excess 5.2 H ABG Carboxyhemoglobin ABG Potassium ABG Chloride ABG Glucose Oxyhemoglobin Sodium Potassium Chloride Carbon Dioxide BUN Creatinine Glucose POC Glucose 143 H Hemoglobin A1c Calcium Magnesium AST ALT Ammonia Lactate Dehydrogenase Total Protein Arterial Blood Glucose 05/31/20 05/31/20 05/31/20 07:55 11:43 16:26 WBC RBC Hgb Hct Lymph % (Auto) [place] % (Auto) [place] # (Auto) Seg Neutrophils % Monocytes % (Manual) Seg Neutrophils # Monocytes # (Manual) APTT D-Dimer Heparin Anti-Xa Level ABG pH POC ABG pCO2 POC ABG pO2 ABG pO2 ABG HCO3 ABG O2 Saturation ABG Base Excess ABG Carboxyhemoglobin ABG Potassium ABG Chloride ABG Glucose Oxyhemoglobin Sodium Potassium Chloride Carbon Dioxide BUN Creatinine Glucose POC Glucose 130 H 129 H 112 H Hemoglobin A1c Calcium Magnesium AST ALT Ammonia Lactate Dehydrogenase Total Protein Arterial Blood Glucose 05/31/20 06/01/20 06/01/20 23:26 01:46 08:01 WBC RBC Hgb Hct Lymph % (Auto) [place] % (Auto) [place] # (Auto) Seg Neutrophils % Monocytes % (Manual) Seg Neutrophils # Monocytes # (Manual) APTT D-Dimer Heparin Anti-Xa Level ABG pH 7.343 L POC ABG pCO2 POC ABG pO2 ABG pO2 78.4 L ABG HCO3 32.1 H ABG O2 Saturation ABG Base Excess 4.6 H ABG Carboxyhemoglobin ABG Potassium ABG Chloride ABG Glucose Oxyhemoglobin 94.1 L Sodium Potassium Chloride Carbon Dioxide BUN Creatinine Glucose POC Glucose 110 H 130 H Hemoglobin A1c Calcium Magnesium AST ALT Ammonia Lactate Dehydrogenase Total Protein Arterial Blood Glucose 06/01/20 06/01/20 06/01/20 12:04 15:30 15:30 WBC RBC Hgb Hct Lymph % (Auto) [place] % (Auto) 12.8 H [place] # (Auto) 1.3 H Seg Neutrophils % Monocytes % (Manual) Seg Neutrophils # Monocytes # (Manual) APTT D-Dimer Heparin Anti-Xa Level ABG pH POC ABG pCO2 POC ABG pO2 ABG pO2 ABG HCO3 ABG O2 Saturation ABG Base Excess ABG Carboxyhemoglobin ABG Potassium ABG Chloride ABG Glucose Oxyhemoglobin Sodium Potassium Chloride Carbon Dioxide 31 H BUN Creatinine 0.7 L Glucose 139 H POC Glucose 128 H Hemoglobin A1c Calcium Magnesium AST 61 H ALT 77 H Ammonia Lactate Dehydrogenase Total Protein 6.1 L Arterial Blood Glucose 06/02/20 06/02/20 06/02/20 12:16 16:47 21:32 WBC RBC Hgb Hct Lymph % (Auto) [place] % (Auto) [place] # (Auto) Seg Neutrophils % Monocytes % (Manual) Seg Neutrophils # Monocytes # (Manual) APTT D-Dimer Heparin Anti-Xa Level ABG pH POC ABG pCO2 POC ABG pO2 ABG pO2 ABG HCO3 ABG O2 Saturation ABG Base Excess ABG Carboxyhemoglobin ABG Potassium ABG Chloride ABG Glucose Oxyhemoglobin Sodium Potassium Chloride Carbon Dioxide BUN Creatinine Glucose POC Glucose 162 H 163 H 118 H Hemoglobin A1c Calcium Magnesium AST ALT Ammonia Lactate Dehydrogenase Total Protein Arterial Blood Glucose 06/03/20 07:22 WBC RBC Hgb Hct Lymph % (Auto) [place] % (Auto) [place] # (Auto) Seg Neutrophils % Monocytes % (Manual) Seg Neutrophils # Monocytes # (Manual) APTT D-Dimer Heparin Anti-Xa Level ABG pH POC ABG pCO2 POC ABG pO2 ABG pO2 ABG HCO3 ABG O2 Saturation ABG Base Excess ABG Carboxyhemoglobin ABG Potassium ABG Chloride ABG Glucose Oxyhemoglobin Sodium Potassium Chloride Carbon Dioxide BUN Creatinine Glucose POC Glucose 248 H Hemoglobin A1c Calcium Magnesium AST ALT Ammonia Lactate Dehydrogenase Total Protein Arterial Blood Glucose
--- NOTE | 2020-06-03 09:53 | Progress Note ---
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 -- Elevated LFTs Monitor for now --Ongoing tobacco use nicotine patch if needed --Morbid obesity; BMI 38.0 Patient needs weight reduction when medically stable Lifestyle changes, diet modification, exercise as tolerated and weight reduction When medically stable --Possible obstructive sleep apnea; needs sleep study as outpatient CPAP/BiPAP at night and as needed -- DVT prophylaxis SCD to bilateral lower extremities while in bed, prophylactic anticoagulation We will closely monitor the patient and adjust management as needed Plan of care reviewed with the patient and his nurse --Full CODE STATUS Restraints for safety 06/03/2020. Patient currently on BiPAP with IPAP 8/EPAP 6 with FiO2 of 50%. Patient is s/p heparin drip,s/p Lovenox, currently on Eliquis 10 mg twice daily for total 7 days, Then 5 mg twice a day. Areas on CTA revealing infiltrates appear to be due to atelectasis. The high probability of a clinically significant, sudden or life threatening deterioration of the [Respiratory, psychiatric, metabolic] system(s) required my full and direct attention, intervention and personal management. The aggregate critical care time was [32] minutes without overlap. Time includes spent on [x] Data Review and interpretation [x] Patient assessment and monitoring of vital signs [x] Documentation [x] Medication orders and management History Interval history: 39 YO Male with Bipolar Disorder, Schizophrenia, ADD, Nicotine Dependence present to ED for shortness of breath over the past 2 days with dry cough, generalized weakness, malaise, body aches. Patient found to have a pulse oximetry of 86%, Chest x-ray revealed bilateral pneumonia. Patient initiated on COVID-19 protocol and admitted. negative for COVID, remains agitated, restrained, confused. Elevated D-dimers, CTA chest positive for PE, on Eliquis, lower extremity venous Doppler negative for DVT, schizophrenia acute psychosis, psych evaluated, restraints, sleeve setter safety stitch. COVID-19 testing found to be negative. No new issues overnight. Hospitalist Physical - Constitutional Vitals: Temp Pulse Resp BP Pulse Ox 98.2 F 103 H 22 115/85 95 06/03/20 08:00 06/03/20 09:00 06/03/20 09:00 06/03/20 09:00 06/03/20 09:00 General appearance: Present: no acute distress, well-nourished, obese, other (Patient is screaming and restless) - EENT Eyes: Present: PERRL, EOM intact ENT: hearing intact, clear oral mucosa, dentition normal - Neck Neck: Present: supple, normal ROM - Respiratory Respiratory effort: normal Respiratory: bilateral: CTA - Cardiovascular Rhythm: regular Heart Sounds: Present: S1 & S2. Absent: gallop, rub - Extremities Extremities: no ischemia, No edema, Full ROM - Abdominal General gastrointestinal: soft, non-tender, non-distended, normal bowel sounds - Integumentary Integumentary: Present: clear, warm, dry - Neurologic Neurologic: CNII-XII intact, moves all extremities HEART Score - HEART Score Troponin: Troponin T < 0.010 ng/mL (0.00-0.029) 05/23/20 16:12 Results - Labs CBC & Chem 7: 06/03/20 06:50 06/01/20 15:30 Labs: Laboratory Last Values WBC 10.3 K/mm3 (4.5-11.0) 06/01/20 15:30 RBC 4.73 M/mm3 (3.65-5.03) 06/01/20 15:30 Hgb 14.2 gm/dl (11.8-15.2) 06/03/20 06:50 Hct 42.9 % (35.5-45.6) 06/03/20 06:50 MCV 90 fl (84-94) 06/01/20 15:30 MCH 30 pg (28-32) 06/01/20 15:30 MCHC 33 % (32-34) 06/01/20 15:30 RDW 13.7 % (13.2-15.2) 06/01/20 15:30 Plt Count 190 K/mm3 (140-440) 06/03/20 06:50 Lymph % (Auto) 17.3 % (13.4-35.0) 06/01/20 15:30 Kendall % (Auto) 12.8 % (0.0-7.3) H 06/01/20 15:30 Eos % (Auto) 0.8 % (0.0-4.3) 06/01/20 15:30 Baso % (Auto) 0.3 % (0.0-1.8) 06/01/20 15:30 Lymph # (Auto) 1.8 K/mm3 (1.2-5.4) 06/01/20 15:30 Kendall # (Auto) 1.3 K/mm3 (0.0-0.8) H 06/01/20 15:30 Eos # (Auto) 0.1 K/mm3 (0.0-0.4) 06/01/20 15:30 Baso # (Auto) 0.0 K/mm3 (0.0-0.1) 06/01/20 15:30 Add Manual Diff Complete 05/23/20 14:22 Total Counted 100 05/23/20 14:22 Seg Neutrophils % 68.8 % (40.0-70.0) 06/01/20 15:30 Seg Neuts % (Manual) 63.0 % (40.0-70.0) 05/23/20 14:22 Band Neutrophils % 0 % 05/23/20 14:22 Lymphocytes % (Manual) 24.0 % (13.4-35.0) 05/23/20 14:22 Reactive Lymphs % (Man) 0 % 05/23/20 14:22 Monocytes % (Manual) 9.0 % (0.0-7.3) H 05/23/20 14:22 Eosinophils % (Manual) 3.0 % (0.0-4.3) 05/23/20 14:22 Basophils % (Manual) 1.0 % (0.0-1.8) 05/23/20 14:22 Metamyelocytes % 0 % 05/23/20 14:22 Myelocytes % 0 % 05/23/20 14:22 Promyelocytes % 0 % 05/23/20 14:22 Blast Cells % 0 % 05/23/20 14:22 Nucleated RBC % Not Reportable 05/23/20 14:22 Seg Neutrophils # 7.1 K/mm3 (1.8-7.7) 06/01/20 15:30 Seg Neutrophils # Man 6.6 K/mm3 (1.8-7.7) 05/23/20 14:22 Band Neutrophils # 0.0 K/mm3 05/23/20 14:22 Lymphocytes # (Manual) 2.5 K/mm3 (1.2-5.4) 05/23/20 14:22 Abs React Lymphs (Man) 0.0 K/mm3 05/23/20 14:22 Monocytes # (Manual) 0.9 K/mm3 (0.0-0.8) H 05/23/20 14:22 Eosinophils # (Manual) 0.3 K/mm3 (0.0-0.4) 05/23/20 14:22 Basophils # (Manual) 0.1 K/mm3 (0.0-0.1) 05/23/20 14:22 Metamyelocytes # 0.0 K/mm3 05/23/20 14:22 Myelocytes # 0.0 K/mm3 05/23/20 14:22 Promyelocytes # 0.0 K/mm3 05/23/20 14:22 Blast Cells # 0.0 K/mm3 05/23/20 14:22 WBC Morphology Not Reportable 05/23/20 14:22 Hypersegmented Neuts Not Reportable 05/23/20 14:22 Hyposegmented Neuts Not Reportable 05/23/20 14:22 Hypogranular Neuts Not Reportable 05/23/20 14:22 Smudge Cells Not Reportable 05/23/20 14:22 Toxic Granulation Not Reportable 05/23/20 14:22 Toxic Vacuolation Not Reportable 05/23/20 14:22 Dohle Bodies Not Reportable 05/23/20 14:22 Pelger-Huet Anomaly Not Reportable 05/23/20 14:22 Henrique Rods Not Reportable 05/23/20 14:22 Platelet Estimate Not Reportable 05/23/20 14:22 Clumped Platelets Not Reportable 05/23/20 14:22 Plt Clumps, EDTA Not Reportable 05/23/20 14:22 Large Platelets Not Reportable 05/23/20 14:22 Giant Platelets Not Reportable 05/23/20 14:22 Platelet Satelliting Not Reportable 05/23/20 14:22 Plt Morphology Comment Not Reportable 05/23/20 14:22 RBC Morphology Normal 05/23/20 14:22 Dimorphic RBCs Not Reportable 05/23/20 14:22 Polychromasia Not Reportable 05/23/20 14:22 Hypochromasia Not Reportable 05/23/20 14:22 Poikilocytosis Not Reportable 05/23/20 14:22 Anisocytosis Not Reportable 05/23/20 14:22 Microcytosis Not Reportable 05/23/20 14:22 Macrocytosis Not Reportable 05/23/20 14:22 Spherocytes Not Reportable 05/23/20 14:22 Pappenheimer Bodies Not Reportable 05/23/20 14:22 Sickle Cells Not Reportable 05/23/20 14:22 Target Cells Not Reportable 05/23/20 14:22 Tear Drop Cells Not Reportable 05/23/20 14:22 Ovalocytes Not Reportable 05/23/20 14:22 Helmet Cells Not Reportable 05/23/20 14:22 [place] Bodies Not Reportable 05/23/20 14:22 [place] Rings Not Reportable 05/23/20 14:22 Kassie Cells Not Reportable 05/23/20 14:22 Bite Cells Not Reportable 05/23/20 14:22 Crenated Cell Not Reportable 05/23/20 14:22 Elliptocytes Not Reportable 05/23/20 14:22 Acanthocytes (Spur) Not Reportable 05/23/20 14:22 Rouleaux Not Reportable 05/23/20 14:22 Hemoglobin C Crystals Not Reportable 05/23/20 14:22 Schistocytes Not Reportable 05/23/20 14:22 Malaria parasites Not Reportable 05/23/20 14:22 Jaguar Bodies Not Reportable 05/23/20 14:22 Hem Pathologist Commnt No 05/23/20 14:22 PT 12.2 Sec. (12.2-14.9) 05/30/20 03:20 INR 0.90 (0.87-1.13) 05/30/20 03:20 APTT 23.1 Sec. (24.2-36.6) L 05/30/20 03:20 D-Dimer 1026.65 ng/mlDDU (0-234) H 05/29/20 09:31 Heparin Anti-Xa Level 0.10 U.I./ml (0.3-0.7) L 05/30/20 20:28 ABG pH 7.343 pH Units (7.350-7.450) L 06/01/20 01:46 POC ABG pCO2 71.2 mmHg (32.0-48.0) H 05/28/20 17:59 ABG pCO2 60.5 mm Hg 06/01/20 01:46 POC ABG pO2 66.0 mmHg (83-108) L 05/28/20 17:59 ABG pO2 78.4 mm Hg (80.0-90.0) L 06/01/20 01:46 POC ABG HCO3 33.6 05/28/20 17:59 ABG HCO3 32.1 mmol/L (20.0-26.0) H 06/01/20 01:46 ABG O2 Saturation 95.7 % (95.0-99.0) 06/01/20 01:46 ABG O2 Content 18.7 (0.0-44) 06/01/20 01:46 POC ABG Base Excess 4.2 05/28/20 17:59 ABG Base Excess 4.6 mmol/L (-2.0-3.0) H 06/01/20 01:46 ABG Hemoglobin 14.1 gm/dl (14.0-18.0) 06/01/20 01:46 ABG Carboxyhemoglobin 1.4 % (0.0-5.0) 06/01/20 01:46 ABG Methemoglobin 0.4 % (0.0-1.5) 06/01/20 01:46 ABG Sodium 137.2 mmol/L (136.0-145.0) 05/28/20 17:59 ABG Potassium 4.8 mmol/L (3.40-4.50) H 05/28/20 17:59 ABG Chloride 95.0 mmol/L (98-107) L 05/28/20 17:59 ABG Glucose 152 mg/dL (65-95) H 05/28/20 17:59 Oxyhemoglobin 94.1 % (95.0-99.0) L 06/01/20 01:46 FiO2 50 % 06/01/20 01:46 Sodium 143 mmol/L (137-145) 06/01/20 15:30 Potassium 4.0 mmol/L (3.6-5.0) 06/01/20 15:30 Chloride 100.5 mmol/L (98-107) 06/01/20 15:30 Carbon Dioxide 31 mmol/L (22-30) H 06/01/20 15:30 Anion Gap 16 mmol/L 06/01/20 15:30 BUN 16 mg/dL (9-20) 06/01/20 15:30 Creatinine 0.7 mg/dL (0.8-1.3) L 06/01/20 15:30 Estimated GFR > 60 ml/min 06/01/20 15:30 BUN/Creatinine Ratio 23 % 06/01/20 15:30 Glucose 139 mg/dL (75-100) H 06/01/20 15:30 POC Glucose 248 mg/dL (70-105) H 06/03/20 07:22 Hemoglobin A1c 9.3 % (4-6) H 05/26/20 14:42 Calcium 9.2 mg/dL (8.4-10.2) 06/01/20 15:30 Magnesium 2.60 mg/dL (1.7-2.3) H 05/28/20 14:24 Ferritin 33.3 ng/mL (30.0-300.0) 05/23/20 18:43 Total Bilirubin 0.70 mg/dL (0.1-1.2) 06/01/20 15:30 AST 61 units/L (5-40) H 06/01/20 15:30 ALT 77 units/L (7-56) H 06/01/20 15:30 Alkaline Phosphatase 56 units/L (35-129) 06/01/20 15:30 Ammonia 92.0 umol/L (25-60) H 05/28/20 14:24 Lactate Dehydrogenase 289 units/L (91-180) H 05/23/20 18:43 Troponin T < 0.010 ng/mL (0.00-0.029) 05/23/20 16:12 C-Reactive Protein 0.30 mg/dL (0.00-1.30) 05/23/20 18:43 NT-Pro-B Natriuret Pep 7.67 pg/mL (0-450) 05/29/20 09:31 Total Protein 6.1 g/dL (6.3-8.2) L 06/01/20 15:30 Albumin 4.0 g/dL (3.9-5) 06/01/20 15:30 Albumin/Globulin Ratio 1.9 % 06/01/20 15:30 Procalcitonin < 0.05 ng/mL (<0.15) 05/27/20 07:30 Arterial Blood Glucose 152 mg/dL (65-95) H 05/28/20 17:59 Arterial Blood Ionized Calcium 5.1 mg/dL (4.6-5.3) 05/28/20 17:59 Coronavirus (PCR) Negative (Negative) 05/24/20 10:23 - Diagnostic Impressions Diagnostic Impressions: Echocardiogram 05/30/20 21:59 Transthoracic Echocardiogram Indication: SOB BP: 156/91 HR: 110 Conclusions *The study quality is technically difficult. *Global left ventricular systolic function is normal. *The estimated ejection fraction is 60-65%. *There is trace of mitral regurgitation. *There is trace tricuspid regurgitation. Findings Procedure Info: The study quality is technically difficult. Left Ventricle: The left ventricular chamber size is normal. There is no left ventricular hypertrophy. Global left ventricular systolic function is normal. The estimated ejection fraction is 60-65%. Left Atrium: The left atrial chamber size is normal. Right Ventricle: The right ventricle is slightly dilated. Right Atrium: The right atrial cavity size is normal. Aortic Valve: The aortic valve is trileaflet. There is no evidence of aortic regurgitation. There is no evidence of aortic stenosis. Mitral Valve: The mitral valve leaflets appear normal. There is trace of mitral regurgitation. There is no evidence of mitral stenosis. Tricuspid Valve: There is trace tricuspid regurgitation. No pulmonary hypertension is noted. Pulmonic Valve: There is no evidence of pulmonic regurgitation. Pericardium: There is no pericardial effusion. Aorta: There is no dilatation of the aortic root. Venous: The inferior vena cava appears normal in size. Measurements Chambers 2D Name Value Normal Range IVSd (2D) 1.34 cm (0.6 - 1.1) LVPWd (2D) 1.28 cm (0.6 - 1.1) LVIDd (2D) 4.21 cm (3.7 - 5.6) LVIDs (2D) 2.52 cm (2 - 3.8) LV FS (2D) 40.2 % - EF Teichholz (2D) 71.26 % - Ao root diameter (2D) 3.35 cm (2 - 3.7) Diastolic/Systolic Function Name Value Normal Range MV E-wave Vmax 0.67 m/sec - MV deceleration time 175.89 msec - MV A-wave Vmax 0.79 m/sec - MV E:A ratio 0.85 ratio - Aortic Valve Name Value Normal Range AV Vmax 1.42 m/sec - AV VTI 24.7 cm - AV peak gradient 8.08 mmHg - AV mean gradient 5.01 mmHg - LVOT diameter 2.03 cm - LVOT Vmax 1.14 m/sec - LVOT VTI 21.68 cm - LVOT peak gradient 5.15 mmHg - LVOT mean gradient 3.33 mmHg - SV LVOT 69.89 ml - BOB (continuity Vmax) 2.57 cm2 - BOB (continuity VTI) 2.83 cm2 - Pulmonic Valve/Qp:Qs Name Value Normal Range PV Vmax 1.01 m/sec - PV peak gradient 4.1 mmHg - PV acceleration time 87.54 msec - Urias/IV: Voiding Method Condom Catheter IV Catheter Type [Right Peripheral IV Forearm] IV Catheter Type [Left Hand] Peripheral IV IV Catheter Type [Left Forearm INT / Saline Lock ] IV Catheter Type [Right Upper INT / Saline Lock arm] IV Catheter Type [Left Upper INT / Saline Lock arm] Active Medications - Current Medications Current Medications: Generic Name Dose Route Start Last Admin Trade Name Freq PRN Reason Stop Dose Admin Acetaminophen 650 mg 05/23/20 18:21 05/27/20 12:17 Tylenol PO 650 mg Q4H PRN Administration Pain MILD(1-3)/Fever >100.5/RENE Apixaban 10 mg 06/01/20 22:00 06/02/20 21:03 Eliquis PO 06/08/20 10:01 10 mg Q12HR NADJA Administration Protocol Apixaban 5 mg 06/08/20 22:00 Eliquis PO Q12HR NADJA Protocol Divalproex Sodium 500 mg 05/30/20 10:00 06/02/20 10:06 Depakote Er PO 500 mg QDAY NADJA Administration Haloperidol Lactate 5 mg 06/01/20 14:00 06/03/20 06:31 Haldol IV 5 mg Q6H PRN Administration Agitation Hydralazine HCl 25 mg 06/01/20 14:00 06/03/20 06:30 Apresoline PO 25 mg Q8HR NADJA Administration Insulin Human Regular 0 unit 05/26/20 07:30 06/03/20 08:14 Humulin R SUB-Q 2 unit ACHS NADJA Administration Protocol Labetalol HCl 10 mg 06/01/20 11:51 Labetalol IV Q4HR PRN SBP> 150 Lactulose 20 gm 05/28/20 18:00 06/03/20 06:30 Cephulac PO 20 gm Q12H NADJA Administration Miscellaneous Medication 0 mg 05/31/20 10:00 06/02/20 10:06 Clozapine PO 50 mg QAM NADJA Administration Miscellaneous Medication 0 mg 05/30/20 22:00 06/02/20 21:07 Clozapine PO 100 mg QHS NADJA Administration Olanzapine 2.5 mg 05/29/20 22:00 06/02/20 21:03 Zyprexa PO 2.5 mg BID NADJA Administration Ondansetron HCl 4 mg 05/23/20 18:21 Zofran IV Q8H PRN Nausea And Vomiting Ondansetron HCl 4 mg 05/23/20 18:24 Zofran Odt PO Q8HR PRN Vomiting Sodium Chloride 10 ml 05/23/20 22:00 06/02/20 21:30 Sodium Chloride Flush Syringe 10 Ml IV 10 ml BID NADJA Administration Sodium Chloride 10 ml 05/23/20 18:21 Sodium Chloride Flush Syringe 10 Ml IV PRN PRN LINE FLUSH Trazodone HCl 50 mg 05/29/20 22:00 06/02/20 21:04 Desyrel PO 50 mg QHS NADJA Administration Nutrition/Malnutrition Assess - Dietary Evaluation Nutrition/Malnutrition Findings: Nutrition Notes Start: 05/24/20 14:50 Freq: Status: Active Protocol: Document 05/25/20 13:06 ANGELIKA (Rec: 05/25/20 13:10 ANGELIKA [id number]) Co-Sign 05/25/20 13:06 LM Nutrition Notes Initial or Follow up Brief Note Current Diagnosis Respiratory Failure Other Pertinent Diagnosis SOB, Pneumonia, Bipolar, ADD, Nicotene dependence Current Diet Regular Unity Body Weight (kg) 0 Weight Status Obese Subjective/Other Information F/U for MST and skin risk. Unable to speak with pt via phone d/t pt in restraints. Per RN, pt has good appetite and consuming 100% meals. Pt does not have any wounds. Nutrition Intervention Revisit per MD consult or patient Sign Off request:
[2020-06-03] MEDS: CLOZAPINE PO SCH ×2 (10:01→22:36)
[2020-06-03] MEDS: APIXABAN 5 MG TAB PO SCH ×2 (10:02→22:39)
[2020-06-03] MEDS: DIVALPROEX ER 500 MG TAB PO SCH (10:02)
[2020-06-03] MEDS: traZODone 50 MG TAB PO SCH (22:37)
[2020-06-04] MEDS: LACTULOSE 20 GM/30 ML ORAL LIQD PO SCH ×2 (06:55→17:35)
[2020-06-04] MEDS: hydrALAZINE 25 MG TAB PO SCH ×3 (06:55→22:27)
[2020-06-04] MEDS: INSULIN REGULAR, HUMAN 100 UNIT/ML 3ML VIAL SUB-Q SCH ×4 (07:30→22:28)
[2020-06-04] MEDS: APIXABAN 5 MG TAB PO SCH ×2 (09:39→21:17)
[2020-06-04] MEDS: DIVALPROEX ER 500 MG TAB PO SCH (09:40)
[2020-06-04] MEDS: CLOZAPINE PO SCH ×2 (09:41→21:19)
--- NOTE | 2020-06-04 10:29 | Progress Note ---
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 -- Elevated LFTs Monitor for now --Ongoing tobacco use nicotine patch if needed --Morbid obesity; BMI 38.0 Patient needs weight reduction when medically stable Lifestyle changes, diet modification, exercise as tolerated and weight reduction When medically stable --Possible obstructive sleep apnea; needs sleep study as outpatient CPAP/BiPAP at night and as needed -- DVT prophylaxis SCD to bilateral lower extremities while in bed, prophylactic anticoagulation We will closely monitor the patient and adjust management as needed Plan of care reviewed with the patient and his nurse --Full CODE STATUS Restraints for safety 06/03/2020. Patient currently on BiPAP with IPAP 8/EPAP 6 with FiO2 of 50%. Patient is s/p heparin drip,s/p Lovenox, currently on Eliquis 10 mg twice daily for total 7 days, Then 5 mg twice a day. Areas on CTA revealing infiltrates appear to be due to atelectasis. 06/04/2020. Continue to wean O2 as tolerated. Patient currently on 3 L O2 and resting comfortably. Continue Eliquis. PT evaluation The high probability of a clinically significant, sudden or life threatening deterioration of the [Respiratory, psychiatric, metabolic] system(s) required my full and direct attention, intervention and personal management. The aggregate critical care time was [32] minutes without overlap. Time includes spent on [x] Data Review and interpretation [x] Patient assessment and monitoring of vital signs [x] Documentation [x] Medication orders and management History Interval history: 39 YO Male with Bipolar Disorder, Schizophrenia, ADD, Nicotine Dependence present to ED for shortness of breath over the past 2 days with dry cough, generalized weakness, malaise, body aches. Patient found to have a pulse oximetry of 86%, Chest x-ray revealed bilateral pneumonia. Patient initiated on COVID-19 protocol and admitted. negative for COVID, remains agitated, restrained, confused. Elevated D-dimers, CTA chest positive for PE, on Eliquis, lower extremity venous Doppler negative for DVT, schizophrenia acute psychosis, psych evaluated, restraints, injury/safety hazard assessment. COVID-19 testing found to be negative. No new issues overnight. Hospitalist Physical - Constitutional Vitals: Temp Pulse Resp BP Pulse Ox 98.6 F 107 H 28 H 144/98 95 06/04/20 07:11 06/04/20 07:11 06/04/20 07:11 06/04/20 07:11 06/04/20 08:40 General appearance: Present: no acute distress, well-nourished, obese, other (Patient is screaming and restless) - EENT Eyes: Present: PERRL, EOM intact ENT: hearing intact, clear oral mucosa, dentition normal - Neck Neck: Present: supple, normal ROM - Respiratory Respiratory effort: normal Respiratory: bilateral: CTA - Cardiovascular Rhythm: regular Heart Sounds: Present: S1 & S2. Absent: gallop, rub - Extremities Extremities: no ischemia, No edema, Full ROM - Abdominal General gastrointestinal: soft, non-tender, non-distended, normal bowel sounds - Integumentary Integumentary: Present: clear, warm, dry - Neurologic Neurologic: CNII-XII intact, moves all extremities HEART Score - HEART Score Troponin: Troponin T < 0.010 ng/mL (0.00-0.029) 05/23/20 16:12 Results - Labs CBC & Chem 7: 06/03/20 06:50 06/01/20 15:30 Labs: Laboratory Last Values WBC 10.3 K/mm3 (4.5-11.0) 06/01/20 15:30 RBC 4.73 M/mm3 (3.65-5.03) 06/01/20 15:30 Hgb 14.2 gm/dl (11.8-15.2) 06/03/20 06:50 Hct 42.9 % (35.5-45.6) 06/03/20 06:50 MCV 90 fl (84-94) 06/01/20 15:30 MCH 30 pg (28-32) 06/01/20 15:30 MCHC 33 % (32-34) 06/01/20 15:30 RDW 13.7 % (13.2-15.2) 06/01/20 15:30 Plt Count 190 K/mm3 (140-440) 06/03/20 06:50 Lymph % (Auto) 17.3 % (13.4-35.0) 06/01/20 15:30 [place] % (Auto) 12.8 % (0.0-7.3) H 06/01/20 15:30 Eos % (Auto) 0.8 % (0.0-4.3) 06/01/20 15:30 Baso % (Auto) 0.3 % (0.0-1.8) 06/01/20 15:30 Lymph # (Auto) 1.8 K/mm3 (1.2-5.4) 06/01/20 15:30 [place] # (Auto) 1.3 K/mm3 (0.0-0.8) H 06/01/20 15:30 Eos # (Auto) 0.1 K/mm3 (0.0-0.4) 06/01/20 15:30 Baso # (Auto) 0.0 K/mm3 (0.0-0.1) 06/01/20 15:30 Add Manual Diff Complete 05/23/20 14:22 Total Counted 100 05/23/20 14:22 Seg Neutrophils % 68.8 % (40.0-70.0) 06/01/20 15:30 Seg Neuts % (Manual) 63.0 % (40.0-70.0) 05/23/20 14:22 Band Neutrophils % 0 % 05/23/20 14:22 Lymphocytes % (Manual) 24.0 % (13.4-35.0) 05/23/20 14:22 Reactive Lymphs % (Man) 0 % 05/23/20 14:22 Monocytes % (Manual) 9.0 % (0.0-7.3) H 05/23/20 14:22 Eosinophils % (Manual) 3.0 % (0.0-4.3) 05/23/20 14:22 Basophils % (Manual) 1.0 % (0.0-1.8) 05/23/20 14:22 Metamyelocytes % 0 % 05/23/20 14:22 Myelocytes % 0 % 05/23/20 14:22 Promyelocytes % 0 % 05/23/20 14:22 Blast Cells % 0 % 05/23/20 14:22 Nucleated RBC % Not Reportable 05/23/20 14:22 Seg Neutrophils # 7.1 K/mm3 (1.8-7.7) 06/01/20 15:30 Seg Neutrophils # Man 6.6 K/mm3 (1.8-7.7) 05/23/20 14:22 Band Neutrophils # 0.0 K/mm3 05/23/20 14:22 Lymphocytes # (Manual) 2.5 K/mm3 (1.2-5.4) 05/23/20 14:22 Abs React Lymphs (Man) 0.0 K/mm3 05/23/20 14:22 Monocytes # (Manual) 0.9 K/mm3 (0.0-0.8) H 05/23/20 14:22 Eosinophils # (Manual) 0.3 K/mm3 (0.0-0.4) 05/23/20 14:22 Basophils # (Manual) 0.1 K/mm3 (0.0-0.1) 05/23/20 14:22 Metamyelocytes # 0.0 K/mm3 05/23/20 14:22 Myelocytes # 0.0 K/mm3 05/23/20 14:22 Promyelocytes # 0.0 K/mm3 05/23/20 14:22 Blast Cells # 0.0 K/mm3 05/23/20 14:22 WBC Morphology Not Reportable 05/23/20 14:22 Hypersegmented Neuts Not Reportable 05/23/20 14:22 Hyposegmented Neuts Not Reportable 05/23/20 14:22 Hypogranular Neuts Not Reportable 05/23/20 14:22 Smudge Cells Not Reportable 05/23/20 14:22 Toxic Granulation Not Reportable 05/23/20 14:22 Toxic Vacuolation Not Reportable 05/23/20 14:22 Dohle Bodies Not Reportable 05/23/20 14:22 Pelger-Huet Anomaly Not Reportable 05/23/20 14:22 Henrique Rods Not Reportable 05/23/20 14:22 Platelet Estimate Not Reportable 05/23/20 14:22 Clumped Platelets Not Reportable 05/23/20 14:22 Plt Clumps, EDTA Not Reportable 05/23/20 14:22 Large Platelets Not Reportable 05/23/20 14:22 Giant Platelets Not Reportable 05/23/20 14:22 Platelet Satelliting Not Reportable 05/23/20 14:22 Plt Morphology Comment Not Reportable 05/23/20 14:22 RBC Morphology Normal 05/23/20 14:22 Dimorphic RBCs Not Reportable 05/23/20 14:22 Polychromasia Not Reportable 05/23/20 14:22 Hypochromasia Not Reportable 05/23/20 14:22 Poikilocytosis Not Reportable 05/23/20 14:22 Anisocytosis Not Reportable 05/23/20 14:22 Microcytosis Not Reportable 05/23/20 14:22 Macrocytosis Not Reportable 05/23/20 14:22 Spherocytes Not Reportable 05/23/20 14:22 Pappenheimer Bodies Not Reportable 05/23/20 14:22 Sickle Cells Not Reportable 05/23/20 14:22 Target Cells Not Reportable 05/23/20 14:22 Tear Drop Cells Not Reportable 05/23/20 14:22 Ovalocytes Not Reportable 05/23/20 14:22 Helmet Cells Not Reportable 05/23/20 14:22 [place] Bodies Not Reportable 05/23/20 14:22 [place] Rings Not Reportable 05/23/20 14:22 K[place]ie Cells Not Reportable 05/23/20 14:22 Bite Cells Not Reportable 05/23/20 14:22 Crenated Cell Not Reportable 05/23/20 14:22 Elliptocytes Not Reportable 05/23/20 14:22 Acanthocytes (Spur) Not Reportable 05/23/20 14:22 Rouleaux Not Reportable 05/23/20 14:22 Hemoglobin C Crystals Not Reportable 05/23/20 14:22 Schistocytes Not Reportable 05/23/20 14:22 Malaria parasites Not Reportable 05/23/20 14:22 Jaguar Bodies Not Reportable 05/23/20 14:22 Hem Pathologist Commnt No 05/23/20 14:22 PT 12.2 Sec. (12.2-14.9) 05/30/20 03:20 INR 0.90 (0.87-1.13) 05/30/20 03:20 APTT 23.1 Sec. (24.2-36.6) L 05/30/20 03:20 D-Dimer 1026.65 ng/mlDDU (0-234) H 05/29/20 09:31 Heparin Anti-Xa Level 0.10 U.I./ml (0.3-0.7) L 05/30/20 20:28 ABG pH 7.343 pH Units (7.350-7.450) L 06/01/20 01:46 POC ABG pCO2 71.2 mmHg (32.0-48.0) H 05/28/20 17:59 ABG pCO2 60.5 mm Hg 06/01/20 01:46 POC ABG pO2 66.0 mmHg (83-108) L 05/28/20 17:59 ABG pO2 78.4 mm Hg (80.0-90.0) L 06/01/20 01:46 POC ABG HCO3 33.6 05/28/20 17:59 ABG HCO3 32.1 mmol/L (20.0-26.0) H 06/01/20 01:46 ABG O2 Saturation 95.7 % (95.0-99.0) 06/01/20 01:46 ABG O2 Content 18.7 (0.0-44) 06/01/20 01:46 POC ABG Base Excess 4.2 05/28/20 17:59 ABG Base Excess 4.6 mmol/L (-2.0-3.0) H 06/01/20 01:46 ABG Hemoglobin 14.1 gm/dl (14.0-18.0) 06/01/20 01:46 ABG Carboxyhemoglobin 1.4 % (0.0-5.0) 06/01/20 01:46 ABG Methemoglobin 0.4 % (0.0-1.5) 06/01/20 01:46 ABG Sodium 137.2 mmol/L (136.0-145.0) 05/28/20 17:59 ABG Potassium 4.8 mmol/L (3.40-4.50) H 05/28/20 17:59 ABG Chloride 95.0 mmol/L (98-107) L 05/28/20 17:59 ABG Glucose 152 mg/dL (65-95) H 05/28/20 17:59 Oxyhemoglobin 94.1 % (95.0-99.0) L 06/01/20 01:46 FiO2 50 % 06/01/20 01:46 Sodium 143 mmol/L (137-145) 06/01/20 15:30 Potassium 4.0 mmol/L (3.6-5.0) 06/01/20 15:30 Chloride 100.5 mmol/L (98-107) 06/01/20 15:30 Carbon Dioxide 31 mmol/L (22-30) H 06/01/20 15:30 Anion Gap 16 mmol/L 06/01/20 15:30 BUN 16 mg/dL (9-20) 06/01/20 15:30 Creatinine 0.7 mg/dL (0.8-1.3) L 06/01/20 15:30 Estimated GFR > 60 ml/min 06/01/20 15:30 BUN/Creatinine Ratio 23 % 06/01/20 15:30 Glucose 139 mg/dL (75-100) H 06/01/20 15:30 POC Glucose 166 mg/dL (70-105) H 06/04/20 07:28 Hemoglobin A1c 9.3 % (4-6) H 05/26/20 14:42 Calcium 9.2 mg/dL (8.4-10.2) 06/01/20 15:30 Magnesium 2.60 mg/dL (1.7-2.3) H 05/28/20 14:24 Ferritin 33.3 ng/mL (30.0-300.0) 05/23/20 18:43 Total Bilirubin 0.70 mg/dL (0.1-1.2) 06/01/20 15:30 AST 61 units/L (5-40) H 06/01/20 15:30 ALT 77 units/L (7-56) H 06/01/20 15:30 Alkaline Phosphatase 56 units/L (35-129) 06/01/20 15:30 Ammonia 92.0 umol/L (25-60) H 05/28/20 14:24 Lactate Dehydrogenase 289 units/L (91-180) H 05/23/20 18:43 Troponin T < 0.010 ng/mL (0.00-0.029) 05/23/20 16:12 C-Reactive Protein 0.30 mg/dL (0.00-1.30) 05/23/20 18:43 NT-Pro-B Natriuret Pep 7.67 pg/mL (0-450) 05/29/20 09:31 Total Protein 6.1 g/dL (6.3-8.2) L 06/01/20 15:30 Albumin 4.0 g/dL (3.9-5) 06/01/20 15:30 Albumin/Globulin Ratio 1.9 % 06/01/20 15:30 Procalcitonin < 0.05 ng/mL (<0.15) 05/27/20 07:30 Arterial Blood Glucose 152 mg/dL (65-95) H 05/28/20 17:59 Arterial Blood Ionized Calcium 5.1 mg/dL (4.6-5.3) 05/28/20 17:59 Coronavirus (PCR) Negative (Negative) 05/24/20 10:23 - Diagnostic Impressions Diagnostic Impressions: Echocardiogram 05/30/20 21:59 Transthoracic Echocardiogram Indication: SOB BP: 156/91 HR: 110 Conclusions *The study quality is technically difficult. *Global left ventricular systolic function is normal. *The estimated ejection fraction is 60-65%. *There is trace of mitral regurgitation. *There is trace tricuspid regurgitation. Findings Procedure Info: The study quality is technically difficult. Left Ventricle: The left ventricular chamber size is normal. There is no left ventricular hypertrophy. Global left ventricular systolic function is normal. The estimated ejection fraction is 60-65%. Left Atrium: The left atrial chamber size is normal. Right Ventricle: The right ventricle is slightly dilated. Right Atrium: The right atrial cavity size is normal. Aortic Valve: The aortic valve is trileaflet. There is no evidence of aortic regurgitation. There is no evidence of aortic stenosis. Mitral Valve: The mitral valve leaflets appear normal. There is trace of mitral regurgitation. There is no evidence of mitral stenosis. Tricuspid Valve: There is trace tricuspid regurgitation. No pulmonary hypertension is noted. Pulmonic Valve: There is no evidence of pulmonic regurgitation. Pericardium: There is no pericardial effusion. Aorta: There is no dilatation of the aortic root. Venous: The inferior vena cava appears normal in size. Measurements Chambers 2D Name Value Normal Range IVSd (2D) 1.34 cm (0.6 - 1.1) LVPWd (2D) 1.28 cm (0.6 - 1.1) LVIDd (2D) 4.21 cm (3.7 - 5.6) LVIDs (2D) 2.52 cm (2 - 3.8) LV FS (2D) 40.2 % - EF Teichholz (2D) 71.26 % - Ao root diameter (2D) 3.35 cm (2 - 3.7) Diastolic/Systolic Function Name Value Normal Range MV E-wave Vmax 0.67 m/sec - MV deceleration time 175.89 msec - MV A-wave Vmax 0.79 m/sec - MV E:A ratio 0.85 ratio - Aortic Valve Name Value Normal Range AV Vmax 1.42 m/sec - AV VTI 24.7 cm - AV peak gradient 8.08 mmHg - AV mean gradient 5.01 mmHg - LVOT diameter 2.03 cm - LVOT Vmax 1.14 m/sec - LVOT VTI 21.68 cm - LVOT peak gradient 5.15 mmHg - LVOT mean gradient 3.33 mmHg - SV LVOT 69.89 ml - BOB (continuity Vmax) 2.57 cm2 - BOB (continuity VTI) 2.83 cm2 - Pulmonic Valve/Qp:Qs Name Value Normal Range PV Vmax 1.01 m/sec - PV peak gradient 4.1 mmHg - PV acceleration time 87.54 msec - Urias/IV: Voiding Method Condom Catheter IV Catheter Type [Right Peripheral IV Forearm] IV Catheter Type [Left Hand] Peripheral IV IV Catheter Type [Left Forearm INT / Saline Lock ] IV Catheter Type [Right Upper INT / Saline Lock arm] IV Catheter Type [Left Upper INT / Saline Lock arm] Active Medications - Current Medications Current Medications: Generic Name Dose Route Start Last Admin Trade Name Freq PRN Reason Stop Dose Admin Acetaminophen 650 mg 05/23/20 18:21 05/27/20 12:17 Tylenol PO 650 mg Q4H PRN Administration Pain MILD(1-3)/Fever >100.5/RENE Apixaban 10 mg 06/01/20 22:00 06/04/20 09:39 Eliquis PO 06/08/20 10:01 10 mg Q12HR NADJA Administration Protocol Apixaban 5 mg 06/08/20 22:00 Eliquis PO Q12HR NADJA Protocol Divalproex Sodium 500 mg 05/30/20 10:00 06/04/20 09:40 Depakote Er PO 500 mg QDAY NADJA Administration Haloperidol Lactate 5 mg 06/01/20 14:00 06/03/20 13:10 Haldol IV 5 mg Q6H PRN Administration Agitation Hydralazine HCl 25 mg 06/01/20 14:00 06/04/20 06:55 Apresoline PO 25 mg Q8HR NADJA Administration Insulin Human Regular 0 unit 05/26/20 07:30 06/04/20 07:30 Humulin R SUB-Q 1 unit ACHS NADJA Administration Protocol Labetalol HCl 10 mg 06/01/20 11:51 Labetalol IV Q4HR PRN SBP> 150 Lactulose 20 gm 05/28/20 18:00 06/04/20 06:55 Cephulac PO 20 gm Q12H NADJA Administration Miscellaneous Medication 0 mg 05/31/20 10:00 06/04/20 09:41 Clozapine PO 50 mg QAM NADJA Administration Miscellaneous Medication 0 mg 05/30/20 22:00 06/03/20 22:36 Clozapine PO 100 mg QHS NADJA Administration Olanzapine 2.5 mg 05/29/20 22:00 06/04/20 09:40 Zyprexa PO 2.5 mg BID NADJA Administration Ondansetron HCl 4 mg 05/23/20 18:21 Zofran IV Q8H PRN Nausea And Vomiting Ondansetron HCl 4 mg 05/23/20 18:24 Zofran Odt PO Q8HR PRN Vomiting Sodium Chloride 10 ml 05/23/20 22:00 06/04/20 09:43 Sodium Chloride Flush Syringe 10 Ml IV 10 ml BID NADJA Administration Sodium Chloride 10 ml 05/23/20 18:21 Sodium Chloride Flush Syringe 10 Ml IV PRN PRN LINE FLUSH Trazodone HCl 50 mg 05/29/20 22:00 06/03/20 22:37 Desyrel PO 50 mg QHS NADJA Administration Nutrition/Malnutrition Assess - Dietary Evaluation Nutrition/Malnutrition Findings: Nutrition Notes Start: 05/24/20 14:50 Freq: Status: Active Protocol: Document 05/25/20 13:06 ANGELIKA (Rec: 05/25/20 13:10 ANGELIKA [id number]) Co-Sign 05/25/20 13:06 LM Nutrition Notes Initial or Follow up Brief Note Current Diagnosis Respiratory Failure Other Pertinent Diagnosis SOB, Pneumonia, Bipolar, ADD, Nicotene dependence Current Diet Regular [place] Body Weight (kg) 0 Weight Status Obese Subjective/Other Information F/U for MST and skin risk. Unable to speak with pt via phone d/t pt in restraints. Per RN, pt has good appetite and consuming 100% meals. Pt does not have any wounds. Nutrition Intervention Revisit per MD consult or patient Sign Off request:
--- NOTE | 2020-06-04 14:04 | Progress Note ---
Assessment and Plan Assessment and Plan Imp: 1. Acute bilateral PE 2. Acute respiratory failure, hypoxia 3. 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 A/C respiratory failure, hypercapnea 5. Hepatic steatosis with hepatic/metabolic encephalopathy 6. Atelectasis Rec: 1. O2 as needed 2. Continue with Eliquis 3. Advancing diet as tolerated 4. Areas of infiltrate on CTA chest appear to be due to atelectasis 5. Needs continued Psych f/u 6. Further plans pending clinical course; no family present 7. Sleep study and CPAP as outpatient Subjective Date of service: 06/04/20 Principal diagnosis: Acute respiratory failure Interval history: Still somewhat confused. On CIWA protocol. Has history of obstructive sleep apnea, apparently has CPAP at home but refuses to use it Objective Vital Signs - 12hr 06/04/20 06/04/20 06/04/20 04:00 06:55 07:11 Temperature 98.9 F 98.6 F Pulse Rate 114 H 108 H 107 H Pulse Rate [ Dorsalis Pedis] Pulse Rate [ From Monitor] Pulse Rate [ Radial] Respiratory 18 28 H Rate Blood Pressure 117/90 110/89 144/98 O2 Sat by Pulse 90 98 Oximetry 06/04/20 06/04/20 06/04/20 08:00 08:40 10:00 Temperature Pulse Rate 103 H Pulse Rate [ 107 H Dorsalis Pedis] Pulse Rate [ 107 H From Monitor] Pulse Rate [ 107 H Radial] Respiratory 24 Rate Blood Pressure O2 Sat by Pulse 95 94 Oximetry 06/04/20 06/04/20 06/04/20 10:53 12:00 13:34 Temperature 98.0 F Pulse Rate 108 H 111 H 112 H Pulse Rate [ Dorsalis Pedis] Pulse Rate [ From Monitor] Pulse Rate [ Radial] Respiratory 22 Rate Blood Pressure 143/87 147/87 O2 Sat by Pulse 94 Oximetry Constitutional: no acute distress, alert ENT: oropharynx moist Neck: supple Effort: mildly labored Ascultation: Bilateral: diminished breath sounds, rhonchi Cardiovascular: other (tachy, RR with no mrg) Gastrointestinal: normoactive bowel sounds, soft, non-tender, non-distended Integumentary: normal Extremities: no cyanosis, no edema, pink and warm Neurologic: normal mental status, non-focal exam Psychiatric: anxious CBC and BMP: 06/03/20 06:50 06/01/20 15:30 ABG, PT/INR, D-dimer: ABG ABG pH 7.343 pH Units (7.350-7.450) L 06/01/20 01:46 POC ABG pCO2 71.2 mmHg (32.0-48.0) H 05/28/20 17:59 ABG pCO2 60.5 mm Hg 06/01/20 01:46 POC ABG pO2 66.0 mmHg (83-108) L 05/28/20 17:59 ABG pO2 78.4 mm Hg (80.0-90.0) L 06/01/20 01:46 POC ABG HCO3 33.6 05/28/20 17:59 ABG O2 Saturation 95.7 % (95.0-99.0) 06/01/20 01:46 PT/INR, D-dimer PT 12.2 Sec. (12.2-14.9) 05/30/20 03:20 INR 0.90 (0.87-1.13) 05/30/20 03:20 D-Dimer 1026.65 ng/mlDDU (0-234) H 05/29/20 09:31 Abnormal lab findings: Abnormal Labs 05/23/20 05/23/20 05/23/20 14:20 14:22 14:22 WBC RBC Hgb Hct Lymph % (Auto) [place] % (Auto) [place] # (Auto) Seg Neutrophils % Monocytes % (Manual) 9.0 H Seg Neutrophils # Monocytes # (Manual) 0.9 H APTT D-Dimer Heparin Anti-Xa Level ABG pH 7.339 L POC ABG pCO2 POC ABG pO2 ABG pO2 49.3 L ABG HCO3 34.1 H ABG O2 Saturation 84.7 L ABG Base Excess 6.1 H ABG Carboxyhemoglobin 8.6 H ABG Potassium ABG Chloride ABG Glucose Oxyhemoglobin 77.0 L Sodium Potassium Chloride 95.9 L Carbon Dioxide 32 H BUN Creatinine 0.6 L Glucose 246 H POC Glucose Hemoglobin A1c Calcium Magnesium AST 48 H ALT 68 H Ammonia Lactate Dehydrogenase Total Protein Arterial Blood Glucose 05/23/20 05/24/20 05/24/20 18:43 05:45 05:45 WBC 13.7 H RBC Hgb Hct Lymph % (Auto) 10.9 L [place] % (Auto) [place] # (Auto) Seg Neutrophils % 86.0 H Monocytes % (Manual) Seg Neutrophils # 11.8 H Monocytes # (Manual) APTT D-Dimer Heparin Anti-Xa Level ABG pH POC ABG pCO2 POC ABG pO2 ABG pO2 ABG HCO3 ABG O2 Saturation ABG Base Excess ABG Carboxyhemoglobin ABG Potassium ABG Chloride ABG Glucose Oxyhemoglobin Sodium 136 L Potassium 7.8 H* D Chloride 93.6 L Carbon Dioxide BUN Creatinine 0.7 L Glucose 174 H 279 H POC Glucose Hemoglobin A1c Calcium 5.0 L* D Magnesium AST ALT Ammonia Lactate Dehydrogenase 289 H Total Protein Arterial Blood Glucose 05/24/20 05/25/20 05/26/20 09:38 15:01 08:30 WBC RBC Hgb Hct Lymph % (Auto) [place] % (Auto) [place] # (Auto) Seg Neutrophils % Monocytes % (Manual) Seg Neutrophils # Monocytes # (Manual) APTT D-Dimer Heparin Anti-Xa Level ABG pH POC ABG pCO2 POC ABG pO2 ABG pO2 ABG HCO3 ABG O2 Saturation ABG Base Excess ABG Carboxyhemoglobin ABG Potassium ABG Chloride ABG Glucose Oxyhemoglobin Sodium 136 L Potassium 5.5 H D 5.3 H Chloride 92.7 L 93.3 L Carbon Dioxide 35 H D BUN 22 H Creatinine Glucose 393 H 321 H POC Glucose 207 H Hemoglobin A1c Calcium Magnesium AST ALT Ammonia Lactate Dehydrogenase Total Protein Arterial Blood Glucose 05/26/20 05/26/20 05/26/20 11:32 14:42 14:42 WBC RBC Hgb Hct Lymph % (Auto) [place] % (Auto) [place] # (Auto) Seg Neutrophils % 77.0 H Monocytes % (Manual) Seg Neutrophils # Monocytes # (Manual) APTT D-Dimer Heparin Anti-Xa Level ABG pH POC ABG pCO2 POC ABG pO2 ABG pO2 ABG HCO3 ABG O2 Saturation ABG Base Excess ABG Carboxyhemoglobin ABG Potassium ABG Chloride ABG Glucose Oxyhemoglobin Sodium Potassium Chloride Carbon Dioxide BUN Creatinine Glucose POC Glucose 169 H Hemoglobin A1c 9.3 H Calcium Magnesium AST ALT Ammonia Lactate Dehydrogenase Total Protein Arterial Blood Glucose 05/26/20 05/26/20 05/27/20 14:42 16:32 10:49 WBC RBC Hgb Hct Lymph % (Auto) [place] % (Auto) [place] # (Auto) Seg Neutrophils % Monocytes % (Manual) Seg Neutrophils # Monocytes # (Manual) APTT D-Dimer Heparin Anti-Xa Level ABG pH POC ABG pCO2 POC ABG pO2 ABG pO2 ABG HCO3 ABG O2 Saturation ABG Base Excess ABG Carboxyhemoglobin ABG Potassium ABG Chloride ABG Glucose Oxyhemoglobin Sodium Potassium Chloride 95.8 L Carbon Dioxide 31 H BUN Creatinine Glucose 197 H POC Glucose 192 H 177 H Hemoglobin A1c Calcium Magnesium AST 44 H ALT 63 H Ammonia Lactate Dehydrogenase Total Protein Arterial Blood Glucose 05/27/20 05/27/20 05/28/20 16:28 22:01 08:42 WBC RBC Hgb Hct Lymph % (Auto) [place] % (Auto) [place] # (Auto) Seg Neutrophils % Monocytes % (Manual) Seg Neutrophils # Monocytes # (Manual) APTT D-Dimer Heparin Anti-Xa Level ABG pH POC ABG pCO2 POC ABG pO2 ABG pO2 ABG HCO3 ABG O2 Saturation ABG Base Excess ABG Carboxyhemoglobin ABG Potassium ABG Chloride ABG Glucose Oxyhemoglobin Sodium Potassium Chloride Carbon Dioxide BUN Creatinine Glucose POC Glucose 211 H 125 H 117 H Hemoglobin A1c Calcium Magnesium AST ALT Ammonia Lactate Dehydrogenase Total Protein Arterial Blood Glucose 05/28/20 05/28/20 05/28/20 12:30 14:24 14:24 WBC 11.8 H RBC 5.22 H Hgb 15.6 H Hct 47.1 H Lymph % (Auto) [place] % (Auto) [place] # (Auto) Seg Neutrophils % 78.1 H Monocytes % (Manual) Seg Neutrophils # 9.2 H Monocytes # (Manual) APTT D-Dimer Heparin Anti-Xa Level ABG pH POC ABG pCO2 POC ABG pO2 ABG pO2 ABG HCO3 ABG O2 Saturation ABG Base Excess ABG Carboxyhemoglobin ABG Potassium ABG Chloride ABG Glucose Oxyhemoglobin Sodium Potassium 5.2 H Chloride 93.6 L Carbon Dioxide 39 H D BUN Creatinine 0.7 L Glucose 166 H POC Glucose 144 H Hemoglobin A1c Calcium Magnesium 2.60 H AST 108 H ALT 126 H Ammonia Lactate Dehydrogenase Total Protein Arterial Blood Glucose 05/28/20 05/28/20 05/28/20 14:24 16:52 17:59 WBC RBC Hgb Hct Lymph % (Auto) [place] % (Auto) [place] # (Auto) Seg Neutrophils % Monocytes % (Manual) Seg Neutrophils # Monocytes # (Manual) APTT D-Dimer Heparin Anti-Xa Level ABG pH 7.292 L POC ABG pCO2 71.2 H POC ABG pO2 66.0 L ABG pO2 ABG HCO3 ABG O2 Saturation ABG Base Excess ABG Carboxyhemoglobin ABG Potassium 4.8 H ABG Chloride 95.0 L ABG Glucose 152 H Oxyhemoglobin Sodium Potassium Chloride Carbon Dioxide BUN Creatinine Glucose POC Glucose 166 H Hemoglobin A1c Calcium Magnesium AST ALT Ammonia 92.0 H Lactate Dehydrogenase Total Protein Arterial Blood Glucose 152 H 05/28/20 05/29/20 05/29/20 22:18 08:07 09:31 WBC RBC Hgb Hct Lymph % (Auto) [place] % (Auto) [place] # (Auto) Seg Neutrophils % Monocytes % (Manual) Seg Neutrophils # Monocytes # (Manual) APTT D-Dimer 1026.65 H Heparin Anti-Xa Level ABG pH POC ABG pCO2 POC ABG pO2 ABG pO2 ABG HCO3 ABG O2 Saturation ABG Base Excess ABG Carboxyhemoglobin ABG Potassium ABG Chloride ABG Glucose Oxyhemoglobin Sodium Potassium Chloride Carbon Dioxide BUN Creatinine Glucose POC Glucose 141 H 118 H Hemoglobin A1c Calcium Magnesium AST ALT Ammonia Lactate Dehydrogenase Total Protein Arterial Blood Glucose 05/29/20 05/29/20 05/29/20 09:31 09:39 11:42 WBC 12.7 H RBC 5.22 H Hgb 15.7 H Hct 46.7 H Lymph % (Auto) [place] % (Auto) 12.1 H [place] # (Auto) 1.5 H Seg Neutrophils % 71.3 H Monocytes % (Manual) Seg Neutrophils # 9.1 H Monocytes # (Manual) APTT D-Dimer Heparin Anti-Xa Level ABG pH POC ABG pCO2 POC ABG pO2 ABG pO2 ABG HCO3 ABG O2 Saturation ABG Base Excess ABG Carboxyhemoglobin ABG Potassium ABG Chloride ABG Glucose Oxyhemoglobin Sodium Potassium Chloride 97.1 L Carbon Dioxide 37 H BUN Creatinine 0.7 L Glucose 142 H POC Glucose 133 H Hemoglobin A1c Calcium Magnesium AST 92 H ALT 114 H Ammonia Lactate Dehydrogenase Total Protein Arterial Blood Glucose 05/29/20 05/30/20 05/30/20 16:48 03:20 03:20 WBC 11.7 H RBC Hgb Hct Lymph % (Auto) [place] % (Auto) 12.1 H [place] # (Auto) 1.4 H Seg Neutrophils % 71.4 H Monocytes % (Manual) Seg Neutrophils # 8.4 H Monocytes # (Manual) APTT D-Dimer Heparin Anti-Xa Level ABG pH POC ABG pCO2 POC ABG pO2 ABG pO2 ABG HCO3 ABG O2 Saturation ABG Base Excess ABG Carboxyhemoglobin ABG Potassium ABG Chloride ABG Glucose Oxyhemoglobin Sodium Potassium Chloride Carbon Dioxide 32 H BUN Creatinine 0.7 L Glucose 122 H POC Glucose 112 H Hemoglobin A1c Calcium Magnesium AST 80 H ALT 113 H Ammonia Lactate Dehydrogenase Total Protein Arterial Blood Glucose 05/30/20 05/30/20 05/30/20 03:20 09:01 18:20 WBC RBC Hgb Hct Lymph % (Auto) [place] % (Auto) [place] # (Auto) Seg Neutrophils % Monocytes % (Manual) Seg Neutrophils # Monocytes # (Manual) APTT 23.1 L D-Dimer Heparin Anti-Xa Level ABG pH POC ABG pCO2 POC ABG pO2 ABG pO2 ABG HCO3 ABG O2 Saturation ABG Base Excess ABG Carboxyhemoglobin ABG Potassium ABG Chloride ABG Glucose Oxyhemoglobin Sodium Potassium Chloride Carbon Dioxide BUN Creatinine Glucose POC Glucose 124 H 122 H Hemoglobin A1c Calcium Magnesium AST ALT Ammonia Lactate Dehydrogenase Total Protein Arterial Blood Glucose 05/30/20 05/30/20 05/30/20 20:28 21:34 22:40 WBC RBC Hgb Hct Lymph % (Auto) [place] % (Auto) [place] # (Auto) Seg Neutrophils % Monocytes % (Manual) Seg Neutrophils # Monocytes # (Manual) APTT D-Dimer Heparin Anti-Xa Level 0.10 L ABG pH 7.311 L POC ABG pCO2 POC ABG pO2 ABG pO2 127.2 H ABG HCO3 34.1 H ABG O2 Saturation ABG Base Excess 5.2 H ABG Carboxyhemoglobin ABG Potassium ABG Chloride ABG Glucose Oxyhemoglobin Sodium Potassium Chloride Carbon Dioxide BUN Creatinine Glucose POC Glucose 143 H Hemoglobin A1c Calcium Magnesium AST ALT Ammonia Lactate Dehydrogenase Total Protein Arterial Blood Glucose 05/31/20 05/31/20 05/31/20 07:55 11:43 16:26 WBC RBC Hgb Hct Lymph % (Auto) [place] % (Auto) [place] # (Auto) Seg Neutrophils % Monocytes % (Manual) Seg Neutrophils # Monocytes # (Manual) APTT D-Dimer Heparin Anti-Xa Level ABG pH POC ABG pCO2 POC ABG pO2 ABG pO2 ABG HCO3 ABG O2 Saturation ABG Base Excess ABG Carboxyhemoglobin ABG Potassium ABG Chloride ABG Glucose Oxyhemoglobin Sodium Potassium Chloride Carbon Dioxide BUN Creatinine Glucose POC Glucose 130 H 129 H 112 H Hemoglobin A1c Calcium Magnesium AST ALT Ammonia Lactate Dehydrogenase Total Protein Arterial Blood Glucose 05/31/20 06/01/20 06/01/20 23:26 01:46 08:01 WBC RBC Hgb Hct Lymph % (Auto) [place] % (Auto) [place] # (Auto) Seg Neutrophils % Monocytes % (Manual) Seg Neutrophils # Monocytes # (Manual) APTT D-Dimer Heparin Anti-Xa Level ABG pH 7.343 L POC ABG pCO2 POC ABG pO2 ABG pO2 78.4 L ABG HCO3 32.1 H ABG O2 Saturation ABG Base Excess 4.6 H ABG Carboxyhemoglobin ABG Potassium ABG Chloride ABG Glucose Oxyhemoglobin 94.1 L Sodium Potassium Chloride Carbon Dioxide BUN Creatinine Glucose POC Glucose 110 H 130 H Hemoglobin A1c Calcium Magnesium AST ALT Ammonia Lactate Dehydrogenase Total Protein Arterial Blood Glucose 06/01/20 06/01/20 06/01/20 12:04 15:30 15:30 WBC RBC Hgb Hct Lymph % (Auto) [place] % (Auto) 12.8 H [place] # (Auto) 1.3 H Seg Neutrophils % Monocytes % (Manual) Seg Neutrophils # Monocytes # (Manual) APTT D-Dimer Heparin Anti-Xa Level ABG pH POC ABG pCO2 POC ABG pO2 ABG pO2 ABG HCO3 ABG O2 Saturation ABG Base Excess ABG Carboxyhemoglobin ABG Potassium ABG Chloride ABG Glucose Oxyhemoglobin Sodium Potassium Chloride Carbon Dioxide 31 H BUN Creatinine 0.7 L Glucose 139 H POC Glucose 128 H Hemoglobin A1c Calcium Magnesium AST 61 H ALT 77 H Ammonia Lactate Dehydrogenase Total Protein 6.1 L Arterial Blood Glucose 06/02/20 06/02/20 06/02/20 12:16 16:47 21:32 WBC RBC Hgb Hct Lymph % (Auto) [place] % (Auto) [place] # (Auto) Seg Neutrophils % Monocytes % (Manual) Seg Neutrophils # Monocytes # (Manual) APTT D-Dimer Heparin Anti-Xa Level ABG pH POC ABG pCO2 POC ABG pO2 ABG pO2 ABG HCO3 ABG O2 Saturation ABG Base Excess ABG Carboxyhemoglobin ABG Potassium ABG Chloride ABG Glucose Oxyhemoglobin Sodium Potassium Chloride Carbon Dioxide BUN Creatinine Glucose POC Glucose 162 H 163 H 118 H Hemoglobin A1c Calcium Magnesium AST ALT Ammonia Lactate Dehydrogenase Total Protein Arterial Blood Glucose 06/03/20 06/03/20 06/03/20 07:22 11:58 16:59 WBC RBC Hgb Hct Lymph % (Auto) [place] % (Auto) [place] # (Auto) Seg Neutrophils % Monocytes % (Manual) Seg Neutrophils # Monocytes # (Manual) APTT D-Dimer Heparin Anti-Xa Level ABG pH POC ABG pCO2 POC ABG pO2 ABG pO2 ABG HCO3 ABG O2 Saturation ABG Base Excess ABG Carboxyhemoglobin ABG Potassium ABG Chloride ABG Glucose Oxyhemoglobin Sodium Potassium Chloride Carbon Dioxide BUN Creatinine Glucose POC Glucose 248 H 136 H 156 H Hemoglobin A1c Calcium Magnesium AST ALT Ammonia Lactate Dehydrogenase Total Protein Arterial Blood Glucose 06/03/20 06/04/20 06/04/20 21:28 07:28 11:33 WBC RBC Hgb Hct Lymph % (Auto) [place] % (Auto) [place] # (Auto) Seg Neutrophils % Monocytes % (Manual) Seg Neutrophils # Monocytes # (Manual) APTT D-Dimer Heparin Anti-Xa Level ABG pH POC ABG pCO2 POC ABG pO2 ABG pO2 ABG HCO3 ABG O2 Saturation ABG Base Excess ABG Carboxyhemoglobin ABG Potassium ABG Chloride ABG Glucose Oxyhemoglobin Sodium Potassium Chloride Carbon Dioxide BUN Creatinine Glucose POC Glucose 142 H 166 H 163 H Hemoglobin A1c Calcium Magnesium AST ALT Ammonia Lactate Dehydrogenase Total Protein Arterial Blood Glucose
[2020-06-04] MEDS: HALOPERIDOL LACTATE 5 MG/1 ML INJ IV PRN ×2 (14:12→21:18)
[2020-06-04] MEDS: traZODone 50 MG TAB PO SCH (21:17)
[2020-06-04] MEDS: ACETAMINOPHEN 325 MG TAB PO PRN (23:40)
[2020-06-05] MEDS: HALOPERIDOL LACTATE 5 MG/1 ML INJ IV PRN ×2 (02:17→08:31)
[2020-06-05] MEDS: LACTULOSE 20 GM/30 ML ORAL LIQD PO SCH ×2 (05:08→17:30)
[2020-06-05] MEDS: hydrALAZINE 25 MG TAB PO SCH ×3 (05:11→21:35)
[2020-06-05 06:51] LABS: Hematocrit 41.6 % (35.5-45.6); Hemoglobin 13.9 gm/dl (11.8-15.2)
[2020-06-05] MEDS: INSULIN REGULAR, HUMAN 100 UNIT/ML 3ML VIAL SUB-Q SCH ×4 (08:33→22:00)
--- NOTE | 2020-06-05 08:52 | Progress Note ---
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 -- Elevated LFTs Monitor for now --Ongoing tobacco use nicotine patch if needed --Morbid obesity; BMI 38.0 Patient needs weight reduction when medically stable Lifestyle changes, diet modification, exercise as tolerated and weight reduction When medically stable --Possible obstructive sleep apnea; needs sleep study as outpatient CPAP/BiPAP at night and as needed -- DVT prophylaxis SCD to bilateral lower extremities while in bed, prophylactic anticoagulation We will closely monitor the patient and adjust management as needed Plan of care reviewed with the patient and his nurse --Full CODE STATUS Restraints for safety 06/03/2020. Patient currently on BiPAP with IPAP 8/EPAP 6 with FiO2 of 50%. Patient is s/p heparin drip,s/p Lovenox, currently on Eliquis 10 mg twice daily for total 7 days, Then 5 mg twice a day. Areas on CTA revealing infiltrates appear to be due to atelectasis. 06/04/2020. Continue to wean O2 as tolerated. Patient currently on 3 L O2 and resting comfortably. Continue Eliquis. PT evaluation 06/05/2020. Patient still requiring BiPAP at night which appears to be predominantly related to AFIA. Patient tolerating 3 L of O2 during the day. I will discuss home O2 and BiPAP with case management for discharge planning. Continue Eliquis. The high probability of a clinically significant, sudden or life threatening deterioration of the [Respiratory, psychiatric, metabolic] system(s) required my full and direct attention, intervention and personal management. The aggregate critical care time was [32] minutes without overlap. Time includes spent on [x] Data Review and interpretation [x] Patient assessment and monitoring of vital signs [x] Documentation [x] Medication orders and management History Interval history: 39 YO Male with Bipolar Disorder, Schizophrenia, ADD, Nicotine Dependence present to ED for shortness of breath over the past 2 days with dry cough, generalized weakness, malaise, body aches. Patient found to have a pulse oxi metry of 86%, Chest x-ray revealed bilateral pneumonia. Patient initiated on COVID-19 protocol and admitted. negative for COVID, remains agitated, restrained, confused. 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 COVID-19 testing found to be negative. No new issues overnight. Hospitalist Physical - Constitutional Vitals: Temp Pulse Resp BP Pulse Ox 98.0 F 104 H 20 134/110 96 06/05/20 07:37 06/05/20 07:37 06/05/20 07:37 06/05/20 07:37 06/05/20 08:30 General appearance: Present: no acute distress, well-nourished, obese, other (Patient is screaming and restless) - EENT Eyes: Present: PERRL, EOM intact ENT: hearing intact, clear oral mucosa, dentition normal - Neck Neck: Present: supple, normal ROM - Respiratory Respiratory effort: normal Respiratory: bilateral: CTA - Cardiovascular Rhythm: regular Heart Sounds: Present: S1 & S2. Absent: gallop, rub - Extremities Extremities: no ischemia, No edema, Full ROM - Abdominal General gastrointestinal: soft, non-tender, non-distended, normal bowel sounds - Integumentary Integumentary: Present: clear, warm, dry - Neurologic Neurologic: CNII-XII intact, moves all extremities HEART Score - HEART Score Troponin: Troponin T < 0.010 ng/mL (0.00-0.029) 05/23/20 16:12 Results - Labs CBC & Chem 7: 06/05/20 05:45 06/01/20 15:30 Labs: Laboratory Last Values WBC 10.3 K/mm3 (4.5-11.0) 06/01/20 15:30 RBC 4.73 M/mm3 (3.65-5.03) 06/01/20 15:30 Hgb 13.9 gm/dl (11.8-15.2) 06/05/20 05:45 Hct 41.6 % (35.5-45.6) 06/05/20 05:45 MCV 90 fl (84-94) 06/01/20 15:30 MCH 30 pg (28-32) 06/01/20 15:30 MCHC 33 % (32-34) 06/01/20 15:30 RDW 13.7 % (13.2-15.2) 06/01/20 15:30 Plt Count 225 K/mm3 (140-440) 06/05/20 05:45 Lymph % (Auto) 17.3 % (13.4-35.0) 06/01/20 15:30 [place] % (Auto) 12.8 % (0.0-7.3) H 06/01/20 15:30 Eos % (Auto) 0.8 % (0.0-4.3) 06/01/20 15:30 Baso % (Auto) 0.3 % (0.0-1.8) 06/01/20 15:30 Lymph # (Auto) 1.8 K/mm3 (1.2-5.4) 06/01/20 15:30 [place] # (Auto) 1.3 K/mm3 (0.0-0.8) H 06/01/20 15:30 Eos # (Auto) 0.1 K/mm3 (0.0-0.4) 06/01/20 15:30 Baso # (Auto) 0.0 K/mm3 (0.0-0.1) 06/01/20 15:30 Add Manual Diff Complete 05/23/20 14:22 Total Counted 100 05/23/20 14:22 Seg Neutrophils % 68.8 % (40.0-70.0) 06/01/20 15:30 Seg Neuts % (Manual) 63.0 % (40.0-70.0) 05/23/20 14:22 Band Neutrophils % 0 % 05/23/20 14:22 Lymphocytes % (Manual) 24.0 % (13.4-35.0) 05/23/20 14:22 Reactive Lymphs % (Man) 0 % 05/23/20 14:22 Monocytes % (Manual) 9.0 % (0.0-7.3) H 05/23/20 14:22 Eosinophils % (Manual) 3.0 % (0.0-4.3) 05/23/20 14:22 Basophils % (Manual) 1.0 % (0.0-1.8) 05/23/20 14:22 Metamyelocytes % 0 % 05/23/20 14:22 Myelocytes % 0 % 05/23/20 14:22 Promyelocytes % 0 % 05/23/20 14:22 Blast Cells % 0 % 05/23/20 14:22 Nucleated RBC % Not Reportable 05/23/20 14:22 Seg Neutrophils # 7.1 K/mm3 (1.8-7.7) 06/01/20 15:30 Seg Neutrophils # Man 6.6 K/mm3 (1.8-7.7) 05/23/20 14:22 Band Neutrophils # 0.0 K/mm3 05/23/20 14:22 Lymphocytes # (Manual) 2.5 K/mm3 (1.2-5.4) 05/23/20 14:22 Abs React Lymphs (Man) 0.0 K/mm3 05/23/20 14:22 Monocytes # (Manual) 0.9 K/mm3 (0.0-0.8) H 05/23/20 14:22 Eosinophils # (Manual) 0.3 K/mm3 (0.0-0.4) 05/23/20 14:22 Basophils # (Manual) 0.1 K/mm3 (0.0-0.1) 05/23/20 14:22 Metamyelocytes # 0.0 K/mm3 05/23/20 14:22 Myelocytes # 0.0 K/mm3 05/23/20 14:22 Promyelocytes # 0.0 K/mm3 05/23/20 14:22 Blast Cells # 0.0 K/mm3 05/23/20 14:22 WBC Morphology Not Reportable 05/23/20 14:22 Hypersegmented Neuts Not Reportable 05/23/20 14:22 Hyposegmented Neuts Not Reportable 05/23/20 14:22 Hypogranular Neuts Not Reportable 05/23/20 14:22 Smudge Cells Not Reportable 05/23/20 14:22 Toxic Granulation Not Reportable 05/23/20 14:22 Toxic Vacuolation Not Reportable 05/23/20 14:22 Dohle Bodies Not Reportable 05/23/20 14:22 Pelger-Huet Anomaly Not Reportable 05/23/20 14:22 Henrique Rods Not Reportable 05/23/20 14:22 Platelet Estimate Not Reportable 05/23/20 14:22 Clumped Platelets Not Reportable 05/23/20 14:22 Plt Clumps, EDTA Not Reportable 05/23/20 14:22 Large Platelets Not Reportable 05/23/20 14:22 Giant Platelets Not Reportable 05/23/20 14:22 Platelet Satelliting Not Reportable 05/23/20 14:22 Plt Morphology Comment Not Reportable 05/23/20 14:22 RBC Morphology Normal 05/23/20 14:22 Dimorphic RBCs Not Reportable 05/23/20 14:22 Polychromasia Not Reportable 05/23/20 14:22 Hypochromasia Not Reportable 05/23/20 14:22 Poikilocytosis Not Reportable 05/23/20 14:22 Anisocytosis Not Reportable 05/23/20 14:22 Microcytosis Not Reportable 05/23/20 14:22 Macrocytosis Not Reportable 05/23/20 14:22 Spherocytes Not Reportable 05/23/20 14:22 Pappenheimer Bodies Not Reportable 05/23/20 14:22 Sickle Cells Not Reportable 05/23/20 14:22 Target Cells Not Reportable 05/23/20 14:22 Tear Drop Cells Not Reportable 05/23/20 14:22 Ovalocytes Not Reportable 05/23/20 14:22 Helmet Cells Not Reportable 05/23/20 14:22 [place] Bodies Not Reportable 05/23/20 14:22 [place] Rings Not Reportable 05/23/20 14:22 [place] Cells Not Reportable 05/23/20 14:22 Bite Cells Not Reportable 05/23/20 14:22 Crenated Cell Not Reportable 05/23/20 14:22 Elliptocytes Not Reportable 05/23/20 14:22 Acanthocytes (Spur) Not Reportable 05/23/20 14:22 Rouleaux Not Reportable 05/23/20 14:22 Hemoglobin C Crystals Not Reportable 05/23/20 14:22 Schistocytes Not Reportable 05/23/20 14:22 Malaria parasites Not Reportable 05/23/20 14:22 Jaguar Bodies Not Reportable 05/23/20 14:22 Hem Pathologist Commnt No 05/23/20 14:22 PT 12.2 Sec. (12.2-14.9) 05/30/20 03:20 INR 0.90 (0.87-1.13) 05/30/20 03:20 APTT 23.1 Sec. (24.2-36.6) L 05/30/20 03:20 D-Dimer 1026.65 ng/mlDDU (0-234) H 05/29/20 09:31 Heparin Anti-Xa Level 0.10 U.I./ml (0.3-0.7) L 05/30/20 20:28 ABG pH 7.343 pH Units (7.350-7.450) L 06/01/20 01:46 POC ABG pCO2 71.2 mmHg (32.0-48.0) H 05/28/20 17:59 ABG pCO2 60.5 mm Hg 06/01/20 01:46 POC ABG pO2 66.0 mmHg (83-108) L 05/28/20 17:59 ABG pO2 78.4 mm Hg (80.0-90.0) L 06/01/20 01:46 POC ABG HCO3 33.6 05/28/20 17:59 ABG HCO3 32.1 mmol/L (20.0-26.0) H 06/01/20 01:46 ABG O2 Saturation 95.7 % (95.0-99.0) 06/01/20 01:46 ABG O2 Content 18.7 (0.0-44) 06/01/20 01:46 POC ABG Base Excess 4.2 05/28/20 17:59 ABG Base Excess 4.6 mmol/L (-2.0-3.0) H 06/01/20 01:46 ABG Hemoglobin 14.1 gm/dl (14.0-18.0) 06/01/20 01:46 ABG Carboxyhemoglobin 1.4 % (0.0-5.0) 06/01/20 01:46 ABG Methemoglobin 0.4 % (0.0-1.5) 06/01/20 01:46 ABG Sodium 137.2 mmol/L (136.0-145.0) 05/28/20 17:59 ABG Potassium 4.8 mmol/L (3.40-4.50) H 05/28/20 17:59 ABG Chloride 95.0 mmol/L (98-107) L 05/28/20 17:59 ABG Glucose 152 mg/dL (65-95) H 05/28/20 17:59 Oxyhemoglobin 94.1 % (95.0-99.0) L 06/01/20 01:46 FiO2 50 % 06/01/20 01:46 Sodium 143 mmol/L (137-145) 06/01/20 15:30 Potassium 4.0 mmol/L (3.6-5.0) 06/01/20 15:30 Chloride 100.5 mmol/L (98-107) 06/01/20 15:30 Carbon Dioxide 31 mmol/L (22-30) H 06/01/20 15:30 Anion Gap 16 mmol/L 06/01/20 15:30 BUN 16 mg/dL (9-20) 06/01/20 15:30 Creatinine 0.7 mg/dL (0.8-1.3) L 06/01/20 15:30 Estimated GFR > 60 ml/min 06/01/20 15:30 BUN/Creatinine Ratio 23 % 06/01/20 15:30 Glucose 139 mg/dL (75-100) H 06/01/20 15:30 POC Glucose 155 mg/dL (70-105) H 06/05/20 07:40 Hemoglobin A1c 9.3 % (4-6) H 05/26/20 14:42 Calcium 9.2 mg/dL (8.4-10.2) 06/01/20 15:30 Magnesium 2.60 mg/dL (1.7-2.3) H 05/28/20 14:24 Ferritin 33.3 ng/mL (30.0-300.0) 05/23/20 18:43 Total Bilirubin 0.70 mg/dL (0.1-1.2) 06/01/20 15:30 AST 61 units/L (5-40) H 06/01/20 15:30 ALT 77 units/L (7-56) H 06/01/20 15:30 Alkaline Phosphatase 56 units/L (35-129) 06/01/20 15:30 Ammonia 92.0 umol/L (25-60) H 05/28/20 14:24 Lactate Dehydrogenase 289 units/L (91-180) H 05/23/20 18:43 Troponin T < 0.010 ng/mL (0.00-0.029) 05/23/20 16:12 C-Reactive Protein 0.30 mg/dL (0.00-1.30) 05/23/20 18:43 NT-Pro-B Natriuret Pep 7.67 pg/mL (0-450) 05/29/20 09:31 Total Protein 6.1 g/dL (6.3-8.2) L 06/01/20 15:30 Albumin 4.0 g/dL (3.9-5) 06/01/20 15:30 Albumin/Globulin Ratio 1.9 % 06/01/20 15:30 Procalcitonin < 0.05 ng/mL (<0.15) 05/27/20 07:30 Arterial Blood Glucose 152 mg/dL (65-95) H 05/28/20 17:59 Arterial Blood Ionized Calcium 5.1 mg/dL (4.6-5.3) 05/28/20 17:59 Coronavirus (PCR) Negative (Negative) 05/24/20 10:23 - Diagnostic Impressions Diagnostic Impressions: Echocardiogram 05/30/20 21:59 Transthoracic Echocardiogram Indication: SOB BP: 156/91 HR: 110 Conclusions *The study quality is technically difficult. *Global left ventricular systolic function is normal. *The estimated ejection fraction is 60-65%. *There is trace of mitral regurgitation. *There is trace tricuspid regurgitation. Findings Procedure Info: The study quality is technically difficult. Left Ventricle: The left ventricular chamber size is normal. There is no left ventricular hypertrophy. Global left ventricular systolic function is normal. The estimated ejection fraction is 60-65%. Left Atrium: The left atrial chamber size is normal. Right Ventricle: The right ventricle is slightly dilated. Right Atrium: The right atrial cavity size is normal. Aortic Valve: The aortic valve is trileaflet. There is no evidence of aortic regurgitation. There is no evidence of aortic stenosis. Mitral Valve: The mitral valve leaflets appear normal. There is trace of mitral regurgitation. There is no evidence of mitral stenosis. Tricuspid Valve: There is trace tricuspid regurgitation. No pulmonary hypertension is noted. Pulmonic Valve: There is no evidence of pulmonic regurgitation. Pericardium: There is no pericardial effusion. Aorta: There is no dilatation of the aortic root. Venous: The inferior vena cava appears normal in size. Measurements Chambers 2D Name Value Normal Range IVSd (2D) 1.34 cm (0.6 - 1.1) LVPWd (2D) 1.28 cm (0.6 - 1.1) LVIDd (2D) 4.21 cm (3.7 - 5.6) LVIDs (2D) 2.52 cm (2 - 3.8) LV FS (2D) 40.2 % - EF Teichholz (2D) 71.26 % - Ao root diameter (2D) 3.35 cm (2 - 3.7) Diastolic/Systolic Function Name Value Normal Range MV E-wave Vmax 0.67 m/sec - MV deceleration time 175.89 msec - MV A-wave Vmax 0.79 m/sec - MV E:A ratio 0.85 ratio - Aortic Valve Name Value Normal Range AV Vmax 1.42 m/sec - AV VTI 24.7 cm - AV peak gradient 8.08 mmHg - AV mean gradient 5.01 mmHg - LVOT diameter 2.03 cm - LVOT Vmax 1.14 m/sec - LVOT VTI 21.68 cm - LVOT peak gradient 5.15 mmHg - LVOT mean gradient 3.33 mmHg - SV LVOT 69.89 ml - BOB (continuity Vmax) 2.57 cm2 - BOB (continuity VTI) 2.83 cm2 - Pulmonic Valve/Qp:Qs Name Value Normal Range PV Vmax 1.01 m/sec - PV peak gradient 4.1 mmHg - PV acceleration time 87.54 msec - Urias/IV: Voiding Method Condom Catheter IV Catheter Type [Right Peripheral IV Forearm] IV Catheter Type [Left Hand] Peripheral IV IV Catheter Type [Left Forearm INT / Saline Lock ] IV Catheter Type [Right Upper INT / Saline Lock arm] IV Catheter Type [Left Upper INT / Saline Lock arm] Active Medications - Current Medications Current Medications: Generic Name Dose Route Start Last Admin Trade Name Freq PRN Reason Stop Dose Admin Acetaminophen 650 mg 05/23/20 18:21 06/04/20 23:40 Tylenol PO 650 mg Q4H PRN Administration Pain MILD(1-3)/Fever >100.5/RENE Apixaban 10 mg 06/01/20 22:00 06/04/20 21:17 Eliquis PO 06/08/20 10:01 10 mg Q12HR NADJA Administration Protocol Apixaban 5 mg 06/08/20 22:00 Eliquis PO Q12HR NADJA Protocol Divalproex Sodium 500 mg 05/30/20 10:00 06/04/20 09:40 Depakote Er PO 500 mg QDAY NADJA Administration Haloperidol Lactate 5 mg 06/01/20 14:00 06/05/20 08:31 Haldol IV 5 mg Q6H PRN Administration Agitation Hydralazine HCl 25 mg 06/01/20 14:00 06/05/20 05:11 Apresoline PO 25 mg Q8HR NADJA Administration Insulin Human Regular 0 unit 05/26/20 07:30 06/05/20 08:33 Humulin R SUB-Q 1 unit ACHS NADJA Administration Protocol Labetalol HCl 10 mg 06/01/20 11:51 06/04/20 17:39 Labetalol IV 10 mg Q4HR PRN Administration SBP> 150 Lactulose 20 gm 05/28/20 18:00 06/05/20 05:08 Cephulac PO 20 gm Q12H NADJA Administration Miscellaneous Medication 0 mg 05/31/20 10:00 06/04/20 09:41 Clozapine PO 50 mg QAM NADJA Administration Miscellaneous Medication 0 mg 05/30/20 22:00 06/04/20 21:19 Clozapine PO 100 mg QHS NADJA Administration Olanzapine 2.5 mg 05/29/20 22:00 06/04/20 21:17 Zyprexa PO 2.5 mg BID NADJA Administration Ondansetron HCl 4 mg 05/23/20 18:21 Zofran IV Q8H PRN Nausea And Vomiting Ondansetron HCl 4 mg 05/23/20 18:24 Zofran Odt PO Q8HR PRN Vomiting Sodium Chloride 10 ml 05/23/20 22:00 06/04/20 22:02 Sodium Chloride Flush Syringe 10 Ml IV 10 ml BID NADJA Administration Sodium Chloride 10 ml 05/23/20 18:21 Sodium Chloride Flush Syringe 10 Ml IV PRN PRN LINE FLUSH Trazodone HCl 50 mg 05/29/20 22:00 06/04/20 21:17 Desyrel PO 50 mg QHS NADJA Administration Nutrition/Malnutrition Assess - Dietary Evaluation Nutrition/Malnutrition Findings: Nutrition Notes Start: 05/24/20 14:50 Freq: Status: Active Protocol: Document 05/25/20 13:06 ANGELIKA (Rec: 05/25/20 13:10 ANGELIKA [id number]) Co-Sign 05/25/20 13:06 LM Nutrition Notes Initial or Follow up Brief Note Current Diagnosis Respiratory Failure Other Pertinent Diagnosis SOB, Pneumonia, Bipolar, ADD, Nicotene dependence Current Diet Regular [place] Body Weight (kg) 0 Weight Status Obese Subjective/Other Information F/U for MST and skin risk. Unable to speak with pt via phone d/t pt in restraints. Per RN, pt has good appetite and consuming 100% meals. Pt does not have any wounds. Nutrition Intervention Revisit per MD consult or patient Sign Off request:
[2020-06-05] MEDS: CLOZAPINE PO SCH ×2 (09:30→21:34)
[2020-06-05] MEDS: DIVALPROEX ER 500 MG TAB PO SCH (09:30)
[2020-06-05] MEDS: APIXABAN 5 MG TAB PO SCH ×2 (09:30→21:36)
--- NOTE | 2020-06-05 12:35 | Progress Note ---
Assessment and Plan Assessment and Plan Imp: 1. Acute bilateral PE 2. Acute respiratory failure, hypoxia 3. 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 A/C respiratory failure, hypercapnea 5. Hepatic steatosis with hepatic/metabolic encephalopathy 6. Atelectasis Rec: 1. O2 as needed 2. Continue with Eliquis 3. Advancing diet as tolerated 4. Areas of infiltrate on CTA chest appear to be due to atelectasis 5. Needs continued Psych f/u 6. Further plans pending clinical course; no family present 7. Sleep study and CPAP as outpatient Subjective Date of service: 06/05/20 Principal diagnosis: Acute respiratory failure Interval history: Still somewhat confused and very agitated. Hearing voices. Has history of obstructive sleep apnea, apparently has CPAP at home but refuses to use it Objective Vital Signs - 12hr 06/05/20 06/05/20 06/05/20 04:00 05:11 07:35 Temperature Pulse Rate 109 H 113 H 104 H Respiratory 20 20 Rate Blood Pressure 116/56 134/110 Blood Pressure 116/56 [Right] O2 Sat by Pulse 96 87 Oximetry 06/05/20 06/05/20 06/05/20 07:37 08:30 11:41 Temperature 98.0 F 98.0 F Pulse Rate 104 H 98 H Respiratory 20 20 Rate Blood Pressure 112/70 Blood Pressure 134/110 [Right] O2 Sat by Pulse 97 96 97 Oximetry Constitutional: no acute distress, alert ENT: oropharynx moist Neck: supple Effort: mildly labored Ascultation: Bilateral: diminished breath sounds, rhonchi Cardiovascular: other (tachy, RR with no mrg) Gastrointestinal: normoactive bowel sounds, soft, non-tender, non-distended Integumentary: normal Extremities: no cyanosis, no edema, pink and warm Neurologic: normal mental status, non-focal exam Psychiatric: anxious CBC and BMP: 06/05/20 05:45 06/01/20 15:30 ABG, PT/INR, D-dimer: ABG ABG pH 7.343 pH Units (7.350-7.450) L 06/01/20 01:46 POC ABG pCO2 71.2 mmHg (32.0-48.0) H 05/28/20 17:59 ABG pCO2 60.5 mm Hg 06/01/20 01:46 POC ABG pO2 66.0 mmHg (83-108) L 05/28/20 17:59 ABG pO2 78.4 mm Hg (80.0-90.0) L 06/01/20 01:46 POC ABG HCO3 33.6 05/28/20 17:59 ABG O2 Saturation 95.7 % (95.0-99.0) 06/01/20 01:46 PT/INR, D-dimer PT 12.2 Sec. (12.2-14.9) 05/30/20 03:20 INR 0.90 (0.87-1.13) 05/30/20 03:20 D-Dimer 1026.65 ng/mlDDU (0-234) H 05/29/20 09:31 Abnormal lab findings: Abnormal Labs 05/23/20 05/23/20 05/23/20 14:20 14:22 14:22 WBC RBC Hgb Hct Lymph % (Auto) [place] % (Auto) [place] # (Auto) Seg Neutrophils % Monocytes % (Manual) 9.0 H Seg Neutrophils # Monocytes # (Manual) 0.9 H APTT D-Dimer Heparin Anti-Xa Level ABG pH 7.339 L POC ABG pCO2 POC ABG pO2 ABG pO2 49.3 L ABG HCO3 34.1 H ABG O2 Saturation 84.7 L ABG Base Excess 6.1 H ABG Carboxyhemoglobin 8.6 H ABG Potassium ABG Chloride ABG Glucose Oxyhemoglobin 77.0 L Sodium Potassium Chloride 95.9 L Carbon Dioxide 32 H BUN Creatinine 0.6 L Glucose 246 H POC Glucose Hemoglobin A1c Calcium Magnesium AST 48 H ALT 68 H Ammonia Lactate Dehydrogenase Total Protein Arterial Blood Glucose 05/23/20 05/24/20 05/24/20 18:43 05:45 05:45 WBC 13.7 H RBC Hgb Hct Lymph % (Auto) 10.9 L [place] % (Auto) [place] # (Auto) Seg Neutrophils % 86.0 H Monocytes % (Manual) Seg Neutrophils # 11.8 H Monocytes # (Manual) APTT D-Dimer Heparin Anti-Xa Level ABG pH POC ABG pCO2 POC ABG pO2 ABG pO2 ABG HCO3 ABG O2 Saturation ABG Base Excess ABG Carboxyhemoglobin ABG Potassium ABG Chloride ABG Glucose Oxyhemoglobin Sodium 136 L Potassium 7.8 H* D Chloride 93.6 L Carbon Dioxide BUN Creatinine 0.7 L Glucose 174 H 279 H POC Glucose Hemoglobin A1c Calcium 5.0 L* D Magnesium AST ALT Ammonia Lactate Dehydrogenase 289 H Total Protein Arterial Blood Glucose 05/24/20 05/25/20 05/26/20 09:38 15:01 08:30 WBC RBC Hgb Hct Lymph % (Auto) [place] % (Auto) [place] # (Auto) Seg Neutrophils % Monocytes % (Manual) Seg Neutrophils # Monocytes # (Manual) APTT D-Dimer Heparin Anti-Xa Level ABG pH POC ABG pCO2 POC ABG pO2 ABG pO2 ABG HCO3 ABG O2 Saturation ABG Base Excess ABG Carboxyhemoglobin ABG Potassium ABG Chloride ABG Glucose Oxyhemoglobin Sodium 136 L Potassium 5.5 H D 5.3 H Chloride 92.7 L 93.3 L Carbon Dioxide 35 H D BUN 22 H Creatinine Glucose 393 H 321 H POC Glucose 207 H Hemoglobin A1c Calcium Magnesium AST ALT Ammonia Lactate Dehydrogenase Total Protein Arterial Blood Glucose 05/26/20 05/26/20 05/26/20 11:32 14:42 14:42 WBC RBC Hgb Hct Lymph % (Auto) [place] % (Auto) [place] # (Auto) Seg Neutrophils % 77.0 H Monocytes % (Manual) Seg Neutrophils # Monocytes # (Manual) APTT D-Dimer Heparin Anti-Xa Level ABG pH POC ABG pCO2 POC ABG pO2 ABG pO2 ABG HCO3 ABG O2 Saturation ABG Base Excess ABG Carboxyhemoglobin ABG Potassium ABG Chloride ABG Glucose Oxyhemoglobin Sodium Potassium Chloride Carbon Dioxide BUN Creatinine Glucose POC Glucose 169 H Hemoglobin A1c 9.3 H Calcium Magnesium AST ALT Ammonia Lactate Dehydrogenase Total Protein Arterial Blood Glucose 05/26/20 05/26/20 05/27/20 14:42 16:32 10:49 WBC RBC Hgb Hct Lymph % (Auto) [place] % (Auto) [place] # (Auto) Seg Neutrophils % Monocytes % (Manual) Seg Neutrophils # Monocytes # (Manual) APTT D-Dimer Heparin Anti-Xa Level ABG pH POC ABG pCO2 POC ABG pO2 ABG pO2 ABG HCO3 ABG O2 Saturation ABG Base Excess ABG Carboxyhemoglobin ABG Potassium ABG Chloride ABG Glucose Oxyhemoglobin Sodium Potassium Chloride 95.8 L Carbon Dioxide 31 H BUN Creatinine Glucose 197 H POC Glucose 192 H 177 H Hemoglobin A1c Calcium Magnesium AST 44 H ALT 63 H Ammonia Lactate Dehydrogenase Total Protein Arterial Blood Glucose 05/27/20 05/27/20 05/28/20 16:28 22:01 08:42 WBC RBC Hgb Hct Lymph % (Auto) [place] % (Auto) [place] # (Auto) Seg Neutrophils % Monocytes % (Manual) Seg Neutrophils # Monocytes # (Manual) APTT D-Dimer Heparin Anti-Xa Level ABG pH POC ABG pCO2 POC ABG pO2 ABG pO2 ABG HCO3 ABG O2 Saturation ABG Base Excess ABG Carboxyhemoglobin ABG Potassium ABG Chloride ABG Glucose Oxyhemoglobin Sodium Potassium Chloride Carbon Dioxide BUN Creatinine Glucose POC Glucose 211 H 125 H 117 H Hemoglobin A1c Calcium Magnesium AST ALT Ammonia Lactate Dehydrogenase Total Protein Arterial Blood Glucose 05/28/20 05/28/20 05/28/20 12:30 14:24 14:24 WBC 11.8 H RBC 5.22 H Hgb 15.6 H Hct 47.1 H Lymph % (Auto) [place] % (Auto) [place] # (Auto) Seg Neutrophils % 78.1 H Monocytes % (Manual) Seg Neutrophils # 9.2 H Monocytes # (Manual) APTT D-Dimer Heparin Anti-Xa Level ABG pH POC ABG pCO2 POC ABG pO2 ABG pO2 ABG HCO3 ABG O2 Saturation ABG Base Excess ABG Carboxyhemoglobin ABG Potassium ABG Chloride ABG Glucose Oxyhemoglobin Sodium Potassium 5.2 H Chloride 93.6 L Carbon Dioxide 39 H D BUN Creatinine 0.7 L Glucose 166 H POC Glucose 144 H Hemoglobin A1c Calcium Magnesium 2.60 H AST 108 H ALT 126 H Ammonia Lactate Dehydrogenase Total Protein Arterial Blood Glucose 05/28/20 05/28/20 05/28/20 14:24 16:52 17:59 WBC RBC Hgb Hct Lymph % (Auto) [place] % (Auto) [place] # (Auto) Seg Neutrophils % Monocytes % (Manual) Seg Neutrophils # Monocytes # (Manual) APTT D-Dimer Heparin Anti-Xa Level ABG pH 7.292 L POC ABG pCO2 71.2 H POC ABG pO2 66.0 L ABG pO2 ABG HCO3 ABG O2 Saturation ABG Base Excess ABG Carboxyhemoglobin ABG Potassium 4.8 H ABG Chloride 95.0 L ABG Glucose 152 H Oxyhemoglobin Sodium Potassium Chloride Carbon Dioxide BUN Creatinine Glucose POC Glucose 166 H Hemoglobin A1c Calcium Magnesium AST ALT Ammonia 92.0 H Lactate Dehydrogenase Total Protein Arterial Blood Glucose 152 H 05/28/20 05/29/2020 22:18 08:07 09:31 WBC RBC Hgb Hct Lymph % (Auto) [place] % (Auto) [place] # (Auto) Seg Neutrophils % Monocytes % (Manual) Seg Neutrophils # Monocytes # (Manual) APTT D-Dimer 1026.65 H Heparin Anti-Xa Level ABG pH POC ABG pCO2 POC ABG pO2 ABG pO2 ABG HCO3 ABG O2 Saturation ABG Base Excess ABG Carboxyhemoglobin ABG Potassium ABG Chloride ABG Glucose Oxyhemoglobin Sodium Potassium Chloride Carbon Dioxide BUN Creatinine Glucose POC Glucose 141 H 118 H Hemoglobin A1c Calcium Magnesium AST ALT Ammonia Lactate Dehydrogenase Total Protein Arterial Blood Glucose 05/29/20 05/29/20 05/29/20 09:31 09:39 11:42 WBC 12.7 H RBC 5.22 H Hgb 15.7 H Hct 46.7 H Lymph % (Auto) [place] % (Auto) 12.1 H [place] # (Auto) 1.5 H Seg Neutrophils % 71.3 H Monocytes % (Manual) Seg Neutrophils # 9.1 H Monocytes # (Manual) APTT D-Dimer Heparin Anti-Xa Level ABG pH POC ABG pCO2 POC ABG pO2 ABG pO2 ABG HCO3 ABG O2 Saturation ABG Base Excess ABG Carboxyhemoglobin ABG Potassium ABG Chloride ABG Glucose Oxyhemoglobin Sodium Potassium Chloride 97.1 L Carbon Dioxide 37 H BUN Creatinine 0.7 L Glucose 142 H POC Glucose 133 H Hemoglobin A1c Calcium Magnesium AST 92 H ALT 114 H Ammonia Lactate Dehydrogenase Total Protein Arterial Blood Glucose 05/29/20 05/30/20 05/30/20 16:48 03:20 03:20 WBC 11.7 H RBC Hgb Hct Lymph % (Auto) [place] % (Auto) 12.1 H [place] # (Auto) 1.4 H Seg Neutrophils % 71.4 H Monocytes % (Manual) Seg Neutrophils # 8.4 H Monocytes # (Manual) APTT D-Dimer Heparin Anti-Xa Level ABG pH POC ABG pCO2 POC ABG pO2 ABG pO2 ABG HCO3 ABG O2 Saturation ABG Base Excess ABG Carboxyhemoglobin ABG Potassium ABG Chloride ABG Glucose Oxyhemoglobin Sodium Potassium Chloride Carbon Dioxide 32 H BUN Creatinine 0.7 L Glucose 122 H POC Glucose 112 H Hemoglobin A1c Calcium Magnesium AST 80 H ALT 113 H Ammonia Lactate Dehydrogenase Total Protein Arterial Blood Glucose 05/30/20 05/30/2005/30/20 03:20 09:01 18:20 WBC RBC Hgb Hct Lymph % (Auto) [place] % (Auto) [place] # (Auto) Seg Neutrophils % Monocytes % (Manual) Seg Neutrophils # Monocytes # (Manual) APTT 23.1 L D-Dimer Heparin Anti-Xa Level ABG pH POC ABG pCO2 POC ABG pO2 ABG pO2 ABG HCO3 ABG O2 Saturation ABG Base Excess ABG Carboxyhemoglobin ABG Potassium ABG Chloride ABG Glucose Oxyhemoglobin Sodium Potassium Chloride Carbon Dioxide BUN Creatinine Glucose POC Glucose 124 H 122 H Hemoglobin A1c Calcium Magnesium AST ALT Ammonia Lactate Dehydrogenase Total Protein Arterial Blood Glucose 05/30/20 05/30/20 05/30/20 20:28 21:34 22:40 WBC RBC Hgb Hct Lymph % (Auto) [place] % (Auto) [place] # (Auto) Seg Neutrophils % Monocytes % (Manual) Seg Neutrophils # Monocytes # (Manual) APTT D-Dimer Heparin Anti-Xa Level 0.10 L ABG pH 7.311 L POC ABG pCO2 POC ABG pO2 ABG pO2 127.2 H ABG HCO3 34.1 H ABG O2 Saturation ABG Base Excess 5.2 H ABG Carboxyhemoglobin ABG Potassium ABG Chloride ABG Glucose Oxyhemoglobin Sodium Potassium Chloride Carbon Dioxide BUN Creatinine Glucose POC Glucose 143 H Hemoglobin A1c Calcium Magnesium AST ALT Ammonia Lactate Dehydrogenase Total Protein Arterial Blood Glucose 05/31/20 05/31/20 05/31/20 07:55 11:43 16:26 WBC RBC Hgb Hct Lymph % (Auto) [place] % (Auto) [place] # (Auto) Seg Neutrophils % Monocytes % (Manual) Seg Neutrophils # Monocytes # (Manual) APTT D-Dimer Heparin Anti-Xa Level ABG pH POC ABG pCO2 POC ABG pO2 ABG pO2 ABG HCO3 ABG O2 Saturation ABG Base Excess ABG Carboxyhemoglobin ABG Potassium ABG Chloride ABG Glucose Oxyhemoglobin Sodium Potassium Chloride Carbon Dioxide BUN Creatinine Glucose POC Glucose 130 H 129 H 112 H Hemoglobin A1c Calcium Magnesium AST ALT Ammonia Lactate Dehydrogenase Total Protein Arterial Blood Glucose 05/31/20 06/01/20 06/01/20 23:26 01:46 08:01 WBC RBC Hgb Hct Lymph % (Auto) [place] % (Auto) [place] # (Auto) Seg Neutrophils % Monocytes % (Manual) Seg Neutrophils # Monocytes # (Manual) APTT D-Dimer Heparin Anti-Xa Level ABG pH 7.343 L POC ABG pCO2 POC ABG pO2 ABG pO2 78.4 L ABG HCO3 32.1 H ABG O2 Saturation ABG Base Excess 4.6 H ABG Carboxyhemoglobin ABG Potassium ABG Chloride ABG Glucose Oxyhemoglobin 94.1 L Sodium Potassium Chloride Carbon Dioxide BUN Creatinine Glucose POC Glucose 110 H 130 H Hemoglobin A1c Calcium Magnesium AST ALT Ammonia Lactate Dehydrogenase Total Protein Arterial Blood Glucose 06/01/20 06/01/20 06/01/20 12:04 15:30 15:30 WBC RBC Hgb Hct Lymph % (Auto) [place] % (Auto) 12.8 H [place] # (Auto) 1.3 H Seg Neutrophils % Monocytes % (Manual) Seg Neutrophils # Monocytes # (Manual) APTT D-Dimer Heparin Anti-Xa Level ABG pH POC ABG pCO2 POC ABG pO2 ABG pO2 ABG HCO3 ABG O2 Saturation ABG Base Excess ABG Carboxyhemoglobin ABG Potassium ABG Chloride ABG Glucose Oxyhemoglobin Sodium Potassium Chloride Carbon Dioxide 31 H BUN Creatinine 0.7 L Glucose 139 H POC Glucose 128 H Hemoglobin A1c Calcium Magnesium AST 61 H ALT 77 H Ammonia Lactate Dehydrogenase Total Protein 6.1 L Arterial Blood Glucose 06/02/20 06/02/20 06/02/20 12:16 16:47 21:32 WBC RBC Hgb Hct Lymph % (Auto) [place] % (Auto) [place] # (Auto) Seg Neutrophils % Monocytes % (Manual) Seg Neutrophils # Monocytes # (Manual) APTT D-Dimer Heparin Anti-Xa Level ABG pH POC ABG pCO2 POC ABG pO2 ABG pO2 ABG HCO3 ABG O2 Saturation ABG Base Excess ABG Carboxyhemoglobin ABG Potassium ABG Chloride ABG Glucose Oxyhemoglobin Sodium Potassium Chloride Carbon Dioxide BUN Creatinine Glucose POC Glucose 162 H 163 H 118 H Hemoglobin A1c Calcium Magnesium AST ALT Ammonia Lactate Dehydrogenase Total Protein Arterial Blood Glucose 06/03/20 06/03/20 06/03/20 07:22 11:58 16:59 WBC RBC Hgb Hct Lymph % (Auto) [place] % (Auto) [place] # (Auto) Seg Neutrophils % Monocytes % (Manual) Seg Neutrophils # Monocytes # (Manual) APTT D-Dimer Heparin Anti-Xa Level ABG pH POC ABG pCO2 POC ABG pO2 ABG pO2 ABG HCO3 ABG O2 Saturation ABG Base Excess ABG Carboxyhemoglobin ABG Potassium ABG Chloride ABG Glucose Oxyhemoglobin Sodium Potassium Chloride Carbon Dioxide BUN Creatinine Glucose POC Glucose 248 H 136 H 156 H Hemoglobin A1c Calcium Magnesium AST ALT Ammonia Lactate Dehydrogenase Total Protein Arterial Blood Glucose 06/03/20 06/04/20 06/04/20 21:28 07:28 11:33 WBC RBC Hgb Hct Lymph % (Auto) [place] % (Auto) [place] # (Auto) Seg Neutrophils % Monocytes % (Manual) Seg Neutrophils # Monocytes # (Manual) APTT D-Dimer Heparin Anti-Xa Level ABG pH POC ABG pCO2 POC ABG pO2 ABG pO2 ABG HCO3 ABG O2 Saturation ABG Base Excess ABG Carboxyhemoglobin ABG Potassium ABG Chloride ABG Glucose Oxyhemoglobin Sodium Potassium Chloride Carbon Dioxide BUN Creatinine Glucose POC Glucose 142 H 166 H 163 H Hemoglobin A1c Calcium Magnesium AST ALT Ammonia Lactate Dehydrogenase Total Protein Arterial Blood Glucose 06/04/20 06/04/20 06/05/20 16:02 21:36 07:40 WBC RBC Hgb Hct Lymph % (Auto) [place] % (Auto) [place] # (Auto) Seg Neutrophils % Monocytes % (Manual) Seg Neutrophils # Monocytes # (Manual) APTT D-Dimer Heparin Anti-Xa Level ABG pH POC ABG pCO2 POC ABG pO2 ABG pO2 ABG HCO3 ABG O2 Saturation ABG Base Excess ABG Carboxyhemoglobin ABG Potassium ABG Chloride ABG Glucose Oxyhemoglobin Sodium Potassium Chloride Carbon Dioxide BUN Creatinine Glucose POC Glucose 182 H 197 H 155 H Hemoglobin A1c Calcium Magnesium AST ALT Ammonia Lactate Dehydrogenase Total Protein Arterial Blood Glucose 06/05/20 11:55 WBC RBC Hgb Hct Lymph % (Auto) [place] % (Auto) [place] # (Auto) Seg Neutrophils % Monocytes % (Manual) Seg Neutrophils # Monocytes # (Manual) APTT D-Dimer Heparin Anti-Xa Level ABG pH POC ABG pCO2 POC ABG pO2 ABG pO2 ABG HCO3 ABG O2 Saturation ABG Base Excess ABG Carboxyhemoglobin ABG Potassium ABG Chloride ABG Glucose Oxyhemoglobin Sodium Potassium Chloride Carbon Dioxide BUN Creatinine Glucose POC Glucose 115 H Hemoglobin A1c Calcium Magnesium AST ALT Ammonia Lactate Dehydrogenase Total Protein Arterial Blood Glucose
[2020-06-05] MEDS: traZODone 50 MG TAB PO SCH (21:36)
[2020-06-06] MEDS: LACTULOSE 20 GM/30 ML ORAL LIQD PO SCH ×2 (06:01→17:47)
[2020-06-06] MEDS: hydrALAZINE 25 MG TAB PO SCH ×3 (06:01→21:27)
--- NOTE | 2020-06-06 09:05 | Progress Note ---
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 -- Elevated LFTs Monitor for now --Ongoing tobacco use nicotine patch if needed --Morbid obesity; BMI 38.0 Patient needs weight reduction when medically stable Lifestyle changes, diet modification, exercise as tolerated and weight reduction When medically stable --Possible obstructive sleep apnea; needs sleep study as outpatient CPAP/BiPAP at night and as needed -- DVT prophylaxis SCD to bilateral lower extremities while in bed, prophylactic anticoagulation We will closely monitor the patient and adjust management as needed Plan of care reviewed with the patient and his nurse --Full CODE STATUS Restraints for safety 06/03/2020. Patient currently on BiPAP with IPAP 8/EPAP 6 with FiO2 of 50%. Patient is s/p heparin drip,s/p Lovenox, currently on Eliquis 10 mg twice daily for total 7 days, Then 5 mg twice a day. Areas on CTA revealing infiltrates appear to be due to atelectasis. 06/04/2020. Continue to wean O2 as tolerated. Patient currently on 3 L O2 and resting comfortably. Continue Eliquis. PT evaluation 06/05/2020. Patient still requiring BiPAP at night which appears to be predominantly related to AFIA. Patient tolerating 3 L of O2 during the day. I will discuss home O2 and BiPAP with case management for discharge planning. Continue Eliquis. 06/06/2020. Patient refused BiPAP last night but likely needs BiPAP for AFIA/OHS patient currently with 2 L nasal cannula satting at 91%. Case management discussion today regarding home O2 and BiPAP. Continue Eliquis. The high probability of a clinically significant, sudden or life threatening deterioration of the [Respiratory, psychiatric, metabolic] system(s) required my full and direct attention, intervention and personal management. The aggregate critical care time was [32] minutes without overlap. Time includes spent on [x] Data Review and interpretation [x] Patient assessment and monitoring of vital signs [x] Documentation [x] Medication orders and management History Interval history: 39 YO Male with Bipolar Disorder, Schizophrenia, ADD, Nicotine Dependence present to ED for shortness of breath over the past 2 days with dry cough, generalized weakness, malaise, body aches. Patient found to have a pulse oximetry of 86%, Chest x-ray revealed bilateral pneumonia. Patient initiated on COVID-19 protocol and admitted. negative for COVID, remains agitated, restrained, confused. 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 COVID-19 testing found to be negative. No new issues overnight. Hospitalist Physical - Constitutional Vitals: Temp Pulse Resp BP Pulse Ox 97.6 F 86 17 137/71 91 06/06/20 03:40 06/06/20 06:28 06/06/20 03:40 06/06/20 06:01 06/06/20 07:57 General appearance: Present: no acute distress, well-nourished, obese, other (Patient is screaming and restless) - EENT Eyes: Present: PERRL, EOM intact ENT: hearing intact, clear oral mucosa, dentition normal - Neck Neck: Present: supple, normal ROM - Respiratory Respiratory effort: normal Respiratory: bilateral: CTA - Cardiovascular Rhythm: regular Heart Sounds: Present: S1 & S2. Absent: gallop, rub - Extremities Extremities: no ischemia, No edema, Full ROM - Abdominal General gastrointestinal: soft, non-tender, non-distended, normal bowel sounds - Integumentary Integumentary: Present: clear, warm, dry - Neurologic Neurologic: CNII-XII intact, moves all extremities HEART Score - HEART Score Troponin: Troponin T < 0.010 ng/mL (0.00-0.029) 05/23/20 16:12 Results - Labs CBC & Chem 7: 06/05/20 05:45 06/01/20 15:30 Labs: Laboratory Last Values WBC 10.3 K/mm3 (4.5-11.0) 06/01/20 15:30 RBC 4.73 M/mm3 (3.65-5.03) 06/01/20 15:30 Hgb 13.9 gm/dl (11.8-15.2) 06/05/20 05:45 Hct 41.6 % (35.5-45.6) 06/05/20 05:45 MCV 90 fl (84-94) 06/01/20 15:30 MCH 30 pg (28-32) 06/01/20 15:30 MCHC 33 % (32-34) 06/01/20 15:30 RDW 13.7 % (13.2-15.2) 06/01/20 15:30 Plt Count 225 K/mm3 (140-440) 06/05/20 05:45 Lymph % (Auto) 17.3 % (13.4-35.0) 06/01/20 15:30 Snyder % (Auto) 12.8 % (0.0-7.3) H 06/01/20 15:30 Eos % (Auto) 0.8 % (0.0-4.3) 06/01/20 15:30 Baso % (Auto) 0.3 % (0.0-1.8) 06/01/20 15:30 Lymph # (Auto) 1.8 K/mm3 (1.2-5.4) 06/01/20 15:30 Snyder # (Auto) 1.3 K/mm3 (0.0-0.8) H 06/01/20 15:30 Eos # (Auto) 0.1 K/mm3 (0.0-0.4) 06/01/20 15:30 Baso # (Auto) 0.0 K/mm3 (0.0-0.1) 06/01/20 15:30 Add Manual Diff Complete 05/23/20 14:22 Total Counted 100 05/23/20 14:22 Seg Neutrophils % 68.8 % (40.0-70.0) 06/01/20 15:30 Seg Neuts % (Manual) 63.0 % (40.0-70.0) 05/23/20 14:22 Band Neutrophils % 0 % 05/23/20 14:22 Lymphocytes % (Manual) 24.0 % (13.4-35.0) 05/23/20 14:22 Reactive Lymphs % (Man) 0 % 05/23/20 14:22 Monocytes % (Manual) 9.0 % (0.0-7.3) H 05/23/20 14:22 Eosinophils % (Manual) 3.0 % (0.0-4.3) 05/23/20 14:22 Basophils % (Manual) 1.0 % (0.0-1.8) 05/23/20 14:22 Metamyelocytes % 0 % 05/23/20 14:22 Myelocytes % 0 % 05/23/20 14:22 Promyelocytes % 0 % 05/23/20 14:22 Blast Cells % 0 % 05/23/20 14:22 Nucleated RBC % Not Reportable 05/23/20 14:22 Seg Neutrophils # 7.1 K/mm3 (1.8-7.7) 06/01/20 15:30 Seg Neutrophils # Man 6.6 K/mm3 (1.8-7.7) 05/23/20 14:22 Band Neutrophils # 0.0 K/mm3 05/23/20 14:22 Lymphocytes # (Manual) 2.5 K/mm3 (1.2-5.4) 05/23/20 14:22 Abs React Lymphs (Man) 0.0 K/mm3 05/23/20 14:22 Monocytes # (Manual) 0.9 K/mm3 (0.0-0.8) H 05/23/20 14:22 Eosinophils # (Manual) 0.3 K/mm3 (0.0-0.4) 05/23/20 14:22 Basophils # (Manual) 0.1 K/mm3 (0.0-0.1) 05/23/20 14:22 Metamyelocytes # 0.0 K/mm3 05/23/20 14:22 Myelocytes # 0.0 K/mm3 05/23/20 14:22 Promyelocytes # 0.0 K/mm3 05/23/20 14:22 Blast Cells # 0.0 K/mm3 05/23/20 14:22 WBC Morphology Not Reportable 05/23/20 14:22 Hypersegmented Neuts Not Reportable 05/23/20 14:22 Hyposegmented Neuts Not Reportable 05/23/20 14:22 Hypogranular Neuts Not Reportable 05/23/20 14:22 Smudge Cells Not Reportable 05/23/20 14:22 Toxic Granulation Not Reportable 05/23/20 14:22 Toxic Vacuolation Not Reportable 05/23/20 14:22 Dohle Bodies Not Reportable 05/23/20 14:22 Pelger-Huet Anomaly Not Reportable 05/23/20 14:22 Henrique Rods Not Reportable 05/23/20 14:22 Platelet Estimate Not Reportable 05/23/20 14:22 Clumped Platelets Not Reportable 05/23/20 14:22 Plt Clumps, EDTA Not Reportable 05/23/20 14:22 Large Platelets Not Reportable 05/23/20 14:22 Giant Platelets Not Reportable 05/23/20 14:22 Platelet Satelliting Not Reportable 05/23/20 14:22 Plt Morphology Comment Not Reportable 05/23/20 14:22 RBC Morphology Normal 05/23/20 14:22 Dimorphic RBCs Not Reportable 05/23/20 14:22 Polychromasia Not Reportable 05/23/20 14:22 Hypochromasia Not Reportable 05/23/20 14:22 Poikilocytosis Not Reportable 05/23/20 14:22 Anisocytosis Not Reportable 05/23/20 14:22 Microcytosis Not Reportable 05/23/20 14:22 Macrocytosis Not Reportable 05/23/20 14:22 Spherocytes Not Reportable 05/23/20 14:22 Pappenheimer Bodies Not Reportable 05/23/20 14:22 Sickle Cells Not Reportable 05/23/20 14:22 Target Cells Not Reportable 05/23/20 14:22 Tear Drop Cells Not Reportable 05/23/20 14:22 Ovalocytes Not Reportable 05/23/20 14:22 Helmet Cells Not Reportable 05/23/20 14:22 [place] Bodies Not Reportable 05/23/20 14:22 Squires Rings Not Reportable 05/23/20 14:22 [place] Cells Not Reportable 05/23/20 14:22 Bite Cells Not Reportable 05/23/20 14:22 Crenated Cell Not Reportable 05/23/20 14:22 Elliptocytes Not Reportable 05/23/20 14:22 Acanthocytes (Spur) Not Reportable 05/23/20 14:22 Rouleaux Not Reportable 05/23/20 14:22 Hemoglobin C Crystals Not Reportable 05/23/20 14:22 Schistocytes Not Reportable 05/23/20 14:22 Malaria parasites Not Reportable 05/23/20 14:22 Jaguar Bodies Not Reportable 05/23/20 14:22 Hem Pathologist Commnt No 05/23/20 14:22 PT 12.2 Sec. (12.2-14.9) 05/30/20 03:20 INR 0.90 (0.87-1.13) 05/30/20 03:20 APTT 23.1 Sec. (24.2-36.6) L 05/30/20 03:20 D-Dimer 1026.65 ng/mlDDU (0-234) H 05/29/20 09:31 Heparin Anti-Xa Level 0.10 U.I./ml (0.3-0.7) L 05/30/20 20:28 ABG pH 7.343 pH Units (7.350-7.450) L 06/01/20 01:46 POC ABG pCO2 71.2 mmHg (32.0-48.0) H 05/28/20 17:59 ABG pCO2 60.5 mm Hg 06/01/20 01:46 POC ABG pO2 66.0 mmHg (83-108) L 05/28/20 17:59 ABG pO2 78.4 mm Hg (80.0-90.0) L 06/01/20 01:46 POC ABG HCO3 33.6 05/28/20 17:59 ABG HCO3 32.1 mmol/L (20.0-26.0) H 06/01/20 01:46 ABG O2 Saturation 95.7 % (95.0-99.0) 06/01/20 01:46 ABG O2 Content 18.7 (0.0-44) 06/01/20 01:46 POC ABG Base Excess 4.2 05/28/20 17:59 ABG Base Excess 4.6 mmol/L (-2.0-3.0) H 06/01/20 01:46 ABG Hemoglobin 14.1 gm/dl (14.0-18.0) 06/01/20 01:46 ABG Carboxyhemoglobin 1.4 % (0.0-5.0) 06/01/20 01:46 ABG Methemoglobin 0.4 % (0.0-1.5) 06/01/20 01:46 ABG Sodium 137.2 mmol/L (136.0-145.0) 05/28/20 17:59 ABG Potassium 4.8 mmol/L (3.40-4.50) H 05/28/20 17:59 ABG Chloride 95.0 mmol/L (98-107) L 05/28/20 17:59 ABG Glucose 152 mg/dL (65-95) H 05/28/20 17:59 Oxyhemoglobin 94.1 % (95.0-99.0) L 06/01/20 01:46 FiO2 50 % 06/01/20 01:46 Sodium 143 mmol/L (137-145) 06/01/20 15:30 Potassium 4.0 mmol/L (3.6-5.0) 06/01/20 15:30 Chloride 100.5 mmol/L (98-107) 06/01/20 15:30 Carbon Dioxide 31 mmol/L (22-30) H 06/01/20 15:30 Anion Gap 16 mmol/L 06/01/20 15:30 BUN 16 mg/dL (9-20) 06/01/20 15:30 Creatinine 0.7 mg/dL (0.8-1.3) L 06/01/20 15:30 Estimated GFR > 60 ml/min 06/01/20 15:30 BUN/Creatinine Ratio 23 % 06/01/20 15:30 Glucose 139 mg/dL (75-100) H 06/01/20 15:30 POC Glucose 133 mg/dL (70-105) H 06/06/20 09:06 Hemoglobin A1c 9.3 % (4-6) H 05/26/20 14:42 Calcium 9.2 mg/dL (8.4-10.2) 06/01/20 15:30 Magnesium 2.60 mg/dL (1.7-2.3) H 05/28/20 14:24 Ferritin 33.3 ng/mL (30.0-300.0) 05/23/20 18:43 Total Bilirubin 0.70 mg/dL (0.1-1.2) 06/01/20 15:30 AST 61 units/L (5-40) H 06/01/20 15:30 ALT 77 units/L (7-56) H 06/01/20 15:30 Alkaline Phosphatase 56 units/L (35-129) 06/01/20 15:30 Ammonia 92.0 umol/L (25-60) H 05/28/20 14:24 Lactate Dehydrogenase 289 units/L (91-180) H 05/23/20 18:43 Troponin T < 0.010 ng/mL (0.00-0.029) 05/23/20 16:12 C-Reactive Protein 0.30 mg/dL (0.00-1.30) 05/23/20 18:43 NT-Pro-B Natriuret Pep 7.67 pg/mL (0-450) 05/29/20 09:31 Total Protein 6.1 g/dL (6.3-8.2) L 06/01/20 15:30 Albumin 4.0 g/dL (3.9-5) 06/01/20 15:30 Albumin/Globulin Ratio 1.9 % 06/01/20 15:30 Procalcitonin < 0.05 ng/mL (<0.15) 05/27/20 07:30 Arterial Blood Glucose 152 mg/dL (65-95) H 05/28/20 17:59 Arterial Blood Ionized Calcium 5.1 mg/dL (4.6-5.3) 05/28/20 17:59 Coronavirus (PCR) Negative (Negative) 05/24/20 10:23 - Diagnostic Impressions Diagnostic Impressions: Echocardiogram 05/30/20 21:59 Transthoracic Echocardiogram Indication: SOB BP: 156/91 HR: 110 Conclusions *The study quality is technically difficult. *Global left ventricular systolic function is normal. *The estimated ejection fraction is 60-65%. *There is trace of mitral regurgitation. *There is trace tricuspid regurgitation. Findings Procedure Info: The study quality is technically difficult. Left Ventricle: The left ventricular chamber size is normal. There is no left ventricular hypertrophy. Global left ventricular systolic function is normal. The estimated ejection fraction is 60-65%. Left Atrium: The left atrial chamber size is normal. Right Ventricle: The right ventricle is slightly dilated. Right Atrium: The right atrial cavity size is normal. Aortic Valve: The aortic valve is trileaflet. There is no evidence of aortic regurgitation. There is no evidence of aortic stenosis. Mitral Valve: The mitral valve leaflets appear normal. There is trace of mitral regurgitation. There is no evidence of mitral stenosis. Tricuspid Valve: There is trace tricuspid regurgitation. No pulmonary hypertension is noted. Pulmonic Valve: There is no evidence of pulmonic regurgitation. Pericardium: There is no pericardial effusion. Aorta: There is no dilatation of the aortic root. Venous: The inferior vena cava appears normal in size. Measurements Chambers 2D Name Value Normal Range IVSd (2D) 1.34 cm (0.6 - 1.1) LVPWd (2D) 1.28 cm (0.6 - 1.1) LVIDd (2D) 4.21 cm (3.7 - 5.6) LVIDs (2D) 2.52 cm (2 - 3.8) LV FS (2D) 40.2 % - EF Teichholz (2D) 71.26 % - Ao root diameter (2D) 3.35 cm (2 - 3.7) Diastolic/Systolic Function Name Value Normal Range MV E-wave Vmax 0.67 m/sec - MV deceleration time 175.89 msec - MV A-wave Vmax 0.79 m/sec - MV E:A ratio 0.85 ratio - Aortic Valve Name Value Normal Range AV Vmax 1.42 m/sec - AV VTI 24.7 cm - AV peak gradient 8.08 mmHg - AV mean gradient 5.01 mmHg - LVOT diameter 2.03 cm - LVOT Vmax 1.14 m/sec - LVOT VTI 21.68 cm - LVOT peak gradient 5.15 mmHg - LVOT mean gradient 3.33 mmHg - SV LVOT 69.89 ml - BOB (continuity Vmax) 2.57 cm2 - BOB (continuity VTI) 2.83 cm2 - Pulmonic Valve/Qp:Qs Name Value Normal Range PV Vmax 1.01 m/sec - PV peak gradient 4.1 mmHg - PV acceleration time 87.54 msec - Urias/IV: Voiding Method Condom Catheter IV Catheter Type [Right Peripheral IV Forearm] IV Catheter Type [Left Hand] Peripheral IV IV Catheter Type [Left Forearm INT / Saline Lock ] IV Catheter Type [Right Upper INT / Saline Lock arm] IV Catheter Type [Left Upper INT / Saline Lock arm] Active Medications - Current Medications Current Medications: Generic Name Dose Route Start Last Admin Trade Name Freq PRN Reason Stop Dose Admin Acetaminophen 650 mg 05/23/20 18:21 06/04/20 23:40 Tylenol PO 650 mg Q4H PRN Administration Pain MILD(1-3)/Fever >100.5/RENE Apixaban 10 mg 06/01/20 22:00 06/05/20 21:36 Eliquis PO 06/08/20 10:01 10 mg Q12HR NADJA Administration Protocol Apixaban 5 mg 06/08/20 22:00 Eliquis PO Q12HR NADJA Protocol Divalproex Sodium 500 mg 05/30/20 10:00 06/05/20 09:30 Depakote Er PO 500 mg QDAY NADJA Administration Haloperidol Lactate 5 mg 06/01/20 14:00 06/05/20 08:31 Haldol IV 5 mg Q6H PRN Administration Agitation Hydralazine HCl 25 mg 06/01/20 14:00 06/06/20 06:01 Apresoline PO 25 mg Q8HR NADJA Administration Insulin Human Regular 0 unit 05/26/20 07:30 06/05/20 22:00 Humulin R SUB-Q Not Given ACHS NADJA Protocol Labetalol HCl 10 mg 06/01/20 11:51 06/04/20 17:39 Labetalol IV 10 mg Q4HR PRN Administration SBP> 150 Lactulose 20 gm 05/28/20 18:00 06/06/20 06:01 Cephulac PO 20 gm Q12H NADJA Administration Miscellaneous Medication 0 mg 05/31/20 10:00 06/05/20 09:30 Clozapine PO 50 mg QAM NADJA Administration Miscellaneous Medication 0 mg 05/30/20 22:00 06/05/20 21:34 Clozapine PO 100 mg QHS NADJA Administration Olanzapine 2.5 mg 05/29/20 22:00 06/05/20 21:36 Zyprexa PO 2.5 mg BID NADJA Administration Ondansetron HCl 4 mg 05/23/20 18:21 Zofran IV Q8H PRN Nausea And Vomiting Ondansetron HCl 4 mg 05/23/20 18:24 Zofran Odt PO Q8HR PRN Vomiting Sodium Chloride 10 ml 05/23/20 22:00 06/05/20 21:36 Sodium Chloride Flush Syringe 10 Ml IV 10 ml BID NADJA Administration Sodium Chloride 10 ml 05/23/20 18:21 Sodium Chloride Flush Syringe 10 Ml IV PRN PRN LINE FLUSH Trazodone HCl 50 mg 05/29/20 22:00 06/05/20 21:36 Desyrel PO 50 mg QHS NADJA Administration Nutrition/Malnutrition Assess - Dietary Evaluation Nutrition/Malnutrition Findings: Nutrition Notes Start: 05/24/20 14:50 Freq: Status: Active Protocol: Document 05/25/20 13:06 ANGELIKA (Rec: 05/25/20 13:10 ANGELIKA [id number]) Co-Sign 05/25/20 13:06 LM Nutrition Notes Initial or Follow up Brief Note Current Diagnosis Respiratory Failure Other Pertinent Diagnosis SOB, Pneumonia, Bipolar, ADD, Nicotene dependence Current Diet Regular [place] Body Weight (kg) 0 Weight Status Obese Subjective/Other Information F/U for MST and skin risk. Unable to speak with pt via phone d/t pt in restraints. Per RN, pt has good appetite and consuming 100% meals. Pt does not have any wounds. Nutrition Intervention Revisit per MD consult or patient Sign Off request:
[2020-06-06] MEDS: INSULIN REGULAR, HUMAN 100 UNIT/ML 3ML VIAL SUB-Q SCH ×4 (09:13→22:00)
[2020-06-06] MEDS: DIVALPROEX ER 500 MG TAB PO SCH (09:14)
[2020-06-06] MEDS: APIXABAN 5 MG TAB PO SCH ×2 (09:14→21:26)
[2020-06-06] MEDS: CLOZAPINE PO SCH ×2 (09:15→21:27)
[2020-06-06] MEDS: HALOPERIDOL LACTATE 5 MG/1 ML INJ IV PRN ×2 (10:19→21:28)
--- NOTE | 2020-06-06 20:12 | Progress Note ---
Assessment and Plan Imp: 1. Acute bilateral PE 2. Acute respiratory failure, hypoxia 3. 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 A/C respiratory failure, hypercapnea 5. Hepatic steatosis with hepatic/metabolic encephalopathy 6. Atelectasis Rec: 1. Eliquis x 6 months minimum 2. Areas of infiltrate on CTA chest appear to be due to atelectasis 3. Needs continued Psych f/u 4. Outpatient PSG 5. Can go home pulm-oliver assuming O2 sats 88% or > on RA; should f/u with us after d/c in a few weeks Plan of care reviewed w/ patient, he understands/agrees Subjective Date of service: 06/06/20 Principal diagnosis: Acute respiratory failure Interval history: On RA. Denies SOB. No complaints. Active Medications Acetaminophen (Tylenol) 650 mg PO Q4H PRN PRN Reason: Pain MILD(1-3)/Fever >100.5/RENE Last Admin: 06/04/20 23:40 Dose: 650 mg Documented by: Apixaban (Eliquis) 10 mg PO Q12HR [facility]; Protocol Stop: 06/08/20 10:01 Last Admin: 06/06/20 09:14 Dose: 10 mg Documented by: Apixaban (Eliquis) 5 mg PO Q12HR [facility]; Protocol Divalproex Sodium (Depakote Er) 500 mg PO QDAY [facility] Last Admin: 06/06/20 09:14 Dose: 500 mg Documented by: Haloperidol Lactate (Haldol) 5 mg IV Q6H PRN PRN Reason: Agitation Last Admin: 06/06/20 10:19 Dose: 5 mg Documented by: Hydralazine HCl (Apresoline) 25 mg PO Q8HR [facility] Last Admin: 06/06/20 14:49 Dose: 25 mg Documented by: Insulin Human Regular (Humulin R) 0 unit SUB-Q ACHS [facility]; Protocol Last Admin: 06/06/20 16:20 Dose: 1 unit Documented by: Labetalol HCl (Labetalol) 10 mg IV Q4HR PRN PRN Reason: SBP> 150 Last Admin: 06/04/20 17:39 Dose: 10 mg Documented by: Lactulose (Cephulac) 20 gm PO Q12H [facility] Last Admin: 06/06/20 17:47 Dose: 20 gm Documented by: Miscellaneous Medication (Clozapine) 0 mg PO QAM [facility] Last Admin: 06/06/20 09:15 Dose: 50 mg Documented by: Miscellaneous Medication (Clozapine) 0 mg PO QHS [facility] Last Admin: 06/05/20 21:34 Dose: 100 mg Documented by: Olanzapine (Zyprexa) 2.5 mg PO BID [facility] Last Admin: 06/06/20 09:14 Dose: 2.5 mg Documented by: Ondansetron HCl (Zofran) 4 mg IV Q8H PRN PRN Reason: Nausea And Vomiting Ondansetron HCl (Zofran Odt) 4 mg PO Q8HR PRN PRN Reason: Vomiting Sodium Chloride (Sodium Chloride Flush Syringe 10 Ml) 10 ml IV BID [facility] Last Admin: 06/06/20 09:15 Dose: 10 ml Documented by: Sodium Chloride (Sodium Chloride Flush Syringe 10 Ml) 10 ml IV PRN PRN PRN Reason: LINE FLUSH Trazodone HCl (Desyrel) 50 mg PO QHS [facility] Last Admin: 06/05/20 21:36 Dose: 50 mg Documented by: Objective Vital Signs - 12hr 06/06/20 06/06/20 06/06/20 09:00 11:54 12:00 Temperature 97.3 F L Pulse Rate 128 H 131 H Pulse Rate [ 98 H Dorsalis Pedis] Pulse Rate [ 98 H From Monitor] Pulse Rate [ 98 H Radial] Respiratory 24 30 H Rate Blood Pressure 147/84 Blood Pressure [Right] O2 Sat by Pulse 99 90 Oximetry 06/06/20 06/06/20 06/06/20 14:49 15:22 16:00 Temperature 98.3 F Pulse Rate 115 H 136 H 132 H Pulse Rate [ Dorsalis Pedis] Pulse Rate [ From Monitor] Pulse Rate [ Radial] Respiratory 20 Rate Blood Pressure 148/78 140/82 Blood Pressure [Right] O2 Sat by Pulse 92 Oximetry 06/06/20 19:45 Temperature 97.7 F Pulse Rate 116 H Pulse Rate [ Dorsalis Pedis] Pulse Rate [ From Monitor] Pulse Rate [ Radial] Respiratory 19 Rate Blood Pressure Blood Pressure 151/94 [Right] O2 Sat by Pulse 92 Oximetry Constitutional: no acute distress, alert ENT: oropharynx moist Neck: supple Effort: normal Ascultation: Bilateral: clear Cardiovascular: regular rate and rhythm (tachy) Gastrointestinal: normoactive bowel sounds, soft, non-tender, non-distended Integumentary: normal Extremities: no cyanosis, no edema, pink and warm Neurologic: normal mental status, non-focal exam Psychiatric: anxious CBC and BMP: 06/05/20 05:45 06/01/20 15:30 ABG, PT/INR, D-dimer: ABG ABG pH 7.343 pH Units (7.350-7.450) L 06/01/20 01:46 POC ABG pCO2 71.2 mmHg (32.0-48.0) H 05/28/20 17:59 ABG pCO2 60.5 mm Hg 06/01/20 01:46 POC ABG pO2 66.0 mmHg (83-108) L 05/28/20 17:59 ABG pO2 78.4 mm Hg (80.0-90.0) L 06/01/20 01:46 POC ABG HCO3 33.6 05/28/20 17:59 ABG O2 Saturation 95.7 % (95.0-99.0) 06/01/20 01:46 PT/INR, D-dimer PT 12.2 Sec. (12.2-14.9) 05/30/20 03:20 INR 0.90 (0.87-1.13) 05/30/20 03:20 D-Dimer 1026.65 ng/mlDDU (0-234) H 05/29/20 09:31 Abnormal lab findings: Abnormal Labs 05/23/20 05/23/20 05/23/20 14:20 14:22 14:22 WBC RBC Hgb Hct Lymph % (Auto) [place] % (Auto) [place]pton # (Auto) Seg Neutrophils % Monocytes % (Manual) 9.0 H Seg Neutrophils # Monocytes # (Manual) 0.9 H APTT D-Dimer Heparin Anti-Xa Level ABG pH 7.339 L POC ABG pCO2 POC ABG pO2 ABG pO2 49.3 L ABG HCO3 34.1 H ABG O2 Saturation 84.7 L ABG Base Excess 6.1 H ABG Carboxyhemoglobin 8.6 H ABG Potassium ABG Chloride ABG Glucose Oxyhemoglobin 77.0 L Sodium Potassium Chloride 95.9 L Carbon Dioxide 32 H BUN Creatinine 0.6 L Glucose 246 H POC Glucose Hemoglobin A1c Calcium Magnesium AST 48 H ALT 68 H Ammonia Lactate Dehydrogenase Total Protein Arterial Blood Glucose 05/23/20 05/24/20 05/24/20 18:43 05:45 05:45 WBC 13.7 H RBC Hgb Hct Lymph % (Auto) 10.9 L [place]pton % (Auto) [place]pton # (Auto) Seg Neutrophils % 86.0 H Monocytes % (Manual) Seg Neutrophils # 11.8 H Monocytes # (Manual) APTT D-Dimer Heparin Anti-Xa Level ABG pH POC ABG pCO2 POC ABG pO2 ABG pO2 ABG HCO3 ABG O2 Saturation ABG Base Excess ABG Carboxyhemoglobin ABG Potassium ABG Chloride ABG Glucose Oxyhemoglobin Sodium 136 L Potassium 7.8 H* D Chloride 93.6 L Carbon Dioxide BUN Creatinine 0.7 L Glucose 174 H 279 H POC Glucose Hemoglobin A1c Calcium 5.0 L* D Magnesium AST ALT Ammonia Lactate Dehydrogenase 289 H Total Protein Arterial Blood Glucose 05/24/20 05/25/20 05/26/20 09:38 15:01 08:30 WBC RBC Hgb Hct Lymph % (Auto) [place]pton % (Auto) [place]pton # (Auto) Seg Neutrophils % Monocytes % (Manual) Seg Neutrophils # Monocytes # (Manual) APTT D-Dimer Heparin Anti-Xa Level ABG pH POC ABG pCO2 POC ABG pO2 ABG pO2 ABG HCO3 ABG O2 Saturation ABG Base Excess ABG Carboxyhemoglobin ABG Potassium ABG Chloride ABG Glucose Oxyhemoglobin Sodium 136 L Potassium 5.5 H D 5.3 H Chloride 92.7 L 93.3 L Carbon Dioxide 35 H D BUN 22 H Creatinine Glucose 393 H 321 H POC Glucose 207 H Hemoglobin A1c Calcium Magnesium AST ALT Ammonia Lactate Dehydrogenase Total Protein Arterial Blood Glucose 05/26/20 05/26/20 05/26/20 11:32 14:42 14:42 WBC RBC Hgb Hct Lymph % (Auto) [place]pton % (Auto) [place]pton # (Auto) Seg Neutrophils % 77.0 H Monocytes % (Manual) Seg Neutrophils # Monocytes # (Manual) APTT D-Dimer Heparin Anti-Xa Level ABG pH POC ABG pCO2 POC ABG pO2 ABG pO2 ABG HCO3 ABG O2 Saturation ABG Base Excess ABG Carboxyhemoglobin ABG Potassium ABG Chloride ABG Glucose Oxyhemoglobin Sodium Potassium Chloride Carbon Dioxide BUN Creatinine Glucose POC Glucose 169 H Hemoglobin A1c 9.3 H Calcium Magnesium AST ALT Ammonia Lactate Dehydrogenase Total Protein Arterial Blood Glucose 05/26/20 05/26/20 05/27/20 14:42 16:32 10:49 WBC RBC Hgb Hct Lymph % (Auto) [place]pton % (Auto) [place] # (Auto) Seg Neutrophils % Monocytes % (Manual) Seg Neutrophils # Monocytes # (Manual) APTT D-Dimer Heparin Anti-Xa Level ABG pH POC ABG pCO2 POC ABG pO2 ABG pO2 ABG HCO3 ABG O2 Saturation ABG Base Excess ABG Carboxyhemoglobin ABG Potassium ABG Chloride ABG Glucose Oxyhemoglobin Sodium Potassium Chloride 95.8 L Carbon Dioxide 31 H BUN Creatinine Glucose 197 H POC Glucose 192 H 177 H Hemoglobin A1c Calcium Magnesium AST 44 H ALT 63 H Ammonia Lactate Dehydrogenase Total Protein Arterial Blood Glucose 05/27/20 05/27/20 05/28/20 16:28 22:01 08:42 WBC RBC Hgb Hct Lymph % (Auto) [place]pton % (Auto) [place] # (Auto) Seg Neutrophils % Monocytes % (Manual) Seg Neutrophils # Monocytes # (Manual) APTT D-Dimer Heparin Anti-Xa Level ABG pH POC ABG pCO2 POC ABG pO2 ABG pO2 ABG HCO3 ABG O2 Saturation ABG Base Excess ABG Carboxyhemoglobin ABG Potassium ABG Chloride ABG Glucose Oxyhemoglobin Sodium Potassium Chloride Carbon Dioxide BUN Creatinine Glucose POC Glucose 211 H 125 H 117 H Hemoglobin A1c Calcium Magnesium AST ALT Ammonia Lactate Dehydrogenase Total Protein Arterial Blood Glucose 05/28/20 05/28/20 05/28/20 12:30 14:24 14:24 WBC 11.8 H RBC 5.22 H Hgb 15.6 H Hct 47.1 H Lymph % (Auto) Upton % (Auto) [place] # (Auto) Seg Neutrophils % 78.1 H Monocytes % (Manual) Seg Neutrophils # 9.2 H Monocytes # (Manual) APTT D-Dimer Heparin Anti-Xa Level ABG pH POC ABG pCO2 POC ABG pO2 ABG pO2 ABG HCO3 ABG O2 Saturation ABG Base Excess ABG Carboxyhemoglobin ABG Potassium ABG Chloride ABG Glucose Oxyhemoglobin Sodium Potassium 5.2 H Chloride 93.6 L Carbon Dioxide 39 H D BUN Creatinine 0.7 L Glucose 166 H POC Glucose 144 H Hemoglobin A1c Calcium Magnesium 2.60 H AST 108 H ALT 126 H Ammonia Lactate Dehydrogenase Total Protein Arterial Blood Glucose 05/28/20 05/28/20 05/28/20 14:24 16:52 17:59 WBC RBC Hgb Hct Lymph % (Auto) [place]pton % (Auto) [place]pton # (Auto) Seg Neutrophils % Monocytes % (Manual) Seg Neutrophils # Monocytes # (Manual) APTT D-Dimer Heparin Anti-Xa Level ABG pH 7.292 L POC ABG pCO2 71.2 H POC ABG pO2 66.0 L ABG pO2 ABG HCO3 ABG O2 Saturation ABG Base Excess ABG Carboxyhemoglobin ABG Potassium 4.8 H ABG Chloride 95.0 L ABG Glucose 152 H Oxyhemoglobin Sodium Potassium Chloride Carbon Dioxide BUN Creatinine Glucose POC Glucose 166 H Hemoglobin A1c Calcium Magnesium AST ALT Ammonia 92.0 H Lactate Dehydrogenase Total Protein Arterial Blood Glucose 152 H 05/28/20 05/29/20 05/29/20 22:18 08:07 09:31 WBC RBC Hgb Hct Lymph % (Auto) Upton % (Auto) [place]pton # (Auto) Seg Neutrophils % Monocytes % (Manual) Seg Neutrophils # Monocytes # (Manual) APTT D-Dimer 1026.65 H Heparin Anti-Xa Level ABG pH POC ABG pCO2 POC ABG pO2 ABG pO2 ABG HCO3 ABG O2 Saturation ABG Base Excess ABG Carboxyhemoglobin ABG Potassium ABG Chloride ABG Glucose Oxyhemoglobin Sodium Potassium Chloride Carbon Dioxide BUN Creatinine Glucose POC Glucose 141 H 118 H Hemoglobin A1c Calcium Magnesium AST ALT Ammonia Lactate Dehydrogenase Total Protein Arterial Blood Glucose 05/29/20 05/29/20 05/29/20 09:31 09:39 11:42 WBC 12.7 H RBC 5.22 H Hgb 15.7 H Hct 46.7 H Lymph % (Auto) Upton % (Auto) 12.1 H [place]pton # (Auto) 1.5 H Seg Neutrophils % 71.3 H Monocytes % (Manual) Seg Neutrophils # 9.1 H Monocytes # (Manual) APTT D-Dimer Heparin Anti-Xa Level ABG pH POC ABG pCO2 POC ABG pO2 ABG pO2 ABG HCO3 ABG O2 Saturation ABG Base Excess ABG Carboxyhemoglobin ABG Potassium ABG Chloride ABG Glucose Oxyhemoglobin Sodium Potassium Chloride 97.1 L Carbon Dioxide 37 H BUN Creatinine 0.7 L Glucose 142 H POC Glucose 133 H Hemoglobin A1c Calcium Magnesium AST 92 H ALT 114 H Ammonia Lactate Dehydrogenase Total Protein Arterial Blood Glucose 05/29/20 05/30/20 05/30/20 16:48 03:20 03:20 WBC 11.7 H RBC Hgb Hct Lymph % (Auto) Upton % (Auto) 12.1 H [place]pton # (Auto) 1.4 H Seg Neutrophils % 71.4 H Monocytes % (Manual) Seg Neutrophils # 8.4 H Monocytes # (Manual) APTT D-Dimer Heparin Anti-Xa Level ABG pH POC ABG pCO2 POC ABG pO2 ABG pO2 ABG HCO3 ABG O2 Saturation ABG Base Excess ABG Carboxyhemoglobin ABG Potassium ABG Chloride ABG Glucose Oxyhemoglobin Sodium Potassium Chloride Carbon Dioxide 32 H BUN Creatinine 0.7 L Glucose 122 H POC Glucose 112 H Hemoglobin A1c Calcium Magnesium AST 80 H ALT 113 H Ammonia Lactate Dehydrogenase Total Protein Arterial Blood Glucose 05/30/20 05/30/20 05/30/20 03:20 09:01 18:20 WBC RBC Hgb Hct Lymph % (Auto) [place]pton % (Auto) [place] # (Auto) Seg Neutrophils % Monocytes % (Manual) Seg Neutrophils # Monocytes # (Manual) APTT 23.1 L D-Dimer Heparin Anti-Xa Level ABG pH POC ABG pCO2 POC ABG pO2 ABG pO2 ABG HCO3 ABG O2 Saturation ABG Base Excess ABG Carboxyhemoglobin ABG Potassium ABG Chloride ABG Glucose Oxyhemoglobin Sodium Potassium Chloride Carbon Dioxide BUN Creatinine Glucose POC Glucose 124 H 122 H Hemoglobin A1c Calcium Magnesium AST ALT Ammonia Lactate Dehydrogenase Total Protein Arterial Blood Glucose 05/30/20 05/30/20 05/30/20 20:28 21:34 22:40 WBC RBC Hgb Hct Lymph % (Auto) [place]pton % (Auto) [place] # (Auto) Seg Neutrophils % Monocytes % (Manual) Seg Neutrophils # Monocytes # (Manual) APTT D-Dimer Heparin Anti-Xa Level 0.10 L ABG pH 7.311 L POC ABG pCO2 POC ABG pO2 ABG pO2 127.2 H ABG HCO3 34.1 H ABG O2 Saturation ABG Base Excess 5.2 H ABG Carboxyhemoglobin ABG Potassium ABG Chloride ABG Glucose Oxyhemoglobin Sodium Potassium Chloride Carbon Dioxide BUN Creatinine Glucose POC Glucose 143 H Hemoglobin A1c Calcium Magnesium AST ALT Ammonia Lactate Dehydrogenase Total Protein Arterial Blood Glucose 05/31/20 05/31/20 05/31/20 07:55 11:43 16:26 WBC RBC Hgb Hct Lymph % (Auto) [place]pton % (Auto) [place] # (Auto) Seg Neutrophils % Monocytes % (Manual) Seg Neutrophils # Monocytes # (Manual) APTT D-Dimer Heparin Anti-Xa Level ABG pH POC ABG pCO2 POC ABG pO2 ABG pO2 ABG HCO3 ABG O2 Saturation ABG Base Excess ABG Carboxyhemoglobin ABG Potassium ABG Chloride ABG Glucose Oxyhemoglobin Sodium Potassium Chloride Carbon Dioxide BUN Creatinine Glucose POC Glucose 130 H 129 H 112 H Hemoglobin A1c Calcium Magnesium AST ALT Ammonia Lactate Dehydrogenase Total Protein Arterial Blood Glucose 05/31/20 06/01/20 06/01/20 23:26 01:46 08:01 WBC RBC Hgb Hct Lymph % (Auto) [place]pton % (Auto) [place] # (Auto) Seg Neutrophils % Monocytes % (Manual) Seg Neutrophils # Monocytes # (Manual) APTT D-Dimer Heparin Anti-Xa Level ABG pH 7.343 L POC ABG pCO2 POC ABG pO2 ABG pO2 78.4 L ABG HCO3 32.1 H ABG O2 Saturation ABG Base Excess 4.6 H ABG Carboxyhemoglobin ABG Potassium ABG Chloride ABG Glucose Oxyhemoglobin 94.1 L Sodium Potassium Chloride Carbon Dioxide BUN Creatinine Glucose POC Glucose 110 H 130 H Hemoglobin A1c Calcium Magnesium AST ALT Ammonia Lactate Dehydrogenase Total Protein Arterial Blood Glucose 06/01/20 06/01/20 06/01/20 12:04 15:30 15:30 WBC RBC Hgb Hct Lymph % (Auto) [place] % (Auto) 12.8 H [place] # (Auto) 1.3 H Seg Neutrophils % Monocytes % (Manual) Seg Neutrophils # Monocytes # (Manual) APTT D-Dimer Heparin Anti-Xa Level ABG pH POC ABG pCO2 POC ABG pO2 ABG pO2 ABG HCO3 ABG O2 Saturation ABG Base Excess ABG Carboxyhemoglobin ABG Potassium ABG Chloride ABG Glucose Oxyhemoglobin Sodium Potassium Chloride Carbon Dioxide 31 H BUN Creatinine 0.7 L Glucose 139 H POC Glucose 128 H Hemoglobin A1c Calcium Magnesium AST 61 H ALT 77 H Ammonia Lactate Dehydrogenase Total Protein 6.1 L Arterial Blood Glucose 06/02/20 06/02/20 06/02/20 12:16 16:47 21:32 WBC RBC Hgb Hct Lymph % (Auto) [place]pton % (Auto) [place] # (Auto) Seg Neutrophils % Monocytes % (Manual) Seg Neutrophils # Monocytes # (Manual) APTT D-Dimer Heparin Anti-Xa Level ABG pH POC ABG pCO2 POC ABG pO2 ABG pO2 ABG HCO3 ABG O2 Saturation ABG Base Excess ABG Carboxyhemoglobin ABG Potassium ABG Chloride ABG Glucose Oxyhemoglobin Sodium Potassium Chloride Carbon Dioxide BUN Creatinine Glucose POC Glucose 162 H 163 H 118 H Hemoglobin A1c Calcium Magnesium AST ALT Ammonia Lactate Dehydrogenase Total Protein Arterial Blood Glucose 06/03/20 06/03/20 06/03/20 07:22 11:58 16:59 WBC RBC Hgb Hct Lymph % (Auto) [place] % (Auto) [place] # (Auto) Seg Neutrophils % Monocytes % (Manual) Seg Neutrophils # Monocytes # (Manual) APTT D-Dimer Heparin Anti-Xa Level ABG pH POC ABG pCO2 POC ABG pO2 ABG pO2 ABG HCO3 ABG O2 Saturation ABG Base Excess ABG Carboxyhemoglobin ABG Potassium ABG Chloride ABG Glucose Oxyhemoglobin Sodium Potassium Chloride Carbon Dioxide BUN Creatinine Glucose POC Glucose 248 H 136 H 156 H Hemoglobin A1c Calcium Magnesium AST ALT Ammonia Lactate Dehydrogenase Total Protein Arterial Blood Glucose 06/03/20 06/04/20 06/04/20 21:28 07:28 11:33 WBC RBC Hgb Hct Lymph % (Auto) [place] % (Auto) [place] # (Auto) Seg Neutrophils % Monocytes % (Manual) Seg Neutrophils # Monocytes # (Manual) APTT D-Dimer Heparin Anti-Xa Level ABG pH POC ABG pCO2 POC ABG pO2 ABG pO2 ABG HCO3 ABG O2 Saturation ABG Base Excess ABG Carboxyhemoglobin ABG Potassium ABG Chloride ABG Glucose Oxyhemoglobin Sodium Potassium Chloride Carbon Dioxide BUN Creatinine Glucose POC Glucose 142 H 166 H 163 H Hemoglobin A1c Calcium Magnesium AST ALT Ammonia Lactate Dehydrogenase Total Protein Arterial Blood Glucose 06/04/20 06/04/20 06/05/20 16:02 21:36 07:40 WBC RBC Hgb Hct Lymph % (Auto) [place] % (Auto) [place] # (Auto) Seg Neutrophils % Monocytes % (Manual) Seg Neutrophils # Monocytes # (Manual) APTT D-Dimer Heparin Anti-Xa Level ABG pH POC ABG pCO2 POC ABG pO2 ABG pO2 ABG HCO3 ABG O2 Saturation ABG Base Excess ABG Carboxyhemoglobin ABG Potassium ABG Chloride ABG Glucose Oxyhemoglobin Sodium Potassium Chloride Carbon Dioxide BUN Creatinine Glucose POC Glucose 182 H 197 H 155 H Hemoglobin A1c Calcium Magnesium AST ALT Ammonia Lactate Dehydrogenase Total Protein Arterial Blood Glucose 06/05/20 06/05/20 06/05/20 11:55 16:09 22:01 WBC RBC Hgb Hct Lymph % (Auto) [place] % (Auto) [place] # (Auto) Seg Neutrophils % Monocytes % (Manual) Seg Neutrophils # Monocytes # (Manual) APTT D-Dimer Heparin Anti-Xa Level ABG pH POC ABG pCO2 POC ABG pO2 ABG pO2 ABG HCO3 ABG O2 Saturation ABG Base Excess ABG Carboxyhemoglobin ABG Potassium ABG Chloride ABG Glucose Oxyhemoglobin Sodium Potassium Chloride Carbon Dioxide BUN Creatinine Glucose POC Glucose 115 H 163 H 144 H Hemoglobin A1c Calcium Magnesium AST ALT Ammonia Lactate Dehydrogenase Total Protein Arterial Blood Glucose 06/06/20 06/06/20 06/06/20 09:06 11:46 16:33 WBC RBC Hgb Hct Lymph % (Auto) [place] % (Auto) [place] # (Auto) Seg Neutrophils % Monocytes % (Manual) Seg Neutrophils # Monocytes # (Manual) APTT D-Dimer Heparin Anti-Xa Level ABG pH POC ABG pCO2 POC ABG pO2 ABG pO2 ABG HCO3 ABG O2 Saturation ABG Base Excess ABG Carboxyhemoglobin ABG Potassium ABG Chloride ABG Glucose Oxyhemoglobin Sodium Potassium Chloride Carbon Dioxide BUN Creatinine Glucose POC Glucose 133 H 193 H 181 H Hemoglobin A1c Calcium Magnesium AST ALT Ammonia Lactate Dehydrogenase Total Protein Arterial Blood Glucose Chest x-ray: report reviewed, image reviewed
[2020-06-06] MEDS: traZODone 50 MG TAB PO SCH (21:27)
[2020-06-07 05:38] LABS: Hematocrit 40.8 % (35.5-45.6); Hemoglobin 13.8 gm/dl (11.8-15.2)
[2020-06-07] MEDS: LACTULOSE 20 GM/30 ML ORAL LIQD PO SCH (06:40)
[2020-06-07] MEDS: hydrALAZINE 25 MG TAB PO SCH (06:40)
--- NOTE | 2020-06-07 08:51 | Progress Note ---
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 -- Elevated LFTs Monitor for now --Ongoing tobacco use nicotine patch if needed --Morbid obesity; BMI 38.0 Patient needs weight reduction when medically stable Lifestyle changes, diet modification, exercise as tolerated and weight reduction When medically stable --Possible obstructive sleep apnea; needs sleep study as outpatient CPAP/BiPAP at night and as needed -- DVT prophylaxis SCD to bilateral lower extremities while in bed, prophylactic anticoagulation We will closely monitor the patient and adjust management as needed Plan of care reviewed with the patient and his nurse --Full CODE STATUS Restraints for safety 06/03/2020. Patient currently on BiPAP with IPAP 8/EPAP 6 with FiO2 of 50%. Patient is s/p heparin drip,s/p Lovenox, currently on Eliquis 10 mg twice daily for total 7 days, Then 5 mg twice a day. Areas on CTA revealing infiltrates appear to be due to atelectasis. 06/04/2020. Continue to wean O2 as tolerated. Patient currently on 3 L O2 and resting comfortably. Continue Eliquis. PT evaluation 06/05/2020. Patient still requiring BiPAP at night which appears to be predominantly related to AFIA. Patient tolerating 3 L of O2 during the day. I will discuss home O2 and BiPAP with case management for discharge planning. Continue Eliquis. 06/06/2020. Patient refused BiPAP last night but likely needs BiPAP for AFIA/OHS patient currently with 2 L nasal cannula satting at 91%. Case management discussion today regarding home O2 and BiPAP. Continue Eliquis. 06/07/2020; Patient refused BiPAP last night but likely needs BiPAP for AFIA/OHS patient currently with 2 L nasal cannula satting at 91%. Case management discussion today regarding home O2 and BiPAP. Continue Eliquis. History Interval history: 39 YO Male with Bipolar Disorder, Schizophrenia, ADD, Nicotine Dependence present to ED for shortness of breath over the past 2 days with dry cough, generalized weakness, malaise, body aches. Patient found to have a pulse oximetry of 86%, Chest x-ray revealed bilateral pneumonia. Patient initiated on COVID-19 protocol and admitted. negative for COVID, remains agitated, restrained, confused. Elevated D-dimers, CTA chest positive for PE, on Eliquis, lower extremity venous Doppler negative for DVT, schizophrenia acute psychosis, psych evaluated, restraints, food safety officer. COVID-19 testing found to be negative. History Interval history: No issues overnight Hospitalist Physical - Physical exam Narrative exam: Not in cardiopulmonary distress. The patient appeared well nourished and normally developed. Vital signs as documented. Head exam is unremarkable. No scleral icterus . Neck is without jugular venous distension, thyromegaly, or carotid bruits. Lungs are clear to auscultation. Cardiac exam reveals regular rate and Rhythm. Abdominal exam reveals normal bowel sounds, nontender, no organomegaly. Extremities are nonedematous and both femoral and pedal pulses are normal. 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 No focal weakness. - Constitutional Vitals: Temp Pulse Resp BP Pulse Ox 98.7 F 67 20 116/69 93 06/07/20 07:57 06/07/20 07:59 06/07/20 07:57 06/07/20 07:57 06/07/20 07:57 General appearance: Present: no acute distress, well-nourished, obese, other (Patient is screaming and restless) HEART Score - HEART Score Troponin: Troponin T < 0.010 ng/mL (0.00-0.029) 05/23/20 16:12 Results - Labs CBC & Chem 7: 06/07/20 04:42 06/01/20 15:30 Labs: Laboratory Last Values WBC 10.3 K/mm3 (4.5-11.0) 06/01/20 15:30 RBC 4.73 M/mm3 (3.65-5.03) 06/01/20 15:30 Hgb 13.8 gm/dl (11.8-15.2) 06/07/20 04:42 Hct 40.8 % (35.5-45.6) 06/07/20 04:42 MCV 90 fl (84-94) 06/01/20 15:30 MCH 30 pg (28-32) 06/01/20 15:30 MCHC 33 % (32-34) 06/01/20 15:30 RDW 13.7 % (13.2-15.2) 06/01/20 15:30 Plt Count 263 K/mm3 (140-440) 06/07/20 04:42 Lymph % (Auto) 17.3 % (13.4-35.0) 06/01/20 15:30 [place] % (Auto) 12.8 % (0.0-7.3) H 06/01/20 15:30 Eos % (Auto) 0.8 % (0.0-4.3) 06/01/20 15:30 Baso % (Auto) 0.3 % (0.0-1.8) 06/01/20 15:30 Lymph # (Auto) 1.8 K/mm3 (1.2-5.4) 06/01/20 15:30 [place] # (Auto) 1.3 K/mm3 (0.0-0.8) H 06/01/20 15:30 Eos # (Auto) 0.1 K/mm3 (0.0-0.4) 06/01/20 15:30 Baso # (Auto) 0.0 K/mm3 (0.0-0.1) 06/01/20 15:30 Add Manual Diff Complete 05/23/20 14:22 Total Counted 100 05/23/20 14:22 Seg Neutrophils % 68.8 % (40.0-70.0) 06/01/20 15:30 Seg Neuts % (Manual) 63.0 % (40.0-70.0) 05/23/20 14:22 Band Neutrophils % 0 % 05/23/20 14:22 Lymphocytes % (Manual) 24.0 % (13.4-35.0) 05/23/20 14:22 Reactive Lymphs % (Man) 0 % 05/23/20 14:22 Monocytes % (Manual) 9.0 % (0.0-7.3) H 05/23/20 14:22 Eosinophils % (Manual) 3.0 % (0.0-4.3) 05/23/20 14:22 Basophils % (Manual) 1.0 % (0.0-1.8) 05/23/20 14:22 Metamyelocytes % 0 % 05/23/20 14:22 Myelocytes % 0 % 05/23/20 14:22 Promyelocytes % 0 % 05/23/20 14:22 Blast Cells % 0 % 05/23/20 14:22 Nucleated RBC % Not Reportable 05/23/20 14:22 Seg Neutrophils # 7.1 K/mm3 (1.8-7.7) 06/01/20 15:30 Seg Neutrophils # Man 6.6 K/mm3 (1.8-7.7) 05/23/20 14:22 Band Neutrophils # 0.0 K/mm3 05/23/20 14:22 Lymphocytes # (Manual) 2.5 K/mm3 (1.2-5.4) 05/23/20 14:22 Abs React Lymphs (Man) 0.0 K/mm3 05/23/20 14:22 Monocytes # (Manual) 0.9 K/mm3 (0.0-0.8) H 05/23/20 14:22 Eosinophils # (Manual) 0.3 K/mm3 (0.0-0.4) 05/23/20 14:22 Basophils # (Manual) 0.1 K/mm3 (0.0-0.1) 05/23/20 14:22 Metamyelocytes # 0.0 K/mm3 05/23/20 14:22 Myelocytes # 0.0 K/mm3 05/23/20 14:22 Promyelocytes # 0.0 K/mm3 05/23/20 14:22 Blast Cells # 0.0 K/mm3 05/23/20 14:22 WBC Morphology Not Reportable 05/23/20 14:22 Hypersegmented Neuts Not Reportable 05/23/20 14:22 Hyposegmented Neuts Not Reportable 05/23/20 14:22 Hypogranular Neuts Not Reportable 05/23/20 14:22 Smudge Cells Not Reportable 05/23/20 14:22 Toxic Granulation Not Reportable 05/23/20 14:22 Toxic Vacuolation Not Reportable 05/23/20 14:22 Dohle Bodies Not Reportable 05/23/20 14:22 Pelger-Huet Anomaly Not Reportable 05/23/20 14:22 Henrique Rods Not Reportable 05/23/20 14:22 Platelet Estimate Not Reportable 05/23/20 14:22 Clumped Platelets Not Reportable 05/23/20 14:22 Plt Clumps, EDTA Not Reportable 05/23/20 14:22 Large Platelets Not Reportable 05/23/20 14:22 Giant Platelets Not Reportable 05/23/20 14:22 Platelet Satelliting Not Reportable 05/23/20 14:22 Plt Morphology Comment Not Reportable 05/23/20 14:22 RBC Morphology Normal 05/23/20 14:22 Dimorphic RBCs Not Reportable 05/23/20 14:22 Polychromasia Not Reportable 05/23/20 14:22 Hypochromasia Not Reportable 05/23/20 14:22 Poikilocytosis Not Reportable 05/23/20 14:22 Anisocytosis Not Reportable 05/23/20 14:22 Microcytosis Not Reportable 05/23/20 14:22 Macrocytosis Not Reportable 05/23/20 14:22 Spherocytes Not Reportable 05/23/20 14:22 Pappenheimer Bodies Not Reportable 05/23/20 14:22 Sickle Cells Not Reportable 05/23/20 14:22 Target Cells Not Reportable 05/23/20 14:22 Tear Drop Cells Not Reportable 05/23/20 14:22 Ovalocytes Not Reportable 05/23/20 14:22 Helmet Cells Not Reportable 05/23/20 14:22 [place] Bodies Not Reportable 05/23/20 14:22 Eclectic Rings Not Reportable 05/23/20 14:22 Kassie Cells Not Reportable 05/23/20 14:22 Bite Cells Not Reportable 05/23/20 14:22 Crenated Cell Not Reportable 05/23/20 14:22 Elliptocytes Not Reportable 05/23/20 14:22 Acanthocytes (Spur) Not Reportable 05/23/20 14:22 Rouleaux Not Reportable 05/23/20 14:22 Hemoglobin C Crystals Not Reportable 05/23/20 14:22 Schistocytes Not Reportable 05/23/20 14:22 Malaria parasites Not Reportable 05/23/20 14:22 Jaguar Bodies Not Reportable 05/23/20 14:22 Hem Pathologist Commnt No 05/23/20 14:22 PT 12.2 Sec. (12.2-14.9) 05/30/20 03:20 INR 0.90 (0.87-1.13) 05/30/20 03:20 APTT 23.1 Sec. (24.2-36.6) L 05/30/20 03:20 D-Dimer 1026.65 ng/mlDDU (0-234) H 05/29/20 09:31 Heparin Anti-Xa Level 0.10 U.I./ml (0.3-0.7) L 05/30/20 20:28 ABG pH 7.343 pH Units (7.350-7.450) L 06/01/20 01:46 POC ABG pCO2 71.2 mmHg (32.0-48.0) H 05/28/20 17:59 ABG pCO2 60.5 mm Hg 06/01/20 01:46 POC ABG pO2 66.0 mmHg (83-108) L 05/28/20 17:59 ABG pO2 78.4 mm Hg (80.0-90.0) L 06/01/20 01:46 POC ABG HCO3 33.6 05/28/20 17:59 ABG HCO3 32.1 mmol/L (20.0-26.0) H 06/01/20 01:46 ABG O2 Saturation 95.7 % (95.0-99.0) 06/01/20 01:46 ABG O2 Content 18.7 (0.0-44) 06/01/20 01:46 POC ABG Base Excess 4.2 05/28/20 17:59 ABG Base Excess 4.6 mmol/L (-2.0-3.0) H 06/01/20 01:46 ABG Hemoglobin 14.1 gm/dl (14.0-18.0) 06/01/20 01:46 ABG Carboxyhemoglobin 1.4 % (0.0-5.0) 06/01/20 01:46 ABG Methemoglobin 0.4 % (0.0-1.5) 06/01/20 01:46 ABG Sodium 137.2 mmol/L (136.0-145.0) 05/28/20 17:59 ABG Potassium 4.8 mmol/L (3.40-4.50) H 05/28/20 17:59 ABG Chloride 95.0 mmol/L (98-107) L 05/28/20 17:59 ABG Glucose 152 mg/dL (65-95) H 05/28/20 17:59 Oxyhemoglobin 94.1 % (95.0-99.0) L 06/01/20 01:46 FiO2 50 % 06/01/20 01:46 Sodium 143 mmol/L (137-145) 06/01/20 15:30 Potassium 4.0 mmol/L (3.6-5.0) 06/01/20 15:30 Chloride 100.5 mmol/L (98-107) 06/01/20 15:30 Carbon Dioxide 31 mmol/L (22-30) H 06/01/20 15:30 Anion Gap 16 mmol/L 06/01/20 15:30 BUN 16 mg/dL (9-20) 06/01/20 15:30 Creatinine 0.7 mg/dL (0.8-1.3) L 06/01/20 15:30 Estimated GFR > 60 ml/min 06/01/20 15:30 BUN/Creatinine Ratio 23 % 06/01/20 15:30 Glucose 139 mg/dL (75-100) H 06/01/20 15:30 POC Glucose 205 mg/dL (70-105) H 06/07/20 07:37 Hemoglobin A1c 9.3 % (4-6) H 05/26/20 14:42 Calcium 9.2 mg/dL (8.4-10.2) 06/01/20 15:30 Magnesium 2.60 mg/dL (1.7-2.3) H 05/28/20 14:24 Ferritin 33.3 ng/mL (30.0-300.0) 05/23/20 18:43 Total Bilirubin 0.70 mg/dL (0.1-1.2) 06/01/20 15:30 AST 61 units/L (5-40) H 06/01/20 15:30 ALT 77 units/L (7-56) H 06/01/20 15:30 Alkaline Phosphatase 56 units/L (35-129) 06/01/20 15:30 Ammonia 92.0 umol/L (25-60) H 05/28/20 14:24 Lactate Dehydrogenase 289 units/L (91-180) H 05/23/20 18:43 Troponin T < 0.010 ng/mL (0.00-0.029) 05/23/20 16:12 C-Reactive Protein 0.30 mg/dL (0.00-1.30) 05/23/20 18:43 NT-Pro-B Natriuret Pep 7.67 pg/mL (0-450) 05/29/20 09:31 Total Protein 6.1 g/dL (6.3-8.2) L 06/01/20 15:30 Albumin 4.0 g/dL (3.9-5) 06/01/20 15:30 Albumin/Globulin Ratio 1.9 % 06/01/20 15:30 Procalcitonin < 0.05 ng/mL (<0.15) 05/27/20 07:30 Arterial Blood Glucose 152 mg/dL (65-95) H 05/28/20 17:59 Arterial Blood Ionized Calcium 5.1 mg/dL (4.6-5.3) 05/28/20 17:59 Coronavirus (PCR) Negative (Negative) 05/24/20 10:23 - Diagnostic Impressions Diagnostic Impressions: Echocardiogram 05/30/20 21:59 Transthoracic Echocardiogram Indication: SOB BP: 156/91 HR: 110 Conclusions *The study quality is technically difficult. *Global left ventricular systolic function is normal. *The estimated ejection fraction is 60-65%. *There is trace of mitral regurgitation. *There is trace tricuspid regurgitation. Findings Procedure Info: The study quality is technically difficult. Left Ventricle: The left ventricular chamber size is normal. There is no left ventricular hypertrophy. Global left ventricular systolic function is normal. The estimated ejection fraction is 60-65%. Left Atrium: The left atrial chamber size is normal. Right Ventricle: The right ventricle is slightly dilated. Right Atrium: The right atrial cavity size is normal. Aortic Valve: The aortic valve is trileaflet. There is no evidence of aortic regurgitation. There is no evidence of aortic stenosis. Mitral Valve: The mitral valve leaflets appear normal. There is trace of mitral regurgitation. There is no evidence of mitral stenosis. Tricuspid Valve: There is trace tricuspid regurgitation. No pulmonary hypertension is noted. Pulmonic Valve: There is no evidence of pulmonic regurgitation. Pericardium: There is no pericardial effusion. Aorta: There is no dilatation of the aortic root. Venous: The inferior vena cava appears normal in size. Measurements Chambers 2D Name Value Normal Range IVSd (2D) 1.34 cm (0.6 - 1.1) LVPWd (2D) 1.28 cm (0.6 - 1.1) LVIDd (2D) 4.21 cm (3.7 - 5.6) LVIDs (2D) 2.52 cm (2 - 3.8) LV FS (2D) 40.2 % - EF Teichholz (2D) 71.26 % - Ao root diameter (2D) 3.35 cm (2 - 3.7) Diastolic/Systolic Function Name Value Normal Range MV E-wave Vmax 0.67 m/sec - MV deceleration time 175.89 msec - MV A-wave Vmax 0.79 m/sec - MV E:A ratio 0.85 ratio - Aortic Valve Name Value Normal Range AV Vmax 1.42 m/sec - AV VTI 24.7 cm - AV peak gradient 8.08 mmHg - AV mean gradient 5.01 mmHg - LVOT diameter 2.03 cm - LVOT Vmax 1.14 m/sec - LVOT VTI 21.68 cm - LVOT peak gradient 5.15 mmHg - LVOT mean gradient 3.33 mmHg - SV LVOT 69.89 ml - BOB (continuity Vmax) 2.57 cm2 - BOB (continuity VTI) 2.83 cm2 - Pulmonic Valve/Qp:Qs Name Value Normal Range PV Vmax 1.01 m/sec - PV peak gradient 4.1 mmHg - PV acceleration time 87.54 msec - Urias/IV: Voiding Method Toilet IV Catheter Type [Right Peripheral IV Forearm] IV Catheter Type [Left Hand] Peripheral IV IV Catheter Type [Left Forearm INT / Saline Lock ] IV Catheter Type [Right Upper INT / Saline Lock arm] IV Catheter Type [Left Upper INT / Saline Lock arm] Active Medications - Current Medications Current Medications: Generic Name Dose Route Start Last Admin Trade Name Freq PRN Reason Stop Dose Admin Acetaminophen 650 mg 05/23/20 18:21 06/04/20 23:40 Tylenol PO 650 mg Q4H PRN Administration Pain MILD(1-3)/Fever >100.5/RENE Apixaban 10 mg 06/01/20 22:00 06/06/20 21:26 Eliquis PO 06/08/20 10:01 10 mg Q12HR NADJA Administration Protocol Apixaban 5 mg 06/08/20 22:00 Eliquis PO Q12HR NADJA Protocol Divalproex Sodium 500 mg 05/30/20 10:00 06/06/20 09:14 Depakote Er PO 500 mg QDAY NADJA Administration Haloperidol Lactate 5 mg 06/01/20 14:00 06/06/20 21:28 Haldol IV 5 mg Q6H PRN Administration Agitation Hydralazine HCl 25 mg 06/01/20 14:00 06/07/20 06:40 Apresoline PO 25 mg Q8HR NADJA Administration Insulin Human Regular 0 unit 05/26/20 07:30 06/06/20 22:00 Humulin R SUB-Q 1 unit ACHS NADJA Administration Protocol Labetalol HCl 10 mg 06/01/20 11:51 06/04/20 17:39 Labetalol IV 10 mg Q4HR PRN Administration SBP> 150 Lactulose 20 gm 05/28/20 18:00 06/07/20 06:40 Cephulac PO 20 gm Q12H NADJA Administration Miscellaneous Medication 0 mg 05/31/20 10:00 06/06/20 09:15 Clozapine PO 50 mg QAM NADJA Administration Miscellaneous Medication 0 mg 05/30/20 22:00 06/06/20 21:27 Clozapine PO 100 mg QHS NADJA Administration Olanzapine 2.5 mg 05/29/20 22:00 06/06/20 21:27 Zyprexa PO 2.5 mg BID NADJA Administration Ondansetron HCl 4 mg 05/23/20 18:21 Zofran IV Q8H PRN Nausea And Vomiting Ondansetron HCl 4 mg 05/23/20 18:24 Zofran Odt PO Q8HR PRN Vomiting Sodium Chloride 10 ml 05/23/20 22:00 06/06/20 21:27 Sodium Chloride Flush Syringe 10 Ml IV 10 ml BID NADJA Administration Sodium Chloride 10 ml 05/23/20 18:21 Sodium Chloride Flush Syringe 10 Ml IV PRN PRN LINE FLUSH Trazodone HCl 50 mg 05/29/20 22:00 06/06/20 21:27 Desyrel PO 50 mg QHS NADJA Administration Nutrition/Malnutrition Assess - Dietary Evaluation Nutrition/Malnutrition Findings: Nutrition Notes Start: 05/24/20 14:50 Freq: Status: Active Protocol: Document 05/25/20 13:06 AGNELIKA (Rec: 05/25/20 13:10 ANGELIKA [id number]) Co-Sign 05/25/20 13:06 LM Nutrition Notes Initial or Follow up Brief Note Current Diagnosis Respiratory Failure Other Pertinent Diagnosis SOB, Pneumonia, Bipolar, ADD, Nicotene dependence Current Diet Regular [place] Body Weight (kg) 0 Weight Status Obese Subjective/Other Information F/U for MST and skin risk. Unable to speak with pt via phone d/t pt in restraints. Per RN, pt has good appetite and consuming 100% meals. Pt does not have any wounds. Nutrition Intervention Revisit per MD consult or patient Sign Off request:
[2020-06-07] MEDS: INSULIN REGULAR, HUMAN 100 UNIT/ML 3ML VIAL SUB-Q SCH ×2 (09:06→12:11)
[2020-06-07] MEDS: APIXABAN 5 MG TAB PO SCH (09:07)
[2020-06-07] MEDS: DIVALPROEX ER 500 MG TAB PO SCH (09:07)
[2020-06-07] MEDS: CLOZAPINE PO SCH (09:07)
--- NOTE | 2020-06-07 10:22 | Discharge Summary ---
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 Patient found to have a pulse oximetry of 86%, Chest x-ray revealed bilateral pneumonia. Patient initiated on COVID-19 protocol and admitted. negative for COVID, remains agitated, restrained, confused. 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 COVID-19 testing found to be negative. --Acute psychosis /schizophrenia, Bipolar disorder,Delirium with acute psychosis Zyprexa, psych following, Haldol as needed/director product safety --Acute pulmonary embolism; Hypoxic, requiring BiPAP s/p heparin drip,s/p Lovenox Now on Eliquis 10 mg twice daily for total 7 days Then 5 mg twice a day Pulmonary following, supervisor operations OP upon discharge Lower extremity venous Doppler negative for DVT Echo ejection fraction 60 to 65%, RV slightly dilated --Acute hypoxemic hypercapnic respiratory failure On BiPAP, pulmonary critical following CTA chest positive for PE -- Pneumonia/pneumonia ruled out s/p azithromycin till 05/30 Procalcitonin is negative. -- Elevated LFTs Monitor for now --Ongoing tobacco use nicotine patch if needed --Morbid obesity; BMI 38.0 Patient needs weight reduction when medically stable Lifestyle changes, diet modification, exercise as tolerated and weight reduction When medically stable --Possible obstructive sleep apnea; needs sleep study as outpatient CPAP/BiPAP at night and as needed -- DVT prophylaxis SCD to bilateral lower extremities while in bed, prophylactic anticoagulation We will closely monitor the patient and adjust management as needed Plan of care reviewed with the patient and his nurse --Full CODE STATUS Restraints for safety 06/03/2020. Patient currently on BiPAP with IPAP 8/EPAP 6 with FiO2 of 50%. Patient is s/p heparin drip,s/p Lovenox, currently on Eliquis 10 mg twice daily for total 7 days, Then 5 mg twice a day. Areas on CTA revealing infiltrates appear to be due to atelectasis. 06/04/2020. Continue to wean O2 as tolerated. Patient currently on 3 L O2 and resting comfortably. Continue Eliquis. PT evaluation 06/05/2020. Patient still requiring BiPAP at night which appears to be predom inantly related to AFIA. Patient tolerating 3 L of O2 during the day. I will discuss home O2 and BiPAP with case management for discharge planning. Continue Eliquis. 06/06/2020. Patient refused BiPAP last night but likely needs BiPAP for AFIA/OHS patient currently with 2 L nasal cannula satting at 91%. Case management discussion today regarding home O2 and BiPAP. Continue Eliquis. 06/07/2020; Patient was seen and evaluated this morning, patient was saturating and breathing well on room air. patient was ambulating up and down on the pete way with out problems. Patient was calm and cooprative, was seen by psych and recommend no inpatient psych admission. I have discussed with his day care aide and he said his psych meds are refilled recently. patient discharged with eliquis. patient will follow with pulmonary in 2 weeks. Patient was hemodynamically stable at the time of discharge. Disposition: [place]- TO HOME OR SELFCARE Time spent for discharge: 35 minutes - Discharge Diagnoses (1) Pulmonary emboli Status: Acute (2) Acute hypoxemic respiratory failure Status: Acute (3) Bipolar disorder Status: Acute (4) Schizophrenia Status: Acute Core Measure Documentation - Palliative Care Palliative Care/ Comfort Measures: Not Applicable - Core Measures Any of the following diagnoses?: DVT/PE - VTE Discharge Requirements Deep Vein Thrombosis/Pulmonary Embolism Present on Admission: Yes Has pt received <5 days of overlap therapy or INR<2.0: Yes Anticoagulant overlap therapy prescribed at discharge: No Contraindication No Overlap Therapy order at [place]: Not Indicated Exam - Physical Exam Narrative exam: Not in cardiopulmonary distress. The patient appeared well nourished and normally developed. Vital signs as documented. Head exam is unremarkable. No scleral icterus . Neck is without jugular venous distension, thyromegaly, or carotid bruits. Lungs are clear to auscultation. Cardiac exam reveals regular rate and Rhythm. Abdominal exam reveals normal bowel sounds, nontender, no organomegaly. Extremities are nonedematous and both femoral and pedal pulses are normal. FAMILY PRACTITIONER: Alert and oriented 3. No focal weakness. - Constitutional Vitals: Temp Pulse Resp BP Pulse Ox 98.7 F 67 20 116/69 93 06/07/20 07:57 06/07/20 07:59 06/07/20 07:57 06/07/20 07:57 06/07/20 07:57 Plan Activity: no restrictions Weight Bearing Status: Full Weight Bearing Diet: regular Additional Instructions: Patient need o/p psych f/u Follow up with: PRIMARY CAREMD [Primary Care Provider] - 3-5 Days ANNMARIE GRAHAM MD [Staff Physician] - 14 Days FRENCH CARRILLO MD [Staff Physician] - 7 Days Prescriptions: Apixaban [Eliquis] 5 mg PO Q12HR #60 tablet
[2020-06-07 11:48] VITALS: BP 138/81
--- NOTE | 2020-06-07 16:08 | Progress Note ---
Assessment and Plan Imp: 1. Acute bilateral PE 2. Acute respiratory failure, hypoxia 3. 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 A/C respiratory failure, hypercapnea 5. Hepatic steatosis with hepatic/metabolic encephalopathy 6. Atelectasis Rec: 1. Eliquis x 6 months minimum 2. Areas of infiltrate on CTA chest appear to be due to atelectasis 3. Needs continued Psych f/u 4. Outpatient PSG 5. Can go home pulm-[facility] assuming O2 sats 88% or > on RA; should f/u with us after d/c in a few weeks Plan of care reviewed w/ patient, he understands/agrees Subjective Date of service: 06/07/20 Principal diagnosis: Acute respiratory failure Interval history: On RA. Denies SOB. No complaints. Objective Vital Signs - 12hr 06/07/20 06/07/20 06/07/20 06:40 07:47 07:57 Temperature 98.7 F Pulse Rate 114 H 111 H Respiratory 20 20 Rate Blood Pressure 125/69 116/69 O2 Sat by Pulse 93 Oximetry 06/07/20 06/07/20 06/07/20 07:59 11:27 11:29 Temperature 98.3 F Pulse Rate 67 121 H 121 H Respiratory 12 Rate Blood Pressure 138/81 O2 Sat by Pulse 92 97 Oximetry 06/07/20 13:46 Temperature Pulse Rate Respiratory Rate Blood Pressure O2 Sat by Pulse 97 Oximetry Constitutional: no acute distress, alert ENT: oropharynx moist Neck: supple Effort: normal Ascultation: Bilateral: clear Cardiovascular: regular rate and rhythm (tachy) Gastrointestinal: normoactive bowel sounds, soft, non-tender, non-distended Integumentary: normal Extremities: no cyanosis, no edema, pink and warm Neurologic: normal mental status, non-focal exam, pupils equal and round, CN II- XII normal Psychiatric: mood appropriate, affect normal CBC and BMP: 06/07/20 04:42 06/01/20 15:30 ABG, PT/INR, D-dimer: ABG ABG pH 7.343 pH Units (7.350-7.450) L 06/01/20 01:46 POC ABG pCO2 71.2 mmHg (32.0-48.0) H 05/28/20 17:59 ABG pCO2 60.5 mm Hg 06/01/20 01:46 POC ABG pO2 66.0 mmHg (83-108) L 05/28/20 17:59 ABG pO2 78.4 mm Hg (80.0-90.0) L 06/01/20 01:46 POC ABG HCO3 33.6 05/28/20 17:59 ABG O2 Saturation 95.7 % (95.0-99.0) 06/01/20 01:46 PT/INR, D-dimer PT 12.2 Sec. (12.2-14.9) 05/30/20 03:20 INR 0.90 (0.87-1.13) 05/30/20 03:20 D-Dimer 1026.65 ng/mlDDU (0-234) H 05/29/20 09:31 Abnormal lab findings: Abnormal Labs 05/23/20 05/23/20 05/23/20 14:20 14:22 14:22 WBC RBC Hgb Hct Lymph % (Auto) Lipscomb % (Auto) Lipscomb # (Auto) Seg Neutrophils % Monocytes % (Manual) 9.0 H Seg Neutrophils # Monocytes # (Manual) 0.9 H APTT D-Dimer Heparin Anti-Xa Level ABG pH 7.339 L POC ABG pCO2 POC ABG pO2 ABG pO2 49.3 L ABG HCO3 34.1 H ABG O2 Saturation 84.7 L ABG Base Excess 6.1 H ABG Carboxyhemoglobin 8.6 H ABG Potassium ABG Chloride ABG Glucose Oxyhemoglobin 77.0 L Sodium Potassium Chloride 95.9 L Carbon Dioxide 32 H BUN Creatinine 0.6 L Glucose 246 H POC Glucose Hemoglobin A1c Calcium Magnesium AST 48 H ALT 68 H Ammonia Lactate Dehydrogenase Total Protein Arterial Blood Glucose 05/23/20 05/24/20 05/24/20 18:43 05:45 05:45 WBC 13.7 H RBC Hgb Hct Lymph % (Auto) 10.9 L Lipscomb % (Auto) Lipscomb # (Auto) Seg Neutrophils % 86.0 H Monocytes % (Manual) Seg Neutrophils # 11.8 H Monocytes # (Manual) APTT D-Dimer Heparin Anti-Xa Level ABG pH POC ABG pCO2 POC ABG pO2 ABG pO2 ABG HCO3 ABG O2 Saturation ABG Base Excess ABG Carboxyhemoglobin ABG Potassium ABG Chloride ABG Glucose Oxyhemoglobin Sodium 136 L Potassium 7.8 H* D Chloride 93.6 L Carbon Dioxide BUN Creatinine 0.7 L Glucose 174 H 279 H POC Glucose Hemoglobin A1c Calcium 5.0 L* D Magnesium AST ALT Ammonia Lactate Dehydrogenase 289 H Total Protein Arterial Blood Glucose 05/24/20 05/25/20 05/26/20 09:38 15:01 08:30 WBC RBC Hgb Hct Lymph % (Auto) Lipscomb % (Auto) [place]comb # (Auto) Seg Neutrophils % Monocytes % (Manual) Seg Neutrophils # Monocytes # (Manual) APTT D-Dimer Heparin Anti-Xa Level ABG pH POC ABG pCO2 POC ABG pO2 ABG pO2 ABG HCO3 ABG O2 Saturation ABG Base Excess ABG Carboxyhemoglobin ABG Potassium ABG Chloride ABG Glucose Oxyhemoglobin Sodium 136 L Potassium 5.5 H D 5.3 H Chloride 92.7 L 93.3 L Carbon Dioxide 35 H D BUN 22 H Creatinine Glucose 393 H 321 H POC Glucose 207 H Hemoglobin A1c Calcium Magnesium AST ALT Ammonia Lactate Dehydrogenase Total Protein Arterial Blood Glucose 05/26/20 05/26/20 05/26/20 11:32 14:42 14:42 WBC RBC Hgb Hct Lymph % (Auto) Lipscomb % (Auto) Lipscomb # (Auto) Seg Neutrophils % 77.0 H Monocytes % (Manual) Seg Neutrophils # Monocytes # (Manual) APTT D-Dimer Heparin Anti-Xa Level ABG pH POC ABG pCO2 POC ABG pO2 ABG pO2 ABG HCO3 ABG O2 Saturation ABG Base Excess ABG Carboxyhemoglobin ABG Potassium ABG Chloride ABG Glucose Oxyhemoglobin Sodium Potassium Chloride Carbon Dioxide BUN Creatinine Glucose POC Glucose 169 H Hemoglobin A1c 9.3 H Calcium Magnesium AST ALT Ammonia Lactate Dehydrogenase Total Protein Arterial Blood Glucose 05/26/20 05/26/20 05/27/20 14:42 16:32 10:49 WBC RBC Hgb Hct Lymph % (Auto) [place]comb % (Auto) [place]comb # (Auto) Seg Neutrophils % Monocytes % (Manual) Seg Neutrophils # Monocytes # (Manual) APTT D-Dimer Heparin Anti-Xa Level ABG pH POC ABG pCO2 POC ABG pO2 ABG pO2 ABG HCO3 ABG O2 Saturation ABG Base Excess ABG Carboxyhemoglobin ABG Potassium ABG Chloride ABG Glucose Oxyhemoglobin Sodium Potassium Chloride 95.8 L Carbon Dioxide 31 H BUN Creatinine Glucose 197 H POC Glucose 192 H 177 H Hemoglobin A1c Calcium Magnesium AST 44 H ALT 63 H Ammonia Lactate Dehydrogenase Total Protein Arterial Blood Glucose 05/27/20 05/27/20 05/28/20 16:28 22:01 08:42 WBC RBC Hgb Hct Lymph % (Auto) [place]comb % (Auto) [place]comb # (Auto) Seg Neutrophils % Monocytes % (Manual) Seg Neutrophils # Monocytes # (Manual) APTT D-Dimer Heparin Anti-Xa Level ABG pH POC ABG pCO2 POC ABG pO2 ABG pO2 ABG HCO3 ABG O2 Saturation ABG Base Excess ABG Carboxyhemoglobin ABG Potassium ABG Chloride ABG Glucose Oxyhemoglobin Sodium Potassium Chloride Carbon Dioxide BUN Creatinine Glucose POC Glucose 211 H 125 H 117 H Hemoglobin A1c Calcium Magnesium AST ALT Ammonia Lactate Dehydrogenase Total Protein Arterial Blood Glucose 05/28/20 05/28/20 05/28/20 12:30 14:24 14:24 WBC 11.8 H RBC 5.22 H Hgb 15.6 H Hct 47.1 H Lymph % (Auto) Lipscomb % (Auto) Lipscomb # (Auto) Seg Neutrophils % 78.1 H Monocytes % (Manual) Seg Neutrophils # 9.2 H Monocytes # (Manual) APTT D-Dimer Heparin Anti-Xa Level ABG pH POC ABG pCO2 POC ABG pO2 ABG pO2 ABG HCO3 ABG O2 Saturation ABG Base Excess ABG Carboxyhemoglobin ABG Potassium ABG Chloride ABG Glucose Oxyhemoglobin Sodium Potassium 5.2 H Chloride 93.6 L Carbon Dioxide 39 H D BUN Creatinine 0.7 L Glucose 166 H POC Glucose 144 H Hemoglobin A1c Calcium Magnesium 2.60 H AST 108 H ALT 126 H Ammonia Lactate Dehydrogenase Total Protein Arterial Blood Glucose 05/28/20 05/28/20 05/28/20 14:24 16:52 17:59 WBC RBC Hgb Hct Lymph % (Auto) Lipscomb % (Auto) [place]comb # (Auto) Seg Neutrophils % Monocytes % (Manual) Seg Neutrophils # Monocytes # (Manual) APTT D-Dimer Heparin Anti-Xa Level ABG pH 7.292 L POC ABG pCO2 71.2 H POC ABG pO2 66.0 L ABG pO2 ABG HCO3 ABG O2 Saturation ABG Base Excess ABG Carboxyhemoglobin ABG Potassium 4.8 H ABG Chloride 95.0 L ABG Glucose 152 H Oxyhemoglobin Sodium Potassium Chloride Carbon Dioxide BUN Creatinine Glucose POC Glucose 166 H Hemoglobin A1c Calcium Magnesium AST ALT Ammonia 92.0 H Lactate Dehydrogenase Total Protein Arterial Blood Glucose 152 H 05/28/20 05/29/20 05/29/20 22:18 08:07 09:31 WBC RBC Hgb Hct Lymph % (Auto) Lipscomb % (Auto) [place]comb # (Auto) Seg Neutrophils % Monocytes % (Manual) Seg Neutrophils # Monocytes # (Manual) APTT D-Dimer 1026.65 H Heparin Anti-Xa Level ABG pH POC ABG pCO2 POC ABG pO2 ABG pO2 ABG HCO3 ABG O2 Saturation ABG Base Excess ABG Carboxyhemoglobin ABG Potassium ABG Chloride ABG Glucose Oxyhemoglobin Sodium Potassium Chloride Carbon Dioxide BUN Creatinine Glucose POC Glucose 141 H 118 H Hemoglobin A1c Calcium Magnesium AST ALT Ammonia Lactate Dehydrogenase Total Protein Arterial Blood Glucose 05/29/20 05/29/20 05/29/20 09:31 09:39 11:42 WBC 12.7 H RBC 5.22 H Hgb 15.7 H Hct 46.7 H Lymph % (Auto) Lipscomb % (Auto) 12.1 H Lipscomb # (Auto) 1.5 H Seg Neutrophils % 71.3 H Monocytes % (Manual) Seg Neutrophils # 9.1 H Monocytes # (Manual) APTT D-Dimer Heparin Anti-Xa Level ABG pH POC ABG pCO2 POC ABG pO2 ABG pO2 ABG HCO3 ABG O2 Saturation ABG Base Excess ABG Carboxyhemoglobin ABG Potassium ABG Chloride ABG Glucose Oxyhemoglobin Sodium Potassium Chloride 97.1 L Carbon Dioxide 37 H BUN Creatinine 0.7 L Glucose 142 H POC Glucose 133 H Hemoglobin A1c Calcium Magnesium AST 92 H ALT 114 H Ammonia Lactate Dehydrogenase Total Protein Arterial Blood Glucose 05/29/20 05/30/20 05/30/20 16:48 03:20 03:20 WBC 11.7 H RBC Hgb Hct Lymph % (Auto) Lipscomb % (Auto) 12.1 H Lipscomb # (Auto) 1.4 H Seg Neutrophils % 71.4 H Monocytes % (Manual) Seg Neutrophils # 8.4 H Monocytes # (Manual) APTT D-Dimer Heparin Anti-Xa Level ABG pH POC ABG pCO2 POC ABG pO2 ABG pO2 ABG HCO3 ABG O2 Saturation ABG Base Excess ABG Carboxyhemoglobin ABG Potassium ABG Chloride ABG Glucose Oxyhemoglobin Sodium Potassium Chloride Carbon Dioxide 32 H BUN Creatinine 0.7 L Glucose 122 H POC Glucose 112 H Hemoglobin A1c Calcium Magnesium AST 80 H ALT 113 H Ammonia Lactate Dehydrogenase Total Protein Arterial Blood Glucose 05/30/20 05/30/20 05/30/20 03:20 09:01 18:20 WBC RBC Hgb Hct Lymph % (Auto) [place]comb % (Auto) [place]comb # (Auto) Seg Neutrophils % Monocytes % (Manual) Seg Neutrophils # Monocytes # (Manual) APTT 23.1 L D-Dimer Heparin Anti-Xa Level ABG pH POC ABG pCO2 POC ABG pO2 ABG pO2 ABG HCO3 ABG O2 Saturation ABG Base Excess ABG Carboxyhemoglobin ABG Potassium ABG Chloride ABG Glucose Oxyhemoglobin Sodium Potassium Chloride Carbon Dioxide BUN Creatinine Glucose POC Glucose 124 H 122 H Hemoglobin A1c Calcium Magnesium AST ALT Ammonia Lactate Dehydrogenase Total Protein Arterial Blood Glucose 05/30/20 05/30/20 05/30/20 20:28 21:34 22:40 WBC RBC Hgb Hct Lymph % (Auto) [place]comb % (Auto) [place]comb # (Auto) Seg Neutrophils % Monocytes % (Manual) Seg Neutrophils # Monocytes # (Manual) APTT D-Dimer Heparin Anti-Xa Level 0.10 L ABG pH 7.311 L POC ABG pCO2 POC ABG pO2 ABG pO2 127.2 H ABG HCO3 34.1 H ABG O2 Saturation ABG Base Excess 5.2 H ABG Carboxyhemoglobin ABG Potassium ABG Chloride ABG Glucose Oxyhemoglobin Sodium Potassium Chloride Carbon Dioxide BUN Creatinine Glucose POC Glucose 143 H Hemoglobin A1c Calcium Magnesium AST ALT Ammonia Lactate Dehydrogenase Total Protein Arterial Blood Glucose 05/31/20 05/31/20 05/31/20 07:55 11:43 16:26 WBC RBC Hgb Hct Lymph % (Auto) [place]comb % (Auto) [place]comb # (Auto) Seg Neutrophils % Monocytes % (Manual) Seg Neutrophils # Monocytes # (Manual) APTT D-Dimer Heparin Anti-Xa Level ABG pH POC ABG pCO2 POC ABG pO2 ABG pO2 ABG HCO3 ABG O2 Saturation ABG Base Excess ABG Carboxyhemoglobin ABG Potassium ABG Chloride ABG Glucose Oxyhemoglobin Sodium Potassium Chloride Carbon Dioxide BUN Creatinine Glucose POC Glucose 130 H 129 H 112 H Hemoglobin A1c Calcium Magnesium AST ALT Ammonia Lactate Dehydrogenase Total Protein Arterial Blood Glucose 05/31/20 06/01/20 06/01/20 23:26 01:46 08:01 WBC RBC Hgb Hct Lymph % (Auto) [place]comb % (Auto) [place]comb # (Auto) Seg Neutrophils % Monocytes % (Manual) Seg Neutrophils # Monocytes # (Manual) APTT D-Dimer Heparin Anti-Xa Level ABG pH 7.343 L POC ABG pCO2 POC ABG pO2 ABG pO2 78.4 L ABG HCO3 32.1 H ABG O2 Saturation ABG Base Excess 4.6 H ABG Carboxyhemoglobin ABG Potassium ABG Chloride ABG Glucose Oxyhemoglobin 94.1 L Sodium Potassium Chloride Carbon Dioxide BUN Creatinine Glucose POC Glucose 110 H 130 H Hemoglobin A1c Calcium Magnesium AST ALT Ammonia Lactate Dehydrogenase Total Protein Arterial Blood Glucose 06/01/20 06/01/20 06/01/20 12:04 15:30 15:30 WBC RBC Hgb Hct Lymph % (Auto) [place]comb % (Auto) 12.8 H Lipscomb # (Auto) 1.3 H Seg Neutrophils % Monocytes % (Manual) Seg Neutrophils # Monocytes # (Manual) APTT D-Dimer Heparin Anti-Xa Level ABG pH POC ABG pCO2 POC ABG pO2 ABG pO2 ABG HCO3 ABG O2 Saturation ABG Base Excess ABG Carboxyhemoglobin ABG Potassium ABG Chloride ABG Glucose Oxyhemoglobin Sodium Potassium Chloride Carbon Dioxide 31 H BUN Creatinine 0.7 L Glucose 139 H POC Glucose 128 H Hemoglobin A1c Calcium Magnesium AST 61 H ALT 77 H Ammonia Lactate Dehydrogenase Total Protein 6.1 L Arterial Blood Glucose 06/02/20 06/02/20 06/02/20 12:16 16:47 21:32 WBC RBC Hgb Hct Lymph % (Auto) [place]comb % (Auto) [place]comb # (Auto) Seg Neutrophils % Monocytes % (Manual) Seg Neutrophils # Monocytes # (Manual) APTT D-Dimer Heparin Anti-Xa Level ABG pH POC ABG pCO2 POC ABG pO2 ABG pO2 ABG HCO3 ABG O2 Saturation ABG Base Excess ABG Carboxyhemoglobin ABG Potassium ABG Chloride ABG Glucose Oxyhemoglobin Sodium Potassium Chloride Carbon Dioxide BUN Creatinine Glucose POC Glucose 162 H 163 H 118 H Hemoglobin A1c Calcium Magnesium AST ALT Ammonia Lactate Dehydrogenase Total Protein Arterial Blood Glucose 06/03/20 06/03/20 06/03/20 07:22 11:58 16:59 WBC RBC Hgb Hct Lymph % (Auto) [place]comb % (Auto) [place]comb # (Auto) Seg Neutrophils % Monocytes % (Manual) Seg Neutrophils # Monocytes # (Manual) APTT D-Dimer Heparin Anti-Xa Level ABG pH POC ABG pCO2 POC ABG pO2 ABG pO2 ABG HCO3 ABG O2 Saturation ABG Base Excess ABG Carboxyhemoglobin ABG Potassium ABG Chloride ABG Glucose Oxyhemoglobin Sodium Potassium Chloride Carbon Dioxide BUN Creatinine Glucose POC Glucose 248 H 136 H 156 H Hemoglobin A1c Calcium Magnesium AST ALT Ammonia Lactate Dehydrogenase Total Protein Arterial Blood Glucose 06/03/20 06/04/20 06/04/20 21:28 07:28 11:33 WBC RBC Hgb Hct Lymph % (Auto) [place]comb % (Auto) [place] # (Auto) Seg Neutrophils % Monocytes % (Manual) Seg Neutrophils # Monocytes # (Manual) APTT D-Dimer Heparin Anti-Xa Level ABG pH POC ABG pCO2 POC ABG pO2 ABG pO2 ABG HCO3 ABG O2 Saturation ABG Base Excess ABG Carboxyhemoglobin ABG Potassium ABG Chloride ABG Glucose Oxyhemoglobin Sodium Potassium Chloride Carbon Dioxide BUN Creatinine Glucose POC Glucose 142 H 166 H 163 H Hemoglobin A1c Calcium Magnesium AST ALT Ammonia Lactate Dehydrogenase Total Protein Arterial Blood Glucose 06/04/20 06/04/20 06/05/20 16:02 21:36 07:40 WBC RBC Hgb Hct Lymph % (Auto) [place]comb % (Auto) [place]comb # (Auto) Seg Neutrophils % Monocytes % (Manual) Seg Neutrophils # Monocytes # (Manual) APTT D-Dimer Heparin Anti-Xa Level ABG pH POC ABG pCO2 POC ABG pO2 ABG pO2 ABG HCO3 ABG O2 Saturation ABG Base Excess ABG Carboxyhemoglobin ABG Potassium ABG Chloride ABG Glucose Oxyhemoglobin Sodium Potassium Chloride Carbon Dioxide BUN Creatinine Glucose POC Glucose 182 H 197 H 155 H Hemoglobin A1c Calcium Magnesium AST ALT Ammonia Lactate Dehydrogenase Total Protein Arterial Blood Glucose 06/05/20 06/05/20 06/05/20 11:55 16:09 22:01 WBC RBC Hgb Hct Lymph % (Auto) [place]comb % (Auto) [place] # (Auto) Seg Neutrophils % Monocytes % (Manual) Seg Neutrophils # Monocytes # (Manual) APTT D-Dimer Heparin Anti-Xa Level ABG pH POC ABG pCO2 POC ABG pO2 ABG pO2 ABG HCO3 ABG O2 Saturation ABG Base Excess ABG Carboxyhemoglobin ABG Potassium ABG Chloride ABG Glucose Oxyhemoglobin Sodium Potassium Chloride Carbon Dioxide BUN Creatinine Glucose POC Glucose 115 H 163 H 144 H Hemoglobin A1c Calcium Magnesium AST ALT Ammonia Lactate Dehydrogenase Total Protein Arterial Blood Glucose 06/06/20 06/06/20 06/06/20 09:06 11:46 16:33 WBC RBC Hgb Hct Lymph % (Auto) [place]comb % (Auto) [place] # (Auto) Seg Neutrophils % Monocytes % (Manual) Seg Neutrophils # Monocytes # (Manual) APTT D-Dimer Heparin Anti-Xa Level ABG pH POC ABG pCO2 POC ABG pO2 ABG pO2 ABG HCO3 ABG O2 Saturation ABG Base Excess ABG Carboxyhemoglobin ABG Potassium ABG Chloride ABG Glucose Oxyhemoglobin Sodium Potassium Chloride Carbon Dioxide BUN Creatinine Glucose POC Glucose 133 H 193 H 181 H Hemoglobin A1c Calcium Magnesium AST ALT Ammonia Lactate Dehydrogenase Total Protein Arterial Blood Glucose 06/06/20 06/07/20 06/07/20 23:46 07:37 11:48 WBC RBC Hgb Hct Lymph % (Auto) [place]comb % (Auto) [place] # (Auto) Seg Neutrophils % Monocytes % (Manual) Seg Neutrophils # Monocytes # (Manual) APTT D-Dimer Heparin Anti-Xa Level ABG pH POC ABG pCO2 POC ABG pO2 ABG pO2 ABG HCO3 ABG O2 Saturation ABG Base Excess ABG Carboxyhemoglobin ABG Potassium ABG Chloride ABG Glucose Oxyhemoglobin Sodium Potassium Chloride Carbon Dioxide BUN Creatinine Glucose POC Glucose 188 H 205 H 171 H Hemoglobin A1c Calcium Magnesium AST ALT Ammonia Lactate Dehydrogenase Total Protein Arterial Blood Glucose Chest x-ray: report reviewed, image reviewed
[2020-06-08] MEDS ORDERED: APIXABAN 5 MG TAB PO SCH (22:00)
== END 2020-06-07 15:51 | disposition home or self-care (01) | DRG 189 ==
LOC: ED 12:04 → 3A 18:22 → CC1 05-30 20:16 → 4A 06-03 20:37
PROVIDERS: ADMIT Internal Medicine; ATTEND Internal Medicine
PROC: 4A033R1 Measurement of Arterial Saturation, Peripheral, Percutaneous Approach (ICD-10-PCS; principal; 2020-05-23)
PROC: 5A09557 Assistance with Respiratory Ventilation, Greater than 96 Consecutive Hours, Continuous Positive Airway Pressure (ICD-10-PCS; 2020-05-28)
DX: J96.21 Acute and chronic respiratory failure with hypoxia (principal); I26.99 Other pulmonary embolism without acute cor pulmonale; G93.41 Metabolic encephalopathy; J98.11 Atelectasis; F17.213 Nicotine dependence, cigarettes, with withdrawal; J96.22 Acute and chronic respiratory failure with hypercapnia; Z20.828 Contact with and (suspected) exposure to other viral communicable diseases; F31.9 Bipolar disorder, unspecified; F20.9 Schizophrenia, unspecified; R41.0 Disorientation, unspecified; R73.9 Hyperglycemia, unspecified; E66.01 Morbid (severe) obesity due to excess calories; Z82.49 Family history of ischemic heart disease and other diseases of the circulatory system; Z79.84 Long term (current) use of oral hypoglycemic drugs; Z68.38 Body mass index [BMI] 38.0-38.9, adult
CPT/HCPCS: 36415; 36600; 71045; 71046; 71250; 71275; 74018; 76700; 80048; 80053; 82040; 82140; 82728; 82803; 82805; 82947; 82962; 83036; 83615; 83735; 83880; 84145; 84484; 85007; 85014; 85018; 85025; 85049; 85379; 85520; 85610; 85730; 86140; 87040; 93005; 93306; 93970; 94660; 94760; 96372; G0378; J0456; J0696; J1630; J1644; J1650; J1815; J2060; J2920; J3486; J7030; J7050; J7512; Q9967; U0003